=== PATIENT | female | born 1945 | race Caucasian/White ===

== ENCOUNTER 2025-04-20 23:08 | Inpatient (IN) ==
[2025-04-21] MEDS: SODIUM CHLORIDE 0.9% 1,000 ML IV SCH
[2025-04-21 00:13] LABS: Hematocrit (blood only) 30.3 % (37.0-47.0); Hemoglobin 10.3 g/dl (12.0-16.0); Mean Corpuscular Hemoglobin 28.4 pg (25.0-34.0); Mean Corpuscular Volume 83.5 fL (80.0-100.0); Platelet Count 278 K/uL (130-400); RDW Standard Deviation 47.9 fL (36.4-46.3); Red Blood Count 3.63 M/uL (4.20-5.40); White Blood Count 73.50 K/ul (4.8-10.8)
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
[2025-04-21 00:32] LABS: Alanine Aminotransferase 14 U/L (7-52); Albumin Globulin Ratio 1.1 (0.9-2); Alkaline Phosphatase 180 U/L (34-104); Anion Gap 10 (3-11); Bilirubin,Total 0.7 mg/dl (0.2-1.0); Blood Urea Nitrogen 15 mg/dl (6-23); Calcium 8.6 mg/dl (8.6-10.3); Carbon Dioxide 24 mmol/L (21-32); Chloride 81 mmol/L (98-107); Globulin 2.7 gm/dl (2.5-4.0); Glucose 158 mg/dl (70-99(Fasting)); Magnesium 1.1 mg/dl (1.7-2.4); Potassium 3.9 mmol/L (3.5-5.1); Sodium 115 mmol/L (136-145); Total Protein 5.8 gm/dl (6.0-8.3)
[2025-04-21 00:43] LABS: Thyroid Stimulating Hormone 0.830 uIu/ml (0.300-4.500)
--- NOTE | 2025-04-21 00:53 | CT Scan Report ---
EXAM: CT head/brain wo con CLINICAL HISTORY: AMS TECHNIQUE: Multiple axial images are obtained from the skull base to the vertex without contrast. CT scan was performed according to ALARA (as low as reasonable achievable). COMPARISON: 03/06/2022 17:05:24 [employer]. FINDINGS: There is cerebral atrophy. No evidence of space occupying lesion, hemorrhage, edema, mass effect, midline shift, extra axial collection, or hydrocephalus is noted. Basal cisterns are symmetric and normal in size and configuration. There are scattered periventricular hypodensities as can be seen with chronic microvascular ischemic changes. The arellano-white matter differentiation is preserved. Visualized paranasal sinuses and mastoid air cells are well aerated. Orbital contents are within normal limits. Bony structures are intact. IMPRESSION: 1. No evidence of acute intracranial abnormality is demonstrated. 2. Chronic microvascular ischemic changes.-stable. 3. Cerebral atrophy.-stable. No other new interval abnormality since prior study. MRI brain is suggested for better evaluation. Electronically signed by Malvin Massey 04-21-2025 12:52 AM
[2025-04-21 00:59] LABS: Immature Granulocytes # (auto) 5.28 K/uL (0.01-0.20); Immature Granulocytes % (auto) 7.2 %; Polychromasia 1+; Tear Drop Cells 1+
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
[2025-04-21 01:28] LABS: Appearance Urine Clear (Clear); Bacteria Urine Automated 4+ (None Seen); Glucose Urine UA Negative (Negative); RBC Urine Automated 0-2 /hpf (0-2)
[2025-04-21] MEDS: MAGNESIUM SULFATE / D5W 1 GM/100 ML BAG IV ONE (01:35)
--- NOTE | 2025-04-21 01:53 | CT Scan Report ---
EXAM: CT abd pelvis wo con CLINICAL HISTORY: L flank pain TECHNIQUE: Contiguous axial images were obtained from the level of the diaphragm to the pubic symphysis without intravenous or oral contrast. Coronal and sagittal reconstructions were likewise performed and indicated to increase the sensitivity for detecting clinically relevant pathology. CT scan was performed according to ALARA (as low as reasonable achievable). COMPARISON: 10/09/2023 09:49:03 STEAM POWER PLANT OPERATOR FINDINGS: Mild bilateral pleural effusion with basal subsegmental collapse of both lower lobes are seen Mild smooth interlobular septal thickening perilesional ground-glass haziness are noted involving bilateral lower lobes- possibility of congestion. Evaluation of the abdominal and pelvic visceral organs is limited without intravenous contrast. The unenhanced liver, spleen, pancreas, and adrenal glands are grossly unremarkable. The gallbladder is distended and shows dense sludge. The kidneys are normal in size and attenuation without obvious calcification. There is no hydronephrosis . Mild bilateral perinephric stranding. The ureters are normal in caliber. No adenopathy or fluid collections are seen. No evidence of focal or diffuse bowel wall thickening or evidence of bowel obstruction is seen. The appendix is visualized in the right lower quadrant and appears within normal limits. The aorta is normal in caliber. The urinary bladder is normal in contour. Pelvic viscera are grossly unremarkable. No aggressive appearing osseous lesions are identified. Multiple small uncomplicated sigmoid colonic diverticulosis Diffuse atherosclerotic calcification is noted involving aorta iliac arteries. Mild free fluid noted in pelvis. Stable small hiatus hernia. Perinephric fat stranding has increased as compared to the prior study. Renal function test correlation is suggested. Suspicious mild peridiverticular fat stranding is noted at the level of distal descending colon, represent early changes of diverticulitis. Fracture of the left ischiopubic ramus is noted with callus formation. This is a new finding. Fracture of the ilio pubic ramus is also noted with adjacent callus formation. This is a new finding. Rest of the findings are unchanged compared to the prior study. IMPRESSION: 1. Mild bilateral pleural effusion with basal subsegmental collapse of both lower lobes are seen -new finding. 2. Mild smooth interlobular septal thickening perilesional ground-glass haziness are noted involving bilateral lower lobes- possibility of congestion.-new finding. 3. Multiple small uncomplicated sigmoid colonic diverticulosis-stable. Suspicious mild peridiverticular fat stranding is noted at the level of distal descending colon, represent early changes of diverticulitis. 4. Mild bilateral perinephric fat stranding-Perinephric fat stranding has increased as compared to the prior study. Renal function test correlation is suggested.. 5. Mild free fluid noted in pelvis-new finding. 6. Stable small hiatus hernia. 7. Fracture of the left ischiopubic ramus is noted with callus formation. This is a new finding. 8. Fracture of the ilio pubic ramus is also noted with adjacent callus formation. This is a new finding. Electronically signed by Malvin Massey 04-21-2025 01:52 AM
--- NOTE | 2025-04-21 01:57 | Critical Care Consultation ---
Date of Consultation April 21, 2025 Assessment & Plan (1) Acute metabolic encephalopathy: (2) Hyponatremia: (3) Leukocytosis: (4) UTI (urinary tract infection): (5) Acute hypoxic respiratory failure: Plan Reason Critically Ill: 79-year-old female admitted to the ICU for severe hyponatremia and hypoxia. In the ICU for correction and monitoring of labs Past medical history: Breast cancer on chemotherapy, dyslipidemia, diabetes type 2 1. Acute hypoxic respiratory failure, atelectasis 2. Sepsis 3. UTI with perinephric fat stranding, concerning for early ascending infection 4. Hyponatremia, likely hypovolemic based on history 5. Acute metabolic encephalopathy, improving 6. Severe leukocytosis i/s/o sepsis, recent Neupogen, low-grade lymphoma 7. Early diverticulitis 8. Clinical dehydration 2/2 lack of PO intake Neuro - [facility] ICU: Negative RASS GOAL 0 History Tylenol PRN pain/fever Cardiac - -- Bilateral pleural effusions with pulmonary edema BNP 875 Continue ASA, statin Hold antihypertensives overnight, reintroduce as clinically feasible (Med rec to be completed) MAP goal > 65mmHg TTE for completeness Admit EKG without acute ischemic changes, QTc WNL Respiratory - -- Acute hypoxic respiratory failure Likely secondary to HFpEF Continue with O2 supplementation to keep oxygen saturation between 90-92% GI - Diet: Fluid restriction SUP: N/A Bowel regimen: Held for now RENAL/LYTES - -- Hyponatremia hypoosmolar Hypervolumic given the pleural effusion, mild ascitic fluid as well as BNP of 875 Serum osmolality 245, urine osmolality 177 Urine sodium 18 TSH 0.83 ENDO - --ICU hypoglycemia protocol Random cortisol within normal limit HEME - -- Breast cancer received round 3 of her chemotherapy with docetaxel and cyclophosphamide on 04/09 and received Neupogen on 04/10 ID - -- UTI with sepsis History of ESBL back in 2020 Continue with meropenem for the time being Procalcitonin 0.07 Broad spectrum coverage with Zosyn for now to cover ESBL and early diverticulitis, de-escalation based on culture data Follow-up blood cultures LINES/TUBES/DRAINS - PIV x1 L chest port DVT PROPHYLAXIS - Enoxaparin I have personally spent 46 minutes of critical care time in the direct management of this patient. This is a life/limb threatening event. This includes time spent evaluating patient, direct bedside care, chart review, placing orders, interpretation of diagnostic studies, discussion with consultants, patient, and family members, as well as other required patient management activities. This time is exclusive of all separately billable procedures, and teaching time and separate from and in addition to any other critical care service time. Thank you for allowing us to participate in the care of this patient. Please refer to my attending physician's documentation for any further recommendations. Supervising Physician Co-Signing Physician Notes I saw and evaluated the patient with CECILY Mckoy-see, and agree with findings and plan as documented in the note. 79-year-old female admitted to the ICU for severe hyponatremia and hypoxia. In the ICU for correction and monitoring of labs Past medical history: Breast cancer on chemotherapy, dyslipidemia, diabetes type 2 At the time of examination patient was saturating 94% on 3 L nasal cannula, I went down to 2 L. Her MAP was in the 80s. She was awake alert oriented and answering all the questions appropriately. Did complain of mild shortness of breath. No chest pain No nausea or vomiting Is not taking any diuretics at home. Has been afebrile Constitutional: No acute distress HEENT: EOMI, PERRLA Respiratory system: Decreased air entry bilaterally, no wheeze, no rhonchi, positive crackles bilaterally CVS: S1-S2 positive, no murmurs or gallops Abdomen: Soft, nontender, nondistended, positive bowel sounds x4 Extremities: +2 pulses bilaterally radialis/ dorsalis pedis, no cyanosis, +1 edema bilateral lower extremity Neuro: Awake alert oriented x3 Psych: Normal mood and affect G/U: No barnett --Prophylaxis VTE: Heparin GI: None Lines: Left subclavian port, pripheral Diet: Cardiac Plan: In/out: +2.1 L, urine output 200 mL Insert Barnett catheter for strict ins and outs. Potassium and magnesium being replaced Given that the patient had ESBL bacteremia 2020 and the urine is dirty, I will change Zosyn to meropenem till be have the cultures back. 100 mL of 3% hypertonic saline will be given to the port. Repeat BMP every 2 hours. Goal is in the next 24 hours sodium no greater than 121. If the sodium does go higher then we will give free water IV +/- DDAVP. I will consider giving Lasix later today based on the trajectory of sodium Leukocytosis could be from infection as well as recent Neupogen. Will get nephrology involved to get their input. Continue with O2 supplementation to keep oxygen saturation between 90-92% I have personally spent 54 minutes of critical care time in the direct management of this patient. This is a life/limb threatening event. This includes time spent evaluating patient, direct bedside care, chart review, placing orders, interpretation of diagnostic studies, discussion with consultants, patient, and family members, as well as other required patient management activities. This time is exclusive of all separately billable procedures, and teaching time and separate from and in addition to any other critical care service time. Please note the above document was generated using voice recognition software. It may contain grammatical, syntax or spelling errors. History of Present Illness Reason for Consultation: Hyponatremia Requesting Physician: Nikko Attending Physician: Nikko History of Present Illness Ms. Mallorie Sparrow is a 79YOF with a history of invasive ductal carcinoma of the breast currently on chemotherapy (last 2 weeks ago), hematuria, urge incontinence, UTI (ESBL), NIDDMII, HTN who presented to [facility] ED the evening of 04/20/2025 due to 2-3 day history of weakness and confusion. Per report, patient received 3rd round of chemotherapy 1 week ago in addition to her Neupogen shot. On arrival to ED patient was afebrile, mildly hypertensive, non-tachycardic. Requiring 4L NC per chart review. Work-up revealed significant leukocytosis with neutrophil predominance, mild GABRIEL, Na 115 (corrected 116), mildly elevated troponin. Procalcitonin WNL. Mg 1.1. UA does appear infected. CXR not formally read, but on my view there is bibasilar atelectasis without infiltrate, mild congestive changes. CTH negative. CT AP pending. She is receiving 1L NSS due to clinical dehydration and awaiting recheck Na. She was admitted to ICU by Dr. El for hyponatremia and further work-up. Patient seen in ED B05. She is AAOx2. No acute distress. Resting comfortably on 4L NC with SpO2 100%. Daughter at bedside providing additional history. 2 or 3 days ago patient developed nausea and vomiting, 1 episode of diarrhea daily. Very limited appetite and PO intake for 3 days. Unable to elicit whether she's had normal urine output or not, she is incontinent at baseline. Per daughter, Mallorie's confusion is significantly improved since arrival to the hospital. She is now able to tell me where she is, the year, the month, and her birthdate. Denies chest pain, headache, vision changes, shortness of breath, URI symptoms, continued nausea, abdominal pain, edema. Allergies Allergy/AdvReac Type Severity Reaction Status Date / Time alendronate sodium Allergy Severe LEGS SWELL Verified 08/09/24 12:56 iodine Allergy Verified 08/09/24 12:56 oxycodone AdvReac Intermediate GI SYMPTOMS Verified 08/09/24 12:56 Home Medications Medication Instructions Recorded Confirmed Type aspirin 81 mg tablet,delayed 81 mg PO DAILY 06/14/21 04/21/25 History release atorvastatin 20 mg tablet 20 mg PO DAILY 06/14/21 04/21/25 History cholecalciferol (vitamin D3) 25 25 mcg PO DAILY 06/14/21 04/21/25 History mcg (1,000 unit) capsule lisinopril 40 mg tablet 40 mg PO DAILY 06/14/21 04/21/25 History turmeric 100 mg-connor 150 1 cap PO DAILY 06/14/21 08/09/24 History mg-olive 50 mg-oreg 150 mg-capryl capsule amoxicillin 500 mg tablet 2,000 mg PO .PRN/UD PRN Prophylaxis 11/21/21 04/21/25 History zinc 50 mg tablet 50 mg PO DAILY 11/21/21 04/21/25 History metformin 500 mg tablet,extended 1,000 mg PO BID 04/20/25 04/21/25 History release 24 hr tramadol 50 mg tablet 50 mg PO UD 04/20/25 04/21/25 History amlodipine 5 mg tablet 5 mg PO DAILY 04/21/25 04/21/25 History lidocaine-prilocaine 2.5 %-2.5 % See Rx Instructions .Route .COMPLEX 04/21/25 04/21/25 History topical cream metoprolol tartrate 50 mg tablet See Rx Instructions .Route .COMPLEX 04/21/25 04/21/25 History ondansetron 8 mg disintegrating 8 mg translingual Q8 PRN Nausea 04/21/25 04/21/25 History tablet And Vomiting prochlorperazine maleate 10 mg 10 mg PO Q6 PRN N/V 04/21/25 04/21/25 History tablet sitagliptin phosphate 100 mg 100 mg PO DAILY 04/21/25 04/21/25 History tablet (Januvia) Patient History Medical History 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) Keratosis, seborrheic Hypertension Chronic diarrhea Borderline hyperlipidemia Benign essential microscopic hematuria Surgical History 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, 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/12/13 History of cataract surgery Bilateral Family History Mother Breast cancer Myocardial infarction Hypertension Grandmother (Maternal) Diabetes Colon cancer Father Myocardial infarction Hypertension Social History Smoking Status: Unknown if ever smoked Hx Alcohol Use: No Hx Substance Use: No Preferred Language: Mongolian Communication Ability: Effective Hearing Ability: Normal Magnetic Doctor Required: No Beliefs That Will Affect Care: None marital status: Current Living Situation: Spouse current occupational status: retired Other Information That Helps Us Care for You: No Feels Safe at Home: Yes Safety Concerns: Feels Safe At This Time Diet: regular Assistive Devices: Denture - Lower, Glasses and Walker Review of Systems Review of Systems: All systems reviewed & are unremarkable except as noted in Subjective Physical Exam Constitutional: well developed, cooperative, comfortable and + overweight; no acute distress Eyes: PERRL, conjunctivae normal, anicteric sclerae ENMT: external ear and nose normal, oropharynx normal Dry MM Neck: trachea midline, no thyromegaly Respiratory: normal respiratory effort Bibasilar faint crackles, diminished at bases, no other adventitious sounds Cardiovascular: RRR, no murmur, no edema L chest port C/D/I Gastrointestinal (Abdomen): normal bowel sounds, soft, nontender, no hepatosplenomegaly Skin: no rashes, warm and dry Neurologic: PERRL, EOMI, accommodation nl, no face palsy, no dysarthria Results & Data Results & Data Vital Signs (Past 12 Hours) Vital Signs Temp Pulse Pulse Resp BP BP Pulse Ox 04/21/25 00:08 67 30 H 151/59 H 94 04/21/25 00:08 67 04/20/25 23:18 36.4 C L 67 20 144/80 H 92 O2 Del Method O2 Flow Rate 04/21/25 00:08 Nasal Cannula 4 04/21/25 00:08 04/20/25 23:18 Room Air Laboratory Results Reviewed Diagnostic Findings Reviewed Medications Administered See [facility] Coding Level of Care Code 84975 CRITICAL CARE 1ST 30-74M Diagnoses Acute metabolic encephalopathy G93.41 Hyponatremia E87.1 Leukocytosis D72.829 UTI (urinary tract infection) N39.0 Acute hypoxic respiratory failure J96.01 Time Spent (min) 46
[2025-04-21] MEDS: CEFEPIME 2000MG 2,000 MG/20 ML SYR IV STA (02:00)
--- NOTE | 2025-04-21 02:30 | XRay Report ---
EXAM: XR chest 1V portable CLINICAL HISTORY: Weakness. TECHNIQUE: An X-ray image of the chest is obtained in PA projection. COMPARISON: CT dated 03/08/2025. Image of radiograph dated 03/24/2025, not available. FINDINGS: The left central venous catheter is seen with its distal tip in the superior vena cava. Pulmonary Parenchyma: Prominent reticulations bilaterally, with haziness in the lower zones. No evidence of consolidation or collapse. Mild bilateral pleural effusions with compressive atelectasis. Heart and Mediastinum: The heart size appears enlarged. Aortic root calcifications are seen. No hilar or mediastinal lymphadenopathy. Bony Thorax: Degenerative changes in the visualized skeleton. Soft Tissues: Soft tissues overlying the chest wall are unremarkable. Overlying chest leads are seen. IMPRESSION: 1. A left central venous catheter is seen with its distal tip in the lower superior vena cava(unchanged). 2. Mild bilateral pleural effusions with compressive atelectasis(new). 3. Prominent reticulations bilaterally, with haziness in the lower zones(new). 4. Imaging appearances may represent possible infective or inflammatory changes. Clinical/lab correlation and follow-up are suggested. Electronically signed by Zachary Srinivasan 04-21-2025 02:28 AM
[2025-04-21 02:39] LABS: Anion Gap 9 (3-11); Blood Urea Nitrogen 14 mg/dl (6-23); Calcium 8.2 mg/dl (8.6-10.3); Carbon Dioxide 24 mmol/L (21-32); Chloride 82 mmol/L (98-107); Glucose 175 mg/dl (70-99(Fasting)); Potassium 3.9 mmol/L (3.5-5.1); Sodium 115 mmol/L (136-145)
[2025-04-21] MEDS ORDERED: MAGNESIUM SULFATE / D5W 1 GM/100 ML BAG IV SCH (03:15)
[2025-04-21] MEDS ORDERED: CARBOHYDRATES FOR HYPOGLYCEMIA PO PRN (03:33)
[2025-04-21] MEDS ORDERED: DEXTROSE 50% 50 ML SYRINGE IV PRN (03:33)
[2025-04-21] MEDS ORDERED: GLUCOSE 10 TAB/TUBE PO PRN (03:33)
[2025-04-21] MEDS ORDERED: GLUCOSE 40% GEL 15 GM TUBE PO PRN (03:33)
[2025-04-21] MEDS ORDERED: GLUCAGON FOR INJ 1 MG VIAL SQ PRN (03:33)
[2025-04-21] MEDS: SODIUM CHLORIDE 0.9% 1,000 ML IV ONE (03:53)
[2025-04-21] MEDS: MAGNESIUM SULFATE / D5W 1 GM/100 ML BAG IV SCH (03:56)
[2025-04-21] MEDS: 4.5GM X1 IV STA (03:57)
[2025-04-21] MEDS: POTASSIUM CHLORIDE / WTR 10 MEQ/100 ML PLCT IV ONE (03:58)
[2025-04-21 06:24] LABS: Alanine Aminotransferase 9.0 U/L (7-52); Alkaline Phosphatase 121.0 U/L (34-104); Anion Gap 6.0 (3-11); Bilirubin,Total 0.6 mg/dl (0.2-1.0); Blood Urea Nitrogen 12.0 mg/dl (6-23); Calcium 7.5 mg/dl (8.6-10.3); Carbon Dioxide 25.0 mmol/L (21-32); Chloride 85.0 mmol/L (98-107); Creatinine Clr Calc Pharmacy 63.2 ml/min; Glucose 201.0 mg/dl (70-99(Fasting)); Magnesium 1.8 mg/dl (1.7-2.4); Potassium 3.8 mmol/L (3.5-5.1); Sodium 116.0 mmol/L (136-145); Total Protein 4.5 gm/dl (6.0-8.3)
--- NOTE | 2025-04-21 06:39 | Communication Note ---
Date of Service: April 21, 2025 Corrected sodium has increased from 116 to 118. Will hold on 3%. Symptoms improving. Defer to Dr. William for continued management. Coding Level of Care Code None
[2025-04-21 07:21] LABS: Hematocrit (blood only) 24.2 % (37.0-47.0); Hemoglobin 8.5 g/dl (12.0-16.0); Mean Corpuscular Hemoglobin 29.0 pg (25.0-34.0); Mean Corpuscular Volume 82.6 fL (80.0-100.0); Platelet Count 229 K/uL (130-400); RDW Standard Deviation 47.1 fL (36.4-46.3); Red Blood Count 2.93 M/uL (4.20-5.40); White Blood Count 53.15 K/ul (4.8-10.8)
[2025-04-21 07:37] LABS: Immature Granulocytes # (auto) 3.52 K/uL (0.01-0.20); Immature Granulocytes % (auto) 6.6 %; Polychromasia 2+; Smudge Cells Present; Tear Drop Cells 1+; Toxic Granulation 3+
[2025-04-21] MEDS ORDERED: STAT IV/IM STA (07:53)
[2025-04-21 08:00] LABS: Hemoglobin A1C 6.6 % (4.5-5.6)
[2025-04-21] MEDS: SODIUM CHLORIDE 3 % 100 ML IV ONE (08:14)
[2025-04-21] MEDS: INSULIN ASPART PER UNIT CHARGE SC SCH (08:14)
[2025-04-21] MEDS: MEROPENEM 500 MG in SYRINGE 0 ML IV SCH ×3 (08:15→20:57)
[2025-04-21] MEDS: ATORVASTATIN 20 MG TAB PO SCH (08:30)
[2025-04-21] MEDS: METOPROLOL TARTRATE 50 MG TAB PO SCH (08:30)
[2025-04-21] MEDS: HEPARIN SOD 5,000 UNIT/0.5 ML VIAL SQ SCH (08:31)
[2025-04-21 08:41] LABS: Triglycerides 128.0 mg/dl (0-150)
[2025-04-21] MEDS ORDERED: PIPERACILLIN/TAZOBACTAM 4.5 GM/100 ML BAG IV SCH (10:00)
[2025-04-21 11:27] LABS: Anion Gap 6.0 (3-11); Blood Urea Nitrogen 11.0 mg/dl (6-23); Calcium 7.8 mg/dl (8.6-10.3); Carbon Dioxide 24.0 mmol/L (21-32); Chloride 88.0 mmol/L (98-107); Creatinine Clr Calc Pharmacy 61.5 ml/min; Glucose 154.0 mg/dl (70-99(Fasting)); Potassium 3.9 mmol/L (3.5-5.1); Sodium 118.0 mmol/L (136-145)
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
[2025-04-21 13:09] LABS: Anion Gap 7.0 (3-11); Blood Urea Nitrogen 11.0 mg/dl (6-23); Calcium 7.8 mg/dl (8.6-10.3); Carbon Dioxide 25.0 mmol/L (21-32); Chloride 87.0 mmol/L (98-107); Creatinine Clr Calc Pharmacy 63.2 ml/min; Glucose 169.0 mg/dl (70-99(Fasting)); Potassium 4.0 mmol/L (3.5-5.1); Sodium 119.0 mmol/L (136-145)
[2025-04-21 14:56] LABS: Anion Gap 7.0 (3-11); Blood Urea Nitrogen 10.0 mg/dl (6-23); Calcium 7.9 mg/dl (8.6-10.3); Carbon Dioxide 25.0 mmol/L (21-32); Chloride 88.0 mmol/L (98-107); Creatinine Clr Calc Pharmacy 62.3 ml/min; Glucose 135.0 mg/dl (70-99(Fasting)); Potassium 4.1 mmol/L (3.5-5.1); Sodium 120.0 mmol/L (136-145)
--- NOTE | 2025-04-21 16:45 | XCELERA ---
[id number]
--- NOTE | 2025-04-21 16:55 | Communication Note ---
Date of Service: April 21, 2025 seen in f/u from early AM admission - doing well overall, awake/alert/oriented/communicative, feels much better vitals noted nad heent nc at mmm breathing unlabored no accessory muscles good effort skin no rashes no pallor or icterus hyponatremia -improving sepsis - UTI, diverticulitis, both? continue current abx, appears improving demand ischemia/type 2 [place] - from physiologic stress from sepsis chronic diastolic CHF / chronic HFpEF - seems compensated, although obviously follow given decompensation could easily be part of hyponatremia appreciate ICU assistance
[2025-04-21 17:20] LABS: Anion Gap 9.0 (3-11); Blood Urea Nitrogen 10.0 mg/dl (6-23); Calcium 8.1 mg/dl (8.6-10.3); Carbon Dioxide 24.0 mmol/L (21-32); Chloride 88.0 mmol/L (98-107); Creatinine Clr Calc Pharmacy 68.0 ml/min; Glucose 150.0 mg/dl (70-99(Fasting)); Potassium 3.9 mmol/L (3.5-5.1); Sodium 121.0 mmol/L (136-145)
[2025-04-21 19:46] LABS: Anion Gap 7.0 (3-11); Blood Urea Nitrogen 10.0 mg/dl (6-23); Calcium 7.8 mg/dl (8.6-10.3); Carbon Dioxide 25.0 mmol/L (21-32); Chloride 89.0 mmol/L (98-107); Creatinine Clr Calc Pharmacy 65.0 ml/min; Glucose 150.0 mg/dl (70-99(Fasting)); Potassium 4.0 mmol/L (3.5-5.1); Sodium 121.0 mmol/L (136-145)
[2025-04-21] MEDS: METOPROLOL TARTRATE 100 MG TAB PO SCH (20:57)
[2025-04-21] MEDS: CALCIUM GLUCONATE 1,000 MG/60 ML BAG IV SCH (23:31)
[2025-04-22 01:16] LABS: Anion Gap 5.0 (3-11); Blood Urea Nitrogen 8.0 mg/dl (6-23); Calcium 8.2 mg/dl (8.6-10.3); Carbon Dioxide 27.0 mmol/L (21-32); Chloride 92.0 mmol/L (98-107); Creatinine Clr Calc Pharmacy 70.1 ml/min; Glucose 113.0 mg/dl (70-99(Fasting)); Potassium 4.0 mmol/L (3.5-5.1); Sodium 124.0 mmol/L (136-145)
[2025-04-22 04:00] LABS: Hematocrit (blood only) 25.7 % (37.0-47.0); Hemoglobin 8.9 g/dl (12.0-16.0); Mean Corpuscular Hemoglobin 29.3 pg (25.0-34.0); Mean Corpuscular Volume 84.5 fL (80.0-100.0); Platelet Count 223 K/uL (130-400); RDW Standard Deviation 49.1 fL (36.4-46.3); Red Blood Count 3.04 M/uL (4.20-5.40); White Blood Count 35.02 K/ul (4.8-10.8)
[2025-04-22 04:12] LABS: Alanine Aminotransferase 9.0 U/L (7-52); Alkaline Phosphatase 120.0 U/L (34-104); Anion Gap 4.0 (3-11); Bilirubin,Total 0.6 mg/dl (0.2-1.0); Blood Urea Nitrogen 8.0 mg/dl (6-23); Calcium 8.0 mg/dl (8.6-10.3); Carbon Dioxide 28.0 mmol/L (21-32); Chloride 94.0 mmol/L (98-107); Creatinine Clr Calc Pharmacy 68.7 ml/min; Glucose 127.0 mg/dl (70-99(Fasting)); Magnesium 1.8 mg/dl (1.7-2.4); Potassium 3.9 mmol/L (3.5-5.1); Sodium 126.0 mmol/L (136-145); Total Protein 4.6 gm/dl (6.0-8.3)
[2025-04-22 04:52] LABS: Immature Granulocytes # (auto) 1.56 K/uL (0.01-0.20); Immature Granulocytes % (auto) 4.5 %; Polychromasia 1+; Smudge Cells Present; Tear Drop Cells 1+; Toxic Granulation 1+
--- NOTE | 2025-04-22 06:00 | Electrocardiogram Report ---
Test Reason : Blood Pressure : */* mmHG Vent. Rate : 66 BPM Atrial Rate : 66 BPM P-R Int : 136 ms QRS Dur : 112 ms QT Int : 480 ms P-R-T Axes : 64 0 -1 degrees QTcB Int : 503 ms Normal sinus rhythm Minimal voltage criteria for LVH, may be normal variant ( Juvenal product ) T wave abnormality, consider anterior ischemia Prolonged QT Abnormal ECG When compared with ECG of 16-Sep-2013 14:30, T wave inversion now evident in Anterior leads QT has lengthened Confirmed by Alvino Talamantes ([id number]) on 04/22/2025 5:59:50 AM Referred By: REFERRED SELF Confirmed By: Alvino Talamantes
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
[2025-04-22] MEDS: DESMOPRESSIN ACETATE 2 MCG in SODIUM CHLORIDE 0.9% 50 ML IV ONE (06:46)
[2025-04-22 08:28] LABS: Anion Gap 5.0 (3-11); Blood Urea Nitrogen 8.0 mg/dl (6-23); Calcium 8.1 mg/dl (8.6-10.3); Carbon Dioxide 28.0 mmol/L (21-32); Chloride 94.0 mmol/L (98-107); Creatinine Clr Calc Pharmacy 60.1 ml/min; Glucose 152.0 mg/dl (70-99(Fasting)); Potassium 4.1 mmol/L (3.5-5.1); Sodium 127.0 mmol/L (136-145)
--- NOTE | 2025-04-22 08:30 | Nephrology Progress Note ---
Date of Service April 22, 2025 Assessment & Plan (1) Hyponatremia: Plan: * Clinically euvolemic to volume expanded * Hold IV hydration * Labs reviewed at 5:30 am. 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 Sensitivities are pending (3) SIRS (systemic inflammatory response syndrome): Plan: * On meropenem Admission and Anticipated Discharge Date Admission Date: April 21, 2025 Subjective Mrs. Sparrow was evaluated in the ICU this morning. She was sitting in a chair and denies HUTCHISON, visual change or focal neurologic weakness. She reported that her breathing has improved and UO has been brisk Review of Systems Constitutional: no fever Eyes: no problem reported Ear, Nose, Mouth, Throat: no problem reported Respiratory: no cough and no dyspnea Cardiovascular: no chest pain Gastrointestinal: no abdominal pain, no nausea, no vomiting and no diarrhea/loose stools Genitourinary: no dysuria and no hematuria Integumentary: no rash Physical Exam Constitutional: not in distress (breathing comfortably on O2 at 3 L/min NC) Eyes: PERRL, conjunctivae normal, anicteric sclerae ENMT: external ear and nose normal, oropharynx normal Neck: trachea midline, no thyromegaly Respiratory: normal respiratory effort, lungs clear to auscultation Cardiovascular: RRR, no murmur, no edema Gastrointestinal (Abdomen): normal bowel sounds, soft, nontender, no hepatosplenomegaly Musculoskeletal: Extremities: no cyanosis Skin: no rashes, warm and dry Neurologic: awake; no focal motor deficits and not confused Results & Data Vital Signs (Past 12 Hours) Vital Signs Temp Pulse Resp BP BP Pulse Ox O2 Del Method 04/22/25 08:00 Nasal Cannula 04/22/25 08:00 04/22/25 08:00 Nasal Cannula, Ambu-Bag 04/22/25 08:00 57 L 04/22/25 06:09 57 L 29 H 96 04/22/25 05:03 58 L 29 H 95 04/22/25 05:02 94/49 L 04/22/25 05:00 55 L 24 94/49 L 96 04/22/25 04:24 56 L 26 H 96 04/22/25 04:04 123/50 L 04/22/25 03:43 111/49 L 04/22/25 03:36 55 L 26 H 91 04/22/25 03:33 04/22/25 03:06 55 L 24 87/34 L 95 04/22/25 02:57 56 L 23 94 04/22/25 02:06 58 L 20 91/39 L 95 04/22/25 01:57 58 L 29 H 95 04/22/25 01:21 59 L 25 H 94 04/22/25 01:00 88/35 L 04/22/25 00:57 59 L 25 H 95 04/22/25 00:30 60 26 H 95 04/22/25 00:01 99/45 L 04/22/25 00:00 63 04/21/25 23:57 59 L 28 H 92 04/21/25 23:12 52 L 25 H 89/45 L 96 04/21/25 22:55 36.9 C 04/21/25 22:54 53 L 20 90/46 L 97 04/21/25 22:34 91/43 L 04/21/25 22:33 52 L 25 H 98 04/21/25 22:00 55 L 22 91/43 L 98 04/21/25 21:09 63 31 H 93 O2 Del Method O2 Flow Rate O2 Flow Rate 04/22/25 08:00 4 04/22/25 08:00 Nasal Cannula 3 04/22/25 08:00 04/22/25 08:00 04/22/25 06:09 04/22/25 05:03 04/22/25 05:02 04/22/25 05:00 04/22/25 04:24 04/22/25 04:04 04/22/25 03:43 04/22/25 03:36 04/22/25 03:33 Nasal Cannula 3 04/22/25 03:06 04/22/25 02:57 04/22/25 02:06 04/22/25 01:57 04/22/25 01:21 04/22/25 01:00 04/22/25 00:57 04/22/25 00:30 04/22/25 00:01 04/22/25 00:00 04/21/25 23:57 04/21/25 23:12 04/21/25 22:55 04/21/25 22:54 04/21/25 22:34 04/21/25 22:33 04/21/25 22:00 04/21/25 21:09 Laboratory Results Laboratory Results - last 24 hr 04/21/25 04/21/25 04/21/25 05:29 10:23 11:19 WBC RBC Hgb Hct MCV MCH MCHC RDW Std Deviation RDW Coeff of Jessica Plt Count MPV Immature Gran % (Auto) Neut % (Auto) Lymph % (Auto) Zavala % (Auto) Eos % (Auto) Baso % (Auto) Neut # (Auto) Lymph # (Auto) Zavala # (Auto) Eos # (Auto) Baso # (Auto) Immature Gran # (Auto) Smudge Cells Toxic Granulation Polychromasia Tear Drop Cells Sodium 118 L* Potassium 3.9 Chloride 88 L Carbon Dioxide 24 Anion Gap 6 BUN 11 Creatinine 0.73 Est Cr Clr Drug Dosing 61.5 eGFR 83.60 BUN/Creatinine Ratio 15.1 Glucose 154 H POC Glucose 184 H Lactate Calcium 7.8 L Ionized Calcium Phosphorus Magnesium Total Bilirubin Direct Bilirubin AST ALT Alkaline Phosphatase Total Protein Albumin Triglycerides 128 Urine Osmolality 04/21/25 04/21/25 04/21/25 12:29 14:29 16:13 WBC RBC Hgb Hct MCV MCH MCHC RDW Std Deviation RDW Coeff of Jessica Plt Count MPV Immature Gran % (Auto) Neut % (Auto) Lymph % (Auto) Zavala % (Auto) Eos % (Auto) Baso % (Auto) Neut # (Auto) Lymph # (Auto) Zavala # (Auto) Eos # (Auto) Baso # (Auto) Immature Gran # (Auto) Smudge Cells Toxic Granulation Polychromasia Tear Drop Cells Sodium 119 L* 120 L Potassium 4.0 4.1 Chloride 87 L 88 L Carbon Dioxide 25 25 Anion Gap 7 7 BUN 11 10 Creatinine 0.71 0.72 Est Cr Clr Drug Dosing 63.2 62.3 eGFR 86.44 85.00 BUN/Creatinine Ratio 15.5 13.9 Glucose 169 H 135 H POC Glucose 163 H Lactate Calcium 7.8 L 7.9 L Ionized Calcium Phosphorus Magnesium Total Bilirubin Direct Bilirubin AST ALT Alkaline Phosphatase Total Protein Albumin Triglycerides Urine Osmolality 04/21/25 04/21/25 04/21/25 16:42 18:30 20:10 WBC RBC Hgb Hct MCV MCH MCHC RDW Std Deviation RDW Coeff of Jessica Plt Count MPV Immature Gran % (Auto) Neut % (Auto) Lymph % (Auto) Zavala % (Auto) Eos % (Auto) Baso % (Auto) Neut # (Auto) Lymph # (Auto) Zavala # (Auto) Eos # (Auto) Baso # (Auto) Immature Gran # (Auto) Smudge Cells Toxic Granulation Polychromasia Tear Drop Cells Sodium 121 L 121 L Potassium 3.9 4.0 Chloride 88 L 89 L Carbon Dioxide 24 25 Anion Gap 9 7 BUN 10 10 Creatinine 0.66 0.69 Est Cr Clr Drug Dosing 68.0 65.0 eGFR 89.18 88.23 BUN/Creatinine Ratio 15.2 14.5 Glucose 150 H 150 H POC Glucose 142 H Lactate Calcium 8.1 L 7.8 L Ionized Calcium Phosphorus Magnesium Total Bilirubin Direct Bilirubin AST ALT Alkaline Phosphatase Total Protein Albumin Triglycerides Urine Osmolality 04/22/25 04/22/25 04/22/25 00:33 03:36 07:13 WBC 35.02 H* RBC 3.04 L Hgb 8.9 L Hct 25.7 L MCV 84.5 MCH 29.3 MCHC 34.6 RDW Std Deviation 49.1 H RDW Coeff of Jessica 16.8 H Plt Count 223 MPV 9.7 Immature Gran % (Auto) 4.5 Neut % (Auto) 72.7 Lymph % (Auto) 19.5 Zavala % (Auto) 3.0 Eos % (Auto) 0.0 Baso % (Auto) 0.3 Neut # (Auto) 25.47 H Lymph # (Auto) 6.84 H Zavala # (Auto) 1.05 H Eos # (Auto) 0.01 Baso # (Auto) 0.09 Immature Gran # (Auto) 1.56 H Smudge Cells Present Toxic Granulation 1+ Polychromasia 1+ Tear Drop Cells 1+ Sodium 124 L 126 L Potassium 4.0 3.9 Chloride 92 L 94 L Carbon Dioxide 27 28 Anion Gap 5 4 BUN 8 8 Creatinine 0.64 0.63 Est Cr Clr Drug Dosing 70.1 68.7 eGFR 89.84 90.18 BUN/Creatinine Ratio 12.5 12.7 Glucose 113 H 127 H POC Glucose 135 H Lactate 0.8 Calcium 8.2 L 8.0 L Ionized Calcium 1.19 Phosphorus 3.5 Magnesium 1.8 Total Bilirubin 0.6 Direct Bilirubin 0.2 AST 12 L ALT 9 Alkaline Phosphatase 120 H Total Protein 4.6 L Albumin 2.7 L Triglycerides Urine Osmolality 04/22/25 04/22/25 08:00 Unknown WBC RBC Hgb Hct MCV MCH MCHC RDW Std Deviation RDW Coeff of Jessica Plt Count MPV Immature Gran % (Auto) Neut % (Auto) Lymph % (Auto) Zavala % (Auto) Eos % (Auto) Baso % (Auto) Neut # (Auto) Lymph # (Auto) Zavala # (Auto) Eos # (Auto) Baso # (Auto) Immature Gran # (Auto) Smudge Cells Toxic Granulation Polychromasia Tear Drop Cells Sodium 127 L Potassium 4.1 Chloride 94 L Carbon Dioxide 28 Anion Gap 5 BUN 8 Creatinine 0.72 Est Cr Clr Drug Dosing 60.1 eGFR 85.00 BUN/Creatinine Ratio 11.1 Glucose 152 H POC Glucose Lactate Calcium 8.1 L Ionized Calcium Phosphorus Magnesium Total Bilirubin Direct Bilirubin AST ALT Alkaline Phosphatase Total Protein Albumin Triglycerides Urine Osmolality 188 L PG Care Time/CCT Total # of Minutes Spent Total Time Spent with Patient: Total time spent is greater than 50% in coordination of care (as documented) at patient's floor/unit and/or counseling patient: Coding Level of Care Code 28448 SUB INP/OBS CARE 3/50MIN Diagnoses Hyponatremia E87.1 UTI (urinary tract infection) N39.0 SIRS (systemic inflammatory response syndrome) R65.10
--- NOTE | 2025-04-22 08:44 | Critical Care Progress Note ---
Date of Service April 22, 2025 Assessment & Plan (1) Acute metabolic encephalopathy: (2) Hyponatremia: (3) Leukocytosis: (4) UTI (urinary tract infection): (5) Acute hypoxic respiratory failure: Plan Reason Critically Ill: 79-year-old female admitted to the ICU for severe hyponatremia and hypoxia. In the ICU for correction and monitoring of labs Past medical history: Breast cancer on chemotherapy, dyslipidemia, diabetes type 2 1. Acute hypoxic respiratory failure, atelectasis 2. Sepsis 3. UTI with perinephric fat stranding, concerning for early ascending infection 4. Hyponatremia, likely hypovolemic based on history 5. Acute metabolic encephalopathy, improving 6. Severe leukocytosis i/s/o sepsis, recent Neupogen, low-grade lymphoma 7. Early diverticulitis 8. Clinical dehydration 2/2 lack of PO intake Neuro - CAM ICU: Negative RASS GOAL 0 History Tylenol PRN pain/fever Cardiac - -- Bilateral pleural effusions with pulmonary edema BNP 875 Continue ASA, statin Hold antihypertensives overnight, reintroduce as clinically feasible (Med rec to be completed) MAP goal > 65mmHg TTE for completeness Admit EKG without acute ischemic changes, QTc WNL Respiratory - -- Acute hypoxic respiratory failure Likely secondary to HFpEF Continue with O2 supplementation to keep oxygen saturation between 90-92% GI - Diet: Fluid restriction SUP: N/A Bowel regimen: Held for now RENAL/LYTES - -- Hyponatremia hypoosmolar Hypervolumic given the pleural effusion, mild ascitic fluid as well as BNP of 875 Serum osmolality 245, urine osmolality 177 Urine sodium 18 TSH 0.83 ENDO - --ICU hypoglycemia protocol Random cortisol within normal limit HEME - -- Breast cancer received round 3 of her chemotherapy with docetaxel and cyclophosphamide on 04/09 and received Neupogen on 04/10 ID - -- UTI with sepsis History of ESBL back in 2020 --> urine culture growing Klebsiella, meropenem changed to cefepime on 04/22/2025 Procalcitonin 0.07 Broad spectrum coverage with Zosyn for now to cover ESBL and early diverticulitis, de-escalation based on culture data Follow-up blood cultures --Prophylaxis VTE: Heparin GI: None Lines: Left subclavian port, pripheral Diet: Cardiac Plan: In/out: -2.5 L, urine output 3921 Magnesium being replaced Given the urine is going Klebsiella, changed meropenem to cefepime There has been slight overcorrection of sodium. Goal was 123 in 24 hours where the patient is 127. She did receive 2 mcg of DDAVP. I will give her 250 mL of D5 water. She is also supposed to get magnesium which is also on D5 water. Will see what the trajectory of the sodium is. If it is not 123 then we will give another DDAVP 2 mcg. Case discussed with nephrology Leukocytosis could be from infection as well as recent Neupogen. I have personally spent 36 minutes of critical care time in the direct management of this patient. This is a life/limb threatening event. This includes time spent evaluating patient, direct bedside care, chart review, placing orders, interpretation of diagnostic studies, discussion with consultants, patient, and family members, as well as other required patient management activities. This time is exclusive of all separately billable procedures, and teaching time and separate from and in addition to any other critical care service time. Please note the above document was generated using voice recognition software. It may contain grammatical, syntax or spelling errors. Admission and Anticipated Discharge Date Admission Date: April 21, 2025 Subjective Patient seen and examined at bedside. No acute distress, no adverse events overnight Her systolic blood pressure was in the 120s, saturation was 97% on 2 L, I went down to half liter She says she is feeling much better. Was even asking if she could go home in the near future Denied any nausea or vomiting No abdominal pain Fair appetite Has been diuresing well Review of Systems 2 Review of Systems: All systems reviewed & are unremarkable except as noted in Subjective Physical Exam 2 Physical Exam: Constitutional: No acute distress HEENT: EOMI, PERRLA Respiratory system: Decreased air entry bilaterally, no wheeze, no rhonchi, p ositive crackles bilaterally, left> right CVS: S1-S2 positive, positive 2 out of 6 systolic murmur appreciated best at aorta Abdomen: Soft, nontender, nondistended, positive bowel sounds x4 Extremities: +2 pulses bilaterally radialis/ dorsalis pedis, no cyanosis, +1 edema bilateral lower extremity Neuro: Awake alert oriented x3 Psych: Normal mood and affect G/U: Positive Brown Skin: no rashes, warm and dry Lymphatic: no cervical or axillary lymphadenopathy Results & Data Results & Data Vital Signs (Past 12 Hours) Vital Signs Temp Pulse Resp BP BP Pulse Ox O2 Del Method 04/22/25 08:00 Nasal Cannula 04/22/25 08:00 04/22/25 08:00 Nasal Cannula, Ambu-Bag 04/22/25 08:00 57 L 04/22/25 06:09 57 L 29 H 96 04/22/25 05:03 58 L 29 H 95 04/22/25 05:02 94/49 L 04/22/25 05:00 55 L 24 94/49 L 96 04/22/25 04:24 56 L 26 H 96 04/22/25 04:04 123/50 L 04/22/25 03:43 111/49 L 04/22/25 03:36 55 L 26 H 91 04/22/25 03:33 04/22/25 03:06 55 L 24 87/34 L 95 04/22/25 02:57 56 L 23 94 04/22/25 02:06 58 L 20 91/39 L 95 04/22/25 01:57 58 L 29 H 95 04/22/25 01:21 59 L 25 H 94 04/22/25 01:00 88/35 L 04/22/25 00:57 59 L 25 H 95 04/22/25 00:30 60 26 H 95 04/22/25 00:01 99/45 L 04/22/25 00:00 63 04/21/25 23:57 59 L 28 H 92 04/21/25 23:12 52 L 25 H 89/45 L 96 04/21/25 22:55 36.9 C 04/21/25 22:54 53 L 20 90/46 L 97 04/21/25 22:34 91/43 L 04/21/25 22:33 52 L 25 H 98 04/21/25 22:00 55 L 22 91/43 L 98 04/21/25 21:09 63 31 H 93 O2 Del Method O2 Flow Rate O2 Flow Rate 04/22/25 08:00 4 04/22/25 08:00 Nasal Cannula 3 04/22/25 08:00 04/22/25 08:00 04/22/25 06:09 04/22/25 05:03 04/22/25 05:02 04/22/25 05:00 04/22/25 04:24 04/22/25 04:04 04/22/25 03:43 04/22/25 03:36 04/22/25 03:33 Nasal Cannula 3 04/22/25 03:06 04/22/25 02:57 04/22/25 02:06 04/22/25 01:57 04/22/25 01:21 04/22/25 01:00 04/22/25 00:57 04/22/25 00:30 04/22/25 00:01 04/22/25 00:00 04/21/25 23:57 04/21/25 23:12 04/21/25 22:55 04/21/25 22:54 04/21/25 22:34 04/21/25 22:33 04/21/25 22:00 04/21/25 21:09 Laboratory Results 04/22/25 03:36 04/22/25 08:00 Coding Level of Care Code 89511 CRITICAL CARE 1ST 30-74M Diagnoses Acute metabolic encephalopathy G93.41 Hyponatremia E87.1 Leukocytosis D72.829 UTI (urinary tract infection) N39.0 Acute hypoxic respiratory failure J96.01
[2025-04-22 09:30] LABS: Magnesium 1.7 mg/dl (1.7-2.4)
[2025-04-22] MEDS: DEXTROSE 5% 250 ML IV SCH (09:31)
[2025-04-22] MEDS: MAGNESIUM SULFATE / D5W 1 GM/100 ML BAG IV SCH (11:50)
[2025-04-22 13:04] LABS: Anion Gap 7.0 (3-11); Blood Urea Nitrogen 11.0 mg/dl (6-23); Calcium 8.1 mg/dl (8.6-10.3); Carbon Dioxide 27.0 mmol/L (21-32); Chloride 91.0 mmol/L (98-107); Creatinine Clr Calc Pharmacy 56.2 ml/min; Glucose 213.0 mg/dl (70-99(Fasting)); Potassium 4.0 mmol/L (3.5-5.1); Sodium 125.0 mmol/L (136-145)
[2025-04-22] MEDS: DESMOPRESSIN ACETATE 2 MCG in SODIUM CHLORIDE 0.9% 50 ML IV STA (14:16)
[2025-04-22] MEDS: CEFEPIME 2000MG 2,000 MG/20 ML SYR IV SCH (14:18)
--- NOTE | 2025-04-22 16:06 | Billing Data ---
Date of Service April 22, 2025 Coding Level of Care Code 00169 SUB INP/OBS CARE
[2025-04-22] MEDS: DEXTROSE 5% 1,000 ML IV SCH (17:45)
[2025-04-22] MEDS: METOPROLOL TARTRATE 50 MG TAB PO SCH (20:22)
[2025-04-23 00:51] LABS: Anion Gap 5.0 (3-11); Calcium 7.7 mg/dl (8.6-10.3); Carbon Dioxide 27.0 mmol/L (21-32); Chloride 93.0 mmol/L (98-107); Potassium 4.2 mmol/L (3.5-5.1); Sodium 125.0 mmol/L (136-145)
[2025-04-23 00:57] LABS: Blood Urea Nitrogen 10.0 mg/dl (6-23); Creatinine Clr Calc Pharmacy 66.6 ml/min; Glucose 126.0 mg/dl (70-99(Fasting))
[2025-04-23 04:27] LABS: Hematocrit (blood only) 26.2 % (37.0-47.0); Hemoglobin 8.9 g/dl (12.0-16.0); Mean Corpuscular Hemoglobin 29.1 pg (25.0-34.0); Mean Corpuscular Volume 85.6 fL (80.0-100.0); Platelet Count 228 K/uL (130-400); RDW Standard Deviation 51.8 fL (36.4-46.3); Red Blood Count 3.06 M/uL (4.20-5.40); White Blood Count 28.78 K/ul (4.8-10.8)
[2025-04-23 04:43] LABS: Bilirubin,Total 0.8 mg/dl (0.2-1.0); Magnesium 1.8 mg/dl (1.7-2.4)
[2025-04-23 04:46] LABS: Anion Gap 5.0 (3-11); Calcium 7.8 mg/dl (8.6-10.3); Carbon Dioxide 27.0 mmol/L (21-32); Chloride 93.0 mmol/L (98-107); Potassium 4.2 mmol/L (3.5-5.1); Sodium 125.0 mmol/L (136-145)
[2025-04-23 04:49] LABS: Alanine Aminotransferase 8.0 U/L (7-52); Alkaline Phosphatase 114.0 U/L (34-104); Total Protein 4.6 gm/dl (6.0-8.3)
[2025-04-23 04:52] LABS: Blood Urea Nitrogen 10.0 mg/dl (6-23); Creatinine Clr Calc Pharmacy 67.6 ml/min; Glucose 131.0 mg/dl (70-99(Fasting))
[2025-04-23 05:21] LABS: Immature Granulocytes # (auto) 0.79 K/uL (0.01-0.20); Immature Granulocytes % (auto) 2.7 %; Polychromasia 1+; Tear Drop Cells 1+; Toxic Granulation 1+
[2025-04-23] MEDS: MAGNESIUM SULFATE / D5W 1 GM/100 ML BAG IV SCH (06:14)
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
--- NOTE | 2025-04-23 08:16 | Critical Care Progress Note ---
Date of Service April 23, 2025 Assessment & Plan (1) Acute metabolic encephalopathy: (2) Hyponatremia: (3) Leukocytosis: (4) UTI (urinary tract infection): (5) Acute hypoxic respiratory failure: Plan Reason Critically Ill: 79-year-old female admitted to the ICU for severe hyponatremia and hypoxia. In the ICU for correction and monitoring of labs Past medical history: Breast cancer on chemotherapy, dyslipidemia, diabetes type 2 1. Acute hypoxic respiratory failure, atelectasis 2. Sepsis 3. UTI with perinephric fat stranding, concerning for early ascending infection 4. Hyponatremia, likely hypovolemic based on history 5. Acute metabolic encephalopathy, improving 6. Severe leukocytosis i/s/o sepsis, recent Neupogen, low-grade lymphoma 7. Early diverticulitis 8. Clinical dehydration 2/2 lack of PO intake Neuro - [facility] ICU: Negative RASS GOAL 0 History Tylenol PRN pain/fever Cardiac - -- Bilateral pleural effusions with pulmonary edema BNP 875 Continue ASA, statin Hold antihypertensives overnight, reintroduce as clinically feasible (Med rec to be completed) MAP goal > 65mmHg TTE for completeness Admit EKG without acute ischemic changes, QTc WNL Respiratory - -- Acute hypoxic respiratory failure Likely secondary to HFpEF Continue with O2 supplementation to keep oxygen saturation between 90-92% GI - Diet: Fluid restriction SUP: N/A Bowel regimen: Held for now RENAL/LYTES - -- Hyponatremia hypoosmolar Hypervolumic given the pleural effusion, mild ascitic fluid as well as BNP of 875 Serum osmolality 245, urine osmolality 177 Urine sodium 18 TSH 0.83 ENDO - --ICU hypoglycemia protocol Random cortisol within normal limit HEME - -- Breast cancer received round 3 of her chemotherapy with docetaxel and cyclophosphamide on 04/09 and received Neupogen on 04/10 ID - -- UTI with sepsis History of ESBL back in 2020 --> urine culture growing Klebsiella pansensitive except for ampicillin, meropenem changed to cefepime on 04/22/2025 Procalcitonin 0.07 Broad spectrum coverage with Zosyn for now to cover ESBL and early diverticulitis, de-escalation based on culture data Follow-up blood cultures --Prophylaxis VTE: Heparin GI: None Lines: Left subclavian port, pripheral Diet: Cardiac Plan: In/out: +942, urine output 1056 Pansensitive Klebsiella except for ampicillin, continue with cefepime for total of 7 days Magnesium being replaced Sodium 125 today which is reasonable. Low sodium in the next 24 hours will be around 130-132 Will repeat BMP later today, if the patient is stable hovering around 125 then 40 mg of Lasix will be given to the patient Hemodynamically stable to be downgraded to medical floor Case discussed with primary team I spent more than 50 minutes looking in the chart, images, discussing the plan of care with the patient, RN as well as primary team Please note the above document was generated using voice recognition software. It may contain grammatical, syntax or spelling errors.Any formal questions or concerns about the content, text or information contained within the body of this dictation should be directly addressed to the provider for clarification. Admission and Anticipated Discharge Date Admission Date: April 21, 2025 Subjective Patient seen and examined at bedside. No acute distress, notable symptoms overnight She was saturating 87% on 2 L, I went up to 3 L She was again asking if she could go home Denies any chest pain, no abdominal pain No nausea or vomiting Denies any headache Appetite is fair Review of Systems 2 Review of Systems: All systems reviewed & are unremarkable except as noted in Subjective Physical Exam 2 Physical Exam: Constitutional: No acute distress HEENT: EOMI, PERRLA Respiratory system: Decreased air entry bilaterally, no wheeze, no rhonchi, p ositive crackles bilaterally, left> right CVS: S1-S2 positive, positive 2 out of 6 systolic murmur appreciated best at aorta Abdomen: Soft, nontender, nondistended, positive bowel sounds x4 Extremities: +2 pulses bilaterally radialis/ dorsalis pedis, no cyanosis, minimal edema lower extremity Neuro: Awake alert oriented x3 Psych: Normal mood and affect G/U: Positive Brown Skin: no rashes, warm and dry Lymphatic: no cervical or axillary lymphadenopathy Results & Data Results & Data Vital Signs (Past 12 Hours) Vital Signs Temp Pulse Resp BP Pulse Ox O2 Del Method O2 Flow Rate 04/23/25 06:00 123/61 04/23/25 06:00 61 26 H 95 Nasal Cannula 3 04/23/25 05:21 60 22 92 Nasal Cannula 3 04/23/25 05:00 119/58 L 04/23/25 04:57 63 17 93 04/23/25 04:09 37.3 C 66 27 H 91 Nasal Cannula 3 04/23/25 03:00 101/51 L 04/23/25 02:59 60 30 H 91 04/23/25 01:00 59 L 26 H 92 Nasal Cannula 3 04/23/25 01:00 112/50 L 04/23/25 01:00 37.6 C H 112/50 L 04/23/25 00:21 58 L 36 H 93 04/23/25 00:00 37.6 C H 101/49 L 04/23/25 00:00 58 L 04/22/25 23:36 59 L 36 H 88 L 04/22/25 23:03 57 L 30 H 93 04/22/25 23:00 105/52 L 04/22/25 23:00 105/52 L 04/22/25 23:00 105/52 L 04/22/25 22:57 57 L 30 H 95 04/22/25 22:00 59 L 27 H 93 Nasal Cannula 3 04/22/25 22:00 106/52 L 04/22/25 21:01 125/93 04/22/25 21:00 65 19 93 04/22/25 20:18 74 28 H 88 L Laboratory Results 04/23/25 04:01 04/23/25 04:01 Coding Level of Care Code 98466 SUB INP/OBS CARE 3/50MIN Diagnoses Acute metabolic encephalopathy G93.41 Hyponatremia E87.1 Leukocytosis D72.829 UTI (urinary tract infection) N39.0 Acute hypoxic respiratory failure J96.01
[2025-04-23 11:08] LABS: Anion Gap 6.0 (3-11); Blood Urea Nitrogen 12.0 mg/dl (6-23); Calcium 8.0 mg/dl (8.6-10.3); Carbon Dioxide 25.0 mmol/L (21-32); Chloride 91.0 mmol/L (98-107); Creatinine Clr Calc Pharmacy 65.9 ml/min; Glucose 196.0 mg/dl (70-99(Fasting)); Magnesium 2.6 mg/dl (1.7-2.4); Potassium 4.1 mmol/L (3.5-5.1); Sodium 122.0 mmol/L (136-145)
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
[2025-04-23] MEDS: FUROSEMIDE 40 MG/4 ML VIAL IV ONE (12:01)
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
--- NOTE | 2025-04-23 17:28 | Billing Data ---
Date of Service April 23, 2025 Coding Level of Care Code 44343 SUB INP/OBS CARE MIN
[2025-04-23] MEDS: UREA (UREA-NA) 15 GM PACK PO ONE (17:40)
[2025-04-23] MEDS: HEPARIN 100 UNIT/ML 5ML FLUSH FLUSH PRN (17:43)
[2025-04-23] MEDS ORDERED: SODIUM CHLORIDE 3 % 100 ML IV ONE (17:45)
[2025-04-23] MEDS ORDERED: [UNRECOGNIZED DRUG - REMARK] ONE (18:00)
[2025-04-23 18:48] LABS: Anion Gap 8.0 (3-11); Blood Urea Nitrogen 13.0 mg/dl (6-23); Calcium 8.0 mg/dl (8.6-10.3); Carbon Dioxide 27.0 mmol/L (21-32); Chloride 88.0 mmol/L (98-107); Creatinine Clr Calc Pharmacy 64.0 ml/min; Glucose 183.0 mg/dl (70-99(Fasting)); Potassium 4.2 mmol/L (3.5-5.1); Sodium 123.0 mmol/L (136-145)
[2025-04-23] MEDS: SODIUM CHLORIDE 3 % 100mL BOLUS (from 3% 500mL bag) IV ONE (19:24)
[2025-04-23] MEDS: STOP ORDER ONE (19:42)
[2025-04-23] MEDS: SODIUM CHLORIDE 1 GM TABLET PO SCH (20:14)
[2025-04-23] MEDS: cefTRIAXone SODIUM 1,000 MG/50 ML BAG IV SCH (20:22)
[2025-04-23 23:31] LABS: Anion Gap 5.0 (3-11); Blood Urea Nitrogen 24.0 mg/dl (6-23); Calcium 7.1 mg/dl (8.6-10.3); Carbon Dioxide 26.0 mmol/L (21-32); Chloride 96.0 mmol/L (98-107); Creatinine Clr Calc Pharmacy 83.7 ml/min; Glucose 116.0 mg/dl (70-99(Fasting)); Potassium 3.5 mmol/L (3.5-5.1); Sodium 127.0 mmol/L (136-145)
[2025-04-24 07:55] LABS: Hematocrit (blood only) 27.1 % (37.0-47.0); Hemoglobin 8.9 g/dl (12.0-16.0); Mean Corpuscular Hemoglobin 28.6 pg (25.0-34.0); Mean Corpuscular Volume 87.1 fL (80.0-100.0); Platelet Count 236 K/uL (130-400); RDW Standard Deviation 53.3 fL (36.4-46.3); Red Blood Count 3.11 M/uL (4.20-5.40); White Blood Count 25.09 K/ul (4.8-10.8)
[2025-04-24 08:09] LABS: Anion Gap 5.0 (3-11); Blood Urea Nitrogen 20.0 mg/dl (6-23); Calcium 7.8 mg/dl (8.6-10.3); Carbon Dioxide 29.0 mmol/L (21-32); Chloride 93.0 mmol/L (98-107); Creatinine Clr Calc Pharmacy 77.5 ml/min; Glucose 131.0 mg/dl (70-99(Fasting)); Magnesium 1.5 mg/dl (1.7-2.4); Potassium 3.9 mmol/L (3.5-5.1); Sodium 127.0 mmol/L (136-145)
[2025-04-24] MEDS: ACETAMINOPHEN 325 MG TAB PO PRN (08:23)
[2025-04-24 08:41] LABS: Immature Granulocytes # (auto) 0.42 K/uL (0.01-0.20); Immature Granulocytes % (auto) 1.7 %; Polychromasia 1+; Tear Drop Cells 1+
--- NOTE | 2025-04-24 10:37 | Hospitalist Progress Note ---
Date of Service April 24, 2025 Assessment & Plan (1) Pelvic fracture: Plan: Seen by [facility] orthopedics and recommended conservative management. -pain control - Walker for gait assistance - PT/OT consult placed - recommending home with HH (2) Acute metabolic encephalopathy: Plan: -resolved (3) UTI (urinary tract infection): Plan: klebsiella ceftriaxone given sensitivities (4) Hyponatremia: Plan: Na+ improved to 127 (5) Leukocytosis: (6) Hypoxia: Plan: - Remains on 4LNC - Continue to hold diuretics - Echo: EF 55-60%, mod. pulm HTN - will get 2 step home 02 Plan lives at home w - right now goal would be to get back home at discharge - d/w pt needs to stay active in hospital so that she doesn't get weak enough to require rehab. Admission and Anticipated Discharge Date Admission Date: April 21, 2025 Subjective Pt complaining of left leg pain, requesting pain medicaitons Review of Systems Review of Systems: CONST: Negative for fever, body aches and chills. HENT: Negative for neck pain/stiffness, headache, congestion, sore throat, swelling. EYES: Negative for discharge/pain or vision changes. RESP: Negative for cough/hemoptysis and shortness of breath. CV: Negative chest pain, difficulty breathing, palpitations. ABD: Negative pain, nausea, vomiting. : Negative increase frequency, dysuria, blood in urine or stool. MUSC: Negative for muscle aches, edema. SKIN: Negative rash, lesions/sores. NEURO: Negative headache, dizziness, weakness. Physical Exam Physical Exam: GENERAL APPEARANCE NAD, activity normal for age, well developed/ well nourished, no cyanosis, pallor, or diaphoresis. EYES lids/conjunctiva normal. EARS/NOSE/THROAT Mucous membranes moist, nares normal, lips/teeth normal uvula midline without oral pharyngeal erythema, exudate or swelling TMs normal bilaterally. No lymphangitis/lymphedema. HEAD/NECK normocephalic atraumatic, no facial trauma, neck is supple. RESPIRATORY respiratory effort normal, speaks in full sentences, no tripod position, no accessory muscle use. Lungs clear to auscultation without rhonchi, wheezes, rales CARDIAC Regular rate and rhythm, no edema. ABDOMINAL Soft, ND/NT. No evidence of fluid wave. No pulsatile masses on exam, rebound tenderness, Sim sign or pain over Mcburney's point. MUSCLES/EXTREMITIES No abnormal range of motion, no swelling. SKIN Warm, pink and dry. No rashes, dermatoses, petechiae or lesions. NEUROLOGICAL Speech is clear and appropriate. Normal level of consciousness. Gait and coordination are normal. 5/5 strength in all extremities. PSYCH Normal mood and affect. Judgement/competence is appropriate Results & Data Results & Data Vital Signs (Past 12 Hours) Vital Signs Temp Pulse Resp BP Pulse Ox O2 Del Method O2 Flow Rate 04/24/25 06:55 37.1 C 75 18 117/63 90 Nasal Cannula 3 04/24/25 01:09 Nasal Cannula 4 PG Care Time/CCT Total # of Minutes Spent Total Time Spent with Patient: Total time spent is greater than 50% in coordination of care (as documented) at patient's floor/unit and/or counseling patient: Coding Level of Care Code 28287 SUB INP/OBS CARE 2/35MIN Diagnoses Pelvic fracture S32.9XXA Acute metabolic encephalopathy G93.41 UTI (urinary tract infection) N39.0 Hyponatremia E87.1 Leukocytosis D72.829 Hypoxia R09.02
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
[2025-04-24 12:26] LABS: Anion Gap 5.0 (3-11); Blood Urea Nitrogen 22.0 mg/dl (6-23); Calcium 8.2 mg/dl (8.6-10.3); Carbon Dioxide 28.0 mmol/L (21-32); Chloride 93.0 mmol/L (98-107); Creatinine Clr Calc Pharmacy 57.4 ml/min; Glucose 184.0 mg/dl (70-99(Fasting)); Potassium 3.8 mmol/L (3.5-5.1); Sodium 126.0 mmol/L (136-145)
--- NOTE | 2025-04-24 23:39 | XRay Report ---
Exam(s): XR CXR 1 VIEW EXAM: XR Chest, 1 View CLINICAL HISTORY: Reason for exam: increasing O2 requirements. TECHNIQUE: Frontal view of the chest. COMPARISON: 04/21/2025 FINDINGS: Lungs: Reticular interstitial and airspace opacities in the lungs bilaterally appears slightly progressed. Pleural space: No pleural effusion. No pneumothorax. Heart: Unremarkable. No cardiomegaly. Tubes, lines and devices: Port-A-Cath in place. IMPRESSION: Reticular interstitial and airspace opacities in the lungs bilaterally appears slightly progressed. Electronically signed by: Bean Tipton MD 04/24/25 23:38 PM
[2025-04-25 06:47] LABS: Hematocrit (blood only) 27.4 % (37.0-47.0); Hemoglobin 8.9 g/dl (12.0-16.0); Immature Granulocytes # (auto) 0.22 K/uL (0.01-0.20); Immature Granulocytes % (auto) 1.3 %; Mean Corpuscular Hemoglobin 28.6 pg (25.0-34.0); Mean Corpuscular Volume 88.1 fL (80.0-100.0); Platelet Count 254 K/uL (130-400); RDW Standard Deviation 54.1 fL (36.4-46.3); Red Blood Count 3.11 M/uL (4.20-5.40); White Blood Count 17.32 K/ul (4.8-10.8)
[2025-04-25 07:09] LABS: Anion Gap 7.0 (3-11); Blood Urea Nitrogen 15.0 mg/dl (6-23); Calcium 8.1 mg/dl (8.6-10.3); Carbon Dioxide 28.0 mmol/L (21-32); Chloride 96.0 mmol/L (98-107); Creatinine Clr Calc Pharmacy 78.8 ml/min; Glucose 129.0 mg/dl (70-99(Fasting)); Magnesium 1.4 mg/dl (1.7-2.4); Potassium 4.1 mmol/L (3.5-5.1); Sodium 131.0 mmol/L (136-145)
--- NOTE | 2025-04-25 08:34 | XRay Report ---
XR chest 1V portable CLINICAL HISTORY: hypoxia COMPARISON STUDY: 04/24/2025 FINDINGS: Stable chest port. Stable cardiomegaly with pulmonary vascular congestion. Stable diffuse i nterstitial and patchy pulmonary opacities. Stable mild blunting of the costophrenic angles. No pneum othorax. IMPRESSION: Stable exam. ACT 112: Negative or not required by law. Electronically signed by: Yash De La Torre M.D. 04/25/2025 8:33 AM
[2025-04-25] MEDS: MAGNESIUM SULFATE / D5W 1 GM/100 ML BAG IV ONE (08:57)
[2025-04-25] MEDS: DICLOFENAC SOD 1% GEL 100 GM TUBE EXT SCH (08:58)
--- NOTE | 2025-04-25 09:52 | Hospitalist Progress Note ---
Date of Service April 25, 2025 Assessment & Plan (1) Pelvic fracture: Plan: Seen by [facility] orthopedics and recommended conservative management. -pain control - Walker for gait assistance - PT/OT consult placed - recommending home with HH (2) Acute metabolic encephalopathy: Plan: -resolved (3) UTI (urinary tract infection): Plan: klebsiella ceftriaxone given sensitivities (4) Hyponatremia: Plan: Na+ improved to 127 (5) Leukocytosis: (6) Hypoxia: Plan: - Remains on 4-5LNC - Continue to hold diuretics - Echo: EF 55-60%, mod. pulm HTN - CXR showing pulmonary vascular congestion - Na+ improved to >130 -will give dose of lasix 40mg IV - cardiology consulted Plan lives at home w - right now goal would be to get back home at discharge - d/w pt needs to stay active in hospital so that she doesn't get weak enough to require rehab. Admission and Anticipated Discharge Date Admission Date: April 21, 2025 Subjective Pt still requiring 02, up to 5LNC. She denies chest pain. Review of Systems Review of Systems: CONST: Negative for fever, body aches and chills. HENT: Negative for neck pain/stiffness, headache, congestion, sore throat, swelling. EYES: Negative for discharge/pain or vision changes. RESP: Negative for cough/hemoptysis and shortness of breath. CV: Negative chest pain, difficulty breathing, palpitations. ABD: Negative pain, nausea, vomiting. : Negative increase frequency, dysuria, blood in urine or stool. MUSC: Negative for muscle aches, edema. SKIN: Negative rash, lesions/sores. NEURO: Negative headache, dizziness, weakness. Physical Exam Physical Exam: GENERAL APPEARANCE NAD, activity normal for age, well developed/ well nourished, no cyanosis, pallor, or diaphoresis. EYES lids/conjunctiva normal. EARS/NOSE/THROAT Mucous membranes moist, nares normal, lips/teeth normal uvula midline without oral pharyngeal erythema, exudate or swelling TMs normal bilaterally. No lymphangitis/lymphedema. HEAD/NECK normocephalic atraumatic, no facial trauma, neck is supple. RESPIRATORY respiratory effort normal, speaks in full sentences, no tripod position, no accessory muscle use. Lungs clear to auscultation without rhonchi, wheezes, rales CARDIAC Regular rate and rhythm, no edema. ABDOMINAL Soft, ND/NT. No evidence of fluid wave. No pulsatile masses on exam, rebound tenderness, Sim sign or pain over Mcburney's point. MUSCLES/EXTREMITIES No abnormal range of motion, no swelling. SKIN Warm, pink and dry. No rashes, dermatoses, petechiae or lesions. NEUROLOGICAL Speech is clear and appropriate. Normal level of consciousness. Gait and coordination are normal. 5/5 strength in all extremities. PSYCH Normal mood and affect. Judgement/competence is appropriate Results & Data Results & Data Vital Signs (Past 12 Hours) Vital Signs Temp Pulse Resp BP 04/25/25 07:12 36.9 C 79 19 132/63 PG Care Time/CCT Total # of Minutes Spent Total Time Spent with Patient: Total time spent is greater than 50% in coordination of care (as documented) at patient's floor/unit and/or counseling patient: Coding Level of Care Code 43496 SUB INP/OBS CARE 2/35MIN Diagnoses Pelvic fracture S32.9XXA Acute metabolic encephalopathy G93.41 UTI (urinary tract infection) N39.0 Hyponatremia E87.1 Leukocytosis D72.829 Hypoxia R09.02
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
[2025-04-25] MEDS: FUROSEMIDE 40 MG/4 ML VIAL IV ONE (10:25)
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
--- NOTE | 2025-04-26 07:17 | Oncology Consultation ---
Date of Consultation April 26, 2025 Assessment & Plan (1) Breast cancer: Given the acute encephalopathy and metabolic complications, will hold the patient's chemotherapy and discontinue it completely. Will recommend that the patient undergo surgery going forward. No other oncological intervention is warranted at this point. Plan Thank you for this interesting oncological consult, a total of 60 minutes was spent in counseling, coordination of care, review of prior records. History of Present Illness Reason for Consultation: Triple negative breast cancer \ encounter for antineoplastic chemotherapy Attending Physician: Cuba Bui MD History of Present Illness Diagnosis: Triple negative breast cancer, ER negative, [place] negative, HER2/kareem 2+, negative by FISH Date of diagnosis: 12/14/2024 Stage: Stage I Screening mammogram of the breast, 12/01/2024: FINDINGS: There is a 13 mm focal asymmetry within the right upper outer quadrant (slice 22 on CC images and slice 19 on MLO images) for which additional mammographic images and possible breast ultrasound are recommended for further evaluation. There are possible faint calcifications within the left superior breast on MLO images, thought to project laterally on CC images. Recommend spot magnification views for further evaluation. The remainder of both breasts are negative, with no suspicious masses, calcifications, or areas of architectural distortion noted. Other scattered benign-appearing calcifications including benign vascular calcifications are noted bilaterally. Breast ultrasound, 12/10/2024: IMPRESSION: ACR BI-RADS CATEGORY 4: SUSPICIOUS, ULTRASOUND ACR BI-RADS CATEGORY 4: SUSPICIOUS 1. Irregular hypoechoic 1.6 cm mass in the right 10:00 breast on ultrasound, thought to correspond with the mammographic focal asymmetry. Another small hypoechoic 6 mm mass in the right 9:00 breast, approximately 1.1 cm from the dominant mass. Both masses are indeterminant for malignancy and recommend ultrasound-guided core needle biopsy x 2 for further evaluation. 2. No suspicious calcifications noted within the left upper outer breast on the additional magnification views. 3. If pathology results are malignant, would recommend preoperative bilateral breast MRI given dense breast parenchyma mammographically. Diagnostic mammogram, 12/10/2024: IMPRESSION: ACR BI-RADS CATEGORY 4: SUSPICIOUS, ULTRASOUND ACR BI-RADS CATEGORY 4: SUSPICIOUS 1. Irregular hypoechoic 1.6 cm mass in the right 10:00 breast on ultrasound, thought to correspond with the mammographic focal asymmetry. Another small hypoechoic 6 mm mass in the right 9:00 breast, approximately 1.1 cm from the dominant mass. Both masses are indeterminant for malignancy and recommend ultrasound-guided core needle biopsy x 2 for further evaluation. 2. No suspicious calcifications noted within the left upper outer breast on the additional magnification views. 3. If pathology results are malignant, would recommend preoperative bilateral breast MRI given dense breast parenchyma mammographically. Breast and axillary biopsy, 12/14/2024: Clinical History Right breast ultrasound-guided core needle biopsy x 2 of an irregular hypoechoic 1.6 cm mass in the right 10:00 breast. 6 mm hypoechoic mass in the right 9:00 breast. Rule out carcinoma. Procedure performed: Right breast ultrasound-guided core needle biopsy x 2. FINAL DIAGNOSIS A. Breast, right, 10 o'clock (ultrasound-guided guided core needle biopsy of the right breast): - Infiltrative duct adenocarcinoma, Jaiden grade 3, is seen. - The longest strip of adenocarcinoma in this part measures 1.2 cm in length. - Lymphatic/vascular space invasion is not seen. - Estrogen receptor: Negative (0%). - Progesterone receptor: Negative (0%). - HER-2/kareem overexpression: Equivocal (2+). - Ki-67 proliferation index: 37.6% (high). - See comment. B. Breast, right, 9 o'clock (ultrasound-guided guided core needle biopsy): - Infiltrative duct adenocarcinoma, Oriental grade 3, is seen. - The longest strip of adenocarcinoma in this part measures 0.5 cm in length. - Lymphatic/vascular space invasion is not seen. - Estrogen receptor: Negative (0%). - Progesterone receptor: Negative (0%). - HER-2/kareem overexpression: Equivocal (2+). - Ki-67 proliferation index: 48.0% (high). Comment: The strips of tissue submitted as part A, right breast biopsy at 10 o'clock, reveal markedly atypical epithelial cells arranged in small clusters throughout the specimen. The nuclear score is 3, mitotic score is 3, and tubule score is 3. Thus, this is a grade 3 infiltrative adenocarcinoma. The immunohistochemical stain for E-cadherin is positive confirming ductal origin and the immunohistochemical stain for GATA3 is positive supporting mammary origin. The immunohistochemical stain for SMMS-1 highlights ductal carcinoma in situ focally as it highlights myoepithelial cells surrounding round clusters of malignant ductal epithelial cells. Please note that residual tissue in the tissue block will be submitted for fluorescent in situ hybridization in search of amplification of the HER-2/kareem gene and the FISH report will serve as an addendum to this case. PET CT scan, 01/20/2025, [facility]: 1. Mildly avid 1.2 cm right breast nodule containing biopsy clip corresponds with biopsy-proven triple negative breast cancer 2. Mild FDG uptake is seen within the right breast corresponding with area of non-mass enhancement in the right upper outer quadrant of the breast, on comparison with breast MRI. This is suspicious for malignancy 3. Mild FDG uptake corresponds with 2.2 cm ill-defined soft tissue density containing a biopsy clip in the right axilla. This very likely represent inflammatory changes related to recent biopsy 4. The patient has biopsy-proven SLL. The patient's lymph nodes do not show increased FDG uptake above the background pool activity, which is typical of CLL/SLL. There is no intensely FDG avid adenopathy to suggest transformation. 5. 5 mm noncalcified nodule in the posterior medial lung base. There are no old studies available for comparison. This is a nonspecific finding. Comparison to any available remote outside CT studies would be helpful. Otherwise, follow-up noncontrast CT chest recommended in 3 months to assess for interval change. 6. There are prominent subpleural interstitial markings which may indicate chronic interstitial lung disease. Additional incidental findings as described above. Breast MRI, [facility], 12/30/2024 6: Finding 1: Known biopsy-proven malignancy right breast 10:00 contains a clip centrally position. 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 She was in the ICU however currently has been discharged. Reports no active symptoms. Allergies Allergy/AdvReac Type Severity Reaction Status Date / Time alendronate sodium Allergy Severe LEGS SWELL Verified 08/09/24 12:56 iodine Allergy Verified 08/09/24 12:56 oxycodone AdvReac Intermediate GI SYMPTOMS Verified 08/09/24 12:56 Home Medications Medication Instructions Recorded Confirmed Type aspirin 81 mg tablet,delayed 81 mg PO DAILY 06/14/21 04/21/25 History release atorvastatin 20 mg tablet 20 mg PO DAILY 06/14/21 04/21/25 History cholecalciferol (vitamin D3) 25 25 mcg PO DAILY 06/14/21 04/21/25 History mcg (1,000 unit) capsule lisinopril 40 mg tablet 40 mg PO DAILY 06/14/21 04/21/25 History turmeric 100 mg-connor 150 1 cap PO DAILY 06/14/21 08/09/24 History mg-olive 50 mg-oreg 150 mg-capryl capsule amoxicillin 500 mg tablet 2,000 mg PO .PRN/UD PRN Prophylaxis 11/21/21 04/21/25 History zinc 50 mg tablet 50 mg PO DAILY 11/21/21 04/21/25 History metformin 500 mg tablet,extended 1,000 mg PO BID 04/20/25 04/21/25 History release 24 hr tramadol 50 mg tablet 50 mg PO UD 04/20/25 04/21/25 History amlodipine 5 mg tablet 5 mg PO DAILY 04/21/25 04/21/25 History lidocaine-prilocaine 2.5 %-2.5 % See Rx Instructions .Route .COMPLEX 04/21/25 04/21/25 History topical cream metoprolol tartrate 50 mg tablet See Rx Instructions .Route .COMPLEX 04/21/25 04/21/25 History ondansetron 8 mg disintegrating 8 mg translingual Q8 PRN Nausea 04/21/25 04/21/25 History tablet And Vomiting prochlorperazine maleate 10 mg 10 mg PO Q6 PRN N/V 04/21/25 04/21/25 History tablet sitagliptin phosphate 100 mg 100 mg PO DAILY 04/21/25 04/21/25 History tablet (Januvia) Patient History Medical History 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) Keratosis, seborrheic Hypertension Chronic diarrhea Borderline hyperlipidemia Benign essential microscopic hematuria Surgical History 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, 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/12/13 History of cataract surgery Bilateral Family History Mother Breast cancer Myocardial infarction Hypertension Grandmother (Maternal) Diabetes Colon cancer Father Myocardial infarction Hypertension Social History Smoking Status: Unknown if ever smoked Hx Alcohol Use: No Hx Substance Use: No Preferred Language: Hungarian Communication Ability: Effective Hearing Ability: Normal Learning And Development Intern Required: No Beliefs That Will Affect Care: None marital status: Current Living Situation: Spouse current occupational status: retired Feels Safe at Home: Yes Diet: regular Assistive Devices: Walker Review of Systems Review of Systems: All systems reviewed & are unremarkable except as noted in HPI & below Constitutional: as per Subjective / HPI Eyes: as per Subjective / HPI Ear, Nose, Mouth, Throat: as per Subjective / HPI Respiratory: as per Subjective / HPI Cardiovascular: as per Subjective / HPI Gastrointestinal: as per Subjective / HPI Genitourinary: as per Subjective / HPI Musculoskeletal: as per Subjective / HPI Integumentary: as per Subjective / HPI Neurologic: as per Subjective / HPI Physical Exam Constitutional: WD/WN, vitals as above Eyes: PERRL, conjunctivae normal, anicteric sclerae ENMT: external ear and nose normal, oropharynx normal Neck: trachea midline, no thyromegaly Respiratory: normal respiratory effort, lungs clear to auscultation Cardiovascular: RRR, no murmur, no edema Gastrointestinal (Abdomen): normal bowel sounds, soft, nontender, no hepatosplenomegaly Musculoskeletal: no cyanosis or clubbing, extremities motor strength 5/5 Skin: no rashes, warm and dry Neurologic: patellar DTR's 2+ bilat, sensation intact Results & Data Vital Signs (Past 12 Hours) Vital Signs Temp Pulse Resp BP Pulse Ox O2 Del Method O2 Flow Rate 04/25/25 20:20 Oxymask 10 04/25/25 20:07 36.7 C 65 18 109/63 94 Oxymask 10
[2025-04-26 07:40] LABS: Hematocrit (blood only) 26.4 % (37.0-47.0); Hemoglobin 8.8 g/dl (12.0-16.0); Immature Granulocytes # (auto) 0.18 K/uL (0.01-0.20); Immature Granulocytes % (auto) 0.9 %; Mean Corpuscular Hemoglobin 29.0 pg (25.0-34.0); Mean Corpuscular Volume 87.1 fL (80.0-100.0); Platelet Count 262 K/uL (130-400); RDW Standard Deviation 53.3 fL (36.4-46.3); Red Blood Count 3.03 M/uL (4.20-5.40); White Blood Count 19.77 K/ul (4.8-10.8)
[2025-04-26 07:58] LABS: Anion Gap 7.0 (3-11); Calcium 8.2 mg/dl (8.6-10.3); Carbon Dioxide 29.0 mmol/L (21-32); Chloride 95.0 mmol/L (98-107); Magnesium 1.5 mg/dl (1.7-2.4); Potassium 4.0 mmol/L (3.5-5.1); Sodium 131.0 mmol/L (136-145)
[2025-04-26 08:04] LABS: Blood Urea Nitrogen 13.0 mg/dl (6-23); Creatinine Clr Calc Pharmacy 83.5 ml/min; Glucose 140.0 mg/dl (70-99(Fasting))
--- NOTE | 2025-04-26 09:37 | XRay Report ---
XR chest 1V portable CLINICAL HISTORY: evaluate lung parenchyma in setting of hypoxia COMPARISON STUDY: 04/25/2025 FINDINGS: Stable chest port. Stable cardiomegaly without pulmonary vascular congestion. There are dif fuse interstitial and faint patchy pulmonary opacities, mildly improved. No pleural effusion or pneum othorax. IMPRESSION: Persistent diffuse pulmonary opacities, mildly improved. ACT 112: Negative or not required by law. Electronically signed by: Yash De La Torre M.D. 04/26/2025 9:36 AM
[2025-04-26] MEDS: MAGNESIUM SULFATE / D5W 1 GM/100 ML BAG IV ONE (09:41)
[2025-04-26] MEDS: FUROSEMIDE 40 MG/4 ML VIAL IV ONE ×2 (09:43→15:37)
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
--- NOTE | 2025-04-26 11:22 | Pulmonology Progress Note ---
Date of Service April 26, 2025 Assessment & Plan (1) Acute metabolic encephalopathy: (2) Hyponatremia: (3) Leukocytosis: (4) UTI (urinary tract infection): (5) Acute hypoxic respiratory failure: Plan Reason Critically Ill: 79-year-old female admitted to the ICU for severe hyponatremia and hypoxia. Pulmonary consulted for worsening hypoxia with bilateral pulmonary infiltrates concerning for pulmonary edema. Past medical history: Breast cancer on chemotherapy, dyslipidemia, diabetes type 2. -- Acute hypoxic respiratory failure; Bilateral pleural effusions with pulmonary edema Likely secondary to HFpEF Continue with O2 supplementation to keep oxygen saturation between 90-92% BNP down to 586 from 875 Diuresis with Lasix this am and redosed this afternoon. Goal -500ml to -1L in the next 24hrs. Incentive spirometry q1hWA Repeat imaging in am. On ceftriaxone for UTI no need further antibiotics at this time. WBC elevated but less concerning for pneumonia given no productive cough and afebrile. -- Breast cancer received round 3 of her chemotherapy with docetaxel and cyclophosphamide on 04/09 and received Neupogen on 04/10 Admission and Anticipated Discharge Date Admission Date: April 21, 2025 Subjective "I don't feel short of breath." Patient subjectively states that her breathing is fine. SpO2 88% on 6L oxy mask. Improved with deep breathing to 93%. Patient has some crackles in b/l lung damon with diminished bases. CXR showed diffuse bilateral infiltrates consistent with pulmonary edema that does look improved from 04/25/2025. Diuresed with 40mg of Lasix and -1100 in last 24hrs. BNP 586 down from 875. Lasix redose at 40mg one time. Redose for goal - 500ml to -1L. Patient afebrile with noted leukocytosis to 19.77 this am. Review of Systems 2 Review of Systems: All systems reviewed & are unremarkable except as noted in HPI & below Physical Exam 2 Physical Exam: Constitutional: No acute distress HEENT: EOMI, PERRLA Respiratory system: Decreased air entry bilaterally, no wheeze, no rhonchi, positive crackles bilaterally, left> right CVS: S1-S2 positive, positive 2 out of 6 systolic murmur appreciated best at aorta Abdomen: Soft, nontender, nondistended, positive bowel sounds x4 Extremities: +2 pulses bilaterally radialis/ dorsalis pedis, no cyanosis, minimal edema lower extremity Neuro: Awake alert oriented x3 Psych: Normal mood and affect G/U: Positive Brown Skin: no rashes, warm and dry Lymphatic: no cervical or axillary lymphadenopathy Results & Data Results & Data Vital Signs (Past 12 Hours) Vital Signs Temp Pulse Resp BP Pulse Ox O2 Del Method O2 Flow Rate 04/26/25 08:00 Oxymask 10 04/26/25 07:44 36.9 C 85 16 113/54 L 88 L Oxymask 10 Laboratory Results 04/26/25 07:23 04/26/25 07:23 Abnormal Lab Results 04/25/25 04/25/25 04/25/25 11:25 14:02 16:23 WBC RBC Hgb Hct MCV MCH MCHC RDW Std Deviation RDW Coeff of Jessica Plt Count MPV Immature Gran % (Auto) Neut % (Auto) Lymph % (Auto) Stanly % (Auto) Eos % (Auto) Baso % (Auto) Neut # (Auto) Lymph # (Auto) Stanly # (Auto) Eos # (Auto) Baso # (Auto) Immature Gran # (Auto) Sodium Potassium Chloride Carbon Dioxide Anion Gap BUN Creatinine Est Cr Clr Drug Dosing eGFR BUN/Creatinine Ratio Glucose POC Glucose 222 H 193 H Calcium Phosphorus Magnesium B-Natriuretic Peptide 586 H Albumin 04/25/25 04/26/25 04/26/25 20:22 07:23 07:38 WBC 19.77 H RBC 3.03 L Hgb 8.8 L Hct 26.4 L MCV 87.1 MCH 29.0 MCHC 33.3 RDW Std Deviation 53.3 H RDW Coeff of Jessica 16.9 H Plt Count 262 MPV 9.5 Immature Gran % (Auto) 0.9 Neut % (Auto) 70.0 Lymph % (Auto) 22.5 Stanly % (Auto) 6.2 Eos % (Auto) 0.1 Baso % (Auto) 0.3 Neut # (Auto) 13.86 H Lymph # (Auto) 4.44 H Stanly # (Auto) 1.23 H Eos # (Auto) 0.01 Baso # (Auto) 0.05 Immature Gran # (Auto) 0.18 Sodium 131 L Potassium 4.0 Chloride 95 L Carbon Dioxide 29 Anion Gap 7 BUN 13 Creatinine 0.53 L Est Cr Clr Drug Dosing 83.5 eGFR 94.02 BUN/Creatinine Ratio 24.5 H Glucose 140 H POC Glucose 164 H 135 H Calcium 8.2 L Phosphorus 3.9 Magnesium 1.5 L B-Natriuretic Peptide Albumin 2.5 L Diagnostic Findings Chest X-Ray 04/26/25 08:53 XR chest 1V portable CLINICAL HISTORY: evaluate lung parenchyma in setting of hypoxia COMPARISON STUDY: 04/25/2025 FINDINGS: Stable chest port. Stable cardiomegaly without pulmonary vascular congestion. There are diffuse interstitial and faint patchy pulmonary opacities, mildly improved. No pleural effusion or pneumothorax. IMPRESSION: Persistent diffuse pulmonary opacities, mildly improved. ACT 112: Negative or not required by law. Electronically signed by: Yash De La Torre M.D. 04/26/2025 9:36 AM PG Care Time/CCT Total # of Minutes Spent Total Time Spent with Patient: Total time spent is greater than 50% in coordination of care (as documented) at patient's floor/unit and/or counseling patient: Coding Level of Care Code 30181 SUB INP/OBS CARE 2/35MIN Diagnoses Acute metabolic encephalopathy G93.41 Hyponatremia E87.1 Leukocytosis D72.829 UTI (urinary tract infection) N39.0 Acute hypoxic respiratory failure J96.01
--- NOTE | 2025-04-26 12:13 | Hospitalist Progress Note ---
Date of Service April 26, 2025 Assessment & Plan (1) Hypoxia: Plan: - Remains on 10LNC - Continue to hold diuretics - Echo: EF 55-60%, mod. pulm HTN - CXR showing pulmonary vascular congestion - Na+ improved to >130 -will give dose of lasix 40mg IV - cardiology consult appreciated - appears to have non cardiogenic pulmonary edema - pt has received docetaxel and cyclophosphamide possible pulmonary toxicity -awaiting pulmonary and heme-onc follow up (2) Pelvic fracture: Plan: Seen by [facility] orthopedics and recommended conservative management. -pain control - Walker for gait assistance - PT/OT consult placed - recommending home with HH (3) Acute metabolic encephalopathy: Plan: -resolved (4) UTI (urinary tract infection): Plan: klebsiella ceftriaxone given sensitivities (5) Hyponatremia: Plan: Na+ improved to 130 (6) Leukocytosis: Plan lives at home w - right now goal would be to get back home at discharge - d/w pt needs to stay active in hospital so that she doesn't get weak enough to require rehab. Admission and Anticipated Discharge Date Admission Date: April 21, 2025 Subjective Pt still requiring 10LNC 02. She is resting comfortably in chair Review of Systems Review of Systems: CONST: Negative for fever, body aches and chills. HENT: Negative for neck pain/stiffness, headache, congestion, sore throat, swelling. EYES: Negative for discharge/pain or vision changes. RESP: Negative for cough/hemoptysis and shortness of breath. CV: Negative chest pain, difficulty breathing, palpitations. ABD: Negative pain, nausea, vomiting. : Negative increase frequency, dysuria, blood in urine or stool. MUSC: Negative for muscle aches, edema. SKIN: Negative rash, lesions/sores. NEURO: Negative headache, dizziness, weakness. Physical Exam Physical Exam: GENERAL APPEARANCE NAD, activity normal for age, well developed/ well nourished, no cyanosis, pallor, or diaphoresis. EYES lids/conjunctiva normal. EARS/NOSE/THROAT Mucous membranes moist, nares normal, lips/teeth normal uvula midline without oral pharyngeal erythema, exudate or swelling TMs normal bilaterally. No lymphangitis/lymphedema. HEAD/NECK normocephalic atraumatic, no facial trauma, neck is supple. RESPIRATORY respiratory effort normal, speaks in full sentences, no tripod position, no accessory muscle use. Lungs clear to auscultation without rhonchi, wheezes, rales CARDIAC Regular rate and rhythm, no edema. ABDOMINAL Soft, ND/NT. No evidence of fluid wave. No pulsatile masses on exam, rebound tenderness, Sim sign or pain over Mcburney's point. MUSCLES/EXTREMITIES No abnormal range of motion, no swelling. SKIN Warm, pink and dry. No rashes, dermatoses, petechiae or lesions. NEUROLOGICAL Speech is clear and appropriate. Normal level of consciousness. Gait and coordination are normal. 5/5 strength in all extremities. PSYCH Normal mood and affect. Judgement/competence is appropriate Results & Data Results & Data Vital Signs (Past 12 Hours) Vital Signs Temp Pulse Resp BP Pulse Ox O2 Del Method O2 Flow Rate 04/26/25 08:00 Oxymask 10 04/26/25 07:44 36.9 C 85 16 113/54 L 88 L Oxymask 10 PG Care Time/CCT Total # of Minutes Spent Total Time Spent with Patient: Total time spent is greater than 50% in coordination of care (as documented) at patient's floor/unit and/or counseling patient: Coding Level of Care Code 45925 SUB INP/OBS CARE 2/35MIN Diagnoses Hypoxia R09.02 Pelvic fracture S32.9XXA Acute metabolic encephalopathy G93.41 UTI (urinary tract infection) N39.0 Hyponatremia E87.1 Leukocytosis D72.829
[2025-04-27 07:42] LABS: Anion Gap 8.0 (3-11); Blood Urea Nitrogen 12.0 mg/dl (6-23); Calcium 8.4 mg/dl (8.6-10.3); Carbon Dioxide 31.0 mmol/L (21-32); Chloride 96.0 mmol/L (98-107); Creatinine Clr Calc Pharmacy 84.6 ml/min; Glucose 145.0 mg/dl (70-99(Fasting)); Magnesium 1.5 mg/dl (1.7-2.4); Potassium 3.5 mmol/L (3.5-5.1); Sodium 135.0 mmol/L (136-145)
[2025-04-27] MEDS: FUROSEMIDE 40 MG/4 ML VIAL IV ONE (08:28)
--- NOTE | 2025-04-27 09:02 | XRay Report ---
XR chest 1V portable CLINICAL HISTORY: evaluate pulmonary edema v. other COMPARISON STUDY: 04/26/2025 FINDINGS: Stable chest port. Stable cardiomegaly with pulmonary vascular congestion. Stable diffuse i nterstitial and patchy pulmonary opacities. No pneumothorax. No significant pleural effusion seen. IMPRESSION: Stable exam. ACT 112: Negative or not required by law. Electronically signed by: Yash De La Torre M.D. 04/27/2025 9:01 AM
[2025-04-27] MEDS: MAGNESIUM SULFATE / D5W 1 GM/100 ML BAG IV SCH (09:12)
[2025-04-27] MEDS: POTASSIUM CHLORIDE CRTAB 20 MEQ TABCR PO STA (09:19)
--- NOTE | 2025-04-27 09:25 | Hospitalist Progress Note ---
Date of Service April 27, 2025 Assessment & Plan (1) Hypoxia: Plan: - Remains on 10LNC - Continue to hold diuretics - Echo: EF 55-60%, mod. pulm HTN - CXR showing pulmonary vascular congestion - Na+ improved to >130 -will give dose of lasix 40mg IV - cardiology consult appreciated - appears to have non cardiogenic pulmonary edema - pt has received docetaxel and cyclophosphamide possible pulmonary toxicity -pulmonary consult appreciated -CXR showing mild improvement -given lasix 40IV today -f/u repeat CXR (2) Pelvic fracture: Plan: Seen by [facility] orthopedics and recommended conservative management. -pain control - Walker for gait assistance - PT/OT consult placed - recommending home with HH (3) Acute metabolic encephalopathy: Plan: -resolved (4) UTI (urinary tract infection): Plan: klebsiella ceftriaxone given sensitivities (5) Hyponatremia: Plan: Na+ improved to 135 (6) Leukocytosis: Plan lives at home w - right now goal would be to get back home at discharge - d/w pt needs to stay active in hospital so that she doesn't get weak enough to require rehab. Admission and Anticipated Discharge Date Admission Date: April 21, 2025 Subjective No events overnight. Pt resting in bed still on 10LNC. Review of Systems Review of Systems: CONST: Negative for fever, body aches and chills. HENT: Negative for neck pain/stiffness, headache, congestion, sore throat, swelling. EYES: Negative for discharge/pain or vision changes. RESP: Negative for cough/hemoptysis and shortness of breath. CV: Negative chest pain, difficulty breathing, palpitations. ABD: Negative pain, nausea, vomiting. : Negative increase frequency, dysuria, blood in urine or stool. MUSC: Negative for muscle aches, edema. SKIN: Negative rash, lesions/sores. NEURO: Negative headache, dizziness, weakness. Physical Exam Physical Exam: GENERAL APPEARANCE NAD, activity normal for age, well developed/ well nourished, no cyanosis, pallor, or diaphoresis. EYES lids/conjunctiva normal. EARS/NOSE/THROAT Mucous membranes moist, nares normal, lips/teeth normal uvula midline without oral pharyngeal erythema, exudate or swelling TMs normal bilaterally. No lymphangitis/lymphedema. HEAD/NECK normocephalic atraumatic, no facial trauma, neck is supple. RESPIRATORY respiratory effort normal, speaks in full sentences, no tripod position, no accessory muscle use. Lungs clear to auscultation without rhonchi, wheezes, rales CARDIAC Regular rate and rhythm, no edema. ABDOMINAL Soft, ND/NT. No evidence of fluid wave. No pulsatile masses on exam, rebound tenderness, Sim sign or pain over Mcburney's point. MUSCLES/EXTREMITIES No abnormal range of motion, no swelling. SKIN Warm, pink and dry. No rashes, dermatoses, petechiae or lesions. NEUROLOGICAL Speech is clear and appropriate. Normal level of consciousness. Gait and coordination are normal. 5/5 strength in all extremities. PSYCH Normal mood and affect. Judgement/competence is appropriate Results & Data Results & Data Vital Signs (Past 12 Hours) Vital Signs Temp Pulse Resp BP Pulse Ox O2 Del Method O2 Flow Rate 04/27/25 07:45 36.8 C 88 21 127/73 91 Non-rebreather 10 PG Care Time/CCT Total # of Minutes Spent Total Time Spent with Patient: Total time spent is greater than 50% in coordination of care (as documented) at patient's floor/unit and/or counseling patient: Coding Level of Care Code 14364 SUB INP/OBS CARE 2/35MIN Diagnoses Hypoxia R09.02 Pelvic fracture S32.9XXA Acute metabolic encephalopathy G93.41 UTI (urinary tract infection) N39.0 Hyponatremia E87.1 Leukocytosis D72.829
[2025-04-27] MEDS: ONDANSETRON INJ 2 MG/ML 2 ML VIAL IV PRN (09:42)
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
[2025-04-27] MEDS: LORazepam 0.5 MG TAB PO PRN (11:23)
--- NOTE | 2025-04-27 13:05 | Electrocardiogram Report ---
Test Reason : Blood Pressure : */* mmHG Vent. Rate : 82 BPM Atrial Rate : 82 BPM P-R Int : 124 ms QRS Dur : 102 ms QT Int : 434 ms P-R-T Axes : 49 -17 162 degrees QTcB Int : 507 ms Normal sinus rhythm Prolonged QT Abnormal ECG When compared with ECG of 20-Apr-2025 23:58, No significant change was found Confirmed by Charan Tinajero ([id number]) on 04/27/2025 1:04:58 PM Referred By: REFERRED SELF Confirmed By: Charan Tinajero
[2025-04-27] MEDS: acetaZOLAMIDE 250 MG in SYRINGE 0 ML IV STA (13:39)
--- NOTE | 2025-04-27 13:45 | CT Scan Report ---
CT chest diagnostic wo con CT DOSE: 277.03 mGy.cm CLINICAL HISTORY: 79 years-old Female with Hypxia with b/ infiltrates. Acute hypoxia TECHNIQUE: Multiaxial CT images of the chest were performed without contrast. A dose lowering techni que was utilized adhering to the principles of ALARA. COMPARISON: Chest x-rays of same day, chest CT 03/08/2025 FINDINGS: No dominant thyroid nodule. Thoracic lymphadenopathy includes paratracheal lymph nodes joanne uring up to 2.2 x 1.6 cm on image 97 series 4, previously 1.5 x 1.1 cm. Mild cardiomegaly. Decreased attenuation of the cardiac blood pool suggestive of anemia. Moderate coronary artery calcifications. Atherosclerosis of the aorta without aneurysm. Left IJ [id number] catheter distal tip terminates i n the inferior aspect of the SVC. Small layering pleural effusions are new from the prior chest CT, left greater than right with mild l oculation on the right. No pneumothorax. Intralobular septal thickening with intermixed groundglass a nd consolidative opacities. Mild dependent subsegmental bibasilar atelectasis. The majority of the pr eviously noted pulmonary nodules are obscured by the pulmonary densities. No acute upper abdominal abnormality. Soft tissues are within normal limits. No acute fracture. IMPRESSION: 1. Cardiomegaly with interstitial pulmonary edema and small pleural effusions. 2. Additional bilateral groundglass and consolidative opacities favor alveolar pulmonary edema. A sup erimposed infectious or inflammatory pneumonitis would be difficult to exclude. 3. Mediastinal lymphadenopathy is likely reactive and progressed from 03/08/2025. Attention on follow-u p recommended. ACT 112: Negative or not required by law. Electronically signed by: Lucian Boyd M.D. 04/27/2025 1:43 PM
--- NOTE | 2025-04-27 20:25 | Pulmonology Progress Note ---
Date of Service April 27, 2025 Assessment & Plan (1) Acute metabolic encephalopathy: (2) Hyponatremia: (3) Leukocytosis: (4) UTI (urinary tract infection): (5) Acute hypoxic respiratory failure: Plan Reason Critically Ill: 79-year-old female admitted to the ICU for severe hyponatremia and hypoxia. Pulmonary consulted for worsening hypoxia with bilateral pulmonary infiltrates concerning for pulmonary edema. Past medical history: Breast cancer on chemotherapy, dyslipidemia, diabetes type 2. -- Acute hypoxic respiratory failure; Bilateral pleural effusions with pulmonary edema Likely secondary to HFpEF CT thorax w/o contrast 04/27/2025 showed bilateral infiltrates consistent with pulmonary edema and b/l pleurla effusions. Continue with O2 supplementation and CPAP to keep oxygen saturation between 90- 92% BNP down to 407 down from 586 Patient net negative 1100 this am. Diuresis to continue with acetazolamide and scheduled lasix 40mg bid. Incentive spirometry q1hWA On ceftriaxone for UTI no need further antibiotics at this time. WBC elevated but less concerning for pneumonia given no productive cough, afebrile, and negative procalcitonin. -- Breast cancer received round 3 of her chemotherapy with docetaxel and cyclophosphamide on 04/09 and received Neupogen on 04/10 Admission and Anticipated Discharge Date Admission Date: April 21, 2025 Subjective "I feel good sometimes but others I feel like my chest is tight and my oxygen goes down." Patient on 10 liters nonrebreather this am with SpO2 94-97%. Patient had desaturated overnight to 80's. Patient diuresed with Lasix and net negative 1100 this am. BNP 407 down from 586. Patient placed on therapeutic intermittent CPAP with improved SpO2. Patient trialed off CPAP and desat to 80's despite oxymask 6L. Patient placed back on CPAP 40% CPAP 10. CT Thorax showed bilateral opacities consistent with pulmonary edema and bilateral pleural effusions. Diuresis to continue with acetazolamide and lasix. Patient remains aferbile and procalctionin of 0.21. EKG showed no ischemic changes. Troponin negative. Review of Systems 2 Review of Systems: All systems reviewed & are unremarkable except as noted in HPI & below Physical Exam 2 Physical Exam: Constitutional: No acute distress HEENT: EOMI, PERRLA Respiratory system: Decreased air entry bilaterally, no wheeze, no rhonchi, positive crackles bilaterally, left> right CVS: S1-S2 positive, positive 2 out of 6 systolic murmur appreciated best at aorta Abdomen: Soft, nontender, nondistended, positive bowel sounds x4 Extremities: +2 pulses bilaterally radialis/ dorsalis pedis, no cyanosis, minimal edema lower extremity Neuro: Awake alert oriented x3 Psych: Normal mood and affect G/U: Positive Brown Skin: no rashes, warm and dry Lymphatic: no cervical or axillary lymphadenopathy Results & Data Results & Data Vital Signs (Past 12 Hours) Vital Signs Temp Pulse Pulse Resp BP Pulse Ox O2 Del Method 04/27/25 19:38 36.4 C L 74 18 119/82 90 BiPAP 04/27/25 15:33 37.4 C 74 40 H 102/52 L 96 High Flow Nasal Cannula 04/27/25 14:12 83 29 H 95 High Flow Nasal Cannula 04/27/25 12:00 74 04/27/25 11:00 36.9 C 71 18 109/68 92 BiPAP 04/27/25 10:10 75 97 O2 Flow Rate FiO2 04/27/25 19:38 04/27/25 15:33 30 70 04/27/25 14:12 30 70 04/27/25 12:00 04/27/25 11:00 04/27/25 10:10 45 Laboratory Results 04/26/25 07:23 04/27/25 07:06 Abnormal Lab Results 04/26/25 04/27/25 04/27/25 20:32 07:06 07:09 Sodium 135 L Potassium 3.5 Chloride 96 L Carbon Dioxide 31 Anion Gap 8 BUN 12 Creatinine 0.51 L Est Cr Clr Drug Dosing 84.6 eGFR 94.89 BUN/Creatinine Ratio 23.5 H Glucose 145 H POC Glucose 195 H Calcium 8.4 L Phosphorus 4.0 Magnesium 1.5 L Troponin I High Sens 15.4 H B-Natriuretic Peptide 407 H Procalcitonin 0.21 04/27/25 04/27/25 04/27/25 07:42 11:15 16:22 Sodium Potassium Chloride Carbon Dioxide Anion Gap BUN Creatinine Est Cr Clr Drug Dosing eGFR BUN/Creatinine Ratio Glucose POC Glucose 149 H 169 H 207 H Calcium Phosphorus Magnesium Troponin I High Sens B-Natriuretic Peptide Procalcitonin Diagnostic Findings Chest X-Ray 04/27/25 08:20 XR chest 1V portable CLINICAL HISTORY: evaluate pulmonary edema v. other COMPARISON STUDY: 04/26/2025 FINDINGS: Stable chest port. Stable cardiomegaly with pulmonary vascular congestion. Stable diffuse interstitial and patchy pulmonary opacities. No pneumothorax. No significant pleural effusion seen. IMPRESSION: Stable exam. ACT 112: Negative or not required by law. Electronically signed by: Yash De La Torre M.D. 04/27/2025 9:[address] 04/27/25 12:49 CT chest diagnostic wo con CT DOSE: 277.03 mGy.cm CLINICAL HISTORY: 79 years-old Female with Hypxia with b/ infiltrates. Acute hypoxia TECHNIQUE: Multiaxial CT images of the chest were performed without contrast. A dose lowering technique was utilized adhering to the principles of ALARA. COMPARISON: Chest x-rays of same day, chest CT 03/08/2025 FINDINGS: No dominant thyroid nodule. Thoracic lymphadenopathy includes paratracheal lymph nodes measuring up to 2.2 x 1.6 cm on image 97 series 4, previously 1.5 x 1.1 cm. Mild cardiomegaly. Decreased attenuation of the cardiac blood pool suggestive of anemia. Moderate coronary artery calcifications. Atherosclerosis of the aorta without aneurysm. Left IJ Hoqsmm-i-Sgek catheter distal tip terminates in the inferior aspect of the SVC. Small layering pleural effusions are new from the prior chest CT, left greater than right with mild loculation on the right. No pneumothorax. Intralobular septal thickening with intermixed groundglass and consolidative opacities. Mild dependent subsegmental bibasilar atelectasis. The majority of the previously noted pulmonary nodules are obscured by the pulmonary densities. No acute upper abdominal abnormality. Soft tissues are within normal limits. No acute fracture. IMPRESSION: 1. Cardiomegaly with interstitial pulmonary edema and small pleural effusions. 2. Additional bilateral groundglass and consolidative opacities favor alveolar pulmonary edema. A superimposed infectious or inflammatory pneumonitis would be difficult to exclude. 3. Mediastinal lymphadenopathy is likely reactive and progressed from 03/08/2025. Attention on follow-up recommended. ACT 112: Negative or not required by law. Electronically signed by: Lucian Boyd M.D. 04/27/2025 1:43 PM PG Care Time/CCT Total # of Minutes Spent Total Time Spent with Patient: Total time spent is greater than 50% in coordination of care (as documented) at patient's floor/unit and/or counseling patient: Coding Level of Care Code 78951 SUB INP/OBS CARE 2MIN Diagnoses Acute metabolic encephalopathy G93.41 Hyponatremia E87.1 Leukocytosis D72.829 UTI (urinary tract infection) N39.0 Acute hypoxic respiratory failure J96.01
[2025-04-27] MEDS: FUROSEMIDE 40 MG/4 ML VIAL IV SCH (21:33)
[2025-04-28] MEDS: METOPROLOL TARTRATE 1 MG/ML VIAL IV STA ×2 (06:31→07:17)
[2025-04-28 06:36] LABS: Hematocrit (blood only) 26.3 % (37.0-47.0); Hemoglobin 8.7 g/dl (12.0-16.0); Mean Corpuscular Hemoglobin 29.2 pg (25.0-34.0); Mean Corpuscular Volume 88.3 fL (80.0-100.0); Platelet Count 257 K/uL (130-400); RDW Standard Deviation 54.2 fL (36.4-46.3); Red Blood Count 2.98 M/uL (4.20-5.40); White Blood Count 14.88 K/ul (4.8-10.8)
[2025-04-28 06:58] LABS: Anion Gap 11.0 (3-11); Blood Urea Nitrogen 13.0 mg/dl (6-23); Calcium 8.4 mg/dl (8.6-10.3); Carbon Dioxide 26.0 mmol/L (21-32); Chloride 95.0 mmol/L (98-107); Creatinine Clr Calc Pharmacy 73.3 ml/min; Glucose 173.0 mg/dl (70-99(Fasting)); Potassium 3.5 mmol/L (3.5-5.1); Sodium 132.0 mmol/L (136-145)
[2025-04-28 08:09] LABS: Magnesium 1.6 mg/dl (1.7-2.4)
[2025-04-28] MEDS: POTASSIUM CHLORIDE CRTAB 20 MEQ TABCR PO STA (08:34)
[2025-04-28] MEDS: SODIUM CHLORIDE 1 GM TABLET PO SCH (08:35)
--- NOTE | 2025-04-28 09:17 | Pulmonology Progress Note ---
Date of Service April 28, 2025 Assessment & Plan (1) Acute metabolic encephalopathy: (2) Hyponatremia: (3) Leukocytosis: (4) UTI (urinary tract infection): (5) Acute hypoxic respiratory failure: Plan Reason Critically Ill: 79-year-old female admitted to the ICU for severe hyponatremia and hypoxia. Pulmonary consulted for worsening hypoxia with bilateral pulmonary infiltrates concerning for pulmonary edema. Past medical history: Breast cancer on chemotherapy, dyslipidemia, diabetes type 2. -- Acute hypoxic respiratory failure; Bilateral pleural effusions with pulmonary edema -Likely secondary to HFpEF -CT thorax w/o contrast 04/27/2025 showed bilateral infiltrates consistent with pulmonary edema and b/l pleural effusions. -Continue with O2 supplementation and CPAP to keep oxygen saturation between > 92% -BNP 473 this am up from 402 day prior. -Patient net negative 2110 this am. -Continue with scheduled Lasix 40mg bid. Will consider adjunct diuretics such as metolazone v. acetazolamide based on indications. -Incentive spirometry q1hWA -On ceftriaxone for UTI no need further antibiotics at this time. WBC elevated and downtrending also less concerning for pneumonia given no productive cough, afebrile, and negative procalcitonin. -Discussed possible need for bronchoscopy to further evaluate lung parenchyma for pneumonitis v. infectious if patient does not improve with diuresis and treatment of reversible causes but would be difficult to perform at this time and would likely require intubation. -- Breast cancer received round 3 of her chemotherapy with docetaxel and cyclophosphamide on 04/09 and received Neupogen on 04/10 Admission and Anticipated Discharge Date Admission Date: April 21, 2025 Supervising Physician Co-Signing Physician Notes Patient seen and examined. EMR reviewed. Patient remains on high flow. She has been intermittently trialed on positive airway pressure ventilation. She is not comfortable with it but does tolerate it reasonably well. Diuresis has resulted in some decrease in her oxygen requirement. The differential for her diffuse pulmonary infiltrates remains unchanged. Could consider bronchoscopy however the patient's oxygen requirement currently makes it quite tenuous. Have not ruled out alveolar hemorrhage although the patient does not have overt hemoptysis, this remains on the differential. Diagnosis would require bronchoscopy and treatment would be high-dose steroids. This point in time we will see how the patient does with additional diuretics. Should she clinically deteriorate and require mechanical ventilation, consideration for bronchoscopy and BAL at that point in time would be appropriate. Patient is not particularly enthusiastic about pursuing aggressive or invasive interventions at this point in time. Will continue to monitor expectantly in hopes of some clinical improvement but overall prognosis is guarded. Subjective "I woke up confused and didn't know where i am." Patient using intermittent CPAP with HFNC currently at 80%/30L. Patient SpO2 94- 96% and Fio2 turned down to 70%. Contique to wean for SpO2 > 92%. Diuresis continued with lasix and one time dose of acetazolamide and negative 2110 this am. BNP remains elevated at 473 this am with stable creatine and BUN. Patient converted into atrial fib/flutter early this am with HR 90-120. Review of Systems 2 Review of Systems: All systems reviewed & are unremarkable except as noted in HPI & below Physical Exam 2 Physical Exam: Constitutional: No acute distress HEENT: EOMI, PERRLA Respiratory system: Decreased air entry bilaterally, no wheeze, no rhonchi, positive crackles bilaterally, left> right CVS: S1-S2 positive, positive 2 out of 6 systolic murmur appreciated best at aorta Abdomen: Soft, nontender, nondistended, positive bowel sounds x4 Extremities: +2 pulses bilaterally radialis/ dorsalis pedis, no cyanosis, minimal edema lower extremity Neuro: Awake alert oriented x3 Psych: Normal mood and affect G/U: Positive Brown Skin: no rashes, warm and dry Lymphatic: no cervical or axillary lymphadenopathy Results & Data Results & Data Vital Signs (Past 12 Hours) Vital Signs Temp Pulse Pulse Resp BP BP Pulse Ox 04/28/25 08:24 113 H 93/55 L 89 L 04/28/25 07:37 124 H 24 95 04/28/25 07:36 118 H 96/61 L 04/28/25 07:22 36.7 C 04/28/25 07:17 120 H 93/62 L 04/28/25 07:15 117 H 24 93/62 L 80 L 04/28/25 06:47 105/76 04/28/25 06:46 108/64 04/28/25 06:40 130 H 110/50 L 04/28/25 06:31 130 H 04/28/25 03:35 36.9 C 82 18 121/55 L 100 04/28/25 03:15 74 20 96 04/28/25 00:33 36.5 C 70 24 123/58 L 92 04/28/25 00:00 74 04/27/25 22:35 04/27/25 22:00 63 17 90 O2 Del Method O2 Flow Rate FiO2 04/28/25 08:24 High Flow Nasal Cannula 30 80 04/28/25 07:37 High Flow Nasal Cannula 30 70 04/28/25 07:36 04/28/25 07:22 04/28/25 07:17 04/28/25 07:15 High Flow Nasal Cannula 30 80 04/28/25 06:47 04/28/25 06:46 04/28/25 06:40 04/28/25 06:31 04/28/25 03:35 BiPAP 04/28/25 03:15 High Flow Nasal Cannula 30 80 04/28/25 00:33 BiPAP 04/28/25 00:00 04/27/25 22:35 High Flow Nasal Cannula 30 04/27/25 22:00 High Flow Nasal Cannula 30 80 Laboratory Results 04/28/25 06:12 04/28/25 06:12 Abnormal Lab Results 04/27/25 04/27/25 04/27/25 07:06 07:09 11:15 WBC RBC Hgb Hct MCV MCH MCHC RDW Std Deviation RDW Coeff of Jessica Plt Count MPV Sodium Potassium Chloride Carbon Dioxide Anion Gap BUN Creatinine Est Cr Clr Drug Dosing eGFR BUN/Creatinine Ratio Glucose POC Glucose 169 H Calcium Phosphorus Magnesium Troponin I High Sens 15.4 H B-Natriuretic Peptide Procalcitonin 0.21 04/27/25 04/27/25 04/28/25 16:22 21:13 06:12 WBC 14.88 H RBC 2.98 L Hgb 8.7 L Hct 26.3 L MCV 88.3 MCH 29.2 MCHC 33.1 RDW Std Deviation 54.2 H RDW Coeff of Jessica 17.0 H Plt Count 257 MPV 9.9 Sodium 132 L Potassium 3.5 Chloride 95 L Carbon Dioxide 26 Anion Gap 11 BUN 13 Creatinine 0.59 L Est Cr Clr Drug Dosing 73.3 eGFR 91.62 BUN/Creatinine Ratio 22.0 H Glucose 173 H POC Glucose 207 H 121 H Calcium 8.4 L Phosphorus 4.6 Magnesium 1.6 L Troponin I High Sens B-Natriuretic Peptide 473 H Procalcitonin 04/28/25 07:21 WBC RBC Hgb Hct MCV MCH MCHC RDW Std Deviation RDW Coeff of Jessica Plt Count MPV Sodium Potassium Chloride Carbon Dioxide Anion Gap BUN Creatinine Est Cr Clr Drug Dosing eGFR BUN/Creatinine Ratio Glucose POC Glucose 146 H Calcium Phosphorus Magnesium Troponin I High Sens B-Natriuretic Peptide Procalcitonin Diagnostic Findings Chest CT 04/27/25 12:49 CT chest diagnostic wo con CT DOSE: 277.03 mGy.cm CLINICAL HISTORY: 79 years-old Female with Hypxia with b/ infiltrates. Acute hypoxia TECHNIQUE: Multiaxial CT images of the chest were performed without contrast. A dose lowering technique was utilized adhering to the principles of ALARA. COMPARISON: Chest x-rays of same day, chest CT 03/08/2025 FINDINGS: No dominant thyroid nodule. Thoracic lymphadenopathy includes paratracheal lymph nodes measuring up to 2.2 x 1.6 cm on image 97 series 4, previously 1.5 x 1.1 cm. Mild cardiomegaly. Decreased attenuation of the cardiac blood pool suggestive of anemia. Moderate coronary artery calcifications. Atherosclerosis of the aorta without aneurysm. Left IJ [id number]-Pghh catheter distal tip terminates in the inferior aspect of the SVC. Small layering pleural effusions are new from the prior chest CT, left greater than right with mild loculation on the right. No pneumothorax. Intralobular septal thickening with intermixed groundglass and consolidative opacities. Mild dependent subsegmental bibasilar atelectasis. The majority of the previously noted pulmonary nodules are obscured by the pulmonary densities. No acute upper abdominal abnormality. Soft tissues are within normal limits. No acute fracture. IMPRESSION: 1. Cardiomegaly with interstitial pulmonary edema and small pleural effusions. 2. Additional bilateral groundglass and consolidative opacities favor alveolar pulmonary edema. A superimposed infectious or inflammatory pneumonitis would be difficult to exclude. 3. Mediastinal lymphadenopathy is likely reactive and progressed from 03/08/2025. Attention on follow-up recommended. ACT 112: Negative or not required by law. Electronically signed by: Lucian Boyd M.D. 04/27/2025 1:43 PM PG Care Time/CCT Total # of Minutes Spent Total Time Spent with Patient: Total time spent is greater than 50% in coordination of care (as documented) at patient's floor/unit and/or counseling patient: Coding Level of Care Code 55679 SUB INP/OBS CARE MIN Diagnoses Acute metabolic encephalopathy G93.41 Hyponatremia E87.1 Leukocytosis D72.829 UTI (urinary tract infection) N39.0 Acute hypoxic respiratory failure J96.01
--- NOTE | 2025-04-28 10:21 | Hospitalist Progress Note ---
Date of Service April 28, 2025 Assessment & Plan (1) Hypoxia: Plan: - Remains on 10LNC - Continue to hold diuretics - Echo: EF 55-60%, mod. pulm HTN - CXR showing pulmonary vascular congestion - Na+ improved to >130 -will give dose of lasix 40mg IV - cardiology consult appreciated - appears to have non cardiogenic pulmonary edema - pt has received docetaxel and cyclophosphamide possible pulmonary toxicity -pulmonary consult appreciated -CXR showing mild improvement -pulmonary edema -con't lasix 40 IV BID -on 30LNC hiflow (2) Pelvic fracture: Plan: Seen by [facility] orthopedics and recommended conservative management. -pain control - Walker for gait assistance - PT/OT consult placed - recommending home with HH (3) Acute metabolic encephalopathy: Plan: -resolved (4) UTI (urinary tract infection): Plan: klebsiella ceftriaxone given sensitivities (5) Hyponatremia: Plan: Na+ improved to 135 (6) Leukocytosis: Plan lives at home w - right now goal would be to get back home at discharge - d/w pt needs to stay active in hospital so that she doesn't get weak enough to require rehab. Admission and Anticipated Discharge Date Admission Date: April 21, 2025 Subjective Pt still feeling anxious this am. On high flow 30L/min Review of Systems Review of Systems: CONST: Negative for fever, body aches and chills. HENT: Negative for neck pain/stiffness, headache, congestion, sore throat, swelling. EYES: Negative for discharge/pain or vision changes. RESP: Negative for cough/hemoptysis and shortness of breath. CV: Negative chest pain, difficulty breathing, palpitations. ABD: Negative pain, nausea, vomiting. : Negative increase frequency, dysuria, blood in urine or stool. MUSC: Negative for muscle aches, edema. SKIN: Negative rash, lesions/sores. NEURO: Negative headache, dizziness, weakness. Physical Exam Physical Exam: GENERAL APPEARANCE NAD, activity normal for age, well developed/ well nourished, no cyanosis, pallor, or diaphoresis. EYES lids/conjunctiva normal. EARS/NOSE/THROAT Mucous membranes moist, nares normal, lips/teeth normal uvula midline without oral pharyngeal erythema, exudate or swelling TMs normal bilaterally. No lymphangitis/lymphedema. HEAD/NECK normocephalic atraumatic, no facial trauma, neck is supple. RESPIRATORY respiratory effort normal, speaks in full sentences, no tripod position, no accessory muscle use. Lungs clear to auscultation without rhonchi, wheezes, rales CARDIAC Regular rate and rhythm, no edema. ABDOMINAL Soft, ND/NT. No evidence of fluid wave. No pulsatile masses on exam, rebound tenderness, Sim sign or pain over Mcburney's point. MUSCLES/EXTREMITIES No abnormal range of motion, no swelling. SKIN Warm, pink and dry. No rashes, dermatoses, petechiae or lesions. NEUROLOGICAL Speech is clear and appropriate. Normal level of consciousness. Gait and coordination are normal. 5/5 strength in all extremities. PSYCH Normal mood and affect. Judgement/competence is appropriate Results & Data Results & Data Vital Signs (Past 12 Hours) Vital Signs Temp Pulse Pulse Resp BP BP Pulse Ox 04/28/25 09:34 105 H 99/53 L 90 04/28/25 08:24 113 H 93/55 L 89 L 04/28/25 07:37 124 H 24 95 04/28/25 07:36 118 H 96/61 L 04/28/25 07:22 36.7 C 04/28/25 07:17 120 H 93/62 L 04/28/25 07:15 117 H 24 93/62 L 80 L 04/28/25 06:47 105/76 04/28/25 06:46 108/64 04/28/25 06:40 130 H 110/50 L 04/28/25 06:31 130 H 04/28/25 03:35 36.9 C 82 18 121/55 L 100 04/28/25 03:15 74 20 96 04/28/25 00:33 36.5 C 70 24 123/58 L 92 04/28/25 00:00 74 04/27/25 22:35 O2 Del Method O2 Flow Rate FiO2 04/28/25 09:34 High Flow Nasal Cannula 30 80 04/28/25 08:24 High Flow Nasal Cannula 30 80 04/28/25 07:37 High Flow Nasal Cannula 30 70 04/28/25 07:36 04/28/25 07:22 04/28/25 07:17 04/28/25 07:15 High Flow Nasal Cannula 30 80 04/28/25 06:47 04/28/25 06:46 04/28/25 06:40 04/28/25 06:31 04/28/25 03:35 BiPAP 04/28/25 03:15 High Flow Nasal Cannula 30 80 04/28/25 00:33 BiPAP 04/28/25 00:00 04/27/25 22:35 High Flow Nasal Cannula 30 PG Care Time/CCT Total # of Minutes Spent Total Time Spent with Patient: Total time spent is greater than 50% in coordination of care (as documented) at patient's floor/unit and/or counseling patient: Coding Level of Care Code 23998 SUB INP/OBS CARE 2/35MIN Diagnoses Hypoxia R09.02 Pelvic fracture S32.9XXA Acute metabolic encephalopathy G93.41 UTI (urinary tract infection) N39.0 Hyponatremia E87.1 Leukocytosis D72.829
[2025-04-28] MEDS: MAGNESIUM SULFATE / D5W 1 GM/100 ML BAG IV SCH (10:40)
[2025-04-29] MEDS: LORazepam 1 MG TAB PO PRN (00:09)
[2025-04-29 06:25] LABS: Hematocrit (blood only) 26.9 % (37.0-47.0); Hemoglobin 8.7 g/dl (12.0-16.0); Mean Corpuscular Hemoglobin 28.2 pg (25.0-34.0); Mean Corpuscular Volume 87.1 fL (80.0-100.0); Platelet Count 268 K/uL (130-400); RDW Standard Deviation 51.8 fL (36.4-46.3); Red Blood Count 3.09 M/uL (4.20-5.40); White Blood Count 12.45 K/ul (4.8-10.8)
[2025-04-29 06:56] LABS: Anion Gap 6.0 (3-11); Blood Urea Nitrogen 16.0 mg/dl (6-23); Calcium 8.5 mg/dl (8.6-10.3); Carbon Dioxide 29.0 mmol/L (21-32); Chloride 97.0 mmol/L (98-107); Creatinine Clr Calc Pharmacy 72.2 ml/min; Glucose 146.0 mg/dl (70-99(Fasting)); Potassium 3.8 mmol/L (3.5-5.1); Sodium 132.0 mmol/L (136-145)
--- NOTE | 2025-04-29 07:56 | XRay Report ---
EXAM: XR chest 1V portable CLINICAL HISTORY: Follow-up. TECHNIQUE: An X-ray image of the chest is obtained in AP projection. COMPARISON: Study dated 04/27/2025 FINDINGS: Unchanged left Port-A Cath with tip in place. Pulmonary Parenchyma: Interval increase in left-sided airspace opacification, with diffuse bilateral airspace opacities and coarsened interstitial parenchymal thickening, suggest a progressing infectious/ inflammatory process Unchanged blunting of costophrenic angles suggests bilateral minimal pleural effusion Heart and Mediastinum: Heart size and shape are normal. No mediastinal widening or masses. No hilar or mediastinal lymphadenopathy. Bony Thorax: Bony thorax appears intact without fractures or deformities. Soft Tissues: Soft tissues overlying the chest wall are unremarkable. IMPRESSION: 1. Interval increase in left-sided airspace opacification, with diffuse bilateral airspace opacities and coarsened interstitial parenchymal thickening, suggest progressing infectious/ inflammatory process 2. Unchanged blunting of the costophrenic angles suggest bilateral minimal pleural effusion Electronically signed by Zachary Srinivasan 04-29-2025 07:56 AM
[2025-04-29] MEDS: acetaZOLAMIDE 250 MG in SYRINGE 0 ML IV STA (09:02)
[2025-04-29] MEDS: ALBUT/IPRATROP 3MG/0.5MG NEB 3 ML VIAL NEB PRN (09:40)
--- NOTE | 2025-04-29 09:52 | Pulmonology Progress Note ---
Date of Service April 29, 2025 Assessment & Plan (1) Acute metabolic encephalopathy: (2) Hyponatremia: (3) Leukocytosis: (4) UTI (urinary tract infection): (5) Acute hypoxic respiratory failure: Plan Reason Critically Ill: 79-year-old female admitted to the ICU for severe hyponatremia and hypoxia. Pulmonary consulted for worsening hypoxia with bilateral pulmonary infiltrates concerning for pulmonary edema. Past medical history: Breast cancer on chemotherapy, dyslipidemia, diabetes type 2. -- Acute hypoxic respiratory failure; Bilateral pleural effusions with pulmonary edema -Likely secondary to HFpEF -CT thorax w/o contrast 04/27/2025 showed bilateral infiltrates consistent with pulmonary edema and b/l pleural effusions. -Continue with O2 supplementation and CPAP to keep oxygen saturation between > 92% -BNP 473 04/28/2025. Will trend. -Patient net negative 1 liter this am. -Continue with scheduled Lasix 40mg bid. Will consider adjunct diuretics such as metolazone v. acetazolamide based on indications. -Incentive spirometry q1hWA -On ceftriaxone for UTI no need further antibiotics at this time. WBC elevated and downtrending also less concerning for pneumonia given no productive cough, afebrile, and negative procalcitonin. -LDH 285 mildly elevated but nonspecific would expect to be > 500 in setting of PJP pneumonia. Beta D glucan ordered. -Start empiric methylprednisolone 40mg q8h for possible steroid responsive pneumonitis. -Discussed possible need for bronchoscopy to further evaluate lung parenchyma for pneumonitis v. infectious if patient does not improve with diuresis and treatment of reversible causes but would be difficult to perform at this time and would likely require intubation. -- Breast cancer received round 3 of her chemotherapy with docetaxel and cyclophosphamide on 04/09 and received Neupogen on 04/10 Admission and Anticipated Discharge Date Admission Date: April 21, 2025 Supervising Physician Co-Signing Physician Notes Patient seen and examined. EMR reviewed. Unfortunately the patient's clinical status is not improving despite being net negative with diuresis over the last few days. The differential remains unchanged. The patient's oxygen level currently precludes bronchoscopy without potential need for intubation which the patient would like to avoid. Given the diagnostic uncertainty and the patient's failure to respond to diuretics and antibiotics, a trial of steroids would be reasonable while continuing to push diuresis. Unfortunately the patient appears quite frail currently. Would not pursue additional efforts of positive airway pressure and would certainly avoid respiratory depressant medications including benzodiazepines or narcotics at this point in time. Her prognosis remains guarded at this point in time. Subjective "I just want to go home." Patient remains on high flow nasal cannula 80%/30L with SpO2 90-94%. Patient continued with diuresis and -1 liter in last 24hrs. CXR this am shows stable persistent bilateral pulmonary infiltrates. Plan to continue with diuresis lasix 40mg bid and will add acetazolamide this am to augment diuresis. Hypoxia still though to be related to related to pulmonary edema but given patient's documented negative balances over the past few days with persistent hypoxia will evaluate and consider empiric therapy for other other causes. LDH, and beta D glucan ordered to look for opportunistic infections in setting of Docetaxel and cyclophosphamide. Will start methylprednisolone 40mg q8h for possible chemo induced pneumonitis. Review of Systems 2 Review of Systems: All systems reviewed & are unremarkable except as noted in HPI & below Physical Exam 2 Physical Exam: Constitutional: lethargic and ill appearing lying in bed in mild distress. HEENT: EOMI, PERRLA Respiratory system: Decreased air entry bilaterally, no wheeze, no rhonchi, positive crackles bilaterally, left> right CVS: S1-S2 positive, positive 2 out of 6 systolic murmur appreciated best at aorta Abdomen: Soft, nontender, nondistended, positive bowel sounds x4 Extremities: +2 pulses bilaterally radialis/ dorsalis pedis, no cyanosis, minimal edema lower extremity Neuro: Awake alert oriented x3 Psych: Depressed affect this am. G/U: Positive Brown Skin: no rashes, warm and dry Lymphatic: no cervical or axillary lymphadenopathy Results & Data Results & Data Vital Signs (Past 12 Hours) Vital Signs Temp Pulse Pulse Resp BP Pulse Ox O2 Del Method 04/29/25 09:44 77 38 H 93 High Flow Nasal Cannula 04/29/25 09:37 81 36 H 100 04/29/25 09:00 81 36 H 107/61 98 High Flow Nasal Cannula 04/29/25 08:22 36.4 C L 80 24 111/69 96 High Flow Nasal Cannula 04/29/25 05:54 71 04/29/25 03:42 74 34 H 96 High Flow Nasal Cannula 04/29/25 03:35 36.4 C L 74 28 H 110/66 94 High Flow Nasal Cannula 04/29/25 00:00 69 04/28/25 23:02 36.4 C L 70 25 H 110/55 L 92 High Flow Nasal Cannula 04/28/25 22:48 70 22 95 High Flow Nasal Cannula 04/28/25 22:17 High Flow Nasal Cannula O2 Flow Rate FiO2 04/29/25 09:44 50 90 04/29/25 09:37 70 04/29/25 09:00 30 85 04/29/25 08:22 30 04/29/25 05:54 04/29/25 03:42 30 80 04/29/25 03:35 30 04/29/25 00:00 04/28/25 23:02 30 04/28/25 22:48 30 80 04/28/25 22:17 30 70 Laboratory Results 04/29/25 06:04 04/29/25 06:04 Abnormal Lab Results 04/28/25 04/28/25 04/28/25 11:16 16:20 20:23 WBC RBC Hgb Hct MCV MCH MCHC RDW Std Deviation RDW Coeff of Jessica Plt Count MPV Sodium Potassium Chloride Carbon Dioxide Anion Gap BUN Creatinine Est Cr Clr Drug Dosing eGFR BUN/Creatinine Ratio Glucose POC Glucose 176 H 132 H 202 H Calcium Lactate Dehydrogenase 04/29/25 04/29/25 04/29/25 06:04 07:22 08:16 WBC 12.45 H RBC 3.09 L Hgb 8.7 L Hct 26.9 L MCV 87.1 MCH 28.2 MCHC 32.3 RDW Std Deviation 51.8 H RDW Coeff of Jessica 16.5 H Plt Count 268 MPV 9.6 Sodium 132 L Potassium 3.8 Chloride 97 L Carbon Dioxide 29 Anion Gap 6 BUN 16 Creatinine 0.60 Est Cr Clr Drug Dosing 72.2 eGFR 91.25 BUN/Creatinine Ratio 26.7 H Glucose 146 H POC Glucose 152 H Calcium 8.5 L Lactate Dehydrogenase 285 H Diagnostic Findings Chest X-Ray 04/29/25 07:00 EXAM: XR chest 1V portable CLINICAL HISTORY: Follow-up. TECHNIQUE: An X-ray image of the chest is obtained in AP projection. COMPARISON: Study dated 04/27/2025 FINDINGS: Unchanged left Port-A Cath with tip in place. Pulmonary Parenchyma: Interval increase in left-sided airspace opacification, with diffuse bilateral airspace opacities and coarsened interstitial parenchymal thickening, suggest a progressing infectious/ inflammatory process Unchanged blunting of costophrenic angles suggests bilateral minimal pleural effusion Heart and Mediastinum: Heart size and shape are normal. No mediastinal widening or masses. No hilar or mediastinal lymphadenopathy. Bony Thorax: Bony thorax appears intact without fractures or deformities. Soft Tissues: Soft tissues overlying the chest wall are unremarkable. IMPRESSION: 1. Interval increase in left-sided airspace opacification, with diffuse bilateral airspace opacities and coarsened interstitial parenchymal thickening, suggest progressing infectious/ inflammatory process 2. Unchanged blunting of the costophrenic angles suggest bilateral minimal pleural effusion Electronically signed by Zachary Srinivasan 04-29-2025 07:56 AM PG Care Time/CCT Total # of Minutes Spent Total Time Spent with Patient: Total time spent is greater than 50% in coordination of care (as documented) at patient's floor/unit and/or counseling patient: Coding Level of Care Code 78934 SUB INP/OBS CARE 2/35MIN Diagnoses Acute metabolic encephalopathy G93.41 Hyponatremia E87.1 Leukocytosis D72.829 UTI (urinary tract infection) N39.0 Acute hypoxic respiratory failure J96.01
--- NOTE | 2025-04-29 10:01 | Hospitalist Progress Note ---
Date of Service April 29, 2025 Assessment & Plan (1) Hypoxia: Plan: - Remains on 10LNC - Continue to hold diuretics - Echo: EF 55-60%, mod. pulm HTN - CXR showing pulmonary vascular congestion - Na+ improved to >130 -will give dose of lasix 40mg IV - cardiology consult appreciated - appears to have non cardiogenic pulmonary edema - pt has received docetaxel and cyclophosphamide possible pulmonary toxicity -pulmonary consult appreciated -CXR showing mild improvement -pulmonary edema -con't lasix 40 IV BID -on 30LNC hiflow -Solu-medrol IV started as per pulmonary (2) Pelvic fracture: Plan: Seen by [facility] orthopedics and recommended conservative management. -pain control - Walker for gait assistance - PT/OT consult placed - recommending home with HH (3) Acute metabolic encephalopathy: Plan: -resolved (4) UTI (urinary tract infection): Plan: klebsiella ceftriaxone given sensitivities (5) Hyponatremia: Plan: Na+ improved to 135 (6) Leukocytosis: Plan lives at home w - right now goal would be to get back home at discharge - d/w pt needs to stay active in hospital so that she doesn't get weak enough to require rehab. Admission and Anticipated Discharge Date Admission Date: April 21, 2025 Subjective Pt still requiring 30-50L, high flow NS. Pt with less anxiety, but appears lethargic. Review of Systems Review of Systems: CONST: Negative for fever, body aches and chills. HENT: Negative for neck pain/stiffness, headache, congestion, sore throat, swelling. EYES: Negative for discharge/pain or vision changes. RESP: Negative for cough/hemoptysis and shortness of breath. CV: Negative chest pain, difficulty breathing, palpitations. ABD: Negative pain, nausea, vomiting. : Negative increase frequency, dysuria, blood in urine or stool. MUSC: Negative for muscle aches, edema. SKIN: Negative rash, lesions/sores. NEURO: Negative headache, dizziness, weakness. Physical Exam Physical Exam: GENERAL APPEARANCE NAD, activity normal for age, well developed/ well nourished, no cyanosis, pallor, or diaphoresis. EYES lids/conjunctiva normal. EARS/NOSE/THROAT Mucous membranes moist, nares normal, lips/teeth normal uvula midline without oral pharyngeal erythema, exudate or swelling TMs normal bilaterally. No lymphangitis/lymphedema. HEAD/NECK normocephalic atraumatic, no facial trauma, neck is supple. RESPIRATORY respiratory effort normal, speaks in full sentences, no tripod position, no accessory muscle use. Lungs clear to auscultation without rhonchi, wheezes, rales CARDIAC Regular rate and rhythm, no edema. ABDOMINAL Soft, ND/NT. No evidence of fluid wave. No pulsatile masses on exam, rebound tenderness, Sim sign or pain over Mcburney's point. MUSCLES/EXTREMITIES No abnormal range of motion, no swelling. SKIN Warm, pink and dry. No rashes, dermatoses, petechiae or lesions. NEUROLOGICAL Speech is clear and appropriate. Normal level of consciousness. Gait and coordination are normal. 5/5 strength in all extremities. PSYCH Normal mood and affect. Judgement/competence is appropriate Results & Data Results & Data Vital Signs (Past 12 Hours) Vital Signs Temp Pulse Pulse Resp BP Pulse Ox O2 Del Method 04/29/25 09:44 77 38 H 93 High Flow Nasal Cannula 04/29/25 09:37 81 36 H 100 04/29/25 09:00 81 36 H 107/61 98 High Flow Nasal Cannula 04/29/25 08:22 36.4 C L 80 24 111/69 96 High Flow Nasal Cannula 04/29/25 05:54 71 04/29/25 03:42 74 34 H 96 High Flow Nasal Cannula 04/29/25 03:35 36.4 C L 74 28 H 110/66 94 High Flow Nasal Cannula 04/29/25 00:00 69 04/28/25 23:02 36.4 C L 70 25 H 110/55 L 92 High Flow Nasal Cannula 04/28/25 22:48 70 22 95 High Flow Nasal Cannula 04/28/25 22:17 High Flow Nasal Cannula O2 Flow Rate FiO2 04/29/25 09:44 50 90 04/29/25 09:37 70 04/29/25 09:00 30 85 04/29/25 08:22 30 04/29/25 05:54 04/29/25 03:42 30 80 04/29/25 03:35 30 04/29/25 00:00 04/28/25 23:02 30 04/28/25 22:48 30 80 04/28/25 22:17 30 70 PG Care Time/CCT Total # of Minutes Spent Total Time Spent with Patient: Total time spent is greater than 50% in coordination of care (as documented) at patient's floor/unit and/or counseling patient: Coding Level of Care Code 59340 SUB INP/OBS CARE 235MIN Diagnoses Hypoxia R09.02 Pelvic fracture S32.9XXA Acute metabolic encephalopathy G93.41 UTI (urinary tract infection) N39.0 Hyponatremia E87.1 Leukocytosis D72.829
[2025-04-29] MEDS: MAGNESIUM SULFATE / D5W 1 GM/100 ML BAG IV ONE (22:32)
[2025-04-29] MEDS: LORazepam 0.5 MG TAB PO PRN (22:49)
[2025-04-30 00:10] LABS: Anion Gap 11.0 (3-11); Blood Urea Nitrogen 28.0 mg/dl (6-23); Calcium 8.8 mg/dl (8.6-10.3); Carbon Dioxide 26.0 mmol/L (21-32); Chloride 91.0 mmol/L (98-107); Creatinine Clr Calc Pharmacy 61.9 ml/min; Glucose 348.0 mg/dl (70-99(Fasting)); Magnesium 1.7 mg/dl (1.7-2.4); Potassium 3.4 mmol/L (3.5-5.1); Sodium 128.0 mmol/L (136-145)
[2025-04-30] MEDS: POTASSIUM CHLORIDE CRTAB 20 MEQ TABCR PO STA (00:44)
[2025-04-30] MEDS: SODIUM CHLORIDE 0.9% 500 ML IV ONE (00:44)
--- NOTE | 2025-04-30 01:44 | Communication Note ---
Date of Service: April 30, 2025 Alerted by nurse earlier this evening pt in afib RVR with low BPs. Telemetry reviewed; rates 130-140s since about 2100. Pt seen at bedside with family member present. Pt denies any symptoms, no chest pain or SOB, states she is feeling well. Labs checked; potassium 3.4, mag 1.7. Given 60 mEq po potassium, 1 g IV mag, and also given 500 mL bolus NSS. Pressures improved to 130s/80s, HR subsequently 100s-120s. Resident Activity Tracking Resident Involvement: Resident Care Provided Care Provided: Adult Hospital Medicine
[2025-04-30 06:36] LABS: Hematocrit (blood only) 31.2 % (37.0-47.0); Hemoglobin 10.1 g/dl (12.0-16.0); Mean Corpuscular Hemoglobin 28.1 pg (25.0-34.0); Mean Corpuscular Volume 86.7 fL (80.0-100.0); Platelet Count 338 K/uL (130-400); RDW Standard Deviation 51.4 fL (36.4-46.3); Red Blood Count 3.60 M/uL (4.20-5.40); White Blood Count 13.58 K/ul (4.8-10.8)
[2025-04-30 06:57] LABS: Anion Gap 10.0 (3-11); Blood Urea Nitrogen 26.0 mg/dl (6-23); Calcium 9.1 mg/dl (8.6-10.3); Carbon Dioxide 25.0 mmol/L (21-32); Chloride 96.0 mmol/L (98-107); Creatinine Clr Calc Pharmacy 70.4 ml/min; Glucose 300.0 mg/dl (70-99(Fasting)); Potassium 4.0 mmol/L (3.5-5.1); Sodium 131.0 mmol/L (136-145)
--- NOTE | 2025-04-30 08:26 | XRay Report ---
EXAM: XR chest 1V portable CLINICAL HISTORY: Follow-up. TECHNIQUE: X-ray image of the chest obtained in 1 frontal projection. COMPARISON: 04/29/2025. FINDINGS: Left chemoport with tip in SVC. Pulmonary Parenchyma: Unchanged diffuse air space opacification and reticular thickening in bilateral lungs. Unchanged blunting of bilateral CP angles likely small pleural effusion. Heart and Mediastinum: Heart size and shape are normal. No mediastinal widening or masses. No hilar or mediastinal lymphadenopathy. Bony Thorax: Bony thorax appears intact without fractures or deformities. Soft Tissues: Soft tissues overlying the chest wall are unremarkable. IMPRESSION: 1. Left chemoport with tip in Superior Vena C[place]. 2. Unchanged diffuse air space opacification and reticular thickening in bilateral lungs are likely infective/inflammatory. 3. Unchanged blunting of bilateral CP angles likely small pleural effusion. Electronically signed by Zachary Srinivasan 04-30-2025 08:25 AM
--- NOTE | 2025-04-30 10:17 | Electrocardiogram Report ---
Test Reason : Blood Pressure : */* mmHG Vent. Rate : 133 BPM Atrial Rate : * BPM P-R Int : * ms QRS Dur : 104 ms QT Int : 304 ms P-R-T Axes : * -27 174 degrees QTcB Int : 452 ms Atrial fibrillation with rapid ventricular response Moderate voltage criteria for LVH, may be normal variant Abnormal ECG When compared with ECG of 27-Apr-2025 09:15, Atrial fibrillation has replaced Sinus rhythm Vent. rate has increased by 51 bpm Confirmed by Duane Villavicencio ([id number]) on 04/30/2025 10:17:18 AM Referred By: REFERRED SELF Confirmed By: Duane Villavicencio
--- NOTE | 2025-04-30 10:21 | Hospitalist Progress Note ---
Date of Service April 30, 2025 Assessment & Plan (1) Hypoxia: Plan: - Remains on 10LNC - Continue to hold diuretics - Echo: EF 55-60%, mod. pulm HTN - CXR showing pulmonary vascular congestion - Na+ improved to >130 -will give dose of lasix 40mg IV - cardiology consult appreciated - appears to have non cardiogenic pulmonary edema - pt has received docetaxel and cyclophosphamide possible pulmonary toxicity -pulmonary consult appreciated -CXR showing mild improvement -pulmonary edema -con't lasix 40 IV BID -on 30LNC hiflow -Solu-medrol IV started as per pulmonary -04/30nCXR showing no change in infiltrative pattern (2) Pelvic fracture: Plan: Seen by [facility] orthopedics and recommended conservative management. -pain control - Walker for gait assistance - PT/OT consult placed - recommending home with HH (3) Acute metabolic encephalopathy: Plan: -resolved (4) UTI (urinary tract infection): Plan: klebsiella ceftriaxone given sensitivities (5) Hyponatremia: Plan: Na+ improved to 135 (6) Leukocytosis: Plan lives at home w - right now goal would be to get back home at discharge - d/w pt needs to stay active in hospital so that she doesn't get weak enough to require rehab. Admission and Anticipated Discharge Date Admission Date: April 21, 2025 Subjective Pt had episode of afib with RVR last night. Improved HR this am after dose of cardizem IV. Pt resting in bed on 10LNC, appears to be at baseline. Review of Systems Review of Systems: CONST: Negative for fever, body aches and chills. HENT: Negative for neck pain/stiffness, headache, congestion, sore throat, swelling. EYES: Negative for discharge/pain or vision changes. RESP: Negative for cough/hemoptysis and shortness of breath. CV: Negative chest pain, difficulty breathing, palpitations. ABD: Negative pain, nausea, vomiting. : Negative increase frequency, dysuria, blood in urine or stool. MUSC: Negative for muscle aches, edema. SKIN: Negative rash, lesions/sores. NEURO: Negative headache, dizziness, weakness. Physical Exam Physical Exam: GENERAL APPEARANCE NAD, activity normal for age, well developed/ well nourished, no cyanosis, pallor, or diaphoresis. EYES lids/conjunctiva normal. EARS/NOSE/THROAT Mucous membranes moist, nares normal, lips/teeth normal uvula midline without oral pharyngeal erythema, exudate or swelling TMs normal bilaterally. No lymphangitis/lymphedema. HEAD/NECK normocephalic atraumatic, no facial trauma, neck is supple. RESPIRATORY respiratory effort normal, speaks in full sentences, no tripod position, no accessory muscle use. Lungs clear to auscultation without rhonchi, wheezes, rales CARDIAC Regular rate and rhythm, no edema. ABDOMINAL Soft, ND/NT. No evidence of fluid wave. No pulsatile masses on exam, rebound tenderness, Sim sign or pain over Mcburney's point. MUSCLES/EXTREMITIES No abnormal range of motion, no swelling. SKIN Warm, pink and dry. No rashes, dermatoses, petechiae or lesions. NEUROLOGICAL Speech is clear and appropriate. Normal level of consciousness. Gait and coordination are normal. 5/5 strength in all extremities. PSYCH Normal mood and affect. Judgement/competence is appropriate Results & Data Results & Data Vital Signs (Past 12 Hours) Vital Signs Temp Pulse Pulse Resp BP Pulse Ox O2 Del Method 04/30/25 08:04 135 H 36 H 131/65 04/30/25 07:39 126 H 26 H 96 High Flow Nasal Cannula 04/30/25 07:07 36.9 C 117 H 33 H 106/66 95 High Flow Nasal Cannula 04/30/25 03:25 36.4 C L 124 H 33 H 106/70 95 High Flow Nasal Cannula 04/30/25 02:49 117 H 37 H 90 High Flow Nasal Cannula 04/30/25 01:12 109 H 33 H 137/87 97 High Flow Nasal Cannula 04/30/25 00:52 111 H 97/71 L 04/30/25 00:28 117 H 78/58 L 04/29/25 23:46 126 H 97/55 L 04/29/25 23:40 109 H 35 H 93 High Flow Nasal Cannula 04/29/25 23:18 36.5 C 126 H 20 118/82 90 High Flow Nasal Cannula O2 Flow Rate FiO2 04/30/25 08:04 04/30/25 07:39 50 80 04/30/25 07:07 50 80 04/30/25 03:25 04/30/25 02:49 50 80 04/30/25 01:12 04/30/25 00:52 04/30/25 00:28 04/29/25 23:46 04/29/25 23:40 50 70 04/29/25 23:18 PG Care Time/CCT Total # of Minutes Spent Total Time Spent with Patient: Total time spent is greater than 50% in coordination of care (as documented) at patient's floor/unit and/or counseling patient: Coding Level of Care Code 74636 SUB INP/OBS CARE 2/35MIN Diagnoses Hypoxia R09.02 Pelvic fracture S32.9XXA Acute metabolic encephalopathy G93.41 UTI (urinary tract infection) N39.0 Hyponatremia E87.1 Leukocytosis D72.829
--- NOTE | 2025-04-30 11:55 | Cardiology Progress Note ---
Date of Service April 30, 2025 Assessment & Plan (1) Acute hypoxic respiratory failure: (2) Atrial fibrillation: Plan 1. Hypoxia: At this point I suspect her hypoxia is due to causes other than cardiogenic pulmonary edema. She has affected a good diuresis over several days without a significant improvement in her hypoxia or x-ray. This will be uncharacteristic for respiratory failure related exclusively to pulmonary edema. She is continue on her daily diuretic which seems reasonable although we will need to monitor her for electrolyte abnormalities and worsening renal function. Started on steroids for possible pneumonitis. 2. Atrial fibrillation: No prior history. Likely due to several factors including her advanced age and respiratory problems. She seemed to tolerate it fairly well. Perhaps an element of mild hemodynamic embarrassment. No overt symptoms. Return to sinus rhythm. It would be reasonable to change her amlodipine to diltiazem. This may affect better rate control should she develop additional atrial fibrillation. Given her overall poor clinical status and the potential need for invasive procedures I do not think there is an urgent need for systemic anticoagulation currently. For more extended episodes of atrial fibrillation we may consider anticoagulation. Admission and Anticipated Discharge Date Admission Date: April 21, 2025 Subjective I was asked to see the patient due to an episode of atrial fibrillation beginning early this morning. The patient had been admitted for hypoxemic respiratory failure. She continues to be short of breath. She seems somewhat tired. She denied any sense of palpitation over the course of the evening. She did not appreciate any significant change in her overall condition or symptoms. Denies pain at this time. Review of Systems Review of Systems: Per HPI. Physical Exam Physical Exam: She is alert and oriented x3. Mood affect appear appropriate. On high flow nasal oxygen. Fatigued. HEENT: Sclerae are anicteric. Pupils are equal and reactive to light and accommodation. Extraocular movements were intact. Neuro: Cranial nerves intact Lungs: Lungs are clear to auscultation bilaterally. There are no rales wheezes or rhonchi. She has normal respiratory effort without use of accessory muscles. There is normal pulmonary excursion. Cardiac: The rhythm was regular. S1 and S2 were normal. There are no murmurs on examination. The PMI was not markedly displaced on palpation. Extremities: Patient has bilateral radial pulses that are equal in intensity. There is no evidence cyanosis or clubbing. There was no evidence of significant peripheral edema bilaterally. Skin: There are no rashes noted on examination today. Results & Data Vital Signs (Past 12 Hours) Vital Signs Temp Pulse Pulse Pulse Resp BP Pulse Ox 04/30/25 11:27 36.8 C 70 24 98/48 L 97 04/30/25 11:01 68 30 H 99 04/30/25 08:04 135 H 36 H 131/65 04/30/25 07:39 126 H 26 H 96 04/30/25 07:07 36.9 C 117 H 33 H 106/66 95 04/30/25 05:48 125 H 04/30/25 03:25 36.4 C L 124 H 33 H 106/70 95 04/30/25 02:49 117 H 37 H 90 04/30/25 01:12 109 H 33 H 137/87 97 04/30/25 00:52 111 H 97/71 L 04/30/25 00:28 117 H 78/58 L O2 Del Method O2 Flow Rate FiO2 04/30/25 11:27 High Flow Nasal Cannula 04/30/25 11:01 High Flow Nasal Cannula 50 90 04/30/25 08:04 04/30/25 07:39 High Flow Nasal Cannula 50 80 04/30/25 07:07 High Flow Nasal Cannula 50 80 04/30/25 05:48 04/30/25 03:25 High Flow Nasal Cannula 04/30/25 02:49 High Flow Nasal Cannula 50 80 04/30/25 01:12 High Flow Nasal Cannula 04/30/25 00:52 04/30/25 00:28 Laboratory Results Abnormal Lab Results 04/29/25 04/29/25 04/29/25 16:29 20:40 22:36 WBC RBC Hgb Hct MCV MCH MCHC RDW Std Deviation RDW Coeff of Jessica Plt Count MPV Sodium 128 L Potassium 3.4 L Chloride 91 L Carbon Dioxide 26 Anion Gap 11 BUN 28 H Creatinine 0.70 Est Cr Clr Drug Dosing 61.9 eGFR 87.92 BUN/Creatinine Ratio 40.0 H Glucose 348 H* POC Glucose 258 H 359 H* Calcium 8.8 Magnesium 1.7 B-Natriuretic Peptide 04/30/25 04/30/25 04/30/25 06:12 07:11 11:20 WBC 13.58 H RBC 3.60 L Hgb 10.1 L Hct 31.2 L MCV 86.7 MCH 28.1 MCHC 32.4 RDW Std Deviation 51.4 H RDW Coeff of Jessica 16.5 H Plt Count 338 MPV 10.1 Sodium 131 L Potassium 4.0 Chloride 96 L Carbon Dioxide 25 Anion Gap 10 BUN 26 H Creatinine 0.61 Est Cr Clr Drug Dosing 70.4 eGFR 90.89 BUN/Creatinine Ratio 42.6 H Glucose 300 H POC Glucose 289 H 382 H* Calcium 9.1 Magnesium B-Natriuretic Peptide 702 H 04/30/25 11:21 WBC RBC Hgb Hct MCV MCH MCHC RDW Std Deviation RDW Coeff of Jessica Plt Count MPV Sodium Potassium Chloride Carbon Dioxide Anion Gap BUN Creatinine Est Cr Clr Drug Dosing eGFR BUN/Creatinine Ratio Glucose POC Glucose 377 H* Calcium Magnesium B-Natriuretic Peptide PG Care Time/CCT Total # of Minutes Spent Total Time Spent with Patient: Total time spent is greater than 50% in coordination of care (as documented) at patient's floor/unit and/or counseling patient: Coding Level of Care Code 51949 SUB INP/OBS CARE 2/35MIN Diagnoses Acute hypoxic respiratory failure J96.01 Atrial fibrillation I48.91
[2025-04-30] MEDS ORDERED: PHARMACY GLYCEMIC MGMT CONSULT PRN (12:23)
--- NOTE | 2025-04-30 12:26 | Pulmonology Progress Note ---
Date of Service April 30, 2025 Assessment & Plan (1) Acute metabolic encephalopathy: (2) Hyponatremia: (3) Leukocytosis: (4) UTI (urinary tract infection): (5) Acute hypoxic respiratory failure: Plan Reason Critically Ill: 79-year-old female admitted to the ICU for severe hyponatremia and hypoxia. Pulmonary consulted for worsening hypoxia with bilateral pulmonary infiltrates concerning for pulmonary edema with small bilateral effusions. She has completed a course of antibiotics and has been diuresed aggressively but failed to improve. She was placed empirically on steroids for inflammatory pulmonary infiltrate/alveolar hemorrhage as the patient was too unstable and unwilling to consider bronchoscopy with BAL. Recommendations: 1. Hypoxemic respiratory failure with pulmonary infiltrates and pleural effusion: I still suspect a component of fluid overload. She is a little bit better today with continued diuresis. BUN and creatinine have not yet bumped. Complete course of antibiotics and continue diuresis. Will add metolazone and follow blood pressure and kidney function as well as electrolytes. Discussed with patient's spouse and grandson at bedside that if this is unresponsive to steroids and continue diuresis, other etiologies would need to be entertained which would likely be associated with a much less favorable prognosis. The patient states she wants to continue aggressive care at this point in time and is not ready to consider palliative care consultation. Continue incentive spirometry and weaning oxygen as tolerated to defend oxygen saturation greater than 90%. 2. Breast cancer status post therapy with docetaxel and cyclophosphamide. Per medical oncology. Patient is at risk for immunocompromised infections. LDH only minimally elevated. Again the patient is reluctant to consider bronchoscopy for assessment of PJP, alveolar hemorrhage, or other opportunistic infections. 3. CODE STATUS confirmed. DNR/DNI. She has not been tolerant to positive airway pressure previously. Prognosis guarded. Will continue to follow with you Admission and Anticipated Discharge Date Admission Date: April 21, 2025 Results & Data Results & Data Vital Signs (Past 12 Hours) Vital Signs Temp Pulse Pulse Pulse Resp BP Pulse Ox 04/30/25 11:27 36.8 C 70 24 98/48 L 97 04/30/25 11:01 68 30 H 99 04/30/25 08:04 135 H 36 H 131/65 04/30/25 07:39 126 H 26 H 96 04/30/25 07:07 36.9 C 117 H 33 H 106/66 95 04/30/25 05:48 125 H 04/30/25 03:25 36.4 C L 124 H 33 H 106/70 95 04/30/25 02:49 117 H 37 H 90 04/30/25 01:12 109 H 33 H 137/87 97 04/30/25 00:52 111 H 97/71 L 04/30/25 00:28 117 H 78/58 L O2 Del Method O2 Flow Rate FiO2 04/30/25 11:27 High Flow Nasal Cannula 04/30/25 11:01 High Flow Nasal Cannula 50 90 04/30/25 08:04 04/30/25 07:39 High Flow Nasal Cannula 50 80 04/30/25 07:07 High Flow Nasal Cannula 50 80 04/30/25 05:48 04/30/25 03:25 High Flow Nasal Cannula 04/30/25 02:49 High Flow Nasal Cannula 50 80 04/30/25 01:12 High Flow Nasal Cannula 04/30/25 00:52 04/30/25 00:28 Laboratory Results 04/30/25 06:12 04/30/25 06:12 Diagnostic Findings Chest x-ray from today was independently reviewed. Persistent bilateral alveolar airspace opacities are noted, slightly improved compared to previous. PG Care Time/CCT Total # of Minutes Spent Total Time Spent with Patient: Total time spent is greater than 50% in coordination of care (as documented) at patient's floor/unit and/or counseling patient: Coding Level of Care Code 15769 SUB INP/OBS CARE 3/50MIN Diagnoses Acute metabolic encephalopathy G93.41 Hyponatremia E87.1 Leukocytosis D72.829 UTI (urinary tract infection) N39.0 Acute hypoxic respiratory failure J96.01
[2025-04-30] MEDS: LANTUS PER UNIT CHARGE SC ONE (13:45)
--- NOTE | 2025-04-30 15:15 | Pharmacy Report ---
Pharmacy Glycemic Short Note 2 - Date of Service April 30, 2025 - Glycemic Short BSG Results (Last 24 hours): 04/29/25 04/29/25 04/29/25 16:29 20:40 22:36 Glucose 348 H* POC Glucose 258 H 359 H* 04/30/25 04/30/25 04/30/25 06:12 07:11 11:20 Glucose 300 H POC Glucose 289 H 382 H* 04/30/25 11:21 Glucose POC Glucose 377 H* OUTPATIENT ANTIDIABETIC REGIMEN: * metformin 1000mg po BID * Januvia 100mg po daily HbA1c: 6.6% on 04/21/25 ASSESSMENT: * Mallorie is a 79 year old female who was admitted 04/20 with acute metabolic encephalopathy, hypoxia, and hyponatremia. Pharmacy was consulted today for glycemic management as she was started on iv steroids yesterday and her blood glucose has been steadily increasing since then. * On consult her BSG was 382mg/dL. Lantus 20units SQ x 1 was ordered. She was already on a loose bolus insulin regimen without carb coverage, so this was tightened to a weight based regimen with a stress of 3. PLAN FOR INPATIENT GLYCEMIC CONTROL: * Hold outpatient oral diabetes medications * Basal insulin * Lantus 20 units SQ x 1, further need will be assessed with addition BSG readings * Bolus insulin * NovoLog per scale ACHS or Q6hrs while NPO * Goal Range: Low 110 mg/dL - High 140 mg/dL * Correction Factor: 25 mg/dL/unit * Nutritional / Prandial insulin per carb ratio of 1 unit per 8 grams CHO co nsumed
[2025-04-30] MEDS: INSULIN HUMAN REGULAR PER UNIT 6 UNITS in SYRINGE 5.94 ML IV ONE (17:38)
[2025-04-30] MEDS: LANTUS PER UNIT CHARGE SC SCH (21:21)
[2025-04-30] MEDS: COUGH DROP (SUGAR FREE) LOZ 24 LOZ/1 BOX BUCCAL PRN (22:45)
[2025-05-01] MEDS: INSULIN ASPART PER UNIT CHARGE SC SCH (00:21)
[2025-05-01] MEDS: CHLORASEPTIC (PHENOL) 1.4% SOLN 180 ML BTL MT PRN (02:53)
[2025-05-01 06:57] LABS: Anion Gap 7.0 (3-11); Blood Urea Nitrogen 39.0 mg/dl (6-23); Calcium 9.2 mg/dl (8.6-10.3); Carbon Dioxide 33.0 mmol/L (21-32); Chloride 93.0 mmol/L (98-107); Creatinine Clr Calc Pharmacy 64.1 ml/min; Glucose 215.0 mg/dl (70-99(Fasting)); Potassium 3.1 mmol/L (3.5-5.1); Sodium 133.0 mmol/L (136-145)
[2025-05-01 07:09] LABS: Hematocrit (blood only) 28.8 % (37.0-47.0); Hemoglobin 9.7 g/dl (12.0-16.0); Mean Corpuscular Hemoglobin 28.7 pg (25.0-34.0); Mean Corpuscular Volume 85.2 fL (80.0-100.0); Platelet Count 343 K/uL (130-400); RDW Standard Deviation 50.4 fL (36.4-46.3); Red Blood Count 3.38 M/uL (4.20-5.40); White Blood Count 20.52 K/ul (4.8-10.8)
[2025-05-01] MEDS: POTASSIUM CHLORIDE / WTR 10 MEQ/100 ML PLCT IV SCH (08:01)
--- NOTE | 2025-05-01 08:31 | Pulmonology Progress Note ---
Date of Service May 01, 2025 Assessment & Plan (1) Acute metabolic encephalopathy: (2) Hyponatremia: (3) Leukocytosis: (4) UTI (urinary tract infection): (5) Acute hypoxic respiratory failure: Plan Reason Critically Ill: 79-year-old female admitted to the ICU for severe hyponatremia and hypoxia. Pulmonary consulted for worsening hypoxia with bilateral pulmonary infiltrates concerning for pulmonary edema with small bilateral effusions. She has completed a course of antibiotics and has been diuresed aggressively but failed to improve. She was placed empirically on steroids for inflammatory pulmonary infiltrate/alveolar hemorrhage as the patient was too unstable and unwilling to consider bronchoscopy with BAL. Recommendations: 1. Hypoxemic respiratory failure with pulmonary infiltrates and pleural effusion: She is improved today with improved oxygen requirements. Her white count is up to 20,000 although it is unclear if this may be related to steroids. Creatinine continues to hold despite fairly aggressive diuretics. She remains net negative. Continue current therapy with aggressive diuresis and steroids. 2. Breast cancer status post therapy with docetaxel and cyclophosphamide. Per medical oncology. Patient is at risk for immunocompromised infections. LDH only minimally elevated. Again the patient is reluctant to consider bronchoscopy for assessment of PJP, alveolar hemorrhage, or other opportunistic infections. 3. CODE STATUS confirmed. DNR/DNI. She has not been tolerant to positive airway pressure previously. Prognosis guarded. Will continue to follow with you Admission and Anticipated Discharge Date Admission Date: April 21, 2025 Subjective Patient seen and examined. EMR reviewed. The patient has shown some improvement over the last 24 hours. She has been diuresed. She is now down to 15 L high flow oxygen via the wall. She appears to be breathing easier today. Review of Systems 2 Review of Systems: All systems reviewed & are unremarkable except as noted in Subjective Physical Exam 2 Constitutional: + ill appearing, + thin and + frail appe aring Neck: trachea midline, no thyromegaly Respiratory: + tachypneic; no respiratory distress an d no labored breathing Auscultation: + crackles; no wheezes Cardiovascular: RRR, no murmur, no edema Gastrointestinal (Abdomen): normal bowel sounds, soft, nontender, no hepatosplenomegaly Musculoskeletal: Extremities: extremities normal to inspection Skin: no rashes, warm and dry Neurologic: Nonfocal exam Lymphatic: no cervical lymphadenopathy Results & Data Results & Data Vital Signs (Past 12 Hours) Vital Signs Temp Pulse Pulse Resp BP Pulse Ox O2 Del Method 05/01/25 07:16 36.3 C L 82 21 124/66 92 High Flow Nasal Cannula 05/01/25 03:27 75 31 H 93 High Flow Nasal Cannula 05/01/25 03:20 36.4 C L 82 15 109/64 92 High Flow Nasal Cannula 04/30/25 23:21 36.3 C L 72 28 H 118/60 98 High Flow Nasal Cannula 04/30/25 23:02 81 04/30/25 22:45 69 30 H 97 High Flow Nasal Cannula O2 Flow Rate FiO2 05/01/25 07:16 05/01/25 03:27 50 60 05/01/25 03:20 50 04/30/25 23:21 50 04/30/25 23:02 04/30/25 22:45 50 60 Laboratory Results 05/01/25 05:53 05/01/25 05:53 Diagnostic Findings No new imaging PG Care Time/CCT Total # of Minutes Spent Total Time Spent with Patient: Total time spent is greater than 50% in coordination of care (as documented) at patient's floor/unit and/or counseling patient: Coding Level of Care Code 29771 SUB INP/OBS CARE 2/35MIN Diagnoses Acute metabolic encephalopathy G93.41 Hyponatremia E87.1 Leukocytosis D72.829 UTI (urinary tract infection) N39.0 Acute hypoxic respiratory failure J96.01
--- NOTE | 2025-05-01 08:58 | Cardiology Progress Note ---
Date of Service May 01, 2025 Assessment & Plan (1) Acute hypoxic respiratory failure: (2) Atrial fibrillation: Plan 1. Hypoxia: She seems to be on slightly less oxygen today. Currently receiving prednisone, antibiotic and diuretics. She is affected and aggressive diuresis o edita the course of her admission with only mild improvement in her oxygen requirements and symptoms. I think this is less likely related to heart failure with preserved ejection fraction. Perhaps the steroids are having some effect. Electrolytes being replaced. Renal function stable. It seems reasonable to continue diuresis provided her renal function remained stable. 2. Atrial fibrillation: No recurrence over the past 24 hours. Will change amlodipine to diltiazem. I do think is an urgent need for anticoagulation given the brief episode we noticed. However, she has additional episodes of extended duration and should be considered. 3. Hypokalemia: Some additional ventricular ectopy this morning. Possibly related to her electrolyte abnormalities. Potassium being replaced. Admission and Anticipated Discharge Date Admission Date: April 21, 2025 Subjective This morning the patient reports continued dyspnea. Continues to be weak. Frustrated with her medical condition. Perhaps slight improvement by her report. Sore throat. Review of Systems Review of Systems: Per HPI Physical Exam Physical Exam: She is alert and oriented x3. Mood affect appear appropriate. On high flow nasal cannula. HEENT: Sclerae are anicteric. Pupils are equal and reactive to light and accommodation. Extraocular movements were intact. Neuro: Cranial nerves intact Lungs: Lungs are clear to auscultation bilaterally. There are no rales wheezes or rhonchi. She has normal respiratory effort without use of accessory muscles. There is normal pulmonary excursion. Cardiac: The rhythm was regular. S1 and S2 were normal. There are no murmurs on examination. The PMI was not markedly displaced on palpation. Extremities: Patient has bilateral radial pulses that are equal in intensity. There is no evidence cyanosis or clubbing. There was no evidence of significant peripheral edema bilaterally. Skin: There are no rashes noted on examination today. Results & Data Vital Signs (Past 12 Hours) Vital Signs Temp Pulse Pulse Resp BP Pulse Ox O2 Del Method 05/01/25 07:25 84 26 H 92 Nasal Cannula 05/01/25 07:16 36.3 C L 82 21 124/66 92 High Flow Nasal Cannula 05/01/25 03:27 75 31 H 93 High Flow Nasal Cannula 05/01/25 03:20 36.4 C L 82 15 109/64 92 High Flow Nasal Cannula 04/30/25 23:21 36.3 C L 72 28 H 118/60 98 High Flow Nasal Cannula 04/30/25 23:02 81 04/30/25 22:45 69 30 H 97 High Flow Nasal Cannula O2 Flow Rate FiO2 05/01/25 07:25 15 05/01/25 07:16 05/01/25 03:27 50 60 05/01/25 03:20 50 04/30/25 23:21 50 04/30/25 23:02 04/30/25 22:45 50 60 Laboratory Results Abnormal Lab Results 04/30/25 04/30/25 04/30/25 11:20 11:21 16:12 WBC RBC Hgb Hct MCV MCH MCHC RDW Std Deviation RDW Coeff of Jessica Plt Count MPV Sodium Potassium Chloride Carbon Dioxide Anion Gap BUN Creatinine Est Cr Clr Drug Dosing eGFR BUN/Creatinine Ratio Glucose POC Glucose 382 H* 377 H* 364 H* Calcium 04/30/25 04/30/25 05/01/25 16:14 20:28 00:12 WBC RBC Hgb Hct MCV MCH MCHC RDW Std Deviation RDW Coeff of Jessica Plt Count MPV Sodium Potassium Chloride Carbon Dioxide Anion Gap BUN Creatinine Est Cr Clr Drug Dosing eGFR BUN/Creatinine Ratio Glucose POC Glucose 337 H* 337 H* 272 H Calcium 05/01/25 05/01/25 05/01/25 03:53 05:53 07:15 WBC 20.52 H D RBC 3.38 L Hgb 9.7 L Hct 28.8 L MCV 85.2 MCH 28.7 MCHC 33.7 RDW Std Deviation 50.4 H RDW Coeff of Jessica 16.2 H Plt Count 343 MPV 10.1 Sodium 133 L Potassium 3.1 L D Chloride 93 L Carbon Dioxide 33 H Anion Gap 7 BUN 39 H Creatinine 0.67 Est Cr Clr Drug Dosing 64.1 eGFR 88.85 BUN/Creatinine Ratio 58.2 H Glucose 215 H POC Glucose 222 H 216 H Calcium 9.2 PG Care Time/CCT Total # of Minutes Spent Total Time Spent with Patient: Total time spent is greater than 50% in coordination of care (as documented) at patient's floor/unit and/or counseling patient: Coding Level of Care Code 73893 SUB INP/OBS CARE 2/35MIN Diagnoses Acute hypoxic respiratory failure J96.01 Atrial fibrillation I48.91
[2025-05-01] MEDS ORDERED: LANTUS PER UNIT CHARGE SC SCH (09:00)
[2025-05-01] MEDS: LANTUS PER UNIT CHARGE SC SCH (09:33)
--- NOTE | 2025-05-01 11:10 | Hospitalist Progress Note ---
Date of Service May 01, 2025 Assessment & Plan (1) Hypoxia: Plan: - Remains on 10LNC - Continue to hold diuretics - Echo: EF 55-60%, mod. pulm HTN - CXR showing pulmonary vascular congestion - Na+ improved to >130 -will give dose of lasix 40mg IV - cardiology consult appreciated - appears to have non cardiogenic pulmonary edema - pt has received docetaxel and cyclophosphamide possible pulmonary toxicity -pulmonary consult appreciated -CXR showing mild improvement -pulmonary edema -con't lasix 40 IV BID -on 30LNC hiflow -Solu-medrol IV started as per pulmonary -04/30nCXR showing no change in infiltrative pattern -con't steroids (2) Pelvic fracture: Plan: Seen by [facility] orthopedics and recommended conservative management. -pain control - Walker for gait assistance - PT/OT consult placed - recommending home with HH (3) Acute metabolic encephalopathy: Plan: -resolved (4) UTI (urinary tract infection): Plan: klebsiella ceftriaxone given sensitivities (5) Hyponatremia: Plan: Na+ improved to 135 (6) Leukocytosis: Plan lives at home w - right now goal would be to get back home at discharge - d/w pt needs to stay active in hospital so that she doesn't get weak enough to require rehab. Admission and Anticipated Discharge Date Admission Date: April 21, 2025 Subjective No events overnight. Pt having slight improvement in 02 requirements this morning. Appears to be feeling better. Review of Systems Review of Systems: CONST: Negative for fever, body aches and chills. HENT: Negative for neck pain/stiffness, headache, congestion, sore throat, swelling. EYES: Negative for discharge/pain or vision changes. RESP: Negative for cough/hemoptysis and shortness of breath. CV: Negative chest pain, difficulty breathing, palpitations. ABD: Negative pain, nausea, vomiting. : Negative increase frequency, dysuria, blood in urine or stool. MUSC: Negative for muscle aches, edema. SKIN: Negative rash, lesions/sores. NEURO: Negative headache, dizziness, weakness. Physical Exam Physical Exam: GENERAL APPEARANCE NAD, activity normal for age, well developed/ well nourished, no cyanosis, pallor, or diaphoresis. EYES lids/conjunctiva normal. EARS/NOSE/THROAT Mucous membranes moist, nares normal, lips/teeth normal uvula midline without oral pharyngeal erythema, exudate or swelling TMs normal bilaterally. No lymphangitis/lymphedema. HEAD/NECK normocephalic atraumatic, no facial trauma, neck is supple. RESPIRATORY respiratory effort normal, speaks in full sentences, no tripod position, no accessory muscle use. Lungs clear to auscultation without rhonchi, wheezes, rales CARDIAC Regular rate and rhythm, no edema. ABDOMINAL Soft, ND/NT. No evidence of fluid wave. No pulsatile masses on exam, rebound tenderness, Sim sign or pain over Mcburney's point. MUSCLES/EXTREMITIES No abnormal range of motion, no swelling. SKIN Warm, pink and dry. No rashes, dermatoses, petechiae or lesions. NEUROLOGICAL Speech is clear and appropriate. Normal level of consciousness. Gait and coordination are normal. 5/5 strength in all extremities. PSYCH Normal mood and affect. Judgement/competence is appropriate Results & Data Results & Data Vital Signs (Past 12 Hours) Vital Signs Temp Pulse Resp BP Pulse Ox O2 Del Method O2 Flow Rate 05/01/25 07:25 84 26 H 92 Nasal Cannula 15 05/01/25 07:16 36.3 C L 82 21 124/66 92 High Flow Nasal Cannula 05/01/25 03:27 75 31 H 93 High Flow Nasal Cannula 50 05/01/25 03:20 36.4 C L 82 15 109/64 92 High Flow Nasal Cannula 50 04/30/25 23:21 36.3 C L 72 28 H 118/60 98 High Flow Nasal Cannula 50 FiO2 05/01/25 07:25 05/01/25 07:16 05/01/25 03:27 60 05/01/25 03:20 04/30/25 23:21 PG Care Time/CCT Total # of Minutes Spent Total Time Spent with Patient: Total time spent is greater than 50% in coordination of care (as documented) at patient's floor/unit and/or counseling patient: Coding Level of Care Code 93147 SUB INP/OBS CARE 2/35MIN Diagnoses Hypoxia R09.02 Pelvic fracture S32.9XXA Acute metabolic encephalopathy G93.41 UTI (urinary tract infection) N39.0 Hyponatremia E87.1 Leukocytosis D72.829
--- NOTE | 2025-05-01 14:50 | Pharmacy Report ---
Pharmacy Glycemic Short Note 2 - Date of Service May 01, 2025 - Glycemic Short BSG Results (Last 24 hours): 04/30/25 04/30/25 04/30/25 16:12 16:14 20:28 Glucose POC Glucose 364 H* 337 H* 337 H* 05/01/25 05/01/25 05/01/25 00:12 03:53 05:53 Glucose 215 H POC Glucose 272 H 222 H 05/01/25 05/01/25 05/01/25 07:15 11:17 11:18 Glucose POC Glucose 216 H 349 H* 360 H* OUTPATIENT ANTIDIABETIC REGIMEN: * metformin 1000mg po BID * Januvia 100mg po daily HbA1c: 6.6% on 04/21/25 ASSESSMENT: 05/01: * Mallorie received 72 units of insulin yesterday, 35 were basal. * Spoke with LEXIS Angel, patient is receiving Boost with meals (111 carbs daily), but she drinks throughout the day so was not being covered with meals contributing to hyperglycemia. Will plan to factor into Lantus dosing vs carb coverage as covering could result in hypoglycemia without full amount being consumed at a meal. * Fasting BSG this AM elevated, but improved. Lantus at a weight based stress of 3 given yesterday, will continue with full weight based stress of 3 this AM plus 10 units to help with carb coverage of Boost and allow for an additional 20-30% at bedtime if BSGs remain elevated. * NovoLog tightened this morning to help with steroid induced hyperglycemia. She continues on methylprednisolone 40mg IV Q8H. 04/30: * Mallorie is a 79 year old female who was admitted 04/20 with acute metabolic enceph alopathy, hypoxia, and hyponatremia. Pharmacy was consulted today for glycemic management as she was started on iv steroids yesterday and her blood glucose has been steadily increasing since then. * On consult her BSG was 382mg/dL. Lantus 20units SQ x 1 was ordered. She was already on a loose bolus insulin regimen without carb coverage, so this was tightened to a weight based regimen with a stress of 3. PLAN FOR INPATIENT GLYCEMIC CONTROL: * Hold outpatient oral diabetes medications * Basal insulin * Lantus 35 units SQ this AM * Lantus 45 units SQ daily starting tomorrow (as long as steroids continued) * Lantus 0-15 units HS based on BSG (see eMAR for additional details) * Bolus insulin * NovoLog per scale ACHS or Q6hrs while NPO * Goal Range: Low 110 mg/dL - High 140 mg/dL * Correction Factor: 15 mg/dL/unit * Nutritional / Prandial insulin per carb ratio of 1 unit per 5 grams CHO consumed
[2025-05-02] MEDS: LANTUS PER UNIT CHARGE SC SCH (08:36)
--- NOTE | 2025-05-02 08:59 | Hospitalist Progress Note ---
Date of Service May 02, 2025 Assessment & Plan (1) Hypoxia: Plan: - Remains on 10LNC - Continue to hold diuretics - Echo: EF 55-60%, mod. pulm HTN - CXR showing pulmonary vascular congestion - Na+ improved to >130 -will give dose of lasix 40mg IV - cardiology consult appreciated - appears to have non cardiogenic pulmonary edema - pt has received docetaxel and cyclophosphamide possible pulmonary toxicity -pulmonary consult appreciated -CXR showing mild improvement -pulmonary edema -con't lasix 40 IV BID -on 30LNC hiflow -Solu-medrol IV started as per pulmonary -04/30nCXR showing no change in infiltrative pattern -con't steroids -clinically improving (2) Pelvic fracture: Plan: Seen by [facility] orthopedics and recommended conservative management. -pain control - Walker for gait assistance - PT/OT consult placed - recommending home with HH (3) Acute metabolic encephalopathy: Plan: -resolved (4) UTI (urinary tract infection): Plan: klebsiella ceftriaxone given sensitivities (5) Hyponatremia: Plan: Na+ improved to 135 (6) Leukocytosis: Plan lives at home w - right now goal would be to get back home at discharge - d/w pt needs to stay active in hospital so that she doesn't get weak enough to require rehab. Admission and Anticipated Discharge Date Admission Date: April 21, 2025 Subjective Pt clinically improving, off hiflo on NC, states she feels better. Review of Systems Review of Systems: CONST: Negative for fever, body aches and chills. HENT: Negative for neck pain/stiffness, headache, congestion, sore throat, swelling. EYES: Negative for discharge/pain or vision changes. RESP: Negative for cough/hemoptysis and shortness of breath. CV: Negative chest pain, difficulty breathing, palpitations. ABD: Negative pain, nausea, vomiting. : Negative increase frequency, dysuria, blood in urine or stool. MUSC: Negative for muscle aches, edema. SKIN: Negative rash, lesions/sores. NEURO: Negative headache, dizziness, weakness. Physical Exam Physical Exam: GENERAL APPEARANCE NAD, activity normal for age, well developed/ well nourished, no cyanosis, pallor, or diaphoresis. EYES lids/conjunctiva normal. EARS/NOSE/THROAT Mucous membranes moist, nares normal, lips/teeth normal uvula midline without oral pharyngeal erythema, exudate or swelling TMs normal bilaterally. No lymphangitis/lymphedema. HEAD/NECK normocephalic atraumatic, no facial trauma, neck is supple. RESPIRATORY respiratory effort normal, speaks in full sentences, no tripod position, no accessory muscle use. Lungs clear to auscultation without rhonchi, wheezes, rales CARDIAC Regular rate and rhythm, no edema. ABDOMINAL Soft, ND/NT. No evidence of fluid wave. No pulsatile masses on exam, rebound tenderness, Sim sign or pain over Mcburney's point. MUSCLES/EXTREMITIES No abnormal range of motion, no swelling. SKIN Warm, pink and dry. No rashes, dermatoses, petechiae or lesions. NEUROLOGICAL Speech is clear and appropriate. Normal level of consciousness. Gait and coordination are normal. 5/5 strength in all extremities. PSYCH Normal mood and affect. Judgement/competence is appropriate Results & Data Results & Data Vital Signs (Past 12 Hours) Vital Signs Temp Pulse Pulse Resp BP Pulse Ox O2 Del Method 05/02/25 08:01 36.4 C L 66 26 H 99/60 L 91 Nasal Cannula 05/02/25 08:00 66 05/02/25 03:01 36.4 C L 58 L 25 H 95/54 L 92 Nasal Cannula 05/02/25 00:52 96 High Flow Nasal Cannula 05/01/25 23:01 36.4 C L 80 20 89/49 L 98 Nasal Cannula 05/01/25 22:52 96 High Flow Nasal Cannula 05/01/25 22:41 82 O2 Flow Rate 05/02/25 08:01 05/02/25 08:00 05/02/25 03:01 05/02/25 00:52 8 05/01/25 23:01 05/01/25 22:52 10 05/01/25 22:41 PG Care Time/CCT Total # of Minutes Spent Total Time Spent with Patient: Total time spent is greater than 50% in coordination of care (as documented) at patient's floor/unit and/or counseling patient: Coding Level of Care Code 50035 SUB INP/OBS CARE 2/35MIN Diagnoses Hypoxia R09.02 Pelvic fracture S32.9XXA Acute metabolic encephalopathy G93.41 UTI (urinary tract infection) N39.0 Hyponatremia E87.1 Leukocytosis D72.829
[2025-05-02 09:58] LABS: Hematocrit (blood only) 29.7 % (37.0-47.0); Hemoglobin 9.7 g/dl (12.0-16.0); Mean Corpuscular Hemoglobin 27.7 pg (25.0-34.0); Mean Corpuscular Volume 84.9 fL (80.0-100.0); Platelet Count 334 K/uL (130-400); RDW Standard Deviation 50.8 fL (36.4-46.3); Red Blood Count 3.50 M/uL (4.20-5.40); White Blood Count 18.52 K/ul (4.8-10.8)
--- NOTE | 2025-05-02 10:09 | Cardiology Progress Note ---
Date of Service May 02, 2025 Assessment & Plan (1) Acute hypoxic respiratory failure: (2) Paroxysmal atrial fibrillation: Plan 1. Hypoxia: She seems to be on slightly less oxygen today. Currently receiving Methylprednisolone, IV antibiotics, and diuretics. This has led to an aggressive diuresis over the course of her admission with only mild improvement in her oxygen requirements and symptoms. I think this is less likely related to heart failure with preserved ejection fraction. Perhaps the steroids are having some effect. Electrolytes being replaced. Renal function stable. It seems reasonable to continue diuresis provided her renal function remained stable. 2. Atrial fibrillation: No recurrence over the past 24 hours. She was changed from Amlodipine, Diltiazem, and Metoprolol. I do not think is an urgent need for anticoagulation given the brief episode we noticed. However, she has additional episodes of extended duration then it should be considered. 3. Hypokalemia: Some additional ventricular ectopy this morning. Possibly related to her electrolyte abnormalities. Potassium being replaced. Admission and Anticipated Discharge Date Admission Date: April 21, 2025 Subjective Patient states her breathing has improved, she still requires supplemental O2. She denies any chest pain, heaviness, tightness, pressure, or discomfort. She denies any orthopnea or PND. She has not had any syncope or near-syncope. She is very anxious to get back home with her . Echocardiogram shows an LVEF of 55% to 60% and moderate pulmonary hypertension. Review of Systems Review of Systems: -- As per HPI. Physical Exam Physical Exam: Blood pressure is 99/60, pulse is 62 and regular. GENERAL: Chronically ill-appearing female in no acute distress HEENT: Head is atraumatic, normocephalic. EOM's intact. Facies symmetric. No perioral cyanosis. NECK: No JVD. JVP is not elevated. Carotid upstrokes are + 2 bilaterally. No bruits. CHEST/LUNGS: Diminished breath sounds throughout. CVS: S1 and S2 are regular without murmurs, gallops, or rubs. PMI is nonpalpable. No lifts, heaves, or thrills. No abdominal aortic or renal bruits. ABDOMINAL EXAM: Bowel sounds are present. EXTREMITIES: No clubbing or cyanosis. No edema. Extremities are well perfused. NEUROLOGIC EXAM: Patient is awake, alert, and oriented. Pleasant and cooperative. Answers questions appropriately. Speech is clear. 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 Results & Data Vital Signs (Past 12 Hours) Vital Signs Temp Pulse Pulse Resp BP Pulse Ox O2 Del Method 05/02/25 08:01 36.4 C L 66 26 H 99/60 L 91 Nasal Cannula 05/02/25 08:00 66 05/02/25 03:01 36.4 C L 58 L 25 H 95/54 L 92 Nasal Cannula 05/02/25 00:52 96 High Flow Nasal Cannula 05/01/25 23:01 36.4 C L 80 20 89/49 L 98 Nasal Cannula 05/01/25 22:52 96 High Flow Nasal Cannula 05/01/25 22:41 82 O2 Flow Rate 05/02/25 08:01 05/02/25 08:00 05/02/25 03:01 05/02/25 00:52 8 05/01/25 23:01 05/01/25 22:52 10 05/01/25 22:41 Laboratory Results Laboratory Results - last 24 hr 05/01/25 05/01/25 05/01/25 11:17 11:18 16:11 WBC RBC Hgb Hct MCV MCH MCHC RDW Std Deviation RDW Coeff of Jessica Plt Count MPV Sodium Potassium Chloride Carbon Dioxide Anion Gap BUN Creatinine Est Cr Clr Drug Dosing eGFR BUN/Creatinine Ratio Glucose POC Glucose 349 H* 360 H* 290 H Calcium 05/01/25 05/02/25 05/02/25 20:26 07:15 07:43 WBC 12.13 H RBC 2.24 L Hgb 6.4 L* D Hct 19.5 L* MCV 87.1 MCH 28.6 MCHC 32.8 RDW Std Deviation 51.9 H RDW Coeff of Jessica 16.3 H Plt Count 201 MPV 9.8 Sodium 138 Potassium 2.5 L* Chloride 102 Carbon Dioxide 29 Anion Gap 7 BUN 46 H Creatinine 0.57 L Est Cr Clr Drug Dosing 76.6 eGFR 92.38 BUN/Creatinine Ratio 80.7 H Glucose 145 H POC Glucose 254 H 173 H Calcium 7.1 L D 05/02/25 09:16 WBC 18.52 H RBC 3.50 L Hgb 9.7 L D Hct 29.7 L MCV 84.9 MCH 27.7 MCHC 32.7 RDW Std Deviation 50.8 H RDW Coeff of Jessica 16.4 H Plt Count 334 D MPV 10.3 Sodium Potassium Chloride Carbon Dioxide Anion Gap BUN Creatinine Est Cr Clr Drug Dosing eGFR BUN/Creatinine Ratio Glucose POC Glucose Calcium Medications Administered Medication List Acetaminophen (Acetaminophen 325 Mg Tab) 650 mg PO Q4H PRN PRN Reason: Pain or Fever Stop: 05/24/25 08:03 Last Admin: 05/01/25 13:37 Dose: 650 mg Documented By: Admin: 05/01/25 07:23 Dose: 650 mg Documented By: Admin: 04/24/25 08:23 Dose: 650 mg Documented By: TOMASZ Albuterol (Albut/Ipratrop 3mg/0.5mg Neb 3 Ml Vial) 3 ml NEB Q6R PRN; Protocol PRN Reason: Wheezing Stop: 05/29/25 09:35 Last Admin: 04/29/25 09:40 Dose: 3 ml Documented By: RMAA Atorvastatin Calcium (Atorvastatin 20 Mg Tab) 20 mg PO DAILY EMI Stop: 05/21/25 08:59 Last Admin: 05/02/25 08:18 Dose: 20 mg Documented By: Admin: 05/01/25 09:32 Dose: 20 mg Documented By: Admin: 04/30/25 09:13 Dose: 20 mg Documented By: Admin: 04/29/25 09:02 Dose: 20 mg Documented By: Admin: 04/28/25 08:35 Dose: 20 mg Documented By: Admin: 04/27/25 09:20 Dose: 20 mg Documented By: Admin: 04/26/25 09:41 Dose: 20 mg Documented By: Admin: 04/25/25 10:25 Dose: 20 mg Documented By: Admin: 04/24/25 08:24 Dose: 20 mg Documented By: Admin: 04/23/25 07:46 Dose: 20 mg Documented By: Admin: 04/22/25 08:45 Dose: 20 mg Documented By: Admin: 04/21/25 08:30 Dose: 20 mg Documented By: JAZZMINE Diclofenac Sodium (Diclofenac Sod 1% Gel 100 Gm Tube) 2 gm EXT TID EMI; Protocol Stop: 05/25/25 08:59 Last Admin: 05/02/25 08:19 Dose: 2 gm Documented By: Admin: 05/01/25 20:50 Dose: 2 gm Documented By: Admin: 05/01/25 13:37 Dose: 2 gm Documented By: Admin: 05/01/25 09:31 Dose: 2 gm Documented By: Admin: 04/30/25 21:25 Dose: 2 gm Documented By: Admin: 04/30/25 14:14 Dose: 2 gm Documented By: Admin: 04/30/25 09:14 Dose: 2 gm Documented By: Admin: 04/29/25 20:58 Dose: 2 gm Documented By: Admin: 04/29/25 15:06 Dose: 2 gm Documented By: Admin: 04/29/25 10:30 Dose: Not Given Documented By: Admin: 04/28/25 20:23 Dose: 2 gm Documented By: Admin: 04/28/25 17:07 Dose: Not Given Documented By: Admin: 04/28/25 08:35 Dose: 2 gm Documented By: Admin: 04/27/25 21:33 Dose: 2 gm Documented By: Admin: 04/27/25 14:27 Dose: 2 gm Documented By: Admin: 04/27/25 08:42 Dose: 2 gm Documented By: Admin: 04/26/25 19:42 Dose: 2 gm Documented By: Admin: 04/26/25 12:40 Dose: 2 gm Documented By: Admin: 04/26/25 07:51 Dose: 2 gm Documented By: Admin: 04/25/25 20:13 Dose: 2 gm Documented By: Admin: 04/25/25 14:56 Dose: Not Given Documented By: Admin: 04/25/25 08:58 Dose: 2 gm Documented By: NANDO Diltiazem HCl (Diltiazem Hcl 120 Mg Capcr) 120 mg PO QAM EMI Stop: 06/01/25 08:59 Last Admin: 05/02/25 08:25 Dose: 120 mg Documented By: DOMINIQUE Furosemide (Furosemide 40 Mg/4 Ml Vial) 40 mg IV BID EMI Stop: 05/27/25 20:59 Last Admin: 05/02/25 08:19 Dose: 40 mg Documented By: Admin: 05/01/25 21:00 Dose: Not Given Documented By: Admin: 05/01/25 09:32 Dose: 40 mg Documented By: Admin: 04/30/25 21:26 Dose: 40 mg Documented By: Admin: 04/30/25 09:14 Dose: 40 mg Documented By: Admin: 04/29/25 20:57 Dose: 40 mg Documented By: Admin: 04/29/25 09:01 Dose: 40 mg Documented By: Admin: 04/28/25 20:22 Dose: 40 mg Documented By: Admin: 04/28/25 08:34 Dose: 40 mg Documented By: Admin: 04/27/25 21:33 Dose: 40 mg Documented By: ANNMARIE Heparin Sodium (Porcine) (Heparin Sod 5,000 Unit/0.5 Ml Vial) 5,000 units SQ Q12 EMI Stop: 05/21/25 08:59 Last Admin: 05/02/25 08:35 Dose: 5,000 units Documented By: Admin: 05/01/25 20:45 Dose: 5,000 units Documented By: Admin: 05/01/25 09:33 Dose: 5,000 units Documented By: Admin: 04/30/25 21:23 Dose: 5,000 units Documented By: Admin: 04/30/25 09:13 Dose: 5,000 units Documented By: Admin: 04/29/25 21:01 Dose: 5,000 units Documented By: Admin: 04/29/25 09:01 Dose: 5,000 units Documented By: Admin: 04/28/25 20:22 Dose: 5,000 units Documented By: Admin: 04/28/25 08:34 Dose: 5,000 units Documented By: Admin: 04/27/25 21:32 Dose: 5,000 units Documented By: Admin: 04/27/25 09:52 Dose: 5,000 units Documented By: Admin: 04/26/25 20:59 Dose: 5,000 units Documented By: Admin: 04/26/25 07:50 Dose: 5,000 units Documented By: Admin: 04/25/25 20:13 Dose: 5,000 units Documented By: Admin: 04/25/25 08:59 Dose: 5,000 units Documented By: Admin: 04/24/25 21:20 Dose: 5,000 units Documented By: Admin: 04/24/25 08:30 Dose: 5,000 units Documented By: Admin: 04/23/25 20:13 Dose: 5,000 units Documented By: Admin: 04/23/25 07:49 Dose: 5,000 units Documented By: Admin: 04/22/25 20:22 Dose: 5,000 units Documented By: Admin: 04/22/25 08:45 Dose: 5,000 units Documented By: Admin: 04/21/25 20:24 Dose: 5,000 units Documented By: Admin: 04/21/25 08:31 Dose: 5,000 units Documented By: JAZZMINE Heparin Sodium (Porcine) (Heparin 100 Unit/Ml 5ml Flush) 5 ml FLUSH PRN PRN PRN Reason: Flush Stop: 05/21/25 03:51 Last Admin: 05/02/25 08:37 Dose: 5 ml Documented By: Admin: 05/01/25 11:25 Dose: 5 ml Documented By: Admin: 04/30/25 10:46 Dose: 5 ml Documented By: Admin: 04/28/25 17:16 Dose: 5 ml Documented By: AGNIESZKA(2) Admin: 04/26/25 21:29 Dose: 5 ml Documented By: Admin: 04/26/25 15:41 Dose: 5 ml Documented By: Admin: 04/23/25 17:43 Dose: 5 ml Documented By: LMC Hydroxyzine HCl (Hydroxyzine Hcl 25 Mg Tab) 25 mg PO Q8H PRN PRN Reason: Anxiety Stop: 05/28/25 17:13 Last Admin: 04/30/25 21:34 Dose: 25 mg Documented By: Admin: 04/30/25 08:21 Dose: 25 mg Documented By: Admin: 04/28/25 20:22 Dose: 25 mg Documented By: ANNMARIE Ceftriaxone Sodium (Rocephin) 1,000 mg in 50 mls @ 100 mls/hr IV Q24H EMI Stop: 05/03/25 20:59 Last Infusion: 05/01/25 21:29 Dose: Infused Documented By: Admin: 05/01/25 20:45 Dose: 100 mls/hr Documented By: Infusion: 04/30/25 22:07 Dose: Infused Documented By: Admin: 04/30/25 21:24 Dose: 100 mls/hr Documented By: Infusion: 04/29/25 21:42 Dose: Infused Documented By: Admin: 04/29/25 20:58 Dose: 100 mls/hr Documented By: Infusion: 04/28/25 22:04 Dose: Infused Documented By: Admin: 04/28/25 20:34 Dose: 100 mls/hr Documented By: Infusion: 04/27/25 22:01 Dose: Infused Documented By: Admin: 04/27/25 21:31 Dose: 100 mls/hr Documented By: Infusion: 04/26/25 21:29 Dose: Infused Documented By: Admin: 04/26/25 20:55 Dose: 100 mls/hr Documented By: Infusion: 04/25/25 20:48 Dose: Infused Documented By: Admin: 04/25/25 20:13 Dose: 100 mls/hr Documented By: Infusion: 04/24/25 22:14 Dose: Infused Documented By: Admin: 04/24/25 21:23 Dose: 100 mls/hr Documented By: Infusion: 04/23/25 20:58 Dose: Infused Documented By: Admin: 04/23/25 20:22 Dose: 100 mls/hr Documented By: BLM Methylprednisolone 40 mg/ (Syringe) 0.64 mls @ 1.5 mls/min IV Q8H EMI Stop: 05/29/25 08:14 Last Admin: 05/02/25 08:24 Dose: 1.5 mls/min Documented By: Admin: 05/02/25 00:07 Dose: 1.5 mls/min Documented By: Admin: 05/01/25 17:45 Dose: 1.5 mls/min Documented By: Admin: 05/01/25 08:01 Dose: 1.5 mls/min Documented By: Admin: 05/01/25 00:22 Dose: 1.5 mls/min Documented By: Admin: 04/30/25 17:37 Dose: 1.5 mls/min Documented By: Admin: 04/30/25 08:13 Dose: 1.5 mls/min Documented By: Admin: 04/30/25 00:23 Dose: 1.5 mls/min Documented By: Admin: 04/29/25 17:16 Dose: 1.5 mls/min Documented By: Admin: 04/29/25 09:03 Dose: 1.5 mls/min Documented By: ZOIE Insulin Aspart (Insulin Aspart Per Unit Charge) 0 units SC ACHS EMI Stop: 05/21/25 07:29 Last Admin: 05/02/25 08:36 Dose: 7 units Documented By: DOMINIQUE Co-signed By: CLINT Admin: 05/01/25 20:42 Dose: 8 units Documented By: SHYANN Co-signed By: DELFINO Admin: 05/01/25 17:45 Dose: 12 units Documented By: ZOIE Co-signed By: DOROTHY Admin: 05/01/25 12:23 Dose: 18 units Documented By: ZOIE Co-signed By: JERICHO Admin: 05/01/25 08:00 Dose: 7 units Documented By: ZOIE Co-signed By: DOROTHY Admin: 04/30/25 21:22 Dose: 8 units Documented By: SHYANN Co-signed By: ASM Admin: 04/30/25 17:38 Dose: 10 units Documented By: ZOIE Co-signed By: FRANCISCO JAVIER Admin: 04/30/25 11:52 Dose: 7 units Documented By: ZOIE Co-signed By: EP Admin: 04/30/25 07:18 Dose: 5 units Documented By: ZOIE Co-signed By: CLINT(2) Admin: 04/29/25 21:01 Dose: 7 units Documented By: SHYANN Co-signed By: CRISTOFER Admin: 04/29/25 17:14 Dose: 4 units Documented By: ZOIE Co-signed By: EP Admin: 04/29/25 11:23 Dose: 1 units Documented By: ZOIE Co-signed By: EP Admin: 04/29/25 07:42 Dose: 1 units Documented By: ZOIE Co-signed By: FRANCISCO JAVIER Admin: 04/28/25 21:15 Dose: 2 units Documented By: ANNMAREI Co-signed By: DANYA Admin: 04/28/25 17:08 Dose: Not Given Documented By: Admin: 04/28/25 12:00 Dose: 2 units Documented By: KJL Co-signed By: THERESE Admin: 04/28/25 08:18 Dose: 1 units Documented By: KYRAL Co-signed By: THERESE Admin: 04/27/25 21:25 Dose: Not Given Documented By: Admin: 04/27/25 17:03 Dose: 2 units Documented By: CA Co-signed By: WS Admin: 04/27/25 12:02 Dose: Not Given Documented By: Admin: 04/27/25 09:52 Dose: 1 units Documented By: EA Co-signed By: CHIQUI Admin: 04/26/25 20:53 Dose: 2 units Documented By: PARDEEP Co-signed By: ENDY Admin: 04/26/25 17:04 Dose: 1 units Documented By: RT Co-signed By: TOMASZ Admin: 04/26/25 12:39 Dose: 2 units Documented By: JACQUELINE Co-signed By: ASHLEY Admin: 04/26/25 08:42 Dose: Not Given Documented By: K Admin: 04/25/25 20:45 Dose: 1 units Documented By: PARDEEP Co-signed By: MARK Admin: 04/25/25 18:03 Dose: 2 units Documented By: NANDO Co-signed By: ASHLEY Admin: 04/25/25 12:35 Dose: 3 units Documented By: NANDO Co-signed By: JORDAN Admin: 04/25/25 08:17 Dose: Not Given Documented By: Admin: 04/24/25 21:39 Dose: Not Given Documented By: AGNIESZKA Co-signed By: NIKKI Admin: 04/24/25 16:44 Dose: Not Given Documented By: Admin: 04/24/25 12:45 Dose: 2 units Documented By: FELICITASB Co-signed By: EDH Admin: 04/24/25 08:32 Dose: 1 units Documented By: FELICITASB Co-signed By: HRB Admin: 04/23/25 20:13 Dose: 1 units Documented By: JOLEEN Co-signed By: EKF Admin: 04/23/25 16:59 Dose: 1 units Documented By: LINDA Co-signed By: MARIAH Admin: 04/23/25 12:01 Dose: 2 units Documented By: LINDA Co-signed By: LAF Admin: 04/23/25 07:49 Dose: 1 units Documented By: LINDA Co-signed By: CMP Admin: 04/22/25 20:22 Dose: 1 units Documented By: BEBE Co-signed By: VALARIE Admin: 04/22/25 16:39 Dose: 2 units Documented By: NOREEN Co-signed By: LINDA Admin: 04/22/25 11:50 Dose: 2 units Documented By: GPF Co-signed By: ZOIE(2) Admin: 04/22/25 08:45 Dose: Not Given Documented By: Admin: 04/21/25 20:24 Dose: 1 units Documented By: VALARIE Co-signed By: LARRY Admin: 04/21/25 17:22 Dose: 1 units Documented By: JAZZMINE Co-signed By: ZOIE(2) Admin: 04/21/25 12:02 Dose: 2 units Documented By: JAZZMINE Co-signed By: AMALIA Admin: 04/21/25 08:14 Dose: 1 units Documented By: JAZZMINE Co-signed By: AMALIA Insulin Glargine (Lantus Per Unit Charge) 0 units SC HS EMI; Protocol Stop: 05/30/25 20:59 Last Admin: 05/01/25 20:41 Dose: 15 units Documented By: SHYANN Co-signed By: DELFINO Admin: 04/30/25 21:21 Dose: 15 units Documented By: SHYANN Co-signed By: DELFINO Insulin Glargine (Lantus Per Unit Charge) 45 units SC DAILY EMI Stop: 06/01/25 08:59 Last Admin: 05/02/25 08:36 Dose: 45 units Documented By: DOMINIQUE Co-signed By: AM Lorazepam (Lorazepam 0.5 Mg Tab) 0.5 mg PO Q6H PRN PRN Reason: Anxiety Stop: 05/27/25 11:07 Last Admin: 04/29/25 22:49 Dose: 0.5 mg Documented By: SHYANN Menthol (Cough Drop (Sugar Free) Michelle 24 Michelle/1 Box) 1 michelle BUCCAL Q2H PRN PRN Reason: Sore Throat Stop: 05/30/25 22:13 Last Admin: 04/30/25 22:45 Dose: 1 michelle Documented By: SHYANN Metolazone (Metolazone 2.5 Mg Tablet) 2.5 mg PO QAM EMI Stop: 05/30/25 12:44 Last Admin: 05/02/25 08:24 Dose: 2.5 mg Documented By: Admin: 05/01/25 09:32 Dose: 2.5 mg Documented By: Admin: 04/30/25 14:13 Dose: 2.5 mg Documented By: ZOIE Metoprolol Tartrate (Metoprolol Tartrate 50 Mg Tab) 50 mg PO QAM EMI Stop: 05/21/25 08:59 Last Admin: 05/02/25 08:26 Dose: 50 mg Documented By: Admin: 05/01/25 09:33 Dose: 50 mg Documented By: Admin: 04/30/25 09:13 Dose: 50 mg Documented By: Admin: 04/29/25 09:02 Dose: 50 mg Documented By: Admin: 04/28/25 08:35 Dose: 50 mg Documented By: Admin: 04/27/25 09:20 Dose: 50 mg Documented By: Admin: 04/26/25 07:51 Dose: 50 mg Documented By: Admin: 04/25/25 08:59 Dose: 50 mg Documented By: EDMejia Admin: 04/24/25 08:24 Dose: 50 mg Documented By: Admin: 04/23/25 07:47 Dose: 50 mg Documented By: Admin: 04/22/25 08:45 Dose: 50 mg Documented By: Admin: 04/21/25 08:30 Dose: 50 mg Documented By: NMK Metoprolol Tartrate (Metoprolol Tartrate 50 Mg Tab) 50 mg PO EMI Stop: 05/22/25 20:59 Last Admin: 05/01/25 20:53 Dose: 50 mg Documented By: Admin: 04/30/25 21:26 Dose: 50 mg Documented By: Admin: 04/29/25 22:34 Dose: Not Given Documented By: Admin: 04/28/25 20:22 Dose: 50 mg Documented By: Admin: 04/27/25 21:36 Dose: 50 mg Documented By: Admin: 04/26/25 20:59 Dose: Not Given Documented By: Admin: 04/25/25 20:13 Dose: Not Given Documented By: Admin: 04/24/25 21:20 Dose: 50 mg Documented By: Admin: 04/23/25 20:08 Dose: Not Given Documented By: Admin: 04/22/25 20:22 Dose: 50 mg Documented By: BEBE Ondansetron HCl (Ondansetron Inj 2 Mg/Ml 2 Ml Vial) 4 mg IV Q6H PRN PRN Reason: Nausea And Vomiting Stop: 05/21/25 03:32 Last Admin: 04/27/25 13:34 Dose: 4 mg Documented By: Admin: 04/27/25 09:42 Dose: 4 mg Documented By: SHANNON Oxycodone/Acetaminophen (Oxycodone/Acetaminophen 5mg/325mg Tab) 1 tab PO Q4H PRN PRN Reason: Severe Pain (Scale 7, 8, 9,10) Stop: 05/08/25 10:28 Last Admin: 04/25/25 18:08 Dose: 1 tab Documented By: EDMejia Admin: 04/24/25 21:20 Dose: 1 tab Documented By: Admin: 04/24/25 16:50 Dose: 1 tab Documented By: Admin: 04/24/25 10:45 Dose: 1 tab Documented By: TOMASZ Phenol (Chloraseptic (Phenol) 1.4% Soln 180 Ml Btl) 1 sprays MT QID PRN PRN Reason: Sore Throat Stop: 05/31/25 02:20 Last Admin: 05/01/25 07:19 Dose: 1 sprays Documented By: Admin: 05/01/25 02:53 Dose: 1 sprays Documented By: NAB Sodium Chloride (Sodium Chloride 1 Gm Tablet) 1 gm PO DAILY EMI Stop: 05/28/25 08:59 Last Admin: 05/02/25 08:18 Dose: 1 gm Documented By: Admin: 05/01/25 09:32 Dose: 1 gm Documented By: Admin: 04/30/25 09:13 Dose: 1 gm Documented By: Admin: 04/29/25 09:02 Dose: 1 gm Documented By: Admin: 04/28/25 08:35 Dose: 1 gm Documented By: ZOIE Discontinued Medications Amlodipine Besylate (Amlodipine Besylate 5 Mg Tab) 5 mg PO DAILY [facility] Stop: 05/21/25 08:59 Last Admin: 04/30/25 09:13 Dose: 5 mg Documented By: Admin: 04/29/25 09:02 Dose: 5 mg Documented By: Admin: 04/28/25 09:33 Dose: Not Given Documented By: Admin: 04/27/25 09:20 Dose: 5 mg Documented By: Admin: 04/26/25 09:41 Dose: 5 mg Documented By: Admin: 04/25/25 08:57 Dose: 5 mg Documented By: Admin: 04/24/25 08:24 Dose: 5 mg Documented By: Admin: 04/23/25 07:46 Dose: 5 mg Documented By: Admin: 04/22/25 08:45 Dose: 5 mg Documented By: Admin: 04/21/25 08:30 Dose: 5 mg Documented By: JAZZMINE Diltiazem HCl (Diltiazem Hcl 5 Mg/Ml 5 Ml Vial) 10 mg IV NOW STA Stop: 04/30/25 07:51 Last Admin: 04/30/25 08:07 Dose: 10 mg Documented By: ZOIE Co-signed By: BIA Furosemide (Furosemide 40 Mg/4 Ml Vial) 40 mg IV ONE ONE Stop: 04/23/25 11:24 Last Admin: 04/23/25 12:01 Dose: 40 mg Documented By: LINDA Furosemide (Furosemide 40 Mg/4 Ml Vial) 40 mg IV ONE ONE Stop: 04/25/25 09:46 Last Admin: 04/25/25 10:25 Dose: 40 mg Documented By: NANDO Furosemide (Furosemide 40 Mg/4 Ml Vial) 40 mg IV ONE ONE Stop: 04/26/25 08:54 Last Admin: 04/26/25 09:43 Dose: 40 mg Documented By: JACQUELINE Furosemide (Furosemide 40 Mg/4 Ml Vial) 40 mg IV ONE ONE Stop: 04/26/25 14:44 Last Admin: 04/26/25 15:37 Dose: 40 mg Documented By: Furosemide (Furosemide 40 Mg/4 Ml Vial) 40 mg IV ONE ONE Stop: 04/27/25 08:22 Last Admin: 04/27/25 08:28 Dose: 40 mg Documented By: SHANNON Sodium Chloride (Nss) 1,000 mls @ 125 mls/hr IV .Q8H EMI Stop: 04/21/25 07:44 Last Infusion: 04/21/25 03:59 Dose: Infused Documented By: Admin: 04/21/25 00:00 Dose: 125 mls/hr Documented By: MED Magnesium Sulfate/Dextrose (Magnesium Sulfate / D5w) 1 gm in 100 mls @ 50 mls/hr IV ONE ONE Stop: 04/21/25 02:35 Last Infusion: 04/21/25 03:59 Dose: Infused Documented By: Admin: 04/21/25 01:35 Dose: 50 mls/hr Documented By: MED Cefepime HCl (Maxipime 2000mg) 2,000 mg in 20 mls @ 5 mls/min IV NOW STA; Protocol Stop: 04/21/25 01:19 Last Admin: 04/21/25 02:00 Dose: Not Given Documented By: MED Piperacillin Sod/Tazobactam Sod (Zosyn) 4.5 gm in 100 mls @ 200 mls/hr IV NOW STA; Protocol Stop: 04/21/25 02:59 Last Infusion: 04/21/25 03:59 Dose: Infused Documented By: Admin: 04/21/25 03:57 Dose: 200 mls/hr Documented By: ALBINO Potassium Chloride (K Travis / Wtr) 10 meq in 100 mls @ 100 mls/hr IV ONE ONE Stop: 04/21/25 04:11 Last Infusion: 04/21/25 04:53 Dose: Infused Documented By: Admin: 04/21/25 03:58 Dose: 100 mls/hr Documented By: ALBINO Magnesium Sulfate/Dextrose (Magnesium Sulfate / D5w) 1 gm in 100 mls @ 50 mls/hr IV Q2H EMI Stop: 04/21/25 11:59 Last Infusion: 04/21/25 12:30 Dose: Infused Documented By: Admin: 04/21/25 10:16 Dose: 50 mls/hr Documented By: Infusion: 04/21/25 10:10 Dose: Infused Documented By: Admin: 04/21/25 08:10 Dose: 50 mls/hr Documented By: Infusion: 04/21/25 07:49 Dose: Infused Documented By: Admin: 04/21/25 05:49 Dose: 50 mls/hr Documented By: Infusion: 04/21/25 05:49 Dose: Infused Documented By: Admin: 04/21/25 03:56 Dose: 50 mls/hr Documented By: ALBINO Sodium Chloride (Nss) 1,000 mls @ 999 mls/hr IV .Q1H1M ONE Stop: 04/21/25 04:53 Last Infusion: 04/21/25 04:53 Dose: Infused Documented By: Admin: 04/21/25 03:53 Dose: 999 mls/hr Documented By: ALBINO Meropenem 500 mg/ Syringe 10 mls @ 2 mls/min IV Q8H EMI; Protocol Stop: 05/01/25 07:59 Last Admin: 04/21/25 08:15 Dose: 2 mls/min Documented By: JAZZMINE Sodium Chloride (Hypertonic Saline 3%) 100 mls @ 600 mls/hr IV .Q10M ONE; Protocol Stop: 04/21/25 08:02 Last Infusion: 04/21/25 08:25 Dose: Infused Documented By: JAZZMINE Co-signed By: ZOIE(2) Admin: 04/21/25 08:14 Dose: 600 mls/hr Documented By: JAZZMINE Co-signed By: AMALIA Meropenem 500 mg/ Syringe 10 mls @ 2 mls/min IV Q6H EMI; Protocol Stop: 05/01/25 07:59 Last Admin: 04/21/25 21:30 Dose: Not Given Documented By: Admin: 04/21/25 14:15 Dose: 2 mls/min Documented By: JAZZMINE Meropenem 500 mg/ Syringe 10 mls @ 2 mls/min IV Q6H EMI; Protocol Stop: 05/01/25 07:59 Last Admin: 04/22/25 08:46 Dose: 2 mls/min Documented By: GPDoloers Admin: 04/22/25 02:28 Dose: 2 mls/min Documented By: Admin: 04/21/25 20:57 Dose: 2 mls/min Documented By: VALARIE Calcium Gluconate () 1,000 mg in 60 mls @ 240 mls/hr IV Q15M EMI Stop: 04/21/25 23:59 Last Infusion: 04/22/25 00:25 Dose: Infused Documented By: Admin: 04/21/25 23:47 Dose: 240 mls/hr Documented By: Infusion: 04/21/25 23:46 Dose: Infused Documented By: Admin: 04/21/25 23:31 Dose: 240 mls/hr Documented By: VALARIE Desmopressin Acetate 2 mcg/ (Sodium Chloride) 50.5 mls @ 100 mls/hr IV ONE ONE Stop: 04/22/25 06:45 Last Infusion: 04/22/25 07:36 Dose: Infused Documented By: Admin: 04/22/25 06:46 Dose: 100 mls/hr Documented By: VALARIE Dextrose (D5w) 250 mls @ 125 mls/hr IV .Q2H EMI Stop: 04/22/25 11:29 Last Infusion: 04/22/25 11:30 Dose: Infused Documented By: Admin: 04/22/25 09:31 Dose: 125 mls/hr Documented By: NOREEN Cefepime HCl (Maxipime 2000mg) 2,000 mg in 20 mls @ 5 mls/min IV Q8H EMI Stop: 04/28/25 14:59 Last Admin: 04/23/25 14:58 Dose: 5 mls/min Documented By: Admin: 04/23/25 06:15 Dose: 5 mls/min Documented By: Admin: 04/22/25 23:20 Dose: 5 mls/min Documented By: Admin: 04/22/25 14:18 Dose: 5 mls/min Documented By: NOREEN Magnesium Sulfate/Dextrose (Magnesium Sulfate / D5w) 1 gm in 100 mls @ 50 mls/hr IV Q2H EMI Stop: 04/22/25 17:44 Last Infusion: 04/22/25 17:44 Dose: Infused Documented By: Admin: 04/22/25 15:49 Dose: 50 mls/hr Documented By: GPDolores Infusion: 04/22/25 15:47 Dose: Infused Documented By: GPDolores Admin: 04/22/25 13:47 Dose: 50 mls/hr Documented By: GPDolores Infusion: 04/22/25 13:47 Dose: Infused Documented By: Admin: 04/22/25 11:50 Dose: 50 mls/hr Documented By: NOREEN Desmopressin Acetate 2 mcg/ (Sodium Chloride) 50.5 mls @ 100 mls/hr IV NOW STA Stop: 04/22/25 14:16 Last Infusion: 04/22/25 14:44 Dose: Infused Documented By: Admin: 04/22/25 14:16 Dose: 100 mls/hr Documented By: GPF Dextrose (D5w) 1,000 mls @ 125 mls/hr IV .Q8H EMI Stop: 04/22/25 19:35 Last Infusion: 04/22/25 19:21 Dose: Infused Documented By: Admin: 04/22/25 17:45 Dose: 125 mls/hr Documented By: GPF Magnesium Sulfate/Dextrose (Magnesium Sulfate / D5w) 1 gm in 100 mls @ 50 mls/hr IV Q2H EMI Stop: 04/23/25 10:14 Last Infusion: 04/23/25 10:48 Dose: Infused Documented By: Admin: 04/23/25 08:28 Dose: 50 mls/hr Documented By: Infusion: 04/23/25 08:14 Dose: Infused Documented By: Admin: 04/23/25 06:14 Dose: 50 mls/hr Documented By: BEBE Sodium Chloride (Hypertonic Saline 3%) 100 mls @ 600 mls/hr IV .Q10M ONE; Protocol Stop: 04/23/25 18:24 Last Infusion: 04/23/25 19:42 Dose: Infused Documented By: JOLEEN Co-signed By: SANDRITA Admin: 04/23/25 19:24 Dose: 600 mls/hr Documented By: JOLEEN Co-signed By: FAVIO Magnesium Sulfate/Dextrose (Magnesium Sulfate / D5w) 1 gm in 100 mls @ 50 mls/hr IV ONE ONE Stop: 04/25/25 10:06 Last Infusion: 04/25/25 11:26 Dose: Infused Documented By: EDMejia Admin: 04/25/25 08:57 Dose: 50 mls/hr Documented By: NANDO Magnesium Sulfate/Dextrose (Magnesium Sulfate / D5w) 1 gm in 100 mls @ 50 mls/hr IV ONE ONE Stop: 04/26/25 10:06 Last Infusion: 04/26/25 11:41 Dose: Infused Documented By: Admin: 04/26/25 09:41 Dose: 50 mls/hr Documented By: JACQUELINE Magnesium Sulfate/Dextrose (Magnesium Sulfate / D5w) 1 gm in 100 mls @ 50 mls/hr IV Q2H EMI Stop: 04/27/25 12:29 Last Infusion: 04/27/25 13:17 Dose: Infused Documented By: Admin: 04/27/25 11:10 Dose: 50 mls/hr Documented By: Infusion: 04/27/25 11:10 Dose: Infused Documented By: Admin: 04/27/25 09:12 Dose: 50 mls/hr Documented By: SHANNON Acetazolamide 250 mg/ Syringe 2.5 mls @ 0.833 mls/min IV ONE STA Stop: 04/27/25 13:21 Last Admin: 04/27/25 13:39 Dose: 0.833 mls/min Documented By: ARIN Magnesium Sulfate/Dextrose (Magnesium Sulfate / D5w) 1 gm in 100 mls @ 50 mls/hr IV Q2H EMI Stop: 04/28/25 14:29 Last Infusion: 04/28/25 17:08 Dose: Infused Documented By: Admin: 04/28/25 12:01 Dose: 50 mls/hr Documented By: Infusion: 04/28/25 12:01 Dose: Infused Documented By: Admin: 04/28/25 10:40 Dose: 50 mls/hr Documented By: ZOIE Acetazolamide 250 mg/ Syringe 2.5 mls @ 0.833 mls/min IV ONE STA Stop: 04/29/25 08:13 Last Admin: 04/29/25 09:02 Dose: 0.833 mls/min Documented By: ZOIE Magnesium Sulfate/Dextrose (Magnesium Sulfate / D5w) 1 gm in 100 mls @ 50 mls/hr IV ONE ONE Stop: 04/30/25 00:18 Last Infusion: 04/30/25 00:32 Dose: Infused Documented By: Admin: 04/29/25 22:32 Dose: 50 mls/hr Documented By: SHYANN Sodium Chloride (Nss) 500 mls @ 999 mls/hr IV .Q31M ONE Stop: 04/30/25 01:03 Last Infusion: 04/30/25 01:23 Dose: Infused Documented By: Admin: 04/30/25 00:44 Dose: 999 mls/hr Documented By: SHYANN Insulin Human Regular 6 units/ (Syringe) 6 mls @ 30 mls/min IV NOW ONE Stop: 04/30/25 16:46 Last Admin: 04/30/25 17:38 Dose: 30 mls/min Documented By: ZOIE Co-signed By: FRANCISCO JAVIER Potassium Chloride (K Travis / Wtr) 10 meq in 100 mls @ 100 mls/hr IV Q1H EMI Stop: 05/01/25 09:59 Last Infusion: 05/01/25 11:24 Dose: Infused Documented By: Admin: 05/01/25 09:38 Dose: 100 mls/hr Documented By: Infusion: 05/01/25 09:01 Dose: Infused Documented By: Admin: 05/01/25 08:01 Dose: 100 mls/hr Documented By: ZOIE Insulin Aspart (Insulin Aspart Per Unit Charge) 0 units SC 0000,0400 [facility] Stop: 05/01/25 04:01 Last Admin: 05/01/25 03:57 Dose: 5 units Documented By: SHYANN Co-signed By: CRISTOFER Admin: 05/01/25 00:21 Dose: 7 units Documented By: SHYANN Co-signed By: CRISTOFER Insulin Glargine (Lantus Per Unit Charge) 20 units SC ONE ONE Stop: 04/30/25 12:46 Last Admin: 04/30/25 13:45 Dose: 20 units Documented By: ZOIE Co-signed By: WILL Insulin Glargine (Lantus Per Unit Charge) 35 units SC DAILY [facility] Stop: 05/31/25 08:59 Last Admin: 05/01/25 09:33 Dose: 35 units Documented By: ZOIE Co-signed By: FRANCISCO JAVIER Lorazepam (Lorazepam 0.5 Mg Tab) 0.5 mg PO Q6H PRN PRN Reason: Anxiety Stop: 05/27/25 11:07 Last Admin: 04/28/25 06:37 Dose: 0.5 mg Documented By: Admin: 04/27/25 21:36 Dose: 0.5 mg Documented By: Admin: 04/27/25 11:23 Dose: 0.5 mg Documented By: ARIN Lorazepam (Lorazepam 2 Mg/1 Ml Vial) 0.5 mg IV NOW STA Stop: 04/27/25 13:57 Last Admin: 04/27/25 14:27 Dose: 0.5 mg Documented By: ARIN Lorazepam (Lorazepam 1 Mg Tab) 1 mg PO Q6H PRN PRN Reason: Anxiety Stop: 05/27/25 11:07 Last Admin: 04/29/25 07:55 Dose: 1 mg Documented By: Admin: 04/29/25 00:09 Dose: 1 mg Documented By: ANNMARIE Metoprolol Tartrate (Metoprolol Tartrate 100 Mg Tab) 100 mg PO HS EMI Stop: 05/21/25 20:59 Last Admin: 04/21/25 20:57 Dose: 100 mg Documented By: VALARIE Metoprolol Tartrate (Metoprolol Tartrate 1 Mg/Ml Vial) 5 mg IV NOW STA Stop: 04/28/25 06:24 Last Admin: 04/28/25 06:31 Dose: 5 mg Documented By: ANNMARIE Metoprolol Tartrate (Metoprolol Tartrate 1 Mg/Ml Vial) 5 mg IV NOW STA Stop: 04/28/25 06:48 Last Admin: 04/28/25 07:17 Dose: 5 mg Documented By: ZOIE Miscellaneous (Stop Order) 1 each N/A ONE ONE Stop: 04/23/25 18:26 Last Admin: 04/23/25 19:42 Dose: 1 each Documented By: JOLEEN Potassium Chloride (Potassium Chloride Crtab 20 Meq Tabcr) 40 meq PO NOW STA Stop: 04/27/25 08:22 Last Admin: 04/27/25 09:19 Dose: 40 meq Documented By: SHANNON Potassium Chloride (Potassium Chloride Crtab 20 Meq Tabcr) 40 meq PO NOW STA Stop: 04/28/25 07:36 Last Admin: 04/28/25 08:34 Dose: 40 meq Documented By: ZOIE Potassium Chloride (Potassium Chloride Crtab 20 Meq Tabcr) 60 meq PO NOW STA Stop: 04/30/25 00:32 Last Admin: 04/30/25 00:44 Dose: 60 meq Documented By: SHYANN Sodium Chloride (Sodium Chloride 1 Gm Tablet) 1 gm PO BID EMI Stop: 05/23/25 20:59 Last Admin: 04/27/25 09:20 Dose: 1 gm Documented By: Admin: 04/26/25 20:59 Dose: 1 gm Documented By: Admin: 04/26/25 09:41 Dose: 1 gm Documented By: Admin: 04/25/25 20:13 Dose: 1 gm Documented By: Admin: 04/25/25 08:59 Dose: 1 gm Documented By: Admin: 04/24/25 21:25 Dose: 1 gm Documented By: Admin: 04/24/25 10:45 Dose: 1 gm Documented By: Admin: 04/23/25 20:14 Dose: 1 gm Documented By: JOLEEN Urea (Urea (Urea-Na) 15 Gm Pack) 15 gm PO ONE ONE Stop: 04/23/25 17:46 Last Admin: 04/23/25 17:40 Dose: 15 gm Documented By: [facility] PG Care Time/CCT Total # of Minutes Spent Total Time Spent with Patient: Total time spent is greater than 50% in coordination of care (as documented) at patient's floor/unit and/or counseling patient:32 Coding [place] [address] SUB INP/OBS CARE 2/35MIN Patient Type Established History Expanded Problem Focused Exam Expanded Problem Focused Medical Decision Making Moderate Complexity Diagnoses Acute hypoxic respiratory failure J96.01 Paroxysmal atrial fibrillation I48.0 Time Spent (min) 35
--- NOTE | 2025-05-02 10:20 | Pulmonology Progress Note ---
Date of Service May 02, 2025 Assessment & Plan (1) Acute metabolic encephalopathy: (2) Hyponatremia: (3) Leukocytosis: (4) UTI (urinary tract infection): (5) Acute hypoxic respiratory failure: Plan Reason Critically Ill: 79-year-old female admitted to the ICU for severe hyponatremia and hypoxia. Pulmonary consulted for worsening hypoxia with bilateral pulmonary infiltrates concerning for pulmonary edema with small bilateral effusions. She has completed a course of antibiotics and has been diuresed aggressively but failed to improve. She was placed empirically on steroids for inflammatory pulmonary infiltrate/alveolar hemorrhage as the patient was too unstable and unwilling to consider bronchoscopy with BAL. Recommendations: 1. Hypoxemic respiratory failure with pulmonary infiltrates and pleural effusion: She is improved today with improved oxygen requirements. Her white count is up to 20,000 although it is unclear if this may be related to steroids. Creatinine continues to hold despite fairly aggressive diuretics. She remains net negative. Continue current therapy with aggressive diuresis and steroids. 2. Breast cancer status post therapy with docetaxel and cyclophosphamide. Per medical oncology. Patient is at risk for immunocompromised infections. LDH only minimally elevated. Again the patient is reluctant to consider bronchoscopy for assessment of PJP, alveolar hemorrhage, or other opportunistic infections. 3. CODE STATUS confirmed. DNR/DNI. She has not been tolerant to positive airway pressure previously discussed benefits of using it and patient will try during sleep. Prognosis guarded. Will continue to follow with you Admission and Anticipated Discharge Date Admission Date: April 21, 2025 Supervising Physician Co-Signing Physician Notes I saw and evaluated the patient with FRANKO Bonds, and agree with findings and plan as documented in the note. Patient seen and examined at bedside. Case was discussed with outgoing physician She is known to me when she was admitted to the hospital for severe hyponatremia in the ICU At the time of examination patient was saturating 93% on 10 L, I tried to go down to 8 L but she did desaturate to 87%. I went back to 10 L Heart rate was in the 110s Constitutional: No acute distress HEENT: EOMI, PERRLA Respiratory system: Decreased air entry bilaterally, no wheeze, no rhonchi, positive crackles bilaterally CVS: S1-S2 positive, no murmurs or gallops Abdomen: Soft, nontender, nondistended, positive bowel sounds x4 Extremities: +2 pulses bilaterally radialis/ dorsalis pedis, no cyanosis, minimal pitting edema bilateral lower extremity Neuro: Awake alert oriented x3 Psych: Normal mood and affect G/U: Positive Brown Plan: In/outs: -1.3 L, urine output 1974, -12 L since coming to the hospital CT chest 04/27/2025 personally reviewed: Interlobular thickening appreciated especially in the upper lobe Bilateral apical pleural scarring Groundglass opacities appreciated diffusely especially in the lower lobe Small bilateral pleural effusion Pretracheal as well as subcarinal lymphadenopathy Does have significant diffuse groundglass opacities in an immunocompromise state I think it is too early for the patient to have PJP given that she just finished her chemotherapy but it cannot be totally ruled out Patient is reluctant to have any procedures done including bronchoscopy On empiric Solu-Medrol possible pneumonitis related to chemotherapy Possibility of breast cancer into the lung is also there BUN and creatinine have started to bump. Would recommend to go down on diuretics Complete the course of antibiotic I spent more than 50 minutes looking in the chart, images, discussing with outgoing physician, discussing the plan of care with the patient, RN as well as primary team Please note the above document was generated using voice recognition software. It may contain grammatical, syntax or spelling errors.Any formal questions or concerns about the content, text or information contained within the body of this dictation should be directly addressed to the provider for clarification. Subjective "I feel like I am getting better." Patient 94% on 10L nasal cannula. Attempted to wean to 8L but SpO2 dropped to 87%. Patient placed to to 10L. WBC remains elevated at 18.52 likely secondary to corticosteroids. Diuresis continued and net negative 1470 this am. Discussed with patient need to utilize CPAP qhs. Review of Systems 2 Review of Systems: All systems reviewed & are unremarkable except as noted in HPI & below Physical Exam 2 Constitutional: + ill appearing, + thin and + frail appe aring Neck: trachea midline, no thyromegaly Respiratory: + tachypneic; no respiratory distress an d no labored breathing Auscultation: + crackles; no wheezes Cardiovascular: RRR, no murmur, no edema Gastrointestinal (Abdomen): normal bowel sounds, soft, nontender, no hepatosplenomegaly Musculoskeletal: Extremities: extremities normal to inspection Skin: no rashes, warm and dry Neurologic: Nonfocal exam Lymphatic: no cervical lymphadenopathy Results & Data Results & Data Vital Signs (Past 12 Hours) Vital Signs Temp Pulse Pulse Resp BP Pulse Ox O2 Del Method 05/02/25 08:01 36.4 C L 66 26 H 99/60 L 91 Nasal Cannula 05/02/25 08:00 66 05/02/25 03:01 36.4 C L 58 L 25 H 95/54 L 92 Nasal Cannula 05/02/25 00:52 96 High Flow Nasal Cannula 05/01/25 23:01 36.4 C L 80 20 89/49 L 98 Nasal Cannula 05/01/25 22:52 96 High Flow Nasal Cannula 05/01/25 22:41 82 O2 Flow Rate 05/02/25 08:01 05/02/25 08:00 05/02/25 03:01 05/02/25 00:52 8 05/01/25 23:01 05/01/25 22:52 10 05/01/25 22:41 Laboratory Results 05/02/25 09:16 05/02/25 07:43 Abnormal Lab Results 05/01/25 05/01/25 05/01/25 11:17 11:18 16:11 WBC RBC Hgb Hct MCV MCH MCHC RDW Std Deviation RDW Coeff of Jessica Plt Count MPV Sodium Potassium Chloride Carbon Dioxide Anion Gap BUN Creatinine Est Cr Clr Drug Dosing eGFR BUN/Creatinine Ratio Glucose POC Glucose 349 H* 360 H* 290 H Calcium 05/01/25 05/02/25 05/02/25 20:26 07:15 07:43 WBC 12.13 H RBC 2.24 L Hgb 6.4 L* D Hct 19.5 L* MCV 87.1 MCH 28.6 MCHC 32.8 RDW Std Deviation 51.9 H RDW Coeff of Jessica 16.3 H Plt Count 201 MPV 9.8 Sodium 138 Potassium 2.5 L* Chloride 102 Carbon Dioxide 29 Anion Gap 7 BUN 46 H Creatinine 0.57 L Est Cr Clr Drug Dosing 76.6 eGFR 92.38 BUN/Creatinine Ratio 80.7 H Glucose 145 H POC Glucose 254 H 173 H Calcium 7.1 L D 05/02/25 09:16 WBC 18.52 H RBC 3.50 L Hgb 9.7 L D Hct 29.7 L MCV 84.9 MCH 27.7 MCHC 32.7 RDW Std Deviation 50.8 H RDW Coeff of Jessica 16.4 H Plt Count 334 D MPV 10.3 Sodium Potassium Chloride Carbon Dioxide Anion Gap BUN Creatinine Est Cr Clr Drug Dosing eGFR BUN/Creatinine Ratio Glucose POC Glucose Calcium PG Care Time/CCT Total # of Minutes Spent Total Time Spent with Patient: Total time spent is greater than 50% in coordination of care (as documented) at patient's floor/unit and/or counseling patient: Coding Level of Care Code 13117 SUB INP/OBS CARE 3/50MIN Diagnoses Acute metabolic encephalopathy G93.41 Hyponatremia E87.1 Leukocytosis D72.829 UTI (urinary tract infection) N39.0 Acute hypoxic respiratory failure J96.01
[2025-05-02 10:49] LABS: Anion Gap 10.0 (3-11); Blood Urea Nitrogen 52.0 mg/dl (6-23); Calcium 8.7 mg/dl (8.6-10.3); Carbon Dioxide 32.0 mmol/L (21-32); Chloride 92.0 mmol/L (98-107); Creatinine Clr Calc Pharmacy 45.5 ml/min; Glucose 189.0 mg/dl (70-99(Fasting)); Potassium 3.1 mmol/L (3.5-5.1); Sodium 134.0 mmol/L (136-145)
[2025-05-02] MEDS: SODIUM BICARB 8.4% INJ 50 MEQ/50 ML SYR IV STA (10:52)
[2025-05-02] MEDS: POTASSIUM CHLORIDE / WTR 10 MEQ/100 ML PLCT IV SCH (11:03)
--- NOTE | 2025-05-02 11:42 | Pharmacy Report ---
Pharmacy Glycemic Short Note 2 - Date of Service May 02, 2025 - Glycemic Short BSG Results (Last 24 hours): 05/01/25 05/01/25 05/02/25 16:11 20:26 07:15 Glucose POC Glucose 290 H 254 H 173 H 05/02/25 05/02/25 05/02/25 07:43 09:26 11:01 Glucose 145 H 189 H POC Glucose 177 H OUTPATIENT ANTIDIABETIC REGIMEN: * metformin 1000mg po BID * Januvia 100mg po daily HbA1c: 6.6% on 04/21/25 ASSESSMENT: 05/02: * Mallorie received 100 units of insulin yesterday, 50 were basal. * BSGs yesterday were [phone] mg/dL. Fasting BSG improved again today and was 145 mg/dL. Will not make any further changes to day to better assess affects of inc basal and tightened NovoLog scale from yesterday. * Patient continues on Iv methylprednisolone 40mg IV q8h and continues on a diet/boost. 05/01: * Mallorie received 72 units of insulin yesterday, 35 were basal. * Spoke with LEXIS Angel, patient is receiving Boost with meals (111 carbs daily), but she drinks throughout the day so was not being covered with meals contributing to hyperglycemia. Will plan to factor into Lantus dosing vs carb coverage as covering could result in hypoglycemia without full amount being consumed at a meal. * Fasting BSG this AM elevated, but improved. Lantus at a weight based stress of 3 given yesterday, will continue with full weight based stress of 3 this AM plus 10 units to help with carb coverage of Boost and allow for an additional 20-30% at bedtime if BSGs remain elevated. * NovoLog tightened this morning to help with steroid induced hyperglycemia. She continues on methylprednisolone 40mg IV Q8H. 04/30: * Mallorie is a 79 year old female who was admitted 04/20 with acute metabolic encephalopathy, hypoxia, and hyponatremia. Pharmacy was consulted today for glycemic management as she was started on iv steroids yesterday and her blood glucose has been steadily increasing since then. * On consult her BSG was 382mg/dL. Lantus 20units SQ x 1 was ordered. She was already on a loose bolus insulin regimen without carb coverage, so this was tightened to a weight based regimen with a stress of 3. PLAN FOR INPATIENT GLYCEMIC CONTROL: * Hold outpatient oral diabetes medications * Basal insulin * Lantus 45 units SQ this AM * Lantus 0-15 units HS based on BSG (see eMAR for additional details) * Bolus insulin * NovoLog per scale ACHS or Q6hrs while NPO * Goal Range: Low 110 mg/dL - High 140 mg/dL * Correction Factor: 15 mg/dL/unit * Nutritional / Prandial insulin per carb ratio of 1 unit per 5 grams CHO consumed
[2025-05-03 06:45] LABS: Hematocrit (blood only) 32.1 % (37.0-47.0); Hemoglobin 10.5 g/dl (12.0-16.0); Mean Corpuscular Hemoglobin 27.9 pg (25.0-34.0); Mean Corpuscular Volume 85.1 fL (80.0-100.0); Platelet Count 368 K/uL (130-400); RDW Standard Deviation 51.6 fL (36.4-46.3); Red Blood Count 3.77 M/uL (4.20-5.40); White Blood Count 20.38 K/ul (4.8-10.8)
[2025-05-03 06:59] LABS: Anion Gap 9.0 (3-11); Blood Urea Nitrogen 64.0 mg/dl (6-23); Calcium 8.9 mg/dl (8.6-10.3); Carbon Dioxide 35.0 mmol/L (21-32); Chloride 93.0 mmol/L (98-107); Creatinine Clr Calc Pharmacy 48.8 ml/min; Glucose 93.0 mg/dl (70-99(Fasting)); Potassium 3.0 mmol/L (3.5-5.1); Sodium 137.0 mmol/L (136-145)
[2025-05-03] MEDS: FUROSEMIDE 40 MG/4 ML VIAL IV SCH (09:22)
[2025-05-03] MEDS: LANTUS PER UNIT CHARGE SC SCH (09:33)
[2025-05-03] MEDS: POTASSIUM CHLORIDE / WTR 10 MEQ/100 ML PLCT IV SCH (09:34)
--- NOTE | 2025-05-03 09:43 | Hospitalist Progress Note ---
Date of Service May 03, 2025 Assessment & Plan (1) Hypoxia: Plan: - Remains on 10LNC - Continue to hold diuretics - Echo: EF 55-60%, mod. pulm HTN - CXR showing pulmonary vascular congestion - Na+ improved to >130 -will give dose of lasix 40mg IV - cardiology consult appreciated - appears to have non cardiogenic pulmonary edema - pt has received docetaxel and cyclophosphamide possible pulmonary toxicity -pulmonary consult appreciated -CXR showing mild improvement -pulmonary edema -con't lasix 40 IV BID -on 30LNC hiflow -Solu-medrol IV started as per pulmonary -04/30nCXR showing no change in infiltrative pattern -con't steroids -clinically improving (2) Pelvic fracture: Plan: Seen by [facility] orthopedics and recommended conservative management. -pain control - Walker for gait assistance - PT/OT consult placed - recommending home with HH (3) Acute metabolic encephalopathy: Plan: -resolved (4) UTI (urinary tract infection): Plan: klebsiella ceftriaxone given sensitivities (5) Hyponatremia: Plan: Na+ improved to 135 (6) Leukocytosis: Plan lives at home w - right now goal would be to get back home at discharge - d/w pt needs to stay active in hospital so that she doesn't get weak enough to require rehab. Admission and Anticipated Discharge Date Admission Date: April 21, 2025 Subjective No events overnight. Pt resting in be on 8LNC Review of Systems Review of Systems: CONST: Negative for fever, body aches and chills. HENT: Negative for neck pain/stiffness, headache, congestion, sore throat, swelling. EYES: Negative for discharge/pain or vision changes. RESP: Negative for cough/hemoptysis and shortness of breath. CV: Negative chest pain, difficulty breathing, palpitations. ABD: Negative pain, nausea, vomiting. : Negative increase frequency, dysuria, blood in urine or stool. MUSC: Negative for muscle aches, edema. SKIN: Negative rash, lesions/sores. NEURO: Negative headache, dizziness, weakness. Physical Exam Physical Exam: GENERAL APPEARANCE NAD, activity normal for age, well developed/ well nourished, no cyanosis, pallor, or diaphoresis. EYES lids/conjunctiva normal. EARS/NOSE/THROAT Mucous membranes moist, nares normal, lips/teeth normal uvula midline without oral pharyngeal erythema, exudate or swelling TMs normal bilaterally. No lymphangitis/lymphedema. HEAD/NECK normocephalic atraumatic, no facial trauma, neck is supple. RESPIRATORY respiratory effort normal, speaks in full sentences, no tripod position, no accessory muscle use. Lungs clear to auscultation without rhonchi, wheezes, rales CARDIAC Regular rate and rhythm, no edema. ABDOMINAL Soft, ND/NT. No evidence of fluid wave. No pulsatile masses on exam, rebound tenderness, Sim sign or pain over Mcburney's point. MUSCLES/EXTREMITIES No abnormal range of motion, no swelling. SKIN Warm, pink and dry. No rashes, dermatoses, petechiae or lesions. NEUROLOGICAL Speech is clear and appropriate. Normal level of consciousness. Gait and coordination are normal. 5/5 strength in all extremities. PSYCH Normal mood and affect. Judgement/competence is appropriate Results & Data Results & Data Vital Signs (Past 12 Hours) Vital Signs Temp Pulse Pulse Resp BP BP Pulse Ox 05/03/25 08:21 36.3 C L 66 33 H 112/67 94 05/03/25 02:54 36.6 C 62 26 H 112/68 95 05/02/25 23:02 36.3 C L 59 L 24 120/56 L 98 05/02/25 22:50 59 L 33 H 95 05/02/25 22:09 53 L O2 Del Method O2 Flow Rate FiO2 05/03/25 08:21 Nasal Cannula 05/03/25 02:54 High Flow Nasal Cannula 8.0 05/02/25 23:02 CPAP 05/02/25 22:50 50 05/02/25 22:09 PG Care Time/CCT Total # of Minutes Spent Total Time Spent with Patient: Total time spent is greater than 50% in coordination of care (as documented) at patient's floor/unit and/or counseling patient: Coding Level of Care Code 40012 SUB INP/OBS CARE 2/35MIN Diagnoses Hypoxia R09.02 Pelvic fracture S32.9XXA Acute metabolic encephalopathy G93.41 UTI (urinary tract infection) N39.0 Hyponatremia E87.1 Leukocytosis D72.829
--- NOTE | 2025-05-03 10:21 | Pulmonology Progress Note ---
Date of Service May 03, 2025 Assessment & Plan (1) Acute metabolic encephalopathy: (2) Hyponatremia: (3) Leukocytosis: (4) UTI (urinary tract infection): (5) Acute hypoxic respiratory failure: Plan Reason Critically Ill: 79-year-old female history of triple negative breast CA admitted to the ICU for severe hyponatremia and hypoxia. Pulmonary consulted for worsening hypoxia with bilateral pulmonary infiltrates concerning for pulmonary edema with small bilateral effusions. She has completed a course of antibiotics and has been diuresed aggressively but failed to improve. She was placed empirically on steroids for inflammatory pulmonary infiltrate/alveolar hemorrhage as the patient was too unstable and unwilling to consider bronchoscopy with BAL. CT chest 04/27/2025 personally reviewed: Interlobular thickening appreciated especially in the upper lobe Bilateral apical pleural scarring Groundglass opacities appreciated diffusely especially in the lower lobe Small bilateral pleural effusion Pretracheal as well as subcarinal lymphadenopathy Recommendations: 1. Hypoxemic respiratory failure with pulmonary infiltrates and pleural effusion: Continues to have modest improvement today with improved oxygen requirements. HFNC at 7 liters and SpO2 90-94%. Her white count remains stable at 20,000 unclear if this may be related to steroids but patient has been afebrile. Creatinine increased yesterday and Lasix decreased to 40mg daily. She remains net negative this am. Continue current therapy with aggressive diuresis and steroids. 2. Breast cancer status post therapy with docetaxel and cyclophosphamide. Per medical oncology. Patient is at risk for immunocompromised infections. LDH only minimally elevated. Again the patient is reluctant to consider bronchoscopy for assessment of PJP, alveolar hemorrhage, or other opportunistic infections. Patient got total 3 cycles of chemotherapy starting mid February 2025 3. CODE STATUS confirmed. DNR/DNI. She has not been tolerant to positive airway pressure previously continue to discuss benefits of using it and patient will try today. Prognosis guarded. Will continue to follow with you Admission and Anticipated Discharge Date Admission Date: April 21, 2025 Supervising Physician Co-Signing Physician Notes I saw and evaluated the patient with FRANKO Bonds, and agree with findings and plan as documented in the note. Patient was seen and examined at bedside. No acute distress, no adverse events overnight Patient's daughter was in the room at the time of examination She was saturating 89-90% on 2 L nasal cannula. When she started to breathe through her nose her saturation went up to 93-94% Overall she stated she is feeling better. Shortness of breath is improved Appetite is still poor Denied any nausea vomiting Constitutional: No acute distress HEENT: EOMI, PERRLA Respiratory system: Decreased air entry bilaterally, no wheeze, no rhonchi, positive crackles bilaterally CVS: S1-S2 positive, no murmurs or gallops Abdomen: Soft, nontender, nondistended, positive bowel sounds x4 Extremities: +2 pulses bilaterally radialis/ dorsalis pedis, no cyanosis, minimal pitting edema bilateral lower extremity Neuro: Awake alert oriented x3 Psych: Normal mood and affect G/U: Positive Brown Plan: In/outs: - 1.8 L, urine output 2049, -14 L since coming to the hospital Does have significant diffuse groundglass opacities in an immunocompromised state, PJP in the differential but given mild elevated LDH and patient clinically improving even without addition of Bactrim the probability is low Patient is reluctant to have any procedures done including bronchoscopy On empiric Solu-Medrol possible pneumonitis related to chemotherapy, will decrease it to 40 mg twice daily Continue with diuretics BUN is elevated likely secondary to steroids. Given that the patient is dose steroids, add pantoprazole to daily Complete the course of antibiotic Please note the above document was generated using voice recognition software. It may contain grammatical, syntax or spelling errors.Any formal questions or concerns about the content, text or information contained within the body of this dictation should be directly addressed to the provider for clarification. Subjective "My breathing feels fine." Patient Lasix decreased to 40mg IV daily but remains net negative a liter this am. Oxygen requirement slowly improving was on 7L this am with SpO2 90-94%. Continue diuretics and steroids at this time. Review of Systems 2 Review of Systems: All systems reviewed & are unremarkable except as noted in HPI & below Physical Exam 2 Constitutional: + ill appearing, + thin and + frail appe aring Neck: trachea midline, no thyromegaly Respiratory: + tachypneic; no respiratory distress an d no labored breathing Auscultation: + crackles; no wheezes Cardiovascular: RRR, no murmur, no edema Gastrointestinal (Abdomen): normal bowel sounds, soft, nontender, no hepatosplenomegaly Musculoskeletal: Extremities: extremities normal to inspection Skin: no rashes, warm and dry Neurologic: Nonfocal exam Lymphatic: no cervical lymphadenopathy Results & Data Results & Data Vital Signs (Past 12 Hours) Vital Signs Temp Pulse Pulse Resp BP BP Pulse Ox 05/03/25 08:21 36.3 C L 66 33 H 112/67 94 05/03/25 02:54 36.6 C 62 26 H 112/68 95 05/02/25 23:02 36.3 C L 59 L 24 120/56 L 98 05/02/25 22:50 59 L 33 H 95 O2 Del Method O2 Flow Rate FiO2 05/03/25 08:21 Nasal Cannula 05/03/25 02:54 High Flow Nasal Cannula 8.0 05/02/25 23:02 CPAP 05/02/25 22:50 50 Laboratory Results 05/03/25 06:17 05/03/25 06:17 Abnormal Lab Results 05/02/25 05/02/25 05/02/25 09:26 11:01 15:57 WBC RBC Hgb Hct MCV MCH MCHC RDW Std Deviation RDW Coeff of Jessica Plt Count MPV Sodium 134 L Potassium 3.1 L D Chloride 92 L Carbon Dioxide 32 Anion Gap 10 BUN 52 H Creatinine 0.96 D Est Cr Clr Drug Dosing 45.5 eGFR 60.18 BUN/Creatinine Ratio 54.2 H Glucose 189 H POC Glucose 177 H 204 H Calcium 8.7 05/02/25 05/03/25 05/03/25 20:22 06:17 07:24 WBC 20.38 H RBC 3.77 L Hgb 10.5 L Hct 32.1 L MCV 85.1 MCH 27.9 MCHC 32.7 RDW Std Deviation 51.6 H RDW Coeff of Jessica 16.8 H Plt Count 368 MPV 10.0 Sodium 137 Potassium 3.0 L Chloride 93 L Carbon Dioxide 35 H Anion Gap 9 BUN 64 H Creatinine 0.88 Est Cr Clr Drug Dosing 48.8 eGFR 66.39 BUN/Creatinine Ratio 72.7 H Glucose 93 POC Glucose 191 H 106 H Calcium 8.9 Diagnostic Findings No recent chest imaging. PG Care Time/CCT Total # of Minutes Spent Total Time Spent with Patient: Total time spent is greater than 50% in coordination of care (as documented) at patient's floor/unit and/or counseling patient: Coding Level of Care Code 22699 SUB INP/OBS CARE 2/35MIN Diagnoses Acute metabolic encephalopathy G93.41 Hyponatremia E87.1 Leukocytosis D72.829 UTI (urinary tract infection) N39.0 Acute hypoxic respiratory failure J96.01
--- NOTE | 2025-05-03 14:49 | Pharmacy Report ---
Pharmacy Glycemic Short Note 2 - Date of Service May 03, 2025 - Glycemic Short BSG Results (Last 24 hours): 05/02/25 05/02/25 05/02/25 07:43 15:57 20:22 Glucose POC Glucose 204 H 191 H 05/03/25 05/03/25 05/03/25 06:17 07:24 11:00 Glucose 93 POC Glucose 106 H 244 H OUTPATIENT ANTIDIABETIC REGIMEN: * metformin 1000mg po BID * Januvia 100mg po daily HbA1c: 6.6% on 04/21/25 ASSESSMENT: 05/02: * Mallorie received a total of 96 units of insulin yesterday, 55 of which were basal. * BSGs yesterday were [phone] mg/dL. Fasting this morning was 93 mg/dL. * Patient continues on steroids and on a diet + boost with each meal. * Although over all BSGs greatly improved, fasting BSG downtrended significantly today. Will eliminate evening lantus at this point and tighten CR. * 05/02: * Mallorie received 100 units of insulin yesterday, 50 were basal. * BSGs yesterday were [phone] mg/dL. Fasting BSG improved again today and was 145 mg/dL. Will not make any further changes to day to better assess affects of inc basal and tightened NovoLog scale from yesterday. * Patient continues on Iv methylprednisolone 40mg IV q8h and continues on a diet/boost. 05/01: * Mallorie received 72 units of insulin yesterday, 35 were basal. * Spoke with LEXIS Angel, patient is receiving Boost with meals (111 carbs daily), but she drinks throughout the day so was not being covered with meals contributing to hyperglycemia. Will plan to factor into Lantus dosing vs carb coverage as covering could result in hypoglycemia without full amount being consumed at a meal. * Fasting BSG this AM elevated, but improved. Lantus at a weight based stress of 3 given yesterday, will continue with full weight based stress of 3 this AM plus 10 units to help with carb coverage of Boost and allow for an additional 20-30% at bedtime if BSGs remain elevated. * NovoLog tightened this morning to help with steroid induced hyperglycemia. She continues on methylprednisolone 40mg IV Q8H. 04/30: * Mallorie is a 79 year old female who was admitted 04/20 with acute metabolic encephalopathy, hypoxia, and hyponatremia. Pharmacy was consulted today for glycemic management as she was started on iv steroids yesterday and her blood glucose has been steadily increasing since then. * On consult her BSG was 382mg/dL. Lantus 20units SQ x 1 was ordered. She was already on a loose bolus insulin regimen without carb coverage, so this was tightened to a weight based regimen with a stress of 3. PLAN FOR INPATIENT GLYCEMIC CONTROL: * Hold outpatient oral diabetes medications * Basal insulin * Lantus 40 units SQ q AM * Bolus insulin * NovoLog per scale ACHS or Q6hrs while NPO * Goal Range: Low 110 mg/dL - High 140 mg/dL * Correction Factor: 15 mg/dL/unit * Nutritional / Prandial insulin per carb ratio of 1 unit per 4 grams CHO consumed
[2025-05-03 19:58] LABS: Fungitell (1-3)-B-D-Glucan <31 pg/mL
[2025-05-04 06:39] LABS: Hematocrit (blood only) 32.8 % (37.0-47.0); Hemoglobin 10.7 g/dl (12.0-16.0); Mean Corpuscular Hemoglobin 28.1 pg (25.0-34.0); Mean Corpuscular Volume 86.1 fL (80.0-100.0); Platelet Count 388 K/uL (130-400); RDW Standard Deviation 52.3 fL (36.4-46.3); Red Blood Count 3.81 M/uL (4.20-5.40); White Blood Count 21.15 K/ul (4.8-10.8)
[2025-05-04 06:55] LABS: Anion Gap 7.0 (3-11); Blood Urea Nitrogen 68.0 mg/dl (6-23); Calcium 8.8 mg/dl (8.6-10.3); Carbon Dioxide 37.0 mmol/L (21-32); Chloride 93.0 mmol/L (98-107); Creatinine Clr Calc Pharmacy 44.0 ml/min; Glucose 88.0 mg/dl (70-99(Fasting)); Potassium 3.0 mmol/L (3.5-5.1); Sodium 137.0 mmol/L (136-145)
[2025-05-04] MEDS: acetaZOLAMIDE 500 MG in SYRINGE 0 ML IV STA (09:35)
[2025-05-04] MEDS: LANTUS PER UNIT CHARGE SC SCH (09:48)
--- NOTE | 2025-05-04 10:19 | Hospitalist Progress Note ---
Date of Service May 04, 2025 Assessment & Plan (1) Hypoxia: Plan: - Remains on 10LNC - Continue to hold diuretics - Echo: EF 55-60%, mod. pulm HTN - CXR showing pulmonary vascular congestion - Na+ improved to >130 -will give dose of lasix 40mg IV - cardiology consult appreciated - appears to have non cardiogenic pulmonary edema - pt has received docetaxel and cyclophosphamide possible pulmonary toxicity -pulmonary consult appreciated -CXR showing mild improvement -pulmonary edema -con't lasix 40 daily -Solu-medrol IV started as per pulmonary -04/30nCXR showing no change in infiltrative pattern -con't steroids, tapering down -clinically improving (2) Pelvic fracture: Plan: Seen by [facility] orthopedics and recommended conservative management. -pain control - Walker for gait assistance - PT/OT consult placed - recommending home with HH (3) Acute metabolic encephalopathy: Plan: -resolved (4) UTI (urinary tract infection): Plan: klebsiella ceftriaxone given sensitivities (5) Hyponatremia: Plan: Na+ improved to 135 (6) Leukocytosis: Plan lives at home w - right now goal would be to get back home at discharge - d/w pt needs to stay active in hospital so that she doesn't get weak enough to require rehab. Admission and Anticipated Discharge Date Admission Date: April 21, 2025 Subjective Pt down to 4LNC this am, currently on 7LNC feeling better. Review of Systems Review of Systems: CONST: Negative for fever, body aches and chills. HENT: Negative for neck pain/stiffness, headache, congestion, sore throat, swelling. EYES: Negative for discharge/pain or vision changes. RESP: Negative for cough/hemoptysis and shortness of breath. CV: Negative chest pain, difficulty breathing, palpitations. ABD: Negative pain, nausea, vomiting. : Negative increase frequency, dysuria, blood in urine or stool. MUSC: Negative for muscle aches, edema. SKIN: Negative rash, lesions/sores. NEURO: Negative headache, dizziness, weakness. Physical Exam Physical Exam: GENERAL APPEARANCE NAD, activity normal for age, well developed/ well nourished, no cyanosis, pallor, or diaphoresis. EYES lids/conjunctiva normal. EARS/NOSE/THROAT Mucous membranes moist, nares normal, lips/teeth normal uvula midline without oral pharyngeal erythema, exudate or swelling TMs normal bilaterally. No lymphangitis/lymphedema. HEAD/NECK normocephalic atraumatic, no facial trauma, neck is supple. RESPIRATORY respiratory effort normal, speaks in full sentences, no tripod position, no accessory muscle use. Lungs clear to auscultation without rhonchi, wheezes, rales CARDIAC Regular rate and rhythm, no edema. ABDOMINAL Soft, ND/NT. No evidence of fluid wave. No pulsatile masses on exam, rebound tenderness, Sim sign or pain over Mcburney's point. MUSCLES/EXTREMITIES No abnormal range of motion, no swelling. SKIN Warm, pink and dry. No rashes, dermatoses, petechiae or lesions. NEUROLOGICAL Speech is clear and appropriate. Normal level of consciousness. Gait and coordination are normal. 5/5 strength in all extremities. PSYCH Normal mood and affect. Judgement/competence is appropriate Results & Data Results & Data Vital Signs (Past 12 Hours) Vital Signs Temp Pulse Pulse Resp BP BP Pulse Ox 05/04/25 07:48 05/04/25 07:34 36.5 C 61 18 125/66 93 05/04/25 07:13 51 L 05/04/25 03:06 36.5 C 54 L 18 102/58 L 98 05/03/25 23:07 36.4 C L 59 L 18 104/62 97 O2 Del Method O2 Flow Rate 05/04/25 07:48 Nasal Cannula 6 05/04/25 07:34 Nasal Cannula 2 05/04/25 07:13 05/04/25 03:06 High Flow Nasal Cannula 7.0 05/03/25 23:07 High Flow Nasal Cannula 7.0 PG Care Time/CCT Total # of Minutes Spent Total Time Spent with Patient: Total time spent is greater than 50% in coordination of care (as documented) at patient's floor/unit and/or counseling patient: Coding Level of Care Code 21072 SUB INP/OBS CARE 2/35MIN Diagnoses Hypoxia R09.02 Pelvic fracture S32.9XXA Acute metabolic encephalopathy G93.41 UTI (urinary tract infection) N39.0 Hyponatremia E87.1 Leukocytosis D72.829
--- NOTE | 2025-05-04 12:46 | Pulmonology Progress Note ---
Date of Service May 04, 2025 Assessment & Plan (1) Acute metabolic encephalopathy: (2) Hyponatremia: (3) Leukocytosis: (4) UTI (urinary tract infection): (5) Acute hypoxic respiratory failure: Plan Reason Critically Ill: 79-year-old female history of triple negative breast CA admitted to the ICU for severe hyponatremia and hypoxia. Pulmonary consulted for worsening hypoxia with bilateral pulmonary infiltrates concerning for pulmonary edema with small bilateral effusions. She has completed a course of antibiotics and has been diuresed aggressively but failed to improve. She was placed empirically on steroids for inflammatory pulmonary infiltrate/alveolar hemorrhage as the patient was too unstable and unwilling to consider bronchoscopy with BAL. CT chest 04/27/2025 personally reviewed: Interlobular thickening appreciated especially in the upper lobe Bilateral apical pleural scarring Groundglass opacities appreciated diffusely especially in the lower lobe Small bilateral pleural effusion Pretracheal as well as subcarinal lymphadenopathy Recommendations: 1. Hypoxemic respiratory failure with pulmonary infiltrates and pleural effusion: Continues to have modest improvement today with improved oxygen requirements. HFNC at 2-6 liters and SpO2 90-94%. Her white count remains stable at 21,000 unclear if this may be related to steroids but patient has been afebrile. Creatinine stable and continue Lasix at 40mg daily. She remains net negative this am. Given acetazolamide due to contracture alkalosis. Continue current therapy with aggressive diuresis and steroids. Methylprednisolone weaned to 40mg q12h. Will continue to wean steroids as appropriate. 2. Breast cancer status post therapy with docetaxel and cyclophosphamide. Per medical oncology. Patient is at risk for immunocompromised infections. LDH only minimally elevated. Again the patient is reluctant to consider bronchoscopy for assessment of PJP, alveolar hemorrhage, or other opportunistic infections. Fungitell negative. Patient got total 3 cycles of chemotherapy starting mid February 2025 3. CODE STATUS confirmed. DNR/DNI. She has not been tolerant to positive airway pressure previously continue to discuss benefits of using it and patient will try today. Prognosis guarded. Will continue to follow with you Admission and Anticipated Discharge Date Admission Date: April 21, 2025 Supervising Physician Co-Signing Physician Notes I saw and evaluated the patient with FRANKO Bonds, and agree with findings and plan as documented in the note. Patient was seen and examined at bedside. No acute distress, no adverse events overnight She was saturating 93-94% on 7 L nasal cannula. I tried to go down to 4 L but she did desaturate and I had to bump her back to 6 L She was in a better mood compared to yesterday. Denied any nausea or vomiting Appetite is still poor. Coughing up, bringing up clear phlegm. No nausea or vomiting Constitutional: No acute distress HEENT: EOMI, PERRLA Respiratory system: Decreased air entry bilaterally, no wheeze, no rhonchi, positive crackles bilaterally CVS: S1-S2 positive, no murmurs or gallops Abdomen: Soft, nontender, nondistended, positive bowel sounds x4 Extremities: +2 pulses bilaterally radialis/ dorsalis pedis, no cyanosis, minimal pitting edema bilateral lower extremity Neuro: Awake alert oriented x3 Psych: Normal mood and affect G/U: Positive Brown Plan: In/outs: - 3 L, urine output 3500, -16 L since coming to the hospital Does have significant diffuse groundglass opacities in an immunocompromised state, PJP in the differential but given mild elevated LDH and patient clinically improving even without addition of Bactrim the probability is low Patient is reluctant to have any procedures done including bronchoscopy Will decrease the Solu-Medrol to 40 mg daily starting tomorrow Continue with diuretics. Consider changing it to p.o. as of tomorrow BUN is elevated likely secondary to steroids. Continue with pantoprazole Complete the course of antibiotic Case was discussed with primary team Please note the above document was generated using voice recognition software. It may contain grammatical, syntax or spelling errors.Any formal questions or concerns about the content, text or information contained within the body of this dictation should be directly addressed to the provider for clarification. Subjective "I feel like I am having a good day." Patient oxygen requirements down this am to 2L NC with SpO2 in the mid 90's. during rounds patient up to 6L NC attempted to wean to 4 liters but SpO2 dropped to 87% ad oxygen placed back to 6L NC. Diuresis continued and patietn net negative 1900ml in last 24hrs. Creatinine stable at 0.88. HCO3 noted to be 37 and acetazolamide given for adjunct diuresis. Steroids tapered down to 40mg methylprednisolone q12h. Fungitell resulted and negative. Review of Systems 2 Review of Systems: All systems reviewed & are unremarkable except as noted in HPI & below Physical Exam 2 Constitutional: + ill appearing, + thin and + frail appe aring Neck: trachea midline, no thyromegaly Respiratory: + tachypneic; no respiratory distress an d no labored breathing Auscultation: + crackles; no wheezes Cardiovascular: RRR, no murmur, no edema Gastrointestinal (Abdomen): normal bowel sounds, soft, nontender, no hepatosplenomegaly Musculoskeletal: Extremities: extremities normal to inspection Skin: no rashes, warm and dry Neurologic: Nonfocal exam Lymphatic: no cervical lymphadenopathy Results & Data Results & Data Vital Signs (Past 12 Hours) Vital Signs Temp Pulse Pulse Resp BP Pulse Ox O2 Del Method 05/04/25 10:43 36.6 C 64 18 107/56 L Nasal Cannula 05/04/25 07:48 Nasal Cannula 05/04/25 07:34 36.5 C 61 18 125/66 93 Nasal Cannula 05/04/25 07:13 51 L 05/04/25 03:06 36.5 C 54 L 18 102/58 L 98 High Flow Nasal Cannula O2 Flow Rate 05/04/25 10:43 4 05/04/25 07:48 6 05/04/25 07:34 4 05/04/25 07:13 05/04/25 03:06 7.0 Laboratory Results 05/04/25 06:14 05/04/25 06:14 Abnormal Lab Results 04/29/25 05/03/25 05/03/25 08:16 15:53 20:38 WBC RBC Hgb Hct MCV MCH MCHC RDW Std Deviation RDW Coeff of Jessica Plt Count MPV Sodium Potassium Chloride Carbon Dioxide Anion Gap BUN Creatinine Est Cr Clr Drug Dosing eGFR BUN/Creatinine Ratio Glucose POC Glucose 188 H 176 H Calcium Beta-(1,3)-D-Glucan <31 B-(1,3)-D-Glucan Intrp NEGATIVE 05/04/25 05/04/25 05/04/25 06:14 07:24 11:19 WBC 21.15 H RBC 3.81 L Hgb 10.7 L Hct 32.8 L MCV 86.1 MCH 28.1 MCHC 32.6 RDW Std Deviation 52.3 H RDW Coeff of Jessica 17.0 H Plt Count 388 MPV 10.2 Sodium 137 Potassium 3.0 L Chloride 93 L Carbon Dioxide 37 H Anion Gap 7 BUN 68 H Creatinine 0.88 Est Cr Clr Drug Dosing 44.0 eGFR 66.39 BUN/Creatinine Ratio 77.3 H Glucose 88 POC Glucose 87 186 H Calcium 8.8 Beta-(1,3)-D-Glucan B-(1,3)-D-Glucan Intrp Diagnostic Findings No recent imaging. PG Care Time/CCT Total # of Minutes Spent Total Time Spent with Patient: Total time spent is greater than 50% in coordination of care (as documented) at patient's floor/unit and/or counseling patient: Coding Level of Care Code 39206 SUB INP/OBS CARE 2/35MIN Diagnoses Acute metabolic encephalopathy G93.41 Hyponatremia E87.1 Leukocytosis D72.829 UTI (urinary tract infection) N39.0 Acute hypoxic respiratory failure J96.01
--- NOTE | 2025-05-04 12:56 | Pharmacy Report ---
Pharmacy Glycemic Short Note 2 - Date of Service May 04, 2025 - Glycemic Short BSG Results (Last 24 hours): 05/03/25 05/03/25 05/04/25 15:53 20:38 06:14 Glucose 88 POC Glucose 188 H 176 H 05/04/25 05/04/25 07:24 11:19 Glucose POC Glucose 87 186 H OUTPATIENT ANTIDIABETIC REGIMEN: * metformin 1000mg po BID * Januvia 100mg po daily HbA1c: 6.6% on 04/21/25 ASSESSMENT: 05/04 * Received 83 units of insulin yesterday, 40 of which were basal * Fasting 87 mg/dL today- reduced basal approximately 15% * BSG with lunch 186 mg/dL however, breakfast insulin was administered closer to 10. Concern for a bit of stacking, slightly loosened correction 05/02: * Mallorie received a total of 96 units of insulin yesterday, 55 of which were basal. * BSGs yesterday were [phone] mg/dL. Fasting this morning was 93 mg/dL. * Patient continues on steroids and on a diet + boost with each meal. * Although over all BSGs greatly improved, fasting BSG downtrended significantly today. Will eliminate evening lantus at this point and tighten CR. * 05/02: * Mallorie received 100 units of insulin yesterday, 50 were basal. * BSGs yesterday were [phone] mg/dL. Fasting BSG improved again today and was 145 mg/dL. Will not make any further changes to day to better assess affects of inc basal and tightened NovoLog scale from yesterday. * Patient continues on Iv methylprednisolone 40mg IV q8h and continues on a diet/boost. 05/01: * Mallorie received 72 units of insulin yesterday, 35 were basal. * Spoke with LEXIS Angel, patient is receiving Boost with meals (111 carbs daily), but she drinks throughout the day so was not being covered with meals contributing to hyperglycemia. Will plan to factor into Lantus dosing vs carb coverage as covering could result in hypoglycemia without full amount being consumed at a meal. * Fasting BSG this AM elevated, but improved. Lantus at a weight based stress of 3 given yesterday, will continue with full weight based stress of 3 this AM plus 10 units to help with carb coverage of Boost and allow for an additional 20-30% at bedtime if BSGs remain elevated. * NovoLog tightened this morning to help with steroid induced hyperglycemia. She continues on methylprednisolone 40mg IV Q8H. 04/30: * Mallorie is a 79 year old female who was admitted 04/20 with acute metabolic encephalopathy, hypoxia, and hyponatremia. Pharmacy was consulted today for glycemic management as she was started on iv steroids yesterday and her blood glucose has been steadily increasing since then. * On consult her BSG was 382mg/dL. Lantus 20units SQ x 1 was ordered. She was already on a loose bolus insulin regimen without carb coverage, so this was tightened to a weight based regimen with a stress of 3. PLAN FOR INPATIENT GLYCEMIC CONTROL: * Hold outpatient oral diabetes medications * Basal insulin * Lantus 35 units SQ q AM * Bolus insulin * NovoLog per scale ACHS or Q6hrs while NPO * Goal Range: Low 110 mg/dL - High 140 mg/dL * Correction Factor: 20 mg/dL/unit * Nutritional / Prandial insulin per carb ratio of 1 unit per 4 grams CHO consumed
[2025-05-04] MEDS: POTASSIUM CHLORIDE / WTR 10 MEQ/100 ML PLCT IV SCH (13:02)
[2025-05-05 06:35] LABS: Hematocrit (blood only) 33.2 % (37.0-47.0); Hemoglobin 11.0 g/dl (12.0-16.0); Mean Corpuscular Hemoglobin 28.4 pg (25.0-34.0); Mean Corpuscular Volume 85.8 fL (80.0-100.0); Platelet Count 431 K/uL (130-400); RDW Standard Deviation 52.1 fL (36.4-46.3); Red Blood Count 3.87 M/uL (4.20-5.40); White Blood Count 22.74 K/ul (4.8-10.8)
[2025-05-05 07:03] LABS: Anion Gap 10.0 (3-11); Blood Urea Nitrogen 79.0 mg/dl (6-23); Calcium 8.9 mg/dl (8.6-10.3); Carbon Dioxide 35.0 mmol/L (21-32); Chloride 92.0 mmol/L (98-107); Creatinine Clr Calc Pharmacy 41.7 ml/min; Glucose 96.0 mg/dl (70-99(Fasting)); Potassium 3.0 mmol/L (3.5-5.1); Sodium 137.0 mmol/L (136-145)
[2025-05-05] MEDS: POTASSIUM CHLORIDE CRTAB 20 MEQ TABCR PO STA (09:03)
[2025-05-05] MEDS: POTASSIUM CHLORIDE / WTR 10 MEQ/100 ML PLCT IV SCH (09:04)
[2025-05-05] MEDS: FUROSEMIDE 40 MG/4 ML VIAL IV SCH (09:08)
[2025-05-05] MEDS: LANTUS PER UNIT CHARGE SC SCH (09:10)
[2025-05-05] MEDS: POLYETHYLENE (MIRALAX) 17 GM PACK PO PRN (09:14)
[2025-05-05] MEDS: FUROSEMIDE 20 MG TAB PO SCH (09:46)
--- NOTE | 2025-05-05 10:34 | Pulmonology Progress Note ---
Date of Service May 05, 2025 Assessment & Plan (1) Acute metabolic encephalopathy: (2) Hyponatremia: (3) Leukocytosis: (4) UTI (urinary tract infection): (5) Acute hypoxic respiratory failure: Plan Reason Critically Ill: 79-year-old female history of triple negative breast CA admitted to the ICU for severe hyponatremia and hypoxia. Pulmonary consulted for worsening hypoxia with bilateral pulmonary infiltrates concerning for pulmonary edema with small bilateral effusions. She has completed a course of antibiotics and has been diuresed aggressively but failed to improve. She was placed empirically on steroids for inflammatory pulmonary infiltrate/alveolar hemorrhage as the patient was too unstable and unwilling to consider bronchoscopy with BAL. CT chest 04/27/2025 personally reviewed: Interlobular thickening appreciated especially in the upper lobe Bilateral apical pleural scarring Groundglass opacities appreciated diffusely especially in the lower lobe Small bilateral pleural effusion Pretracheal as well as subcarinal lymphadenopathy Recommendations: 1. Hypoxemic respiratory failure with pulmonary infiltrates and pleural effusion: Continues to have improvement today with improved oxygen requirements. HFNC at 4 liters and SpO2 92-94%. Her white count remains stable at 22,000 unclear if this may be related to steroids but patient has been afebrile. Creatinine up to 0.93 and BUN 79 lasix dropped to 20mg daily PO. She remains net negative this am. Continue current therapy with aggressive diuresis and steroids. Methylprednisolone weaned to 40mg daily. Would transition to prednisone starting tomorrow with 40mg daily x 5 days then 20mg daily x 5 days. 2. Breast cancer status post therapy with docetaxel and cyclophosphamide. Per medical oncology. Patient is at risk for immunocompromised infections. LDH only minimally elevated. Again the patient is reluctant to consider bronchoscopy for assessment of PJP, alveolar hemorrhage, or other opportunistic infections. Fungitell negative. Patient got total 3 cycles of chemotherapy starting mid February 2025 3. CODE STATUS confirmed. DNR/DNI. She has not been tolerant to positive airway pressure previously continue to discuss benefits of using it and patient will try today. Patient okay to discharge to [facility] with oxygen from pulmonary perspective. Prognosis guarded. Will continue to follow with you Admission and Anticipated Discharge Date Admission Date: April 21, 2025 Supervising Physician Co-Signing Physician Notes I saw and evaluated the patient with FRANKO Bonds, and agree with findings and plan as documented in the note. Patient seen and examined at bedside. No acute distress, no adverse events overnight She was saturating 90-91% on 4 L nasal cannula while resting on the recliner Overall she stated she is feeling better Denied any nausea or vomiting Appetite is still poor. Denies any headache or blurry vision Constitutional: No acute distress HEENT: EOMI, PERRLA Respiratory system: Decreased air entry bilaterally, no wheeze, no rhonchi, positive crackles bilaterally CVS: S1-S2 positive, no murmurs or gallops Abdomen: Soft, nontender, nondistended, positive bowel sounds x4 Extremities: +2 pulses bilaterally radialis/ dorsalis pedis, no cyanosis, minimal pitting edema bilateral lower extremity Neuro: Awake alert oriented x3 Psych: Normal mood and affect G/U: Positive Brown Plan: In/outs: +195, urine output 1250, -16 L since coming to the hospital Does have significant diffuse groundglass opacities in an immunocompromised state, PJP in the differential but given mild elevated LDH and patient clinically improving even without addition of Bactrim the probability is low Patient is reluctant to have any procedures done including bronchoscopy Discontinue Solu-Medrol, start the patient on prednisone 40 mg on a daily basis as of tomorrow for 5 days followed by 20 for 5 days and then stop Creatinine seems to be bumping up a little bit. DC IV Lasix and give prednisone 20 mg on a daily basis instead BUN is elevated likely secondary to steroids. Continue with pantoprazole Completed the course of antibiotic Case was discussed with primary team Please note the above document was generated using voice recognition software. It may contain grammatical, syntax or spelling errors.Any formal questions or concerns about the content, text or information contained within the body of this dictation should be directly addressed to the provider for clarification. Subjective "I think I am doing great today." Patient subjectively states that her breathing feels much better and is encouraged by her decreasing oxygen requirement. Patient SpO2 94% on 4L NC this am. Patient net negative 1300 in last 24hrs. Will transition to oral lasix. Steroids tapered to 40 mg methylprednisolone daily. Will plan to move to prednisone tomorrow 40mg daily for 2 days and then 20mg x 2 days. Patient okay to discharge to [facility] from pulmonary perspective. Review of Systems 2 Review of Systems: All systems reviewed & are unremarkable except as noted in HPI & below Physical Exam 2 Constitutional: + ill appearing, + thin and + frail appe aring Neck: trachea midline, no thyromegaly Respiratory: + tachypneic; no respiratory distress an d no labored breathing Auscultation: + crackles; no wheezes Cardiovascular: RRR, no murmur, no edema Gastrointestinal (Abdomen): normal bowel sounds, soft, nontender, no hepatosplenomegaly Musculoskeletal: Extremities: extremities normal to inspection Skin: no rashes, warm and dry Neurologic: Nonfocal exam Lymphatic: no cervical lymphadenopathy Results & Data Results & Data Vital Signs (Past 12 Hours) Vital Signs Temp Pulse Resp BP BP Pulse Ox O2 Del Method 05/05/25 07:23 36.5 C 58 L 18 112/55 L 91 Nasal Cannula 05/05/25 03:02 46 L 18 106/65 96 Nasal Cannula 05/04/25 22:58 48 L 20 112/53 L 98 Nasal Cannula O2 Flow Rate 05/05/25 07:23 4 05/05/25 03:02 05/04/25 22:58 Laboratory Results 05/05/25 05:59 05/05/25 05:59 Abnormal Lab Results 05/04/25 05/04/25 05/04/25 11:19 16:23 19:59 WBC RBC Hgb Hct MCV MCH MCHC RDW Std Deviation RDW Coeff of Jessica Plt Count MPV Sodium Potassium Chloride Carbon Dioxide Anion Gap BUN Creatinine Est Cr Clr Drug Dosing eGFR BUN/Creatinine Ratio Glucose POC Glucose 186 H 159 H 142 H Calcium 05/05/25 05/05/25 05:59 07:25 WBC 22.74 H RBC 3.87 L Hgb 11.0 L Hct 33.2 L MCV 85.8 MCH 28.4 MCHC 33.1 RDW Std Deviation 52.1 H RDW Coeff of Jessica 17.0 H Plt Count 431 H MPV 10.5 Sodium 137 Potassium 3.0 L Chloride 92 L Carbon Dioxide 35 H Anion Gap 10 BUN 79 H Creatinine 0.93 Est Cr Clr Drug Dosing 41.7 eGFR 62.13 BUN/Creatinine Ratio 84.9 H Glucose 96 POC Glucose 104 H Calcium 8.9 Diagnostic Findings No recent imaging. PG Care Time/CCT Total # of Minutes Spent Total Time Spent with Patient: Total time spent is greater than 50% in coordination of care (as documented) at patient's floor/unit and/or counseling patient: Coding Level of Care Code 55731 SUB INP/OBS CARE MIN Diagnoses Acute metabolic encephalopathy G93.41 Hyponatremia E87.1 Leukocytosis D72.829 UTI (urinary tract infection) N39.0 Acute hypoxic respiratory failure J96.01
--- NOTE | 2025-05-05 10:53 | Hospitalist Progress Note ---
Date of Service May 05, 2025 Assessment & Plan (1) Hypoxia: Plan: - Remains on 10LNC - Continue to hold diuretics - Echo: EF 55-60%, mod. pulm HTN - CXR showing pulmonary vascular congestion - Na+ improved to >130 -will give dose of lasix 40mg IV - cardiology consult appreciated - appears to have non cardiogenic pulmonary edema - pt has received docetaxel and cyclophosphamide possible pulmonary toxicity -pulmonary consult appreciated -CXR showing mild improvement -pulmonary edema -con't lasix 40 daily -Solu-medrol IV started as per pulmonary -04/30nCXR showing no change in infiltrative pattern -con't steroids, tapering down -clinically improving -on 4LNC (2) Pelvic fracture: Plan: Seen by [facility] and recommended conservative management. -pain control - Walker for gait assistance - PT/OT consult placed - recommending home with HH (3) Acute metabolic encephalopathy: Plan: -resolved (4) UTI (urinary tract infection): Plan: klebsiella ceftriaxone given sensitivities (5) Hyponatremia: Plan: Na+ improved to 135 (6) Leukocytosis: Plan lives at home w - right now goal would be to get back home at discharge - d/w pt needs to stay active in hospital so that she doesn't get weak enough to require rehab. Admission and Anticipated Discharge Date Admission Date: April 21, 2025 Subjective Pt feeling overall better this am. She complaining of a bedsore on her buttock that is painful Review of Systems Review of Systems: CONST: Negative for fever, body aches and chills. HENT: Negative for neck pain/stiffness, headache, congestion, sore throat, swelling. EYES: Negative for discharge/pain or vision changes. RESP: Negative for cough/hemoptysis and shortness of breath. CV: Negative chest pain, difficulty breathing, palpitations. ABD: Negative pain, nausea, vomiting. : Negative increase frequency, dysuria, blood in urine or stool. MUSC: Negative for muscle aches, edema. SKIN: Negative rash, lesions/sores. NEURO: Negative headache, dizziness, weakness. Physical Exam Physical Exam: GENERAL APPEARANCE NAD, activity normal for age, well developed/ well nourished, no cyanosis, pallor, or diaphoresis. EYES lids/conjunctiva normal. EARS/NOSE/THROAT Mucous membranes moist, nares normal, lips/teeth normal uvula midline without oral pharyngeal erythema, exudate or swelling TMs normal bilaterally. No lymphangitis/lymphedema. HEAD/NECK normocephalic atraumatic, no facial trauma, neck is supple. RESPIRATORY respiratory effort normal, speaks in full sentences, no tripod position, no accessory muscle use. Lungs clear to auscultation without rhonchi, wheezes, rales CARDIAC Regular rate and rhythm, no edema. ABDOMINAL Soft, ND/NT. No evidence of fluid wave. No pulsatile masses on exam, rebound tenderness, Sim sign or pain over Mcburney's point. MUSCLES/EXTREMITIES No abnormal range of motion, no swelling. SKIN Warm, pink and dry. No rashes, dermatoses, petechiae or lesions. NEUROLOGICAL Speech is clear and appropriate. Normal level of consciousness. Gait and coordination are normal. 5/5 strength in all extremities. PSYCH Normal mood and affect. Judgement/competence is appropriate Results & Data Results & Data Vital Signs (Past 12 Hours) Vital Signs Temp Pulse Resp BP BP Pulse Ox O2 Del Method 05/05/25 07:23 36.5 C 58 L 18 112/55 L 91 Nasal Cannula 05/05/25 03:02 46 L 18 106/65 96 Nasal Cannula 05/04/25 22:58 48 L 20 112/53 L 98 Nasal Cannula O2 Flow Rate 05/05/25 07:23 4 05/05/25 03:02 05/04/25 22:58 PG Care Time/CCT Total # of Minutes Spent Total Time Spent with Patient: Total time spent is greater than 50% in coordination of care (as documented) at patient's floor/unit and/or counseling patient: Coding Level of Care Code 89736 SUB INP/OBS CARE 2/35MIN Diagnoses Hypoxia R09.02 Pelvic fracture S32.9XXA Acute metabolic encephalopathy G93.41 UTI (urinary tract infection) N39.0 Hyponatremia E87.1 Leukocytosis D72.829
--- NOTE | 2025-05-05 12:14 | Pharmacy Report ---
Pharmacy Glycemic Short Note 2 - Date of Service May 05, 2025 - Glycemic Short BSG Results (Last 24 hours): 05/04/25 05/04/25 05/05/25 16:23 19:59 05:59 Glucose 96 POC Glucose 159 H 142 H 05/05/25 05/05/25 07:25 11:02 Glucose POC Glucose 104 H 242 H OUTPATIENT ANTIDIABETIC REGIMEN: * metformin 1000mg po BID * Januvia 100mg po daily HbA1c: 6.6% on 04/21/25 ASSESSMENT: 05/05: * Received 72 units of insulin yesterday, 35 of which was basal. Total insulin requirements continue to decrease * Fasting BSG 96 mg/dL this morning. IV methylprednisolone also changed to once daily today. Will decrease Lantus dosing significantly but continue with novolog scale. 05/04 * Received 83 units of insulin yesterday, 40 of which were basal * Fasting 87 mg/dL today- reduced basal approximately 15% * BSG with lunch 186 mg/dL however, breakfast insulin was administered closer to 10. Concern for a bit of stacking, slightly loosened correction 05/02: * Mallorie received a total of 96 units of insulin yesterday, 55 of which were basal. * BSGs yesterday were [phone] mg/dL. Fasting this morning was 93 mg/dL. * Patient continues on steroids and on a diet + boost with each meal. * Although over all BSGs greatly improved, fasting BSG downtrended significantly today. Will eliminate evening lantus at this point and tighten CR. * 05/02: * Mallorie received 100 units of insulin yesterday, 50 were basal. * BSGs yesterday were [phone] mg/dL. Fasting BSG improved again today and was 145 mg/dL. Will not make any further changes to day to better assess affects of inc basal and tightened NovoLog scale from yesterday. * Patient continues on Iv methylprednisolone 40mg IV q8h and continues on a diet/boost. 05/01: * Mallorie received 72 units of insulin yesterday, 35 were basal. * Spoke with LEXIS Angel, patient is receiving Boost with meals (111 carbs daily), but she drinks throughout the day so was not being covered with meals contributing to hyperglycemia. Will plan to factor into Lantus dosing vs carb coverage as covering could result in hypoglycemia without full amount being consumed at a meal. * Fasting BSG this AM elevated, but improved. Lantus at a weight based stress of 3 given yesterday, will continue with full weight based stress of 3 this AM plus 10 units to help with carb coverage of Boost and allow for an additional 20-30% at bedtime if BSGs remain elevated. * NovoLog tightened this morning to help with steroid induced hyperglycemia. She continues on methylprednisolone 40mg IV Q8H. 04/30: * Mallorie is a 79 year old female who was admitted 04/20 with acute metabolic encephalopathy, hypoxia, and hyponatremia. Pharmacy was consulted today for glycemic management as she was started on iv steroids yesterday and her blood glucose has been steadily increasing since then. * On consult her BSG was 382mg/dL. Lantus 20units SQ x 1 was ordered. She was already on a loose bolus insulin regimen without carb coverage, so this was tightened to a weight based regimen with a stress of 3. PLAN FOR INPATIENT GLYCEMIC CONTROL: * Hold outpatient oral diabetes medications * Basal insulin * Lantus 20 units SQ q AM * Bolus insulin * NovoLog per scale ACHS or Q6hrs while NPO * Goal Range: Low 110 mg/dL - High 140 mg/dL * Correction Factor: 20 mg/dL/unit * Nutritional / Prandial insulin per carb ratio of 1 unit per 4 grams CHO consumed
[2025-05-06 06:44] LABS: Hematocrit (blood only) 34.5 % (37.0-47.0); Hemoglobin 11.4 g/dl (12.0-16.0); Mean Corpuscular Hemoglobin 28.9 pg (25.0-34.0); Mean Corpuscular Volume 87.3 fL (80.0-100.0); Platelet Count 462 K/uL (130-400); RDW Standard Deviation 55.1 fL (36.4-46.3); Red Blood Count 3.95 M/uL (4.20-5.40); White Blood Count 26.12 K/ul (4.8-10.8)
[2025-05-06 07:13] LABS: Anion Gap 7.0 (3-11); Blood Urea Nitrogen 70.0 mg/dl (6-23); Calcium 8.7 mg/dl (8.6-10.3); Carbon Dioxide 34.0 mmol/L (21-32); Chloride 96.0 mmol/L (98-107); Creatinine Clr Calc Pharmacy 44.0 ml/min; Glucose 78.0 mg/dl (70-99(Fasting)); Potassium 3.3 mmol/L (3.5-5.1); Sodium 137.0 mmol/L (136-145)
[2025-05-06] MEDS: LANTUS PER UNIT CHARGE SC SCH (08:29)
[2025-05-06] MEDS: POTASSIUM CHLORIDE / WTR 10 MEQ/100 ML PLCT IV SCH (08:30)
[2025-05-06] MEDS: predniSONE 20 MG TAB PO SCH (08:38)
--- NOTE | 2025-05-06 10:04 | Pulmonology Progress Note ---
Date of Service May 06, 2025 Assessment & Plan (1) Leukocytosis: (2) UTI (urinary tract infection): (3) Acute hypoxic respiratory failure: (4) Breast cancer: (5) Abnormal chest CT: (6) Pleural effusion: Plan Reason Critically Ill: 79-year-old female history of triple negative breast CA admitted to the ICU for severe hyponatremia and hypoxia. Pulmonary consulted for worsening hypoxia with bilateral pulmonary infiltrates concerning for pulmonary edema with small bilateral effusions. She has completed a course of antibiotics and has been diuresed aggressively but failed to improve. She was placed empirically on steroids for inflammatory pulmonary infiltrate/alveolar hemorrhage as the patient was too unstable and unwilling to consider bronchoscopy with BAL. CT chest 04/27/2025 personally reviewed: Interlobular thickening appreciated especially in the upper lobe Bilateral apical pleural scarring Groundglass opacities appreciated diffusely especially in the lower lobe Small bilateral pleural effusion Pretracheal as well as subcarinal lymphadenopathy -- Hypoxemic respiratory failure with pulmonary infiltrates and pleural effusion Continues to have improvement today with improved oxygen requirements. HFNC at 4 liters and SpO2 92-94%. Her white count remains stable at 22,000 unclear if this may be related to steroids but patient has been afebrile. Creatinine up to 0.93 and BUN 79 lasix dropped to 20mg daily PO. She remains net negative this am. Continue current therapy with diuresis and steroids. -- Breast cancer Status post therapy with docetaxel and cyclophosphamide. Per medical oncology. Patient is at risk for immunocompromised infections. LDH only minimally elevated. Patient got total 3 cycles of chemotherapy starting mid February 2025 Again the patient is reluctant to consider bronchoscopy for assessment of PJP, alveolar hemorrhage, or other opportunistic infections. Fungitell negative. -- CODE STATUS confirmed. DNR/DNI. She has not been tolerant to positive airway pressure previously continue to discuss benefits of using it and patient will try today. [facility]. Prognosis guarded. Will continue to follow with you Plan: In/outs: -500, urine output 1500 mL, -17 L since coming to the hospital Does have significant diffuse groundglass opacities in an immunocompromised state, PJP in the differential but given mild elevated LDH and patient clinically improving even without addition of Bactrim the probability is low Patient is reluctant to have any procedures done including bronchoscopy Continue with prednisone 40 mg on a daily basis as of tomorrow for 5 days followed by 20 for 5 days and then stop Continue 20 mg p.o. Lasix. Okay to hold if the blood pressures on the softer side BUN is elevated likely secondary to steroids. Continue with pantoprazole Case was discussed with primary team as well as RN Please note the above document was generated using voice recognition software. It may contain grammatical, syntax or spelling errors.Any formal questions or concerns about the content, text or information contained within the body of this dictation should be directly addressed to the provider for clarification. Admission and Anticipated Discharge Date Admission Date: April 21, 2025 Subjective Patient seen and examined at bedside. No acute distress, no adverse events overnight She was saturating 95-96% on 4 L nasal cannula, I went down to 2 L Patient's was also in the room at the time of examination Patient was in good mood today. She stated she is feeling much better. Breathing has improved Has been diuresing well Appetite has also improved, no nausea or vomiting Review of Systems 2 Review of Systems: All systems reviewed & are unremarkable except as noted in Subjective Physical Exam 2 Physical Exam: Constitutional: No acute distress HEENT: EOMI, PERRLA Respiratory system: Decreased air entry bilaterally, no wheeze, no rhonchi, positive crackles bilaterally, improved from before CVS: S1-S2 positive, no murmurs or gallops Abdomen: Soft, nontender, nondistended, positive bowel sounds x4 Extremities: +2 pulses bilaterally radialis/ dorsalis pedis, no cyanosis, minimal pitting edema bilateral lower extremity Neuro: Awake alert oriented x3 Psych: Normal mood and affect G/U: Positive Brown Skin: no rashes, warm and dry Lymphatic: no cervical or axillary lymphadenopathy Results & Data Results & Data Vital Signs (Past 12 Hours) Vital Signs Temp Pulse Pulse Resp BP Pulse Ox O2 Del Method 05/06/25 08:00 Nasal Cannula 05/06/25 08:00 87 05/06/25 07:27 36.4 C L 58 L 22 115/54 L 94 High Flow Nasal Cannula 05/06/25 02:49 49 L 21 89/52 L 96 Nasal Cannula 05/06/25 00:00 87 05/05/25 23:23 81 18 112/65 90 Nasal Cannula 05/05/25 23:20 53 L O2 Flow Rate 05/06/25 08:00 4 05/06/25 08:00 05/06/25 07:27 4 05/06/25 02:49 05/06/25 00:00 05/05/25 23:23 05/05/25 23:20 Laboratory Results 05/06/25 06:28 05/06/25 06:28 PG Care Time/CCT Total # of Minutes Spent Total Time Spent with Patient: Total time spent is greater than 50% in coordination of care (as documented) at patient's floor/unit and/or counseling patient: Coding Level of Care Code 50172 SUB INP/OBS CARE 2/35MIN Diagnoses Leukocytosis D72.829 UTI (urinary tract infection) N39.0 Acute hypoxic respiratory failure J96.01 Breast cancer C50.[address] R93.89 Pleural effusion J90
--- NOTE | 2025-05-06 11:20 | Hospitalist Progress Note ---
Date of Service May 06, 2025 Assessment & Plan (1) Hypoxia: Plan: - Remains on 10LNC - Continue to hold diuretics - Echo: EF 55-60%, mod. pulm HTN - CXR showing pulmonary vascular congestion - Na+ improved to >130 -will give dose of lasix 40mg IV - cardiology consult appreciated - appears to have non cardiogenic pulmonary edema - pt has received docetaxel and cyclophosphamide possible pulmonary toxicity -pulmonary consult appreciated -CXR showing mild improvement -pulmonary edema -con't lasix 40 daily -Solu-medrol IV started as per pulmonary -04/30nCXR showing no change in infiltrative pattern -con't steroids, tapering down -clinically improving -on 4LNC (2) Pelvic fracture: Plan: Seen by [facility] orthopedics and recommended conservative management. -pain control - Walker for gait assistance - PT/OT consult placed - recommending home with HH (3) Acute metabolic encephalopathy: Plan: -resolved (4) UTI (urinary tract infection): Plan: klebsiella ceftriaxone given sensitivities (5) Hyponatremia: Plan: Na+ improved to 135 (6) Leukocytosis: Plan lives at home w - right now goal would be to get back home at discharge - d/w pt needs to stay active in hospital so that she doesn't get weak enough to require rehab. Admission and Anticipated Discharge Date Admission Date: April 21, 2025 Subjective Pt feeling much better this am. No events overnight. Review of Systems Review of Systems: CONST: Negative for fever, body aches and chills. HENT: Negative for neck pain/stiffness, headache, congestion, sore throat, swelling. EYES: Negative for discharge/pain or vision changes. RESP: Negative for cough/hemoptysis and shortness of breath. CV: Negative chest pain, difficulty breathing, palpitations. ABD: Negative pain, nausea, vomiting. : Negative increase frequency, dysuria, blood in urine or stool. MUSC: Negative for muscle aches, edema. SKIN: Negative rash, lesions/sores. NEURO: Negative headache, dizziness, weakness. Physical Exam Physical Exam: GENERAL APPEARANCE NAD, activity normal for age, well developed/ well nourished, no cyanosis, pallor, or diaphoresis. EYES lids/conjunctiva normal. EARS/NOSE/THROAT Mucous membranes moist, nares normal, lips/teeth normal uvula midline without oral pharyngeal erythema, exudate or swelling TMs normal bilaterally. No lymphangitis/lymphedema. HEAD/NECK normocephalic atraumatic, no facial trauma, neck is supple. RESPIRATORY respiratory effort normal, speaks in full sentences, no tripod position, no accessory muscle use. Lungs clear to auscultation without rhonchi, wheezes, rales CARDIAC Regular rate and rhythm, no edema. ABDOMINAL Soft, ND/NT. No evidence of fluid wave. No pulsatile masses on exam, rebound tenderness, Sim sign or pain over Mcburney's point. MUSCLES/EXTREMITIES No abnormal range of motion, no swelling. SKIN Warm, pink and dry. No rashes, dermatoses, petechiae or lesions. NEUROLOGICAL Speech is clear and appropriate. Normal level of consciousness. Gait and coordination are normal. 5/5 strength in all extremities. PSYCH Normal mood and affect. Judgement/competence is appropriate Results & Data Results & Data Vital Signs (Past 12 Hours) Vital Signs Temp Pulse Pulse Resp BP Pulse Ox O2 Del Method 05/06/25 11:15 36.4 C L 56 L 16 89/44 L 95 High Flow Nasal Cannula 05/06/25 08:00 Nasal Cannula 05/06/25 08:00 87 05/06/25 07:27 36.4 C L 58 L 22 115/54 L 94 High Flow Nasal Cannula 05/06/25 02:49 49 L 21 89/52 L 96 Nasal Cannula 05/06/25 00:00 87 05/05/25 23:23 81 18 112/65 90 Nasal Cannula 05/05/25 23:20 53 L O2 Flow Rate 05/06/25 11:15 4 05/06/25 08:00 4 05/06/25 08:00 05/06/25 07:27 4 05/06/25 02:49 05/06/25 00:00 05/05/25 23:23 05/05/25 23:20 PG Care Time/CCT Total # of Minutes Spent Total Time Spent with Patient: Total time spent is greater than 50% in coordination of care (as documented) at patient's floor/unit and/or counseling patient: Coding Level of Care Code 04366 SUB INP/OBS CARE 2/35MIN Diagnoses Hypoxia R09.02 Pelvic fracture S32.9XXA Acute metabolic encephalopathy G93.41 UTI (urinary tract infection) N39.0 Hyponatremia E87.1 Leukocytosis D72.829
[2025-05-07 08:02] LABS: Hematocrit (blood only) 36.2 % (37.0-47.0); Hemoglobin 11.8 g/dl (12.0-16.0); Mean Corpuscular Hemoglobin 28.8 pg (25.0-34.0); Mean Corpuscular Volume 88.3 fL (80.0-100.0); Platelet Count 496 K/uL (130-400); RDW Standard Deviation 56.5 fL (36.4-46.3); Red Blood Count 4.10 M/uL (4.20-5.40); White Blood Count 28.16 K/ul (4.8-10.8)
[2025-05-07 08:21] LABS: Anion Gap 6.0 (3-11); Blood Urea Nitrogen 65.0 mg/dl (6-23); Calcium 8.6 mg/dl (8.6-10.3); Carbon Dioxide 35.0 mmol/L (21-32); Chloride 95.0 mmol/L (98-107); Creatinine Clr Calc Pharmacy 43.5 ml/min; Glucose 129.0 mg/dl (70-99(Fasting)); Potassium 3.4 mmol/L (3.5-5.1); Sodium 136.0 mmol/L (136-145)
--- NOTE | 2025-05-07 10:35 | Hospitalist Progress Note ---
Date of Service May 07, 2025 Assessment & Plan (1) Hypoxia: Plan: - Remains on 10LNC - Continue to hold diuretics - Echo: EF 55-60%, mod. pulm HTN - CXR showing pulmonary vascular congestion - Na+ improved to >130 -will give dose of lasix 40mg IV - cardiology consult appreciated - appears to have non cardiogenic pulmonary edema - pt has received docetaxel and cyclophosphamide possible pulmonary toxicity -pulmonary consult appreciated -CXR showing mild improvement -pulmonary edema -con't lasix 40 daily -Solu-medrol IV started as per pulmonary -04/30nCXR showing no change in infiltrative pattern -con't steroids, tapering down -clinically improving -on 4LNC, was titrated down to 2LNC (2) Pelvic fracture: Plan: Seen by [facility] orthopedics and recommended conservative management. -pain control - Walker for gait assistance - PT/OT consult placed - recommending home with HH (3) Acute metabolic encephalopathy: Plan: -resolved (4) UTI (urinary tract infection): Plan: klebsiella ceftriaxone given sensitivities (5) Hyponatremia: Plan: Na+ improved to 135 (6) Leukocytosis: Plan lives at home w - right now goal would be to get back home at discharge - d/w pt needs to stay active in hospital so that she doesn't get weak enough to require rehab. Admission and Anticipated Discharge Date Admission Date: April 21, 2025 Subjective Pt feeling a bit anxious this am. Respiratory status remains improving. Review of Systems Review of Systems: CONST: Negative for fever, body aches and chills. HENT: Negative for neck pain/stiffness, headache, congestion, sore throat, swelling. EYES: Negative for discharge/pain or vision changes. RESP: Negative for cough/hemoptysis and shortness of breath. CV: Negative chest pain, difficulty breathing, palpitations. ABD: Negative pain, nausea, vomiting. : Negative increase frequency, dysuria, blood in urine or stool. MUSC: Negative for muscle aches, edema. SKIN: Negative rash, lesions/sores. NEURO: Negative headache, dizziness, weakness. Physical Exam Physical Exam: GENERAL APPEARANCE NAD, activity normal for age, well developed/ well nourished, no cyanosis, pallor, or diaphoresis. EYES lids/conjunctiva normal. EARS/NOSE/THROAT Mucous membranes moist, nares normal, lips/teeth normal uvula midline without oral pharyngeal erythema, exudate or swelling TMs normal bilaterally. No lymphangitis/lymphedema. HEAD/NECK normocephalic atraumatic, no facial trauma, neck is supple. RESPIRATORY respiratory effort normal, speaks in full sentences, no tripod position, no accessory muscle use. Lungs clear to auscultation without rhonchi, wheezes, rales CARDIAC Regular rate and rhythm, no edema. ABDOMINAL Soft, ND/NT. No evidence of fluid wave. No pulsatile masses on exam, rebound tenderness, Sim sign or pain over Mcburney's point. MUSCLES/EXTREMITIES No abnormal range of motion, no swelling. SKIN Warm, pink and dry. No rashes, dermatoses, petechiae or lesions. NEUROLOGICAL Speech is clear and appropriate. Normal level of consciousness. Gait and coordination are normal. 5/5 strength in all extremities. PSYCH Normal mood and affect. Judgement/competence is appropriate Results & Data Results & Data Vital Signs (Past 12 Hours) Vital Signs Temp Pulse Pulse Resp BP BP Pulse Ox 05/07/25 08:08 36.5 C 67 22 117/52 L 92 05/07/25 07:30 05/07/25 04:31 36.4 C L 53 L 18 108/58 L 93 05/07/25 00:20 36.6 C 48 L 19 113/57 L 92 05/06/25 23:21 54 L O2 Del Method O2 Flow Rate 05/07/25 08:08 High Flow Nasal Cannula 4 05/07/25 07:30 Nasal Cannula 2 05/07/25 04:31 High Flow Nasal Cannula 2 05/07/25 00:20 High Flow Nasal Cannula 2 05/06/25 23:21 PG Care Time/CCT Total # of Minutes Spent Total Time Spent with Patient: Total time spent is greater than 50% in coordination of care (as documented) at patient's floor/unit and/or counseling patient: Coding Level of Care Code 93624 SUB INP/OBS CARE 2/35MIN Diagnoses Hypoxia R09.02 Pelvic fracture S32.9XXA Acute metabolic encephalopathy G93.41 UTI (urinary tract infection) N39.0 Hyponatremia E87.1 Leukocytosis D72.829
--- NOTE | 2025-05-07 11:34 | Pulmonology Progress Note ---
Date of Service May 07, 2025 Assessment & Plan (1) Leukocytosis: (2) UTI (urinary tract infection): (3) Acute hypoxic respiratory failure: (4) Breast cancer: (5) Abnormal chest CT: (6) Pleural effusion: Plan Reason Critically Ill: 79-year-old female history of triple negative breast CA admitted to the ICU for severe hyponatremia and hypoxia. Pulmonary consulted for worsening hypoxia with bilateral pulmonary infiltrates concerning for pulmonary edema with small bilateral effusions. She has completed a course of antibiotics and has been diuresed aggressively but failed to improve. She was placed empirically on steroids for inflammatory pulmonary infiltrate/alveolar hemorrhage as the patient was too unstable and unwilling to consider bronchoscopy with BAL. CT chest 04/27/2025 personally reviewed: Interlobular thickening appreciated especially in the upper lobe Bilateral apical pleural scarring Groundglass opacities appreciated diffusely especially in the lower lobe Small bilateral pleural effusion Pretracheal as well as subcarinal lymphadenopathy -- Hypoxemic respiratory failure with pulmonary infiltrates and pleural effusion Continues to have improvement today with improved oxygen requirements. HFNC at 4 liters and SpO2 92-94%. Her white count remains stable at 22,000 unclear if this may be related to steroids but patient has been afebrile. Creatinine up to 0.93 and BUN 79 lasix dropped to 20mg daily PO. She remains net negative this am. Continue current therapy with diuresis and steroids. -- Breast cancer Status post therapy with docetaxel and cyclophosphamide. Per medical oncology. Patient is at risk for immunocompromised infections. LDH only minimally elevated. Patient got total 3 cycles of chemotherapy starting mid February 2025 Again the patient is reluctant to consider bronchoscopy for assessment of PJP, alveolar hemorrhage, or other opportunistic infections. Fungitell negative. -- CODE STATUS confirmed. DNR/DNI. She has not been tolerant to positive airway pressure previously continue to discuss benefits of using it and patient will try today. Patient okay to discharge to [facility] with oxygen from pulmonary perspective. Prognosis guarded. Will continue to follow with you Plan: In/outs: -700, urine output 1550 mL, -18 L since coming to the hospital Does have significant diffuse groundglass opacities in an immunocompromised state, PJP in the differential but given mild elevated LDH and patient clinically improving even without addition of Bactrim the probability is low Patient is reluctant to have any procedures done including bronchoscopy Chest x-ray done today on personal review does show improvement in the alveolar opacities compared to before. Some of the alveolar opacities still present, mild blunting of bilateral costophrenic angle Continue with prednisone 40 mg on a daily basis as of tomorrow for 2 days followed by 20 for 5 days and then stop Continue 20 mg p.o. Lasix. Continue with pantoprazole Case was discussed with primary team as well as RN Please note the above document was generated using voice recognition software. It may contain grammatical, syntax or spelling errors.Any formal questions or concerns about the content, text or information contained within the body of this dictation should be directly addressed to the provider for clarification. Admission and Anticipated Discharge Date Admission Date: April 21, 2025 Subjective Patient seen and examined at bedside. No acute distress, no adverse events overnight She was saturating 91-92% on 4 L nasal cannula at rest She was having her lunch Patient's as well as daughter were in the room Denies any nausea or vomiting Appetite is still not optimal. Denied any headache, no blurry vision Review of Systems 2 Review of Systems: All systems reviewed & are unremarkable except as noted in Subjective Physical Exam 2 Physical Exam: Constitutional: No acute distress HEENT: EOMI, PERRLA Respiratory system: Decreased air entry bilaterally, no wheeze, no rhonchi, positive crackles bilaterally, improved from before CVS: S1-S2 positive, no murmurs or gallops Abdomen: Soft, nontender, nondistended, positive bowel sounds x4 Extremities: +2 pulses bilaterally radialis/ dorsalis pedis, no cyanosis, minimal pitting edema bilateral lower extremity Neuro: Awake alert oriented x3 Psych: Normal mood and affect G/U: Positive Brown Skin: no rashes, warm and dry Lymphatic: no cervical or axillary lymphadenopathy Results & Data Results & Data Vital Signs (Past 12 Hours) Vital Signs Temp Pulse Pulse Resp BP BP Pulse Ox 05/07/25 11:04 36.7 C 65 17 118/61 93 05/07/25 08:08 36.5 C 67 22 117/52 L 92 05/07/25 07:30 05/07/25 04:31 36.4 C L 53 L 18 108/58 L 93 05/07/25 00:20 36.6 C 48 L 19 113/57 L 92 O2 Del Method O2 Flow Rate 05/07/25 11:04 Nasal Cannula 4 05/07/25 08:08 High Flow Nasal Cannula 4 05/07/25 07:30 Nasal Cannula 2 05/07/25 04:31 High Flow Nasal Cannula 2 05/07/25 00:20 High Flow Nasal Cannula 2 Laboratory Results 05/07/25 07:48 05/07/25 07:48 PG Care Time/CCT Total # of Minutes Spent Total Time Spent with Patient: Total time spent is greater than 50% in coordination of care (as documented) at patient's floor/unit and/or counseling patient: Coding Level of Care Code 65120 SUB INP/OBS CARE 235MIN Diagnoses Leukocytosis D72.829 UTI (urinary tract infection) N39.0 Acute hypoxic respiratory failure J96.01 Breast cancer C50.[address] R93.89 Pleural effusion J90
--- NOTE | 2025-05-07 13:29 | XRay Report ---
XR chest 1V portable CLINICAL HISTORY: f/u COMPARISON STUDY: Chest CT April 27, 2025. Chest radiograph April 30, 2025. FINDINGS: Left internal jugular [id number] remains in place. There is no pneumothorax. Small bilat eral pleural effusions persist. Cardiomegaly is unchanged. Mediastinal contours are stable. There is persistent interstitial thickening and bilateral airspace opacities. IMPRESSION: 1. No significant change in appearance of the chest. Cardiomegaly with interstitial thickening which favors pulmonary edema. Airspace opacities could represent alveolar pulmonary edema or superimposed i nfectious process. 2. Small bilateral pleural effusions. ACT 112: Negative or not required by law. Electronically signed by: Mir De Oliveira M.D. 05/07/2025 1:28 PM
--- NOTE | 2025-05-07 13:31 | Pharmacy Report ---
Pharmacy Glycemic Short Note 2 - Date of Service May 07, 2025 - Glycemic Short BSG Results (Last 24 hours): 05/06/25 05/06/25 05/07/25 16:28 20:48 07:04 Glucose POC Glucose 162 H 125 H 66 L* 05/07/25 05/07/25 05/07/25 07:07 07:26 07:48 Glucose 129 H POC Glucose 67 L* 72 05/07/25 11:15 Glucose POC Glucose 199 H OUTPATIENT ANTIDIABETIC REGIMEN: * metformin 1000mg po BID * Januvia 100mg po daily HbA1c: 6.6% on 04/21/25 ASSESSMENT: 05/07: * Insulin needs trending downward. Methylprednisolone IV discontinued after 05/05 dose. Started prednisone 40 mg PO daily on 05/06. * Fasting hypoglycemia (67 mg/dL) despite significant decrease in Lantus (35 units --> 20 units --> 12 units). Hold Lantus today. * Novolog CF and CR loosened on 05/06. Post prandial BSGs are acceptable. 05/05: * Received 72 units of insulin yesterday, 35 of which was basal. Total insulin requirements continue to decrease * Fasting BSG 96 mg/dL this morning. IV methylprednisolone also changed to once daily today. Will decrease Lantus dosing significantly but continue with novolog scale. 05/04 * Received 83 units of insulin yesterday, 40 of which were basal * Fasting 87 mg/dL today- reduced basal approximately 15% * BSG with lunch 186 mg/dL however, breakfast insulin was administered closer to 10. Concern for a bit of stacking, slightly loosened correction 05/02: * Mallorie received a total of 96 units of insulin yesterday, 55 of which were basal. * BSGs yesterday were [phone] mg/dL. Fasting this morning was 93 mg/dL. * Patient continues on steroids and on a diet + boost with each meal. * Although over all BSGs greatly improved, fasting BSG downtrended significantly today. Will eliminate evening lantus at this point and tighten CR. * 05/02: * Mallorie received 100 units of insulin yesterday, 50 were basal. * BSGs yesterday were [phone] mg/dL. Fasting BSG improved again today and was 145 mg/dL. Will not make any further changes to day to better assess affects of inc basal and tightened NovoLog scale from yesterday. * Patient continues on Iv methylprednisolone 40mg IV q8h and continues on a diet/boost. 05/01: * Mallorie received 72 units of insulin yesterday, 35 were basal. * Spoke with LEXIS Angel, patient is receiving Boost with meals (111 carbs daily), but she drinks throughout the day so was not being covered with meals contributing to hyperglycemia. Will plan to factor into Lantus dosing vs carb coverage as covering could result in hypoglycemia without full amount being consumed at a meal. * Fasting BSG this AM elevated, but improved. Lantus at a weight based stress of 3 given yesterday, will continue with full weight based stress of 3 this AM plus 10 units to help with carb coverage of Boost and allow for an additional 20-30% at bedtime if BSGs remain elevated. * NovoLog tightened this morning to help with steroid induced hyperglycemia. She continues on methylprednisolone 40mg IV Q8H. 04/30: * Mallorie is a 79 year old female who was admitted 04/20 with acute metabolic enc ephalopathy, hypoxia, and hyponatremia. Pharmacy was consulted today for glycemic management as she was started on iv steroids yesterday and her blood glucose has been steadily increasing since then. * On consult her BSG was 382mg/dL. Lantus 20units SQ x 1 was ordered. She was already on a loose bolus insulin regimen without carb coverage, so this was tightened to a weight based regimen with a stress of 3. PLAN FOR INPATIENT GLYCEMIC CONTROL: * Hold outpatient oral diabetes medications * Basal insulin * Hold * Bolus insulin * NovoLog per scale ACHS or Q6hrs while NPO * Goal Range: Low 110 mg/dL - High 140 mg/dL * Correction Factor: 25 mg/dL/unit * Nutritional / Prandial insulin per carb ratio of 1 unit per 5 grams CHO consumed
[2025-05-08 06:14] LABS: Hematocrit (blood only) 33.3 % (37.0-47.0); Hemoglobin 10.5 g/dl (12.0-16.0); Mean Corpuscular Hemoglobin 28.2 pg (25.0-34.0); Mean Corpuscular Volume 89.3 fL (80.0-100.0); Platelet Count 411 K/uL (130-400); RDW Standard Deviation 57.7 fL (36.4-46.3); Red Blood Count 3.73 M/uL (4.20-5.40); White Blood Count 22.09 K/ul (4.8-10.8)
[2025-05-08 06:31] LABS: Anion Gap 4.0 (3-11); Blood Urea Nitrogen 63.0 mg/dl (6-23); Calcium 8.7 mg/dl (8.6-10.3); Carbon Dioxide 39.0 mmol/L (21-32); Chloride 95.0 mmol/L (98-107); Creatinine Clr Calc Pharmacy 49.0 ml/min; Glucose 66.0 mg/dl (70-99(Fasting)); Potassium 3.2 mmol/L (3.5-5.1); Sodium 138.0 mmol/L (136-145)
[2025-05-08] MEDS: NovoLIN-N (NPH) PER UNIT CHARGE SQ ONE (08:25)
[2025-05-08] MEDS: POTASSIUM CHLORIDE / WTR 10 MEQ/100 ML PLCT IV SCH (08:26)
--- NOTE | 2025-05-08 10:10 | Pulmonology Progress Note ---
Date of Service May 08, 2025 Assessment & Plan (1) Leukocytosis: (2) UTI (urinary tract infection): (3) Acute hypoxic respiratory failure: (4) Breast cancer: (5) Abnormal chest CT: (6) Pleural effusion: Plan Reason Critically Ill: 79-year-old female history of triple negative breast CA admitted to the ICU for severe hyponatremia and hypoxia. Pulmonary consulted for worsening hypoxia with bilateral pulmonary infiltrates concerning for pulmonary edema with small bilateral effusions. She has completed a course of antibiotics and has been diuresed aggressively but failed to improve. She was placed empirically on steroids for inflammatory pulmonary infiltrate/alveolar hemorrhage as the patient was too unstable and unwilling to consider bronchoscopy with BAL. CT chest 04/27/2025 personally reviewed: Interlobular thickening appreciated especially in the upper lobe Bilateral apical pleural scarring Groundglass opacities appreciated diffusely especially in the lower lobe Small bilateral pleural effusion Pretracheal as well as subcarinal lymphadenopathy -- Hypoxemic respiratory failure with pulmonary infiltrates and pleural effusion Continues to have improvement today with improved oxygen requirements. HFNC at 4 liters and SpO2 92-94%. Her white count remains stable at 22,000 unclear if this may be related to steroids but patient has been afebrile. Creatinine up to 0.93 and BUN 79 lasix dropped to 20mg daily PO. She remains net negative this am. Continue current therapy with diuresis and steroids. -- Breast cancer Status post therapy with docetaxel and cyclophosphamide. Per medical oncology. Patient is at risk for immunocompromised infections. LDH only minimally elevated. Patient got total 3 cycles of chemotherapy starting mid February 2025 Again the patient is reluctant to consider bronchoscopy for assessment of PJP, alveolar hemorrhage, or other opportunistic infections. Fungitell negative. -- CODE STATUS confirmed. DNR/DNI. She has not been tolerant to positive airway pressure previously continue to discuss benefits of using it and patient will try today. Patient okay to discharge to [facility] with oxygen from pulmonary perspective. Prognosis guarded. Will continue to follow with you Plan: In/outs: -950, urine output 1950mL, -19 L since coming to the hospital Does have significant diffuse groundglass opacities in an immunocompromised state, PJP in the differential but given mild elevated LDH and patient clinically improving even without addition of Bactrim the probability is low Patient is reluctant to have any procedures done including bronchoscopy Chest x-ray done today on personal review does show improvement in the alveolar opacities compared to before. Some of the alveolar opacities still present, mild blunting of bilateral costophrenic angle Continue with prednisone 40 mg on a daily basis as of tomorrow for 1 day followed by 20 for 5 days and then stop Continue 20 mg p.o. Lasix. Continue with pantoprazole Case was discussed with primary team as well as RN No further recommendation from pulmonary perspective, will sign off Please call directly with any questions Please note the above document was generated using voice recognition software. It may contain grammatical, syntax or spelling errors.Any formal questions or concerns about the content, text or information contained within the body of this dictation should be directly addressed to the provider for clarification. Admission and Anticipated Discharge Date Admission Date: April 21, 2025 Subjective Patient seen and examined at bedside. No acute distress, no gross events overnight Patient's daughter was in the room at the time of examination Patient was saturating 93% on 3 L nasal cannula Appetite is improving, denies any nausea or vomiting No coughing No dysuria or diarrhea Review of Systems 2 Review of Systems: All systems reviewed & are unremarkable except as noted in Subjective Physical Exam 2 Physical Exam: Constitutional: No acute distress HEENT: EOMI, PERRLA Respiratory system: Decreased air entry bilaterally, no wheeze, no rhonchi, positive crackles bilaterally, more on the right side, improved from before CVS: S1-S2 positive, no murmurs or gallops Abdomen: Soft, nontender, nondistended, positive bowel sounds x4 Extremities: +2 pulses bilaterally radialis/ dorsalis pedis, no cyanosis, minimal pitting edema bilateral lower extremity Neuro: Awake alert oriented x3 Psych: Normal mood and affect G/U: Positive [place] Skin: no rashes, warm and dry Lymphatic: no cervical or axillary lymphadenopathy Results & Data Results & Data Vital Signs (Past 12 Hours) Vital Signs Temp Pulse Pulse Resp BP Pulse Ox O2 Del Method 05/08/25 08:00 Nasal Cannula 05/08/25 08:00 50 L 05/08/25 07:35 36.5 C 54 L 18 123/76 91 Nasal Cannula 05/08/25 04:18 36.5 C 53 L 18 121/63 90 High Flow Nasal Cannula 05/08/25 00:25 36.4 C L 54 L 18 109/59 L 90 High Flow Nasal Cannula 05/08/25 00:00 67 O2 Flow Rate 05/08/25 08:00 3 05/08/25 08:00 05/08/25 07:35 3 05/08/25 04:18 4 05/08/25 00:25 2 05/08/25 00:00 Laboratory Results 05/08/25 05:41 05/08/25 05:41 PG Care Time/CCT Total # of Minutes Spent Total Time Spent with Patient: Total time spent is greater than 50% in coordination of care (as documented) at patient's floor/unit and/or counseling patient: Coding Level of Care Code 54627 SUB INP/OBS CARE 235MIN Diagnoses Leukocytosis D72.829 UTI (urinary tract infection) N39.0 Acute hypoxic respiratory failure J96.01 Breast cancer C50.[address] R93.89 Pleural effusion J90
--- NOTE | 2025-05-08 10:48 | Hospitalist Progress Note ---
Date of Service May 08, 2025 Assessment & Plan (1) Hypoxia: Plan: - Remains on 10LNC - Continue to hold diuretics - Echo: EF 55-60%, mod. pulm HTN - CXR showing pulmonary vascular congestion - Na+ improved to >130 -will give dose of lasix 40mg IV - cardiology consult appreciated - appears to have non cardiogenic pulmonary edema - pt has received docetaxel and cyclophosphamide possible pulmonary toxicity -pulmonary consult appreciated -CXR showing mild improvement -pulmonary edema -con't lasix 40 daily -Solu-medrol IV started as per pulmonary -04/30nCXR showing no change in infiltrative pattern -con't steroids, tapering down to prednisone 20mg in am for 5 days then stop -clinically improving and CXR 05/07 showing improvement in alveolar opacities -on 4LNC, was titrated down to 2LNC -plan to d/c to [facility] within 24-48hrs once approved (2) Pelvic fracture: Plan: Seen by [facility] orthopedics and recommended conservative management. -pain control - Walker for gait assistance - PT/OT consult - recommending rehab placement (3) Acute metabolic encephalopathy: Plan: -resolved (4) UTI (urinary tract infection): Plan: klebsiella ceftriaxone given sensitivities resolved, abx stopped (5) Hyponatremia: Plan: Na+ improved to 135 (6) Leukocytosis: Plan Pulmonary function as clinically been improving with steroids, plan to d/c to rehab once accepted and bed available. Admission and Anticipated Discharge Date Admission Date: April 21, 2025 Subjective Pt feeling better this am. Looking forward to being discharged soon. Has maintained 02 sats on 2-4LNC. Review of Systems Review of Systems: CONST: Negative for fever, body aches and chills. HENT: Negative for neck pain/stiffness, headache, congestion, sore throat, swelling. EYES: Negative for discharge/pain or vision changes. RESP: Negative for cough/hemoptysis and shortness of breath. CV: Negative chest pain, difficulty breathing, palpitations. ABD: Negative pain, nausea, vomiting. : Negative increase frequency, dysuria, blood in urine or stool. MUSC: Negative for muscle aches, edema. SKIN: Negative rash, lesions/sores. NEURO: Negative headache, dizziness, weakness. Physical Exam Physical Exam: GENERAL APPEARANCE NAD, activity normal for age, well developed/ well nourished, no cyanosis, pallor, or diaphoresis. EYES lids/conjunctiva normal. EARS/NOSE/THROAT Mucous membranes moist, nares normal, lips/teeth normal uvula midline without oral pharyngeal erythema, exudate or swelling TMs normal bilaterally. No lymphangitis/lymphedema. HEAD/NECK normocephalic atraumatic, no facial trauma, neck is supple. RESPIRATORY respiratory effort normal, speaks in full sentences, no tripod position, no accessory muscle use. Lungs clear to auscultation without rhonchi, wheezes, rales CARDIAC Regular rate and rhythm, no edema. ABDOMINAL Soft, ND/NT. No evidence of fluid wave. No pulsatile masses on exam, rebound tenderness, Sim sign or pain over Mcburney's point. MUSCLES/EXTREMITIES No abnormal range of motion, no swelling. SKIN Warm, pink and dry. No rashes, dermatoses, petechiae or lesions. NEUROLOGICAL Speech is clear and appropriate. Normal level of consciousness. Gait and coordination are normal. 5/5 strength in all extremities. PSYCH Normal mood and affect. Judgement/competence is appropriate Results & Data Results & Data Vital Signs (Past 12 Hours) Vital Signs Temp Pulse Pulse Resp BP Pulse Ox O2 Del Method 05/08/25 08:00 Nasal Cannula 05/08/25 08:00 50 L 05/08/25 07:35 36.5 C 54 L 18 123/76 91 Nasal Cannula 05/08/25 04:18 36.5 C 53 L 18 121/63 90 High Flow Nasal Cannula 05/08/25 00:25 36.4 C L 54 L 18 109/59 L 90 High Flow Nasal Cannula 05/08/25 00:00 67 O2 Flow Rate 05/08/25 08:00 3 05/08/25 08:00 05/08/25 07:35 3 05/08/25 04:18 4 05/08/25 00:25 2 05/08/25 00:00 PG Care Time/CCT Total # of Minutes Spent Total Time Spent with Patient: Total time spent is greater than 50% in coordination of care (as documented) at patient's floor/unit and/or counseling patient: Coding Level of Care Code 75477 SUB INP/OBS CARE 2/35MIN Diagnoses Hypoxia R09.02 Pelvic fracture S32.9XXA Acute metabolic encephalopathy G93.41 UTI (urinary tract infection) N39.0 Hyponatremia E87.1 Leukocytosis D72.829
--- NOTE | 2025-05-08 14:03 | Pharmacy Report ---
Pharmacy Glycemic Short Note 2 - Date of Service May 08, 2025 - Glycemic Short BSG Results (Last 24 hours): 05/07/25 05/07/25 05/08/25 16:11 21:12 05:41 Glucose 66 L POC Glucose 247 H 224 H 05/08/25 05/08/25 07:15 11:23 Glucose POC Glucose 77 125 H OUTPATIENT ANTIDIABETIC REGIMEN: * metformin 1000mg po BID * Januvia 100mg po daily HbA1c: 6.6% on 04/21/25 ASSESSMENT: 05/08: * Significant post prandial BSG elevation on 05/07. Patient required about 10 units of correction insulin.Will trial addition of low-dose NPH to cover for prednisone induced hyperglycemia. * Fasting BSG remains below goal despite last dose of Lantus being 05/06 AM. Continue to hold. 05/07: * Insulin needs trending downward. Methylprednisolone IV discontinued after 05/05 dose. Started prednisone 40 mg PO daily on 05/06. * Fasting hypoglycemia (67 mg/dL) despite significant decrease in Lantus (35 units --> 20 units --> 12 units). Hold Lantus today. * Novolog CF and CR loosened on 05/06. Post prandial BSGs are acceptable. 05/05: * Received 72 units of insulin yesterday, 35 of which was basal. Total insulin requirements continue to decrease * Fasting BSG 96 mg/dL this morning. IV methylprednisolone also changed to once daily today. Will decrease Lantus dosing significantly but continue with novolog scale. 05/04 * Received 83 units of insulin yesterday, 40 of which were basal * Fasting 87 mg/dL today- reduced basal approximately 15% * BSG with lunch 186 mg/dL however, breakfast insulin was administered closer to 10. Concern for a bit of stacking, slightly loosened correction 05/02: * Mallorie received a total of 96 units of insulin yesterday, 55 of which were basal. * BSGs yesterday were [phone] mg/dL. Fasting this morning was 93 mg/dL. * Patient continues on steroids and on a diet + boost with each meal. * Although over all BSGs greatly improved, fasting BSG downtrended significantly today. Will eliminate evening lantus at this point and tighten CR. * See previous notes for additional data/background PLAN FOR INPATIENT GLYCEMIC CONTROL: * Hold outpatient oral diabetes medications * Basal insulin * NPH 10 units SC qAM x 1 * Reassess additional NPH dosing on 05/09 * Bolus insulin * NovoLog per scale ACHS or Q6hrs while NPO * Goal Range: Low 110 mg/dL - High 140 mg/dL * Correction Factor: 25 mg/dL/unit * Nutritional / Prandial insulin per carb ratio of 1 unit per 5 grams CHO consumed
[2025-05-09 06:56] LABS: Hematocrit (blood only) 34.1 % (37.0-47.0); Hemoglobin 10.8 g/dl (12.0-16.0); Mean Corpuscular Hemoglobin 28.2 pg (25.0-34.0); Mean Corpuscular Volume 89.0 fL (80.0-100.0); Platelet Count 428 K/uL (130-400); RDW Standard Deviation 57.2 fL (36.4-46.3); Red Blood Count 3.83 M/uL (4.20-5.40); White Blood Count 19.66 K/ul (4.8-10.8)
--- NOTE | 2025-05-09 07:16 | Hospitalist Progress Note ---
Date of Service May 09, 2025 Assessment & Plan (1) Acute metabolic encephalopathy: (2) Hyponatremia: (3) Leukocytosis: (4) Hypoxia: Plan # Hypoxia: Pt appears to have non cardiogenic pulmonary edema. Pt has received docetaxel and cyclophosphamide possible pulmonary toxicity. Clinically improving and CXR 05/07 showing improvement in alveolar opacities. Echo: EF 55-60%, mod. pulm HTN - cardiology consult appreciated No new recommendations since 05/02 - pulmonary consult appreciated Tapering steroids, continue prednisone 20mg qam until 05/13/25 Continue lasix 20mg IV -on 4L via NC this morning, will titrate down per pt tolerance # Pelvic fracture: Seen by [facility] orthopedics and recommended conservative management. -pain control - Walker for gait assistance - PT/OT following - recommending rehab placement, insurance approved for SNF placement #Acute metabolic encephalopathy: -resolved # UTI (urinary tract infection): resolved, abx stopped # Hyponatremia: Resolved, Na is 138 # Leukocytosis: Down trending, WBC is 19.6 Pt continues on steroids, no signs of new infection Admission and Anticipated Discharge Date Admission Date: April 21, 2025 Supervising Physician Co-Signing Physician Notes Attending attestation Pt seen and examined in concert with Dr. Nava. In agreement with the documented findings as noted in the resident documentation with any exceptions or additions as noted here. Resting in bed at time of examination, pain well controlled on present regimen, actively engaged w/ rehab process. VS as noted. On examination, S1/S2 nl RRR no MCG. Decreased breath sounds bilateral bases. Abd NT/ND BS+ve Acute hypoxic respiratory failure - pulmonology consult - multifactorial cause potentially including chemotherapeutic toxicity. Ongoing steroid course to complete five total days at prednisone 20mg with ongoing monitoring. Wean O2 as tolerated. Pelvic fracture - [facility] orth[facility] consulted - PT/OT and engaged to work with rehab services in SNF setting Else see resident documentation as noted. Subjective Pt reports she continues having trouble with her bowels in that she feels like she is straining and cannot pass much stool. Pt denies abdominal pain, N/V/D, CP, headache or dizziness. Pt endorses SOB, pain at buttocks due to known sores, and weakness when moving in the room. Review of Systems Review of Systems: As per HPI Physical Exam Physical Exam: General: No acute distress HEENT: EOMI, PERRLA Respiratory system: Decreased air entry bilaterally, no wheeze, no rhonchi. Cardio: S1, S2, no murmurs or gallops Abdomen: Soft, nontender, nondistended, positive bowel sounds x4 Extremities: +2 pulses bilaterally radialis/ dorsalis pedis, no cyanosis, trace pitting edema bilateral lower extremity Neuro: Awake alert oriented x3 Psych: Normal mood and affect G/U: Positive Brown Results & Data Results & Data Vital Signs (Past 12 Hours) Vital Signs Temp Pulse Pulse Pulse Resp BP Pulse Ox 05/09/25 04:24 36.5 C 63 19 127/65 90 05/08/25 23:50 36.5 C 55 L 23 101/59 L 97 05/08/25 23:02 62 05/08/25 21:29 36.7 C 68 20 94 05/08/25 21:05 05/08/25 20:21 36.5 C 72 22 114/57 L 90 O2 Del Method O2 Flow Rate 05/09/25 04:24 High Flow Nasal Cannula 4 05/08/25 23:50 High Flow Nasal Cannula 4 05/08/25 23:02 05/08/25 21:29 Nasal Cannula 3 05/08/25 21:05 High Flow Nasal Cannula 3 05/08/25 20:21 High Flow Nasal Cannula 4 Resident Activity Tracking Resident Involvement: Resident Care Provided Care Provided: Adult Hospital Medicine
[2025-05-09 07:26] LABS: Anion Gap 5.0 (3-11); Blood Urea Nitrogen 55.0 mg/dl (6-23); Calcium 8.7 mg/dl (8.6-10.3); Carbon Dioxide 38.0 mmol/L (21-32); Chloride 94.0 mmol/L (98-107); Creatinine Clr Calc Pharmacy 55.4 ml/min; Glucose 120.0 mg/dl (70-99(Fasting)); Potassium 3.5 mmol/L (3.5-5.1); Sodium 137.0 mmol/L (136-145)
[2025-05-09] MEDS: INSULIN ASPART PER UNIT CHARGE SC SCH (07:59)
[2025-05-09] MEDS: POTASSIUM CHLORIDE CRTAB 20 MEQ TABCR PO STA (07:59)
[2025-05-09] MEDS: predniSONE 20 MG TAB PO SCH (08:00)
[2025-05-09] MEDS: NovoLIN-N (NPH) PER UNIT CHARGE SQ ONE (09:27)
--- NOTE | 2025-05-09 12:24 | Pharmacy Report ---
Pharmacy Glycemic Short Note 2 - Date of Service May 09, 2025 - Glycemic Short BSG Results (Last 24 hours): 05/08/25 05/08/25 05/09/25 16:24 20:38 06:35 Glucose 120 H POC Glucose 184 H 232 H 05/09/25 05/09/25 07:21 11:19 Glucose POC Glucose 124 H 158 H OUTPATIENT ANTIDIABETIC REGIMEN: * metformin 1000mg po BID * Januvia 100mg po daily HbA1c: 6.6% on 04/21/25 ASSESSMENT: 05/09: * Fasting 124 mg/dL today- within range, continue to hold basal for now * Will continue 10 units of NPH today, prednisone reduced to 20 mg; novolog parameters loosened * Will reassess needs tomorrow AM 05/08: * Significant post prandial BSG elevation on 05/07. Patient required about 10 units of correction insulin.Will trial addition of low-dose NPH to cover for prednisone induced hyperglycemia. * Fasting BSG remains below goal despite last dose of Lantus being 05/06 AM. Continue to hold. 05/07: * Insulin needs trending downward. Methylprednisolone IV discontinued after 05/05 dose. Started prednisone 40 mg PO daily on 05/06. * Fasting hypoglycemia (67 mg/dL) despite significant decrease in Lantus (35 units --> 20 units --> 12 units). Hold Lantus today. * Novolog CF and CR loosened on 05/06. Post prandial BSGs are acceptable. 05/05: * Received 72 units of insulin yesterday, 35 of which was basal. Total insulin requirements continue to decrease * Fasting BSG 96 mg/dL this morning. IV methylprednisolone also changed to once daily today. Will decrease Lantus dosing significantly but continue with novolog scale. 05/04 * Received 83 units of insulin yesterday, 40 of which were basal * Fasting 87 mg/dL today- reduced basal approximately 15% * BSG with lunch 186 mg/dL however, breakfast insulin was administered closer to 10. Concern for a bit of stacking, slightly loosened correction 05/02: * Mallorie received a total of 96 units of insulin yesterday, 55 of which were basal. * BSGs yesterday were [phone] mg/dL. Fasting this morning was 93 mg/dL. * Patient continues on steroids and on a diet + boost with each meal. * Although over all BSGs greatly improved, fasting BSG downtrended significantly today. Will eliminate evening lantus at this point and tighten CR. * See previous notes for additional data/background PLAN FOR INPATIENT GLYCEMIC CONTROL: * Hold outpatient oral diabetes medications * Basal insulin * NPH 10 units SC qAM x 1 * Bolus insulin * NovoLog per scale ACHS or Q6hrs while NPO * Goal Range: Low 120 mg/dL - High 160 mg/dL * Correction Factor: 30 mg/dL/unit * Nutritional / Prandial insulin per carb ratio of 1 unit per 8 grams CHO c onsumed
[2025-05-09] MEDS: IBUPROFEN 200 MG TAB PO PRN (13:42)
[2025-05-09] MEDS: LIDOCAINE 5% 1 PATCH TD STA (13:44)
[2025-05-09] MEDS: REMOVE LIDODERM PATCH SCH (19:34)
[2025-05-10 05:59] LABS: Hematocrit (blood only) 33.2 % (37.0-47.0); Hemoglobin 10.9 g/dl (12.0-16.0); Mean Corpuscular Hemoglobin 29.0 pg (25.0-34.0); Mean Corpuscular Volume 88.3 fL (80.0-100.0); Platelet Count 398 K/uL (130-400); RDW Standard Deviation 56.5 fL (36.4-46.3); Red Blood Count 3.76 M/uL (4.20-5.40); White Blood Count 18.09 K/ul (4.8-10.8)
[2025-05-10 06:16] LABS: Anion Gap 5.0 (3-11); Blood Urea Nitrogen 65.0 mg/dl (6-23); Calcium 8.8 mg/dl (8.6-10.3); Carbon Dioxide 37.0 mmol/L (21-32); Chloride 96.0 mmol/L (98-107); Creatinine Clr Calc Pharmacy 38.0 ml/min; Glucose 90.0 mg/dl (70-99(Fasting)); Potassium 3.9 mmol/L (3.5-5.1); Sodium 138.0 mmol/L (136-145)
--- NOTE | 2025-05-10 06:33 | Hospitalist Progress Note ---
Date of Service May 10, 2025 Assessment & Plan (1) Acute metabolic encephalopathy: (2) Hyponatremia: (3) Leukocytosis: (4) Hypoxia: Plan # Hypoxia: Pt appears to have non cardiogenic pulmonary edema. Pt has received docetaxel and cyclophosphamide possible pulmonary toxicity. Clinically improving and CXR 05/07 showing improvement in alveolar opacities. Echo: EF 55-60%, mod pulm HTN. - cardiology consult appreciated No new recommendations since 05/02 - pulmonary consult appreciated Tapering steroids, continue prednisone 20mg qam until 05/13/25 Continue lasix 20mg IV -on 6L via NC this morning, will titrate down per pt tolerance # Pelvic fracture: Seen by [facility] orthopedics and recommended conservative management. -pain control - Walker for gait assistance - PT/OT following - recommending rehab placement, insurance approved for SNF placement #Acute metabolic encephalopathy: -resolved # UTI (urinary tract infection): resolved, abx stopped # Hyponatremia: Resolved # Leukocytosis: Down trending, WBC is 18.09 Pt continues on steroids, no signs of new infection Admission and Anticipated Discharge Date Admission Date: April 21, 2025 Supervising Physician Co-Signing Physician Notes Attending attestation Pt seen and examined in concert with Dr. Nava. In agreement with the documented findings as noted in the resident documentation with any exceptions or additions as noted here. Pain well controlled on present regimen, actively engaged w/ rehab process. VS as noted. On examination, S1/S2 nl RRR no MCG. Decreased breath sounds bilateral bases. Abd NT/ND BS+ve Acute hypoxic respiratory failure - pulmonology consult - multifactorial cause potentially including chemotherapeutic toxicity. Continue prednisone 20mg to complete five total days. Wean O2 as tolerated. Pelvic fracture - [facility] orth[facility] consulted - PT/OT and engaged to work with rehab services in SNF setting Else see resident documentation as noted. Subjective Pt reports she continues with feeling weak and soreness at her bottom with sitting up in the chair. Pt denies abdominal pain, N/V/D, CP, headache or dizziness. Review of Systems Review of Systems: As per HPI Physical Exam Physical Exam: General: No acute distress HEENT: EOMI, PERRLA Respiratory system: Pt is using 6L of oxygen this morning. Decreased air entry bilaterally, no wheeze, no rhonchi. Cardio: S1, S2, no murmurs or gallops Abdomen: Soft, nontender, nondistended, positive bowel sounds x4 Extremities: +2 pulses bilaterally radialis/ dorsalis pedis, no cyanosis, No edema bilateral lower extremity Neuro: Awake alert oriented x3 Psych: Normal mood and affect Results & Data Results & Data Vital Signs (Past 12 Hours) Vital Signs Temp Pulse Pulse Resp BP Pulse Ox O2 Del Method 05/10/25 03:14 36.5 C 55 L 19 127/69 97 High Flow Nasal Cannula 05/10/25 00:00 54 L 05/09/25 23:15 36.6 C 53 L 18 97/50 L 98 Nasal Cannula 05/09/25 20:05 36.7 C 71 19 129/65 90 Nasal Cannula 05/09/25 20:00 High Flow Nasal Cannula O2 Flow Rate 05/10/25 03:14 6 05/10/25 00:00 05/09/25 23:15 6 05/09/25 20:05 8 05/09/25 20:00 8 Resident Activity Tracking Resident Involvement: Resident Care Provided Care Provided: Adult Hospital Medicine
[2025-05-10] MEDS: INSULIN HUMAN NPH SC SCH (08:12)
[2025-05-10] MEDS ORDERED: NovoLIN-N (NPH) PER UNIT CHARGE SQ ONE ×3 (09:00)
[2025-05-10] MEDS: PHENYLEPHRINE 0.25% SUPP 1 EA PR ONE (13:05)
[2025-05-10] MEDS ORDERED: POLYETHYLENE (MIRALAX) 17 GM PACK PO PRN (14:28)
[2025-05-10] MEDS: POLYETHYLENE (MIRALAX) 17 GM PACK PO SCH (14:53)
--- NOTE | 2025-05-10 15:05 | XRay Report ---
XR chest 1V portable HISTORY: 80 years-old Female hypoxia and acute shortness of breath COMPARISON: 05/07/2025 TECHNIQUE: AP view of the chest FINDINGS: Cardiac silhouette is enlarged. Left IJ [id number] catheter is unchanged. Mixed interstitial and a lveolar opacities are redemonstrated, stable to slightly progressed. No pneumothorax. Small pleural e ffusions again noted. Bones appear grossly intact. IMPRESSION: 1. Cardiomegaly with diffuse mixed interstitial and alveolar opacities redemonstrated, stable to mild ly progressed. 2. Unchanged small pleural effusions. ACT 112: Negative or not required by law. The above report was generated using voice recognition software. It may contain grammatical, syntax o r spelling errors. Electronically signed by: Lucian Boyd M.D. 05/10/2025 3:04 PM
[2025-05-10] MEDS: FUROSEMIDE INJ 20 MG/2 ML VIAL IV ONE (18:37)
[2025-05-10] MEDS ORDERED: POLYETHYLENE (MIRALAX) 17 GM PACK PO SCH (21:00)
[2025-05-11 06:21] LABS: Hematocrit (blood only) 36.5 % (37.0-47.0); Hemoglobin 12.1 g/dl (12.0-16.0); Mean Corpuscular Hemoglobin 29.4 pg (25.0-34.0); Mean Corpuscular Volume 88.6 fL (80.0-100.0); Platelet Count 448 K/uL (130-400); RDW Standard Deviation 58.8 fL (36.4-46.3); Red Blood Count 4.12 M/uL (4.20-5.40); White Blood Count 22.22 K/ul (4.8-10.8)
[2025-05-11 06:39] LABS: Anion Gap 9.0 (3-11); Blood Urea Nitrogen 59.0 mg/dl (6-23); Calcium 9.2 mg/dl (8.6-10.3); Carbon Dioxide 38.0 mmol/L (21-32); Chloride 91.0 mmol/L (98-107); Creatinine Clr Calc Pharmacy 40.4 ml/min; Glucose 118.0 mg/dl (70-99(Fasting)); Potassium 3.4 mmol/L (3.5-5.1); Sodium 138.0 mmol/L (136-145)
--- NOTE | 2025-05-11 06:41 | Hospitalist Progress Note ---
Date of Service May 11, 2025 Assessment & Plan (1) Acute metabolic encephalopathy: (2) Hyponatremia: (3) Leukocytosis: (4) Hypoxia: Plan Pt is an 80 yo female with PMH of Breast CA and DMT2 who presented with severe hyponatremia and encephalopathy. SInce admission, pt has had hypoxia and pelvic fracture. Late yesterday, pt was given an additional dose of IV lasix 20mg. Early this morning, overnight physician was alerted that pt was in a-fib RVR. Pt remained hemodynamically stable, but a-fib lasted more than 3 hours. Pt was started on heparin drip and given dose of diltiazem earlier than scheduled dose. Later in the afternoon, pt's BP dropped. She was placed in Trendelenburg position # A fib with RVR Started 0350 without known cause. Pt has been hemodynamically stable and asymptomatic. - Heparin drip was started at 0700 due to prolonged arrhythmia - Diltazem 120mg was given at 0700, 2 hours ahead of schedule - Continued metoprolol 50mg BID - Pt converted to sinus rhythm approximately 1200, but has had hypotension since that time. HR is controlled. - Pt maintained in trendelenberg position. If unable to tolerate, will consider IVF bolus. - Continue to monitor # Hypoxia: Pt appears to have non cardiogenic pulmonary edema. Pt has received docetaxel and cyclophosphamide possible pulmonary toxicity. Clinically improving and CXR 05/07 showing improvement in alveolar opacities. Echo: EF 55-60%, mod pulm HTN. - Continues on 4-8L high flow NC, titrating per pt tolerance - cardiology consult appreciated No new recommendations since 05/02 - pulmonary consult appreciated Tapering steroids, continue prednisone 20mg qam until 05/13/25 Continue lasix 20mg IV # Pelvic fracture: Seen by [facility] orthopedics and recommended conservative management. -pain control - Walker for gait assistance - PT/OT following - recommending rehab placement, insurance approved for SNF placement # A fib with RVR Started 0350 without known cause. Pt has been hemodynamically stable and asymptomatic. - Heparin drip was started at 0700 due to prolonged arrhythmia - Diltazem 120mg was given at 0700, 2 hours ahead of schedule - Continue to monitor # Hypokalemia - K was 3.4 this morning - Repleted with 40mEq PO KCl - Will monitor with AM BMP #Acute metabolic encephalopathy: -resolved # UTI (urinary tract infection): resolved, abx stopped # Hyponatremia: Resolved # Leukocytosis: Up-trended today, WBC is 22.22 Pt continues on steroids, no signs of new infection Admission and Anticipated Discharge Date Admission Date: April 21, 2025 Supervising Physician Co-Signing Physician Notes Attending attestation Pt seen and examined in concert with Dr. Nava. In agreement with the documented findings as noted in the resident documentation with any exceptions or additions as noted here. Pain well controlled on present regimen, actively engaged w/ rehab process. Developed AF with RVR with worsening tachypnea overnight without other significant symptoms reported. VS as noted. On examination, S1/S2 nl, rapid rate, no MCG. Decreased breath sounds bilateral bases. Abd NT/ND BS+ve Acute hypoxic respiratory failure - pulmonology consult - multifactorial cause potentially including chemotherapeutic toxicity. Continue prednisone 20mg to complete five total days. Wean O2 as tolerated. Atrial fibrillation w/ RVR - return to normal rate following administration of metoprolol 50mg with drop in BP which has since stabilized. Decrease metoprolol tartrate to 25mg BID and monitor closely, consider 500cc NS bolus if needed for diminished MAP Pelvic fracture - [facility] orth[facility] consulted - PT/OT and engaged to work with rehab services in SNF setting Else see resident documentation as noted. Subjective At exam this morning, pt reports she has had several BM's overnight. They started out painful, but have become softer. She does not feel palpitation or fast heart rate. She feels that she needs to take shallow breaths and that her belly is "bouncing" which is uncomfortable. Pt denies abdominal pain, N/V/D, CP, headache or dizziness. Review of Systems Review of Systems: As per HPI Physical Exam Physical Exam: General: No acute distress HEENT: EOMI, PERRLA Respiratory system: Pt is using 5-6L of oxygen this morning. Shallow breathing with tachypnea, no wheeze, no rhonchi. Cardio: S1, S2, no murmurs or gallops. No LE edema or JVD noted Abdomen: Soft, nontender, nondistended, positive bowel sounds x4 Extremities: 2+ pulses bilaterally radialis/ dorsalis pedis, no cyanosis, No edema bilateral lower extremity Neuro: Awake alert oriented x3 Psych: Normal mood and affect Results & Data Results & Data Vital Signs (Past 12 Hours) Vital Signs Temp Pulse Pulse Resp BP Pulse Ox O2 Del Method 05/11/25 04:07 36.6 C 108 H 18 134/84 96 Nasal Cannula 05/10/25 23:42 36.7 C 60 20 119/64 93 High Flow Nasal Cannula 05/10/25 21:44 69 05/10/25 20:53 36.6 C 86 16 130/81 97 High Flow Nasal Cannula 05/10/25 20:00 High Flow Nasal Cannula O2 Flow Rate 05/11/25 04:07 6 05/10/25 23:42 7 05/10/25 21:44 05/10/25 20:53 10 05/10/25 20:00 Resident Activity Tracking Resident Involvement: Resident Care Provided Care Provided: Adult Hospital Medicine
[2025-05-11] MEDS: MAGNESIUM SULFATE / D5W 1 GM/100 ML BAG IV ONE (06:48)
[2025-05-11 06:53] LABS: Magnesium 1.8 mg/dl (1.7-2.4)
[2025-05-11] MEDS: HEPARIN 25000 UNIT/500 ML D5W 25,000 UNITS/500 ML BAG IV SCH (07:29)
[2025-05-11] MEDS: Heparin IV Adult Wt-Based Low-Dose *NO* INITIAL Bolus Protocol IV STA (07:29)
[2025-05-11] MEDS: POTASSIUM CHLORIDE CRTAB 20 MEQ TABCR PO STA (08:47)
[2025-05-11] MEDS: INSULIN HUMAN NPH SC SCH (09:27)
--- NOTE | 2025-05-11 13:11 | Pharmacy Report ---
Pharmacy Glycemic Short Note 2 - Date of Service May 11, 2025 - Glycemic Short BSG Results (Last 24 hours): 05/10/25 05/10/25 05/10/25 16:03 20:27 20:29 Glucose POC Glucose 208 H 307 H* 315 H* 05/11/25 05/11/25 05/11/25 05:41 07:20 11:06 Glucose 118 H POC Glucose 154 H 184 H OUTPATIENT ANTIDIABETIC REGIMEN: * metformin 1000mg po BID * Januvia 100mg po daily HbA1c: 6.6% on 04/21/25 ASSESSMENT: 05/11 * Fasting 118 mg/dL on lab, 154 mg/dL with POC. * BSGs elevated throughout the day yesterday- will tighten carb ratio/increase NPH today * Prednisone 20 mg scheduled through 05/13. 05/09: * Fasting 124 mg/dL today- within range, continue to hold basal for now * Will continue 10 units of NPH today, prednisone reduced to 20 mg; novolog parameters loosened * Will reassess needs tomorrow AM 05/08: * Significant post prandial BSG elevation on 05/07. Patient required about 10 units of correction insulin.Will trial addition of low-dose NPH to cover for prednisone induced hyperglycemia. * Fasting BSG remains below goal despite last dose of Lantus being 05/06 AM. Continue to hold. 05/07: * Insulin needs trending downward. Methylprednisolone IV discontinued after 05/05 dose. Started prednisone 40 mg PO daily on 05/06. * Fasting hypoglycemia (67 mg/dL) despite significant decrease in Lantus (35 units --> 20 units --> 12 units). Hold Lantus today. * Novolog CF and CR loosened on 05/06. Post prandial BSGs are acceptable. 05/05: * Received 72 units of insulin yesterday, 35 of which was basal. Total insulin requirements continue to decrease * Fasting BSG 96 mg/dL this morning. IV methylprednisolone also changed to once daily today. Will decrease Lantus dosing significantly but continue with novolog scale. 05/04 * Received 83 units of insulin yesterday, 40 of which were basal * Fasting 87 mg/dL today- reduced basal approximately 15% * BSG with lunch 186 mg/dL however, breakfast insulin was administered closer to 10. Concern for a bit of stacking, slightly loosened correction 05/02: * Mallorie received a total of 96 units of insulin yesterday, 55 of which were basal. * BSGs yesterday were [phone] mg/dL. Fasting this morning was 93 mg/dL. * Patient continues on steroids and on a diet + boost with each meal. * Although over all BSGs greatly improved, fasting BSG downtrended significantly today. Will eliminate evening lantus at this point and tighten CR. * See previous notes for additional data/background PLAN FOR INPATIENT GLYCEMIC CONTROL: * Hold outpatient oral diabetes medications * Basal insulin * NPH 15 units sq with prednisone * Bolus insulin * NovoLog per scale ACHS or Q6hrs while NPO * Goal Range: Low 110 mg/dL - High 140 mg/dL * Correction Factor: 30 mg/dL/unit * Nutritional / Prandial insulin per carb ratio of 1 unit per 6 grams CHO consumed
[2025-05-11 15:51] LABS: ANTI-Xa, UFH(UnfractionatedHep 0.68 IU/ml (0.3-0.7)
[2025-05-11] MEDS: POLYETHYLENE (MIRALAX) 17 GM PACK PO SCH (19:25)
[2025-05-11] MEDS: METOPROLOL TARTRATE 25 MG TAB PO SCH (20:14)
[2025-05-11] MEDS: MELATONIN 3 MG TAB PO PRN (20:14)
[2025-05-12 06:12] LABS: Hematocrit (blood only) 36.4 % (37.0-47.0); Hemoglobin 11.6 g/dl (12.0-16.0); Mean Corpuscular Hemoglobin 28.3 pg (25.0-34.0); Mean Corpuscular Volume 88.8 fL (80.0-100.0); Platelet Count 393 K/uL (130-400); RDW Standard Deviation 59.4 fL (36.4-46.3); Red Blood Count 4.10 M/uL (4.20-5.40); White Blood Count 24.71 K/ul (4.8-10.8)
[2025-05-12 06:34] LABS: Anion Gap 9.0 (3-11); Blood Urea Nitrogen 57.0 mg/dl (6-23); Calcium 9.0 mg/dl (8.6-10.3); Carbon Dioxide 36.0 mmol/L (21-32); Chloride 92.0 mmol/L (98-107); Creatinine Clr Calc Pharmacy 39.1 ml/min; Glucose 95.0 mg/dl (70-99(Fasting)); Potassium 3.6 mmol/L (3.5-5.1); Sodium 137.0 mmol/L (136-145)
--- NOTE | 2025-05-12 06:40 | Hospitalist Progress Note ---
Date of Service May 12, 2025 Assessment & Plan (1) Hyponatremia: (2) Leukocytosis: (3) Hypoxia: Plan Pt is an 80 yo female with PMH of Breast CA and DMT2 who presented with severe hyponatremia and encephalopathy. SInce admission, pt has had hypoxia and pelvic fracture. Late yesterday, pt was given an additional dose of IV lasix 20mg. Early this morning, overnight physician was alerted that pt was in a-fib RVR. Pt remained hemodynamically stable, but a-fib lasted more than 3 hours. Pt was started on heparin drip and given dose of diltiazem earlier than scheduled dose. Later in the afternoon, pt's BP dropped. She was placed in Trendelenburg position # A fib with RVR Started 0350 without known cause. Pt has been hemodynamically stable and asymptomatic. - Heparin drip was started at 0700 due to prolonged arrhythmia - Diltazem 120mg was given at 0700, 2 hours ahead of schedule - Continued metoprolol 50mg BID - Pt converted to sinus rhythm approximately 1200, but has had hypotension since that time. HR is controlled. - Pt maintained in trendelenberg position. If unable to tolerate, will consider IVF bolus. - Continue to monitor # Hypoxia: Pt appears to have non cardiogenic pulmonary edema. Pt has received docetaxel and cyclophosphamide possible pulmonary toxicity. Clinically improving and CXR 05/07 showing improvement in alveolar opacities. Echo: EF 55-60%, mod pulm HTN. - Continues on 4-8L high flow NC, titrating per pt tolerance - cardiology consult appreciated No new recommendations since 05/02 - pulmonary consult appreciated Tapering steroids, continue prednisone 20mg qam until 05/13/25 Continue lasix 20mg IV # Pelvic fracture: Seen by [facility] orthopedics and recommended conservative management. -pain control - Walker for gait assistance - PT/OT following - recommending rehab placement, insurance approved for SNF placement # A fib with RVR Started 0350 without known cause. Pt has been hemodynamically stable and asymptomatic. - Heparin drip was started at 0700 due to prolonged arrhythmia - Diltazem 120mg was given at 0700, 2 hours ahead of schedule - Continue to monitor # Hypokalemia - K was 3.4 this morning - Repleted with 40mEq PO KCl - Will monitor with AM BMP #Acute metabolic encephalopathy: -resolved # UTI (urinary tract infection): resolved, abx stopped # Hyponatremia: Resolved # Leukocytosis: Up-trended today, WBC is 22.22 Pt continues on steroids, no signs of new infection Admission and Anticipated Discharge Date Admission Date: April 21, 2025 Subjective At exam this morning, pt reports she has had several BM's overnight. They started out painful, but have become softer. She does not feel palpitation or fast heart rate. She feels that she needs to take shallow breaths and that her belly is "bouncing" which is uncomfortable. Pt denies abdominal pain, N/V/D, CP, headache or dizziness. Review of Systems Review of Systems: As per HPI Physical Exam Physical Exam: General: No acute distress HEENT: EOMI, PERRLA Respiratory system: Pt is using 5-6L of oxygen this morning. Shallow breathing with tachypnea, no wheeze, no rhonchi. Cardio: S1, S2, no murmurs or gallops. No LE edema or JVD noted Abdomen: Soft, nontender, nondistended, positive bowel sounds x4 Extremities: 2+ pulses bilaterally radialis/ dorsalis pedis, no cyanosis, No edema bilateral lower extremity Neuro: Awake alert oriented x3 Psych: Normal mood and affect Results & Data Results & Data Vital Signs (Past 12 Hours) Vital Signs Temp Pulse Resp BP Pulse Ox O2 Del Method O2 Flow Rate 05/12/25 03:41 36.7 C 65 19 114/66 91 Nasal Cannula 3 05/11/25 22:31 36.5 C 58 L 17 100/68 97 Nasal Cannula 3 05/11/25 20:51 Nasal Cannula 3 05/11/25 20:49 36.5 C 73 18 115/75 93 Nasal Cannula 3
[2025-05-12 07:13] VITALS: TEMP 97.9
[2025-05-12] MEDS: METOPROLOL TARTRATE 25 MG TAB PO SCH (08:36)
[2025-05-12] MEDS: INSULIN HUMAN NPH SC SCH (08:37)
--- NOTE | 2025-05-12 09:26 | Pharmacy Report ---
Pharmacy Glycemic Short Note 2 - Date of Service May 12, 2025 - Glycemic Short BSG Results (Last 24 hours): 05/11/25 05/11/25 05/11/25 11:06 16:04 19:41 Glucose POC Glucose 184 H 188 H 203 H 05/12/25 05/12/25 05:34 07:15 Glucose 95 POC Glucose 116 H OUTPATIENT ANTIDIABETIC REGIMEN: * metformin 1000mg po BID * Januvia 100mg po daily HbA1c: 6.6% on 04/21/25 ASSESSMENT: 05/12 * Stressors stable. Last day of prednisone scheduled for tomorrow. * AM fasting BSG below goal after increasing NPH x1 dose yesterday. Will decrease back * Afternoon BSG's yesterday elevated x3 despite tightening CHO ratio yesterday. However, minimal po intake. Thus likely insufficient correctional insulin. Will tighten correction factor and slightly loosen CHO ratio, although still will be tighter than previous 05/11 * Fasting 118 mg/dL on lab, 154 mg/dL with POC. * BSGs elevated throughout the day yesterday- will tighten carb ratio/increase NPH today * Prednisone 20 mg scheduled through 05/13. 05/09: * Fasting 124 mg/dL today- within range, continue to hold basal for now * Will continue 10 units of NPH today, prednisone reduced to 20 mg; novolog parameters loosened * Will reassess needs tomorrow AM 05/08: * Significant post prandial BSG elevation on 05/07. Patient required about 10 units of correction insulin.Will trial addition of low-dose NPH to cover for prednisone induced hyperglycemia. * Fasting BSG remains below goal despite last dose of Lantus being 05/06 AM. Continue to hold. 05/07: * Insulin needs trending downward. Methylprednisolone IV discontinued after 05/05 dose. Started prednisone 40 mg PO daily on 05/06. * Fasting hypoglycemia (67 mg/dL) despite significant decrease in Lantus (35 units --> 20 units --> 12 units). Hold Lantus today. * Novolog CF and CR loosened on 05/06. Post prandial BSGs are acceptable. 05/05: * Received 72 units of insulin yesterday, 35 of which was basal. Total insulin requirements continue to decrease * Fasting BSG 96 mg/dL this morning. IV methylprednisolone also changed to once daily today. Will decrease Lantus dosing significantly but continue with novolog scale. 05/04 * Received 83 units of insulin yesterday, 40 of which were basal * Fasting 87 mg/dL today- reduced basal approximately 15% * BSG with lunch 186 mg/dL however, breakfast insulin was administered closer to 10. Concern for a bit of stacking, slightly loosened correction 05/02: * Mallorie received a total of 96 units of insulin yesterday, 55 of which were basal. * BSGs yesterday were [id number] mg/dL. Fasting this morning was 93 mg/dL. * Patient continues on steroids and on a diet + boost with each meal. * Although over all BSGs greatly improved, fasting BSG downtrended significantly today. Will eliminate evening lantus at this point and tighten CR. * See previous notes for additional data/background PLAN FOR INPATIENT GLYCEMIC CONTROL: * Hold outpatient oral diabetes medications * Basal insulin * NPH 10 units sq with prednisone * Bolus insulin * NovoLog per scale ACHS or Q6hrs while NPO * Goal Range: Low 110 mg/dL - High 140 mg/dL * Correction Factor: 25 mg/dL/unit * Nutritional / Prandial insulin per carb ratio of 1 unit per 7 grams CHO consumed
[2025-05-12 11:15] VITALS: BP 109/60; RESP 33; O2SAT 94
[2025-05-12 14:11] VITALS: PULSE 102
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
== END 2025-05-12 14:44 | DRG 871 ==
LOC: ED 23:08 → SUATTDRO 04-21 02:27 → 1E 04-21 02:27 → 3N 04-23 17:17 → 2E 04-27 11:00
DX: N39.0 Urinary tract infection, site not specified; K57.32 Diverticulitis of large intestine without perforation or abscess without bleeding; Z88.5 Allergy status to narcotic agent; R74.8 Abnormal levels of other serum enzymes; I48.0 Paroxysmal atrial fibrillation; E87.6 Hypokalemia; D84.9 Immunodeficiency, unspecified; C85.90 Non-Hodgkin lymphoma, unspecified, unspecified site; Y92.019 Unspecified place in single-family (private) house as the place of occurrence of the external cause; J90 Pleural effusion, not elsewhere classified; E87.1 Hypo-osmolality and hyponatremia; I11.0 Hypertensive heart disease with heart failure; E11.9 Type 2 diabetes mellitus without complications; T45.1X1A Poisoning by antineoplastic and immunosuppressive drugs, accidental (unintentional), initial encounter; A41.9 Sepsis, unspecified organism; E86.0 Dehydration; S32.592D Other specified fracture of left pubis, subsequent encounter for fracture with routine healing; I21.A1 Myocardial infarction type 2; Z66 Do not resuscitate; Z79.82 Long term (current) use of aspirin; N17.9 Acute kidney failure, unspecified; Z17.1 Estrogen receptor negative status [ER-]; V03.10XD Pedestrian on foot injured in collision with car, pick-up truck or van in traffic accident, subsequent encounter; G93.41 Metabolic encephalopathy; C50.919 Malignant neoplasm of unspecified site of unspecified female breast; J96.01 Acute respiratory failure with hypoxia; B96.1 Klebsiella pneumoniae [K. pneumoniae] as the cause of diseases classified elsewhere; E83.42 Hypomagnesemia; E78.5 Hyperlipidemia, unspecified; Y92.410 Unspecified street and highway as the place of occurrence of the external cause; J98.11 Atelectasis; I50.33 Acute on chronic diastolic (congestive) heart failure; Z79.84 Long term (current) use of oral hypoglycemic drugs; N39.41 Urge incontinence; R18.8 Other ascites

== ENCOUNTER 2025-05-13 14:46 | Inpatient (IN) ==
--- NOTE | 2025-05-13 15:05 | Emergency Department Note ---
History of Present Illness General Chief complaint: Shortness of Breath/Dyspnea Stated complaint: HYPOXIA Time Seen by Provider: 05/13/25 14:49 History of Present Illness Provider complaint: Weakness shortness of breath 80-year-old female presents emergency department for weakness and shortness of breath. Patient is from [facility]. Patient was at [facility] for 1 day and while getting therapy started becoming extremely fatigued and short of breath. Patient is wearing 2 to 3 L at time of admission to [facility] but her oxygen saturation went down into the 80s while on that had to be increased to 5 L. Patient was also hypotensive. Home Medications Medication Instructions Recorded Confirmed Type aspirin 81 mg tablet,delayed 81 mg PO DAILY 06/14/21 04/21/25 History release atorvastatin 20 mg tablet 20 mg PO DAILY 06/14/21 04/21/25 History cholecalciferol (vitamin D3) 25 25 mcg PO DAILY 06/14/21 04/21/25 History mcg (1,000 unit) capsule lisinopril 40 mg tablet 40 mg PO DAILY 06/14/21 04/21/25 History turmeric 100 mg-connor 150 1 cap PO DAILY 06/14/21 08/09/24 History mg-olive 50 mg-oreg 150 mg-capryl capsule amoxicillin 500 mg tablet 2,000 mg PO .PRN/UD PRN Prophylaxis 11/21/21 04/21/25 History zinc 50 mg tablet 50 mg PO DAILY 11/21/21 04/21/25 History metformin 500 mg tablet,extended 1,000 mg PO BID 04/20/25 04/21/25 History release 24 hr tramadol 50 mg tablet 50 mg PO UD 04/20/25 04/21/25 History amlodipine 5 mg tablet 5 mg PO DAILY 04/21/25 04/21/25 History lidocaine-prilocaine 2.5 %-2.5 % See Rx Instructions .Route .COMPLEX 04/21/25 04/21/25 History topical cream metoprolol tartrate 50 mg tablet See Rx Instructions .Route .COMPLEX 04/21/25 04/21/25 History ondansetron 8 mg disintegrating 8 mg translingual Q8 PRN Nausea 04/21/25 04/21/25 History tablet And Vomiting prochlorperazine maleate 10 mg 10 mg PO Q6 PRN N/V 04/21/25 04/21/25 History tablet sitagliptin phosphate 100 mg 100 mg PO DAILY 04/21/25 04/21/25 History tablet (Januvia) diclofenac sodium 1 % topical gel 2 g EXT TID #50 grams 05/12/25 Rx (Voltaren Arthritis Pain) furosemide 20 mg tablet 20 mg PO QAM 30 days #30 tabs 05/12/25 Rx hydroxyzine HCl 25 mg tablet 25 mg PO Q8H PRN anxiety 30 days 05/12/25 Rx #20 tabs melatonin 3 mg tablet 3 mg PO HS PRN sleep #30 tabs 05/12/25 Rx metolazone 2.5 mg tablet 2.5 mg PO QAM #30 tabs 05/12/25 Rx pantoprazole 40 mg tablet,delayed 40 mg PO QAM #30 tabs 05/12/25 Rx release prednisone 20 mg tablet 20 mg PO DAILY #1 tab 05/12/25 Rx Allergies Allergy/AdvReac Type Severity Reaction Status Date / Time alendronate sodium Allergy Severe LEGS SWELL Verified 08/09/24 12:56 iodine Allergy Verified 08/09/24 12:56 oxycodone AdvReac Intermediate GI SYMPTOMS Verified 08/09/24 12:56 Past Med/Surg History Problem List (Updated 05/13/25 @ 19:55 by Enrico Corona MD) Interstitial lung disease (Acute) Pneumonia (Acute) Pneumomediastinum (Acute) Sepsis (Acute) Hypoxia (Acute) Mediastinal lymphadenopathy noted on CT 6.25.25 and will need attn on repeat Pleural effusion Paroxysmal atrial fibrillation Breast cancer Pelvic fracture Acute hypoxic respiratory failure SIRS (systemic inflammatory response syndrome) Leukocytosis (Acute) Angiomyolipoma Edema of left foot DM type 2 (diabetes mellitus, type 2) Medical History Phalanx, distal fracture of finger Recurrent urinary tract infection 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) Keratosis, seborrheic Hypertension Chronic diarrhea Borderline hyperlipidemia Benign essential microscopic hematuria Surgical History 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, 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/12/13 History of cataract surgery Bilateral Family History Mother Breast cancer Myocardial infarction Hypertension Grandmother (Maternal) Diabetes Colon cancer Father Myocardial infarction Hypertension Social History Smoking Status: Never smoker Hx Alcohol Use: No Hx Substance Use: No Preferred Language: French Communication Ability: Effective Hearing Ability: Normal Jewelry Cutter Required: No Beliefs That Will Affect Care: Buddhist marital status: Current Living Situation: Spouse current occupational status: retired Feels Safe at Home: Yes Diet: regular Assistive Devices: Walker Physical Exam Vital Signs Vital Signs - 24 hr 05/13/25 14:50 05/13/25 14:56 05/13/25 14:59 Temperature 36.9 C Temperature Source Oral Pulse Rate 69 Pulse Rate [Apical] Pulse Rate from SpO2 Sensor Respiratory Rate 14 Respiratory Effort / Characteristics Non-Labored Respiratory Depth Normal Respiratory Pattern Regular Blood Pressure 96/57 L Blood Pressure [Right Arm] Blood Pressure Mean 70 Blood Pressure Mean [Right Arm] Blood Pressure Position [Right Arm] Pulse Oximetry 98 95 86 L Oxygen Delivery Method Nasal Cannula Nasal Cannula Nasal Cannula Oxygen Flow Rate 5 5 3 Sepsis Recent Fever Within 48 Hours No Sepsis New/Unexplained Change in Mental Status N/A Sepsis Action Taken by Nursing No Action Required Oxygen Flow Rate - Titration 5 Pulse Oximetry Post Tiitration 96 05/13/25 15:00 05/13/25 15:48 05/13/25 16:06 Temperature Temperature Source Pulse Rate 71 68 69 Pulse Rate [Apical] Pulse Rate from SpO2 Sensor 71 68 Respiratory Rate 25 H 22 Respiratory Effort / Characteristics Respiratory Depth Respiratory Pattern Blood Pressure 96/60 L 97/50 L Blood Pressure [Right Arm] Blood Pressure Mean 72 65 Blood Pressure Mean [Right Arm] Blood Pressure Position [Right Arm] Pulse Oximetry 97 96 Oxygen Delivery Method Nasal Cannula Nasal Cannula Oxygen Flow Rate 2 2 Sepsis Recent Fever Within 48 Hours Sepsis New/Unexplained Change in Mental Status Sepsis Action Taken by Nursing Oxygen Flow Rate - Titration Pulse Oximetry Post Tiitration 05/13/25 16:44 05/13/25 17:01 05/13/25 17:10 Temperature Temperature Source Pulse Rate Pulse Rate [Apical] Pulse Rate from SpO2 Sensor Respiratory Rate Respiratory Effort / Characteristics Respiratory Depth Respiratory Pattern Blood Pressure 87/54 L 72/34 L 96/41 L Blood Pressure [Right Arm] Blood Pressure Mean 60 45 61 Blood Pressure Mean [Right Arm] Blood Pressure Position [Right Arm] Pulse Oximetry Oxygen Delivery Method Oxygen Flow Rate Sepsis Recent Fever Within 48 Hours Sepsis New/Unexplained Change in Mental Status Sepsis Action Taken by Nursing Oxygen Flow Rate - Titration Pulse Oximetry Post Tiitration 05/13/25 17:15 05/13/25 17:20 05/13/25 17:25 Temperature Temperature Source Pulse Rate 67 Pulse Rate [Apical] Pulse Rate from SpO2 Sensor 68 Respiratory Rate 26 H Respiratory Effort / Characteristics Respiratory Depth Respiratory Pattern Blood Pressure 79/45 L 107/46 L 103/41 L Blood Pressure [Right Arm] Blood Pressure Mean 54 57 57 Blood Pressure Mean [Right Arm] Blood Pressure Position [Right Arm] Pulse Oximetry 93 Oxygen Delivery Method Oxygen Flow Rate Sepsis Recent Fever Within 48 Hours Sepsis New/Unexplained Change in Mental Status Sepsis Action Taken by Nursing Oxygen Flow Rate - Titration Pulse Oximetry Post Tiitration 05/13/25 17:30 05/13/25 17:33 05/13/25 17:57 Temperature Temperature Source Pulse Rate 65 66 66 Pulse Rate [Apical] Pulse Rate from SpO2 Sensor 65 65 66 Respiratory Rate 28 H 25 H 26 H Respiratory Effort / Characteristics Respiratory Depth Respiratory Pattern Blood Pressure 93/36 L 93/36 L 103/47 L Blood Pressure [Right Arm] Blood Pressure Mean 52 55 65 Blood Pressure Mean [Right Arm] Blood Pressure Position [Right Arm] Pulse Oximetry 92 95 92 Oxygen Delivery Method Oxygen Flow Rate Sepsis Recent Fever Within 48 Hours Sepsis New/Unexplained Change in Mental Status Sepsis Action Taken by Nursing Oxygen Flow Rate - Titration Pulse Oximetry Post Tiitration 05/13/25 18:09 05/13/25 18:12 05/13/25 18:15 Temperature Temperature Source Pulse Rate 68 77 Pulse Rate [Apical] Pulse Rate from SpO2 Sensor 68 74 Respiratory Rate 27 H 26 H Respiratory Effort / Characteristics Respiratory Depth Respiratory Pattern Blood Pressure 97/47 L 103/47 L 108/57 L Blood Pressure [Right Arm] Blood Pressure Mean 63 65 64 Blood Pressure Mean [Right Arm] Blood Pressure Position [Right Arm] Pulse Oximetry 92 93 Oxygen Delivery Method Oxygen Flow Rate Sepsis Recent Fever Within 48 Hours Sepsis New/Unexplained Change in Mental Status Sepsis Action Taken by Nursing Oxygen Flow Rate - Titration Pulse Oximetry Post Tiitration 05/13/25 18:25 05/13/25 18:30 05/13/25 18:39 Temperature Temperature Source Pulse Rate 110 H 117 H Pulse Rate [Apical] Pulse Rate from SpO2 Sensor 110 H 117 H Respiratory Rate 26 H 26 H Respiratory Effort / Characteristics Respiratory Depth Respiratory Pattern Blood Pressure 102/62 94/51 L 91/54 L Blood Pressure [Right Arm] Blood Pressure Mean 76 65 66 Blood Pressure Mean [Right Arm] Blood Pressure Position [Right Arm] Pulse Oximetry 94 92 Oxygen Delivery Method Oxygen Flow Rate Sepsis Recent Fever Within 48 Hours Sepsis New/Unexplained Change in Mental Status Sepsis Action Taken by Nursing Oxygen Flow Rate - Titration Pulse Oximetry Post Tiitration 05/13/25 18:45 05/13/25 18:50 05/13/25 19:00 Temperature Temperature Source Pulse Rate 121 H 124 H Pulse Rate [Apical] 115 H Pulse Rate from SpO2 Sensor 124 H 121 H Respiratory Rate 27 H 26 H 22 Respiratory Effort / Characteristics Non-Labored Spontaneous Respiratory Depth Respiratory Pattern Blood Pressure 119/66 90/47 L Blood Pressure [Right Arm] 102/54 L Blood Pressure Mean 71 66 Blood Pressure Mean [Right Arm] 70 Blood Pressure Position [Right Arm] Lying Pulse Oximetry 91 92 93 Oxygen Delivery Method Room Air Oxygen Flow Rate Sepsis Recent Fever Within 48 Hours Sepsis New/Unexplained Change in Mental Status Sepsis Action Taken by Nursing Oxygen Flow Rate - Titration Pulse Oximetry Post Tiitration 05/13/25 19:06 Temperature Temperature Source Pulse Rate 117 H Pulse Rate [Apical] Pulse Rate from SpO2 Sensor 112 H Respiratory Rate 24 Respiratory Effort / Characteristics Respiratory Depth Respiratory Pattern Blood Pressure 102/54 L Blood Pressure [Right Arm] Blood Pressure Mean 70 Blood Pressure Mean [Right Arm] Blood Pressure Position [Right Arm] Pulse Oximetry 94 Oxygen Delivery Method Oxygen Flow Rate Sepsis Recent Fever Within 48 Hours Sepsis New/Unexplained Change in Mental Status Sepsis Action Taken by Nursing Oxygen Flow Rate - Titration Pulse Oximetry Post Tiitration Physical Exam GENERAL: Ill-appearing. HENT: Exam performed. - Head: Normocephalic and atraumatic. EYES: Conjunctivae and EOM are normal. Right eye exhibits no discharge. Left eye exhibits no discharge. No scleral icterus. NECK: Normal range of motion. Neck supple. No JVD present. CV: Tachycardic. Rate, regular rhythm, normal heart sounds and intact distal pulses. Palpable radial pulses bue. PULM/CHEST: Rhonchi bilaterally. ABD: The abdomen is soft. There is no tenderness. NEURO: Motor and sensation grossly intact. SKIN: Skin is warm and dry. He is not diaphoretic. PSYCH: normal mood and affect. Behavior is normal. Judgment and thought content normal. Course Course 1449: The patient was evaluated in room C7. A complete history and physical exam was performed Cardiac monitoring: An order was placed for continuous cardiac monitoring. The monitor shows a rate of 70 with sinus rhythm interpreted by me Patient was found to be hypoxic on her normal 2 to 3 L. Oxygen via nasal cannula was increased. EMS reported the patient was also hypotensive and route. According to the call head sheet notes taking by charge nurse Viri the patient had a white blood cell count of 40,000 at [facility] and a creatinine of 1.6 today at [facility]. Sepsis protocols initiated. 1 L normal saline ordered for the patient. External medical records reviewed.Patient was admitted from April 21 to May 12, 2025. Patient was discharged yesterday. Patient was initially admitted for hyponatremia, hypomagnesemia, sepsis, diverticulitis, and respiratory failure. Patient did spend some time in the ICU during her 3-week admission. According to the discharge summary from yesterday the patient has noncardiogenic pulmonary edema and has an echo showing 55 to 60% with moderate pulmonary hypertension. Patient was discharged with 2 to 3 L nasal cannula. Patient prednisone was being tapered and the last dose was to be given today on May 13, 2025. The patient was discharged with an uptrending white blood cell count 22.2. 1620: Patient's lactic acid 4.6. Patient treated with 30 cc/kg normal saline bolus total of 2 L normal saline. Zosyn ordered for the patient. Chest x-ray is concerning for pneumonia. White blood cell count 31. Creatinine 1.84. BUN 72. Given the patient's GABRIEL, will obtain CT of the abdomen pelvis without contrast to rule out obstruction causing GABRIEL. 1737: Received call from radiology. Spoke with Dr. Mancera. He states that there is new pneumomediastinum and a worsening bilateral pneumonia. Given the new pneumomediastinum there is concern for esophageal injury. I discussed with him and we will get a CT of the chest without IV contrast but have the patient drink oral contrast to rule out any esophageal injury. 1750: CT of the chest viewed by me shows no esophageal injury. 1814: Spoke with radiology Dr. Gaitan. He confirms that there is no esophageal injury. He states that there is severe interstitial lung disease. He confirms that there is new pneumomediastinum. He states that this could be related to interstitial lung disease. He states the worsening of the interstitial lung disease could be related to the patient's chemotherapy. He also states that the pneumomediastinum could be due to alveolar rupture given the severe interstitial lung disease. He again confirms that there is no esophageal injury. 182: Spoke with Dr. Stoner on-call pulmonary. He states to continue the Zosyn. He recommends Solu-Medrol 40 mg IV 3 times daily. He recommends DuoNebs every 6 hours. He recommends budesonide 0.25 mg twice daily. 183: Patient switched into atrial fibrillation. No RVR. 183: Rediscussed with Dr. Caceres. Given the patient flipped into atrial fibrillation he recommends holding the DuoNebs at this time. He does states continue with rodenticide. He also states that it is possible that the patient could have PCP pneumonia given her immunocompromise days and the new pneumomediastinum. He recommends starting the patient on IV Bactrim renal dosing 3 times daily. He states patient can be admitted to the PCU. 1899: Discussed with pharmacy [facility] who will help renally dose the Bactrim. 1914: Discussed case with admitting hospitalist Dr. Garrett who evaluate the patient for admission. Administered Medications Discontinued Medications Budesonide (Budesonide 0.25 Mg/2 Ml Vial (Pulmicort)) 0.25 mg NEB NOW STA Stop: 05/13/25 18:39 Last Admin: 05/13/25 19:24 Dose: 0.25 mg Documented By: NOAH Sodium Chloride (Nss) 1,000 mls @ 999 mls/hr IV .Q1H1M EMI Stop: 05/13/25 18:00 Last Infusion: 05/13/25 19:06 Dose: Infused Documented By: Admin: 05/13/25 17:56 Dose: 999 mls/hr Documented By: Infusion: 05/13/25 17:08 Dose: Infused Documented By: Admin: 05/13/25 16:07 Dose: 999 mls/hr Documented By: AKIN Piperacillin Sod/Tazobactam Sod (Zosyn) 4.5 gm in 120 mls @ 240 mls/hr IV NOW ONE Stop: 05/13/25 16:43 Last Infusion: 05/13/25 17:56 Dose: Infused Documented By: Admin: 05/13/25 16:44 Dose: 240 mls/hr Documented By: AKIN Methylprednisolone (Methylprednisolone 125 Mg/2 Ml Vial) 40 mg IV NOW STA Stop: 05/13/25 18:30 Last Admin: 05/13/25 18:37 Dose: 40 mg Documented By: RODOLFO Critical Care Time Critical Care Time: Yes Total Critical Care Time: 80 I have personally spent greater than 80 minutes of critical care time in the direct management of this patient. This includes bedside care, interpretation of diagnostic studies, and testing, discussion with consultants, patient, and family members, and other required patient management activities. This 80 minutes is in excess of all separately billable procedures. Medical Decision Making Medical Records Attestation: I reviewed the patient's medical records. External medical records reviewed.Patient was admitted from April 21 to May 12, 2025. Patient was discharged yesterday. Patient was initially admitted for hyponatremia, hypomagnesemia, sepsis, diverticulitis, and respiratory failure. Patient did spend some time in the ICU during her 3-week admission. According to the discharge summary from yesterday the patient has noncardiogenic pulmonary edema and has an echo showing 55 to 60% with moderate pulmonary hypertension. Patient was discharged with 2 to 3 L nasal cannula. Patient prednisone was being tapered and the last dose was to be given today on May 13, 2025. The patient was discharged with an uptrending white blood cell count 22.2. Patient is DNR/DNI. During admission patient was also seen by pulmonology. She was continued with prednisone and finish her prednisone today. Patient was offered a bronchoscopy by pulmonology but declined. Laboratory Data Attestation: I reviewed the patient's lab results. 05/13/25 15:34 05/13/25 15:34 Lab Results 05/13/25 05/13/25 05/13/25 Range/Units 15:16 15:34 17:24 WBC 31.00 H* (4.8-10.8) K/ul RBC 3.87 L (4.20-5.40) M/uL Hgb 11.2 L (12.0-16.0) g/dl POC Hgb 11.6 L (12.0-16.0) g/dl Hct 34.8 L (37.0-47.0) % POC Hct 34 L (37-47) % MCV 89.9 (80.0-100.0) fL MCH 28.9 (25.0-34.0) pg MCHC 32.2 (32.0-36.0) g/dL RDW Std Deviation 58.4 H (36.4-46.3) fL RDW Coeff of Jessica 18.1 H (11.5-14.5) % Plt Count 340 (130-400) K/uL MPV 10.1 (9.4-12.4) fL Immature Gran % (Auto) 0.7 % Neut % (Auto) 65.4 % Lymph % (Auto) 32.9 % [place] % (Auto) 0.9 % Eos % (Auto) 0.0 % Baso % (Auto) 0.1 % Neut # (Auto) 20.24 H (1.40-6.50) K/uL Lymph # (Auto) 10.19 H (1.20-3.40) K/uL [place] # (Auto) 0.29 (0.11-0.59) K/uL Eos # (Auto) 0.01 (0.00-0.50) K/uL Baso # (Auto) 0.04 (0.00-0.20) K/uL Immature Gran # (Auto) 0.23 H (0.01-0.20) K/uL Tear Drop Cells 1+ PT 10.5 (9.0-12.0) Seconds INR 1.0 (0.9-1.1) APTT 26 (21-31) Seconds PTT Ratio 1.0 POC pH 7.48 H (7.35-7.45) POC pCO2 37 (35-46) mmHg POC pO2 78 L (80-95) mmHg POC HCO3 28 H (19-24) ina/L POC Total CO2 29 (24-31) mmol/L POC Base Excess 4.0 H (-9-1.8) ina/L POC ABG O2 Sat 96.0 H (90-95) % POC Sodium 127 L (135-144) mmol/L Sodium 130 L (136-145) mmol/L POC Potassium 4.2 (3.3-5.0) mmol/L Potassium 4.4 D (3.5-5.1) mmol/L Chloride 89 L (98-107) mmol/L Carbon Dioxide 29 (21-32) mmol/L Anion Gap 12 H (3-11) BUN 72 H (6-23) mg/dl Creatinine 1.84 H D (0.6-1.2) mg/dl Est Cr Clr Drug Dosing 20.4 ml/min eGFR 27.40 BUN/Creatinine Ratio 39.1 H (10-20) Glucose 179 H (70-99(Fasting)) mg/dl Lactate 4.6 H* (0.4-2.0) mmol/L Calcium 8.6 (8.6-10.3) mg/dl Magnesium 1.8 (1.7-2.4) mg/dl Total Bilirubin 0.8 (0.2-1.0) mg/dl Direct Bilirubin 0.2 (0-0.2) mg/dl AST 16 (13-39) U/L ALT 15 (7-52) U/L Alkaline Phosphatase 76 (34-104) U/L Total Creatine Kinase 17 L (26-192) U/L Troponin I High Sens 38.7 H (0-14) pg/ml B-Natriuretic Peptide 70 (0-100) pg/ml Total Protein 5.3 L (6.0-8.3) gm/dl Albumin 3.0 L (3.4-5.0) gm/dl Procalcitonin 0.26 (0-0.5) ng/ml Urine Color Yellow Urine Appearance Cloudy A (Clear) Urine pH 7.0 (4.5-7.5) Ur Specific [place] 1.015 (1.000-1.030) Urine Protein Trace H (Negative) Urine Glucose (UA) Negative (Negative) Urine Ketones Trace H (Negative) Urine Blood 3+ H (Negative) Urine Nitrite Negative (Negative) Urine Bilirubin Negative (Negative) Urine Urobilinogen Negative (Negative) Ur Leukocyte Esterase Trace H (Negative) Urine WBC (Auto) 0-5 (0-5) /hpf Urine RBC (Auto) >20 H (0-2) /hpf U Hyaline Cast (Auto) 11-20 H (0-2) /lpf U Epithel Cells (Auto) 0-2 (0-2) /hpf Urine Bacteria (Auto) 1+ H (None Seen) Urine Comment 05/13/25 Range/Units 18:11 WBC (4.8-10.8) K/ul RBC (4.20-5.40) M/uL Hgb (12.0-16.0) g/dl POC Hgb (12.0-16.0) g/dl Hct (37.0-47.0) % POC Hct (37-47) % MCV (80.0-100.0) fL MCH (25.0-34.0) pg MCHC (32.0-36.0) g/dL RDW Std Deviation (36.4-46.3) fL RDW Coeff of Jessica (11.5-14.5) % Plt Count (130-400) K/uL MPV (9.4-12.4) fL Immature Gran % (Auto) % Neut % (Auto) % Lymph % (Auto) % [place] % (Auto) % Eos % (Auto) % Baso % (Auto) % Neut # (Auto) (1.40-6.50) K/uL Lymph # (Auto) (1.20-3.40) K/uL [place] # (Auto) (0.11-0.59) K/uL Eos # (Auto) (0.00-0.50) K/uL Baso # (Auto) (0.00-0.20) K/uL Immature Gran # (Auto) (0.01-0.20) K/uL Tear Drop Cells PT (9.0-12.0) Seconds INR (0.9-1.1) APTT (21-31) Seconds PTT Ratio POC pH (7.35-7.45) POC pCO2 (35-46) mmHg POC pO2 (80-95) mmHg POC HCO3 (19-24) ina/L POC Total CO2 (24-31) mmol/L POC Base Excess (-9-1.8) ina/L POC ABG O2 Sat (90-95) % POC Sodium (135-144) mmol/L Sodium (136-145) mmol/L POC Potassium (3.3-5.0) mmol/L Potassium (3.5-5.1) mmol/L Chloride (98-107) mmol/L Carbon Dioxide (21-32) mmol/L Anion Gap (3-11) BUN (6-23) mg/dl Creatinine (0.6-1.2) mg/dl Est Cr Clr Drug Dosing ml/min eGFR BUN/Creatinine Ratio (10-20) Glucose (70-99(Fasting)) mg/dl Lactate 2.8 H* (0.4-2.0) mmol/L Calcium (8.6-10.3) mg/dl Magnesium (1.7-2.4) mg/dl Total Bilirubin (0.2-1.0) mg/dl Direct Bilirubin (0-0.2) mg/dl AST (13-39) U/L ALT (7-52) U/L Alkaline Phosphatase (34-104) U/L Total Creatine Kinase (26-192) U/L Troponin I High Sens 36.4 H (0-14) pg/ml B-Natriuretic Peptide (0-100) pg/ml Total Protein (6.0-8.3) gm/dl Albumin (3.4-5.0) gm/dl Procalcitonin (0-0.5) ng/ml Urine Color Urine Appearance (Clear) Urine pH (4.5-7.5) Ur Specific [place] (1.000-1.030) Urine Protein (Negative) Urine Glucose (UA) (Negative) Urine Ketones (Negative) Urine Blood (Negative) Urine Nitrite (Negative) Urine Bilirubin (Negative) Urine Urobilinogen (Negative) Ur Leukocyte Esterase (Negative) Urine WBC (Auto) (0-5) /hpf Urine RBC (Auto) (0-2) /hpf U Hyaline Cast (Auto) (0-2) /lpf U Epithel Cells (Auto) (0-2) /hpf Urine Bacteria (Auto) (None Seen) Urine Comment Imaging Data Attestation: I personally reviewed and interpreted this imaging study as follows: My Impression: Chest x-ray: Bilateral pneumonia CT chest with oral contrast: No esophageal injury Radiologist's Impression: Chest X-Ray 05/13/25 14:50 Chest radiograph, one view History: Sepsis Comparison: 05/10/2025 Findings: Single AP view of the chest performed. No pneumothorax. Thin irregular densities in the lung, which appear peripheral predominant are not significantly changed from prior exams. Left chest wall port with catheter tip at the upper SVC unchanged. The cardiomediastinal silhouette is unchanged, possibly slightly enlarged. The costophrenic angles are obscured with small pleural effusions not excluded. No visualized bony or soft tissue abnormality. Impression: No significant interval change Electronically signed by Duane Gaitan 05-13-2025 4:24 PM Abdomen/Pelvis CT 05/13/25 16:18 Clinical History: Acute renal injury Technique: Axial computed tomography images were obtained of the abdomen and pelvis without intravenous contrast. Comparison is made to the prior CT dated 04/21/2025 Findings: The liver is overall of normal size, attenuation, and contour with no sign of cirrhosis or significant fatty infiltration. No definite liver mass lesion is seen on this noncontrast study. There are apparent small gallstones. There is no sign of acute cholecystitis. No bile duct dilatation is noted. The spleen is of normal size. No focal splenic lesion is evident. The pancreas appears normal with no sign of acute or chronic pancreatitis and no mass lesion noted. The pancreatic duct is of normal caliber. There is an unchanged 1.2 cm left adrenal nodule, likely a benign adenoma. The right adrenal gland appears normal. No renal or proximal ureteral calculi are seen. There is no hydronephrosis or perinephric stranding. There is a 6 mm fatty lesion in the mid right kidney, likely a benign angiomyolipoma. The aorta is of normal caliber. No abdominal adenopathy is seen. There is a small hiatal hernia. There is no sign of small bowel obstruction. There is diverticulosis without evidence of diverticulitis. No free intraperitoneal fluid or air is identified. There is no sign of appendicitis No distal ureteral or bladder calculi are seen. No obvious bladder mass lesion is evident. The iliac arteries are of normal caliber. No pelvic adenopathy is noted. There is new pneumomediastinum. There are worsened interstitial and groundglass infiltrates in the lung bases bilaterally, consistent with pneumonia. The small pleural effusions seen before have resolved. Lumbar scoliosis and degenerative disc disease is seen. There are unchanged healing subacute fractures of the left pubic rami and the anterior left acetabulum. There is an unchanged sclerotic lesion in the L5 vertebral body, likely a benign bone island. Impression: 1. New pneumomediastinum. Chest CT could be obtained for further evaluation 2. Worsened bilateral pneumonia 3. Resolution of the previously seen pleural effusions 4. Small hiatal hernia 5. Cholelithiasis without evidence of acute cholecystitis 6. Small left adrenal adenoma 7. 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 Diverticulosis without evidence of diverticulitis ACT 112: Positive. There are findings on this exam that require communication between the performing entity and the patient following Patient Test Result Information Act ([place] ACT 112) guidelines. Electronically signed by Emory Romero 05-13-2025 5:[address] 05/13/25 17:36 CT chest without IV contrast, with oral contrast given History: Pneumomediastinum Comparison: April 27, 2025 Technique: Helical CT imaging of the chest performed without IV contrast. Oral contrast given Dose reduction techniques were achieved by using automatic exposure control and/or adjustment of mA and/or kV according to patient size and/or use of iterative reconstruction technique. Findings: Diffuse, coarsened interstitial opacities seen along the peribronchovascular regions with a lower lung predominance. There is mid and lower lung traction bronchiectasis. No focal consolidation. The lung apices are spared. No significant mosaic attenuation. No pleural effusion. No pneumothorax. Heart size is normal. The thoracic aorta is normal in size. The pulmonary artery is normal in size. No significant pericardial effusion. There is mild pneumomediastinum, which is seen to surround a small portion of the lower esophagus, and is mostly in the upper mediastinum. Oral contrast seen in the mid and lower esophagus without leak. The esophagus is otherwise unremarkable. No suspicious lymphadenopathy in the chest. The central airway is clear. Left chest wall port with catheter tip at the upper SVC. Limited visualized upper abdomen. No acute bony abnormalities. Impression: 1. No evidence for esophageal injury. No oral contrast leak from the esophagus. There is mild pneumomediastinum that persists. The origin of the pneumomediastinum may be from the lung, especially given the rapidly progressive severe interstitial lung disease, that is increased from April 27, 2025, and is markedly increased compared to March 08, 2025. Consider nonspecific interstitial pneumonia, or chronic eosinophilic pneumonia. Findings discussed with Dr. Corona by Dr. Gaitan at 6:20 PM, 05/13/2025 Electronically signed by Duane Gaitan 05-13-2025 6:24 PM ECG Data Attestation: I personally reviewed and interpreted this ECG as follows: Rate (beats per minute): 68 Rhythm: + normal sinus ECG Intervals/blocks: + Normal QRS, + Normal CA and + Normal QT-c ECG ST segments: + Normal ST segments ECG Findings: + LVH Additional Comments: EKG at 1835: Atrial fibrillation with a rate of 116. QRS and QTc intervals within normal limits. No ST elevation or ST depression MDM Narrative 1449: The patient was evaluated in room C7. A complete history and physical exam was performed Cardiac monitoring: An order was placed for continuous cardiac monitoring. The monitor shows a rate of 70 with sinus rhythm interpreted by me Patient was found to be hypoxic on her normal 2 to 3 L. Oxygen via nasal cannula was increased. EMS reported the patient was also hypotensive and route. According to the call head sheet notes taking by charge nurse Viri the patient had a white blood cell count of 40,000 at [facility] and a creatinine of 1.6 today at [facility]. Sepsis protocols initiated. 1 L normal saline ordered for the patient. External medical records reviewed.Patient was admitted from April 21 to May 12, 2025. Patient was discharged yesterday. Patient was initially admitted for hyponatremia, hypomagnesemia, sepsis, diverticulitis, and respiratory failure. Patient did spend some time in the ICU during her 3-week admission. According to the discharge summary from yesterday the patient has noncardiogenic pulmonary edema and has an echo showing 55 to 60% with moderate pulmonary hypertension. Patient was discharged with 2 to 3 L nasal cannula. Patient prednisone was being tapered and the last dose was to be given today on May 13, 2025. The patient was discharged with an uptrending white blood cell count 22.2. 1620: Patient's lactic acid 4.6. Patient treated with 30 cc/kg normal saline bolus total of 2 L normal saline. Zosyn ordered for the patient. Chest x-ray is concerning for pneumonia. White blood cell count 31. Creatinine 1.84. BUN 72. Given the patient's GABRIEL, will obtain CT of the abdomen pelvis without contrast to rule out obstruction causing GABRIEL. 1737: Received call from radiology. Spoke with Dr. Mancera. He states that there is new pneumomediastinum and a worsening bilateral pneumonia. Given the new pneumomediastinum there is concern for esophageal injury. I discussed with him and we will get a CT of the chest without IV contrast but have the patient drink oral contrast to rule out any esophageal injury. 1750: CT of the chest viewed by me shows no esophageal injury. 1815: Spoke with radiology Dr. Gaitan. He confirms that there is no esophageal injury. He states that there is severe interstitial lung disease. He confirms that there is new pneumomediastinum. He states that this could be related to interstitial lung disease. He states the worsening of the interstitial lung disease could be related to the patient's chemotherapy. He also states that the pneumomediastinum could be due to alveolar rupture given the severe interstitial lung disease. He again confirms that there is no esophageal injury. 1827: Spoke with Dr. Stoner on-call pulmonary. He states to continue the Zosyn. He recommends Solu-Medrol 40 mg IV 3 times daily. He recommends DuoNebs every 6 hours. He recommends budesonide 0.25 mg twice daily. 1834: Patient switched into atrial fibrillation. No RVR. 1837: Rediscussed with Dr. Caceres. Given the patient flipped into atrial fibrillation he recommends holding the DuoNebs at this time. He does states continue with rodenticide. He also states that it is possible that the patient could have PCP pneumonia given her immunocompromise days and the new pneumomediastinum. He recommends starting the patient on IV Bactrim renal dosing 3 times daily. He states patient can be admitted to the PCU. 1899: Discussed with pharmacy ba who will help renally dose the Bactrim. 1914: Discussed case with admitting hospitalist Dr. Garrett who evaluate the patient for admission. Impression & Plan Hypoxia, Sepsis, Pneumomediastinum, Pneumonia, Interstitial lung disease Discharge Plan Visit Data Chief Complaint: Shortness of Breath/Dyspnea Stated Complaint: HYPOXIA ED Provider: Enrico Corona Discharge Problem: Hypoxia, Sepsis, Pneumomediastinum, Pneumonia, Interstitial lung disease Patient Disposition: Admitted As Inpatient Condition: Serious Forms Stand Alone Forms: [facility] [employer] Prescriptions Prescriptions: No Action cholecalciferol (vitamin D3) 25 mcg (1,000 unit) capsule 25 mcg PO DAILY wzkrkhah-touy-lppog-oreg-capry 100 mg-150 mg- 50 mg-150 mg capsule 1 cap PO DAILY lisinopril 40 mg tablet 40 mg PO DAILY atorvastatin 20 mg tablet 20 mg PO DAILY aspirin 81 mg tablet,delayed release (DR/EC) 81 mg PO DAILY amoxicillin 500 mg tablet 2,000 mg PO .PRN/UD PRN (Reason: Prophylaxis) Rx Instructions: TAKE FOUR TABS ONE HOUR PRIOR TO DENTAL APPOINTMENT. zinc 50 mg Tablet 50 mg PO DAILY tramadol 50 mg tablet 50 mg PO UD metformin 500 mg tablet extended release 24 hr 1,000 mg PO BID amlodipine 5 mg tablet 5 mg PO DAILY prochlorperazine maleate 10 mg tablet 10 mg PO Q6 PRN (Reason: N/V) ondansetron 8 mg tablet,disintegrating 8 mg translingual Q8 PRN (Reason: Nausea And Vomiting) Januvia 100 mg tablet 100 mg PO DAILY lidocaine-prilocaine 2.5-2.5 % cream See Rx Instructions .ROUTE .COMPLEX Rx Instructions: APPLY TO AFFECTED AREA 30 MINUTES BEFORE PORT ACCESS metoprolol tartrate 50 mg tablet See Rx Instructions .ROUTE .COMPLEX Rx Instructions: TAKE 1 TABLET BY MOUTH EVERY MORNING AND 2 BY MOUTH AT BEDTIME metolazone 2.5 mg Tablet 2.5 mg PO QAM Qty: 30 0RF furosemide 20 mg Tablet 20 mg PO QAM 30 Days Qty: 30 0RF diclofenac sodium [Voltaren Arthritis Pain] 1 % Gel 2 g EXT TID Qty: 50 0RF pantoprazole 40 mg Tablet,Delayed Release (Dr/Ec) 40 mg PO QAM Qty: 30 0RF hydroxyzine HCl 25 mg Tablet 25 mg PO Q8H PRN (Reason: anxiety) 30 Days Qty: 20 0RF prednisone 20 mg Tablet 20 mg PO DAILY Qty: 1 0RF Rx Instructions: Last dose scheduled for 05/13/25 melatonin 3 mg Tablet 3 mg PO HS PRN (Reason: sleep) Qty: 30 0RF Referrals Referrals: Racheal Kyle MD [Primary Care Provider] - Discharge Problem: Sepsis Qualifiers: Sepsis type: sepsis due to unspecified organism Sepsis acute organ dysfunction status: with acute organ dysfunction Severe sepsis acute organ dysfunction type: acute renal failure Acute renal failure type: unspecified
[2025-05-13 15:30] LABS: iSTAT Art Bld Gas Base Excess 4.0 meg/L (-9-1.8)
[2025-05-13] MEDS: SODIUM CHLORIDE 0.9% 1,000 ML IV SCH (16:07)
[2025-05-13 16:12] LABS: Hematocrit (blood only) 34.8 % (37.0-47.0); Hemoglobin 11.2 g/dl (12.0-16.0); Mean Corpuscular Hemoglobin 28.9 pg (25.0-34.0); Mean Corpuscular Volume 89.9 fL (80.0-100.0); Platelet Count 340 K/uL (130-400); RDW Standard Deviation 58.4 fL (36.4-46.3); Red Blood Count 3.87 M/uL (4.20-5.40); White Blood Count 31.00 K/ul (4.8-10.8)
[2025-05-13 16:13] LABS: Alanine Aminotransferase 15.0 U/L (7-52); Alkaline Phosphatase 76.0 U/L (34-104); Anion Gap 12.0 (3-11); Bilirubin,Total 0.8 mg/dl (0.2-1.0); Blood Urea Nitrogen 72.0 mg/dl (6-23); Calcium 8.6 mg/dl (8.6-10.3); Carbon Dioxide 29.0 mmol/L (21-32); Chloride 89.0 mmol/L (98-107); Creatinine Clr Calc Pharmacy 20.4 ml/min; Glucose 179.0 mg/dl (70-99(Fasting)); Magnesium 1.8 mg/dl (1.7-2.4); Potassium 4.4 mmol/L (3.5-5.1); Sodium 130.0 mmol/L (136-145); Total Protein 5.3 gm/dl (6.0-8.3)
[2025-05-13 16:17] LABS: INR 1.0 (0.9-1.1); Partial Thromboplastin Time 26 Seconds (21-31); Prothrombin Time 10.5 Seconds (9.0-12.0)
--- NOTE | 2025-05-13 16:25 | XRay Report ---
Chest radiograph, one view History: Sepsis Comparison: 05/10/2025 Findings: Single AP view of the chest performed. No pneumothorax. Thin irregular densities in the lung, which appear peripheral predominant are not significantly changed from prior exams. Left chest wall port with catheter tip at the upper SVC unchanged. The cardiomediastinal silhouette is unchanged, possibly slightly enlarged. The costophrenic angles are obscured with small pleural effusions not excluded. No visualized bony or soft tissue abnormality. Impression: No significant interval change Electronically signed by Duane Gaitan 05-13-2025 4:24 PM
[2025-05-13 16:27] LABS: Immature Granulocytes # (auto) 0.23 K/uL (0.01-0.20); Immature Granulocytes % (auto) 0.7 %; Tear Drop Cells 1+
[2025-05-13] MEDS: PIPERACILLIN/TAZOBACTAM 4.5 GM/120 ML BAG IV ONE (16:44)
--- NOTE | 2025-05-13 17:28 | CT Scan Report ---
Clinical History: Acute renal injury Technique: Axial computed tomography images were obtained of the abdomen and pelvis without intravenous contrast. Comparison is made to the prior CT dated 04/21/2025 Findings: The liver is overall of normal size, attenuation, and contour with no sign of cirrhosis or significant fatty infiltration. No definite liver mass lesion is seen on this noncontrast study. There are apparent small gallstones. There is no sign of acute cholecystitis. No bile duct dilatation is noted. The spleen is of normal size. No focal splenic lesion is evident. The pancreas appears normal with no sign of acute or chronic pancreatitis and no mass lesion noted. The pancreatic duct is of normal caliber. There is an unchanged 1.2 cm left adrenal nodule, likely a benign adenoma. The right adrenal gland appears normal. No renal or proximal ureteral calculi are seen. There is no hydronephrosis or perinephric stranding. There is a 6 mm fatty lesion in the mid right kidney, likely a benign angiomyolipoma. The aorta is of normal caliber. No abdominal adenopathy is seen. There is a small hiatal hernia. There is no sign of small bowel obstruction. There is diverticulosis without evidence of diverticulitis. No free intraperitoneal fluid or air is identified. There is no sign of appendicitis No distal ureteral or bladder calculi are seen. No obvious bladder mass lesion is evident. The iliac arteries are of normal caliber. No pelvic adenopathy is noted. There is new pneumomediastinum. There are worsened interstitial and groundglass infiltrates in the lung bases bilaterally, consistent with pneumonia. The small pleural effusions seen before have resolved. Lumbar scoliosis and degenerative disc disease is seen. There are unchanged healing subacute fractures of the left pubic rami and the anterior left acetabulum. There is an unchanged sclerotic lesion in the L5 vertebral body, likely a benign bone island. Impression: 1. New pneumomediastinum. Chest CT could be obtained for further evaluation 2. Worsened bilateral pneumonia 3. Resolution of the previously seen pleural effusions 4. Small hiatal hernia 5. Cholelithiasis without evidence of acute cholecystitis 6. Small left adrenal adenoma 7. 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 Diverticulosis without evidence of diverticulitis ACT 112: Positive. There are findings on this exam that require communication between the performing entity and the patient following Patient Test Result Information Act ([place] ACT 112) guidelines. Electronically signed by Emory Romero 05-13-2025 5:27 PM
[2025-05-13 17:54] LABS: Appearance Urine Cloudy (Clear); Bacteria Urine Automated 1+ (None Seen); Epithelial Cell Urine Auto 0-2 /hpf (0-2); Glucose Urine UA Negative (Negative); RBC Urine Automated >20 /hpf (0-2); WBC Urine Automated 0-5 /hpf (0-5)
[2025-05-13 18:04] LABS: Creatine Kinase 17.0 U/L (26-192)
--- NOTE | 2025-05-13 18:25 | CT Scan Report ---
CT chest without IV contrast, with oral contrast given History: Pneumomediastinum Comparison: April 27, 2025 Technique: Helical CT imaging of the chest performed without IV contrast. Oral contrast given Dose reduction techniques were achieved by using automatic exposure control and/or adjustment of mA and/or kV according to patient size and/or use of iterative reconstruction technique. Findings: Diffuse, coarsened interstitial opacities seen along the peribronchovascular regions with a lower lung predominance. There is mid and lower lung traction bronchiectasis. No focal consolidation. The lung apices are spared. No significant mosaic attenuation. No pleural effusion. No pneumothorax. Heart size is normal. The thoracic aorta is normal in size. The pulmonary artery is normal in size. No significant pericardial effusion. There is mild pneumomediastinum, which is seen to surround a small portion of the lower esophagus, and is mostly in the upper mediastinum. Oral contrast seen in the mid and lower esophagus without leak. The esophagus is otherwise unremarkable. No suspicious lymphadenopathy in the chest. The central airway is clear. Left chest wall port with catheter tip at the upper SVC. Limited visualized upper abdomen. No acute bony abnormalities. Impression: 1. No evidence for esophageal injury. No oral contrast leak from the esophagus. There is mild pneumomediastinum that persists. The origin of the pneumomediastinum may be from the lung, especially given the rapidly progressive severe interstitial lung disease, that is increased from April 27, 2025, and is markedly increased compared to March 08, 2025. Consider nonspecific interstitial pneumonia, or chronic eosinophilic pneumonia. Findings discussed with Dr. Corona by Dr. Gaitan at 6:20 PM, 05/13/2025 Electronically signed by Duane Gaitan 05-13-2025 6:24 PM
[2025-05-13] MEDS ORDERED: BUDESONIDE 0.25 MG/2 ML VIAL (PULMICORT) NEB PRN (18:31)
[2025-05-13] MEDS ORDERED: TRIMETH IV ONE (18:42)
[2025-05-13] MEDS ORDERED: DEXTROSE 5% IV ONE (18:42)
[2025-05-13] MEDS ORDERED: SULFA IV ONE (18:42)
[2025-05-13] MEDS: BUDESONIDE 0.25 MG/2 ML VIAL (PULMICORT) NEB STA (19:24)
[2025-05-13] MEDS: DEXTROSE 5% IV ONE (19:42)
[2025-05-13] MEDS: TRIMETH IV ONE (19:42)
[2025-05-13] MEDS: SULFA IV ONE (19:42)
[2025-05-13] MEDS: LACTATED RINGER'S 1,000 ML IV ONE (19:46)
[2025-05-13] MEDS: MAGNESIUM SULFATE / D5W 1 GM/100 ML BAG IV STA (19:46)
[2025-05-13] MEDS: MAGNESIUM SULFATE 1GM / D5W BAG IV ONE (19:53)
[2025-05-13] MEDS: CALCIUM GLUCONATE 1,000 MG/60 ML BAG IV SCH (19:53)
[2025-05-13] MEDS: CALCIUM GLUCONATE 1000 MG/60 ML NSS IV ONE (19:54)
--- NOTE | 2025-05-13 19:58 | History & Physical Report ---
Date of Service May 13, 2025 Assessment & Plan (1) Sepsis: (2) Acute on chronic hypoxic respiratory failure: (3) Pneumomediastinum: (4) GABRIEL (acute kidney injury): (5) Paroxysmal atrial fibrillation: (6) DM type 2 (diabetes mellitus, type 2): (7) Hypertension: Plan 80yo female with history of breast cancer, HTN, DM, recent hospitalization from 04/18 - 05/12/2025 for acute metabolic encephalopathy, hyponatremia and sepsis returning to [facility] with worsening hypoxia, GABRIEL and sepsis. #Sepsis - present on admission. Patient with leukocytosis - WBC=31 (Has been chronically elevated, 24.71 on discharge yesterday 05/12/25), neutrophil predominant, bands present. Patient tachycardic, blood pressure has been borderline low. Possibly pulmonary source given marked changes in chest imaging. Possible aspiration event as patient describes coughing and vomiting after juice earlier today. Patient has thus far received 2.5L crystalloid infusion (sepsis fluid amount 182) as well as calcium gluconate x 2gm Blood pressure is tenuous at this time - still fluid responsive -Admit to PCU -Check random cortisol -Follow cultures sent from the ER -Check sputum culture and MRSA nares -Continue Zosyn 4.5gm IV q 8 hours -Should patient's blood pressure continue to decline she is agreeable to MICU transfer for vasopressor support -Will hold Metoprolol and Amlodipine #Acute on chronic respiratory failure with hypoxia - patient discharged to [facility] on 3L NC. Noted to be hypoxic today in the 70's, difficulty improving with supplemental O2. Possible PNA, possible aspiration, possible reaction to chemotherapy agents although last chemo treatment reported to be 04/07/2025. Possible PCP given patient's immune status -Check LDH -Check PO4 and replete as needed -Check sputum culture -Continue Solumedrol 40mg IV TID -Budesonide neb BID -Supplemental O2 as needed -Continue Zosyn -Pulmonary consultation appreciated #Pneumomediastinum - no evidence of esophageal damage on CT scan. Possible alveolar source, patient with history of ILD -Avoid positive pressure ventilation -Repeat CXR in AM #GABRIEL - patient with elevation of BUN=72 and Cr of 1.84, was just 57 and 0.99, respectively, on dishcharge labs 05/12/25. Likely multifactorial - sepsis, decreased volume intake as well as medication effects. Patient is on Lisinopril as well as Lasix and Metolazone outpatient -Check urine Na and Cr -Avoid nephrotoxic agents -Renal dosing where needed -Repeat chemistry in AM #Paroxysmal atrial fibrillation - patient in AF at present, RVR with rates in the 120's -Holding Metoprolol due to borderline low BP -Electrolytes acceptable, did give additional Mg -If needed rate control will give Digoxin IV #Diabetes -ISS, goal blood sugar 110 - 180 #Hypertension -Hold antihypertensives for now #Wound care -Turn and position q 2 hours -Wound care as needed on sacral wound (conveyed by daughter, not directly visualized by me) History of Present Illness Chief Complaint: sepsis, GABRIEL, hypoxia Primary Care Provider: Racheal Kyle MD Mallorie Sparrow is a pleasant 80yo female with history of breast cancer (Triple Negative, Stage I, s/p 3/4 cycles of chemotherapy), HTN, HLP, DM, recently admitted to [facility] from 04/21 - 05/12/2025 after presenting with generalized weakness and confusion. She was admitted for severe hyponatremia - sodium of 115 as well as acute encephalopathy, sepsis secondary to acute diverticulitis and UTI. Patient was found to have non-cardiogenic pulmonary edema, thought to be secondary to her chemotherapy agents - Docetaxel and Cyclophosphamide. She was managed with a steroid taper and ultimately discharged to [facility] on 3L of supplemental O2 and Lasix. Patient had some cranberry juice at breakfast this morning and reports coughing twice then vomiting it back up. She has not been able to participate much in rehab since arriving at [facility]. Family states that patient develops dizziness, sweating and some shortness of breath when she sits up. She also was found to have low blood pressure with positional changes. Daughter reports that patient has been getting anxious and panicky when she is asked to sit up. Patient hypoxic at [facility] - saturations reported to be in the 70's with difficulty increasing so they called 911. Patient with no specific complaints at present. She denies fever, chills, cough, SOB, chest pain, palpitations, abdominal pain, nausea, diarrhea or urinary complaints. In the ER patient has been in atrial fibrillation with rate of 110 - 127bpm Blood pressure has been low ranging 74-102 / 38-66 She has been tachypneic as well, initially 85% on room air, saturating well on NC 5L/min ER Course: NSS x 1500mL Zosyn 4.5gm Solumedrol 40mg IV Bactrim IV Budesonide 0.25mg neb Magnesium 1gm IV Calcium gluconate 2gm IV LR x 1L Allergies Allergy/AdvReac Type Severity Reaction Status Date / Time alendronate sodium Allergy Severe LEGS SWELL Verified 05/13/25 20:43 iodine Allergy Verified 05/13/25 20:43 oxycodone AdvReac Intermediate GI SYMPTOMS Verified 05/13/25 20:43 Home Medications Medication Instructions Recorded Confirmed Type aspirin 81 mg tablet,delayed 81 mg PO DAILY 06/14/21 05/13/25 History release atorvastatin 20 mg tablet 20 mg PO DAILY 06/14/21 05/13/25 History cholecalciferol (vitamin D3) 25 25 mcg PO DAILY 06/14/21 05/13/25 History mcg (1,000 unit) capsule lisinopril 40 mg tablet 40 mg PO DAILY 06/14/21 05/13/25 History turmeric 100 mg-connor 150 1 cap PO DAILY 06/14/21 05/13/25 History mg-olive 50 mg-oreg 150 mg-capryl capsule amoxicillin 500 mg tablet 2,000 mg PO .PRN/UD PRN Prophylaxis 11/21/21 05/13/25 History zinc 50 mg tablet 50 mg PO DAILY 11/21/21 05/13/25 History metformin 500 mg tablet,extended 1,000 mg PO BID 04/20/25 05/13/25 History release 24 hr tramadol 50 mg tablet 50 mg PO UD 04/20/25 05/13/25 History amlodipine 5 mg tablet 5 mg PO DAILY 04/21/25 05/13/25 History lidocaine-prilocaine 2.5 %-2.5 % See Rx Instructions .Route .COMPLEX 04/21/25 05/13/25 History topical cream metoprolol tartrate 50 mg tablet See Rx Instructions .Route .COMPLEX 04/21/25 05/13/25 History ondansetron 8 mg disintegrating 8 mg translingual Q8 PRN Nausea 04/21/25 05/13/25 History tablet And Vomiting prochlorperazine maleate 10 mg 10 mg PO Q6 PRN N/V 04/21/25 05/13/25 History tablet sitagliptin phosphate 100 mg 100 mg PO DAILY 04/21/25 05/13/25 History tablet (Januvia) diclofenac sodium 1 % topical gel 2 g EXT TID #50 grams 05/12/25 05/13/25 Rx (Voltaren Arthritis Pain) furosemide 20 mg tablet 20 mg PO QAM 30 days #30 tabs 05/12/25 05/13/25 Rx hydroxyzine HCl 25 mg tablet 25 mg PO Q8H PRN anxiety 30 days 05/12/25 05/13/25 Rx #20 tabs melatonin 3 mg tablet 3 mg PO HS PRN sleep #30 tabs 05/12/25 05/13/25 Rx metolazone 2.5 mg tablet 2.5 mg PO QAM #30 tabs 05/12/25 05/13/25 Rx pantoprazole 40 mg tablet,delayed 40 mg PO QAM #30 tabs 05/12/25 05/13/25 Rx release prednisone 20 mg tablet 20 mg PO DAILY #1 tab 05/12/25 05/13/25 Rx Past Med/Surg History Problem List (Updated 05/13/25 @ 20:44 by Renuka Garrett DO) Acute on chronic hypoxic respiratory failure GABRIEL (acute kidney injury) Interstitial lung disease (Acute) Pneumonia (Acute) Pneumomediastinum (Acute) Sepsis (Acute) Hypoxia (Acute) Mediastinal lymphadenopathy noted on CT 6.25.25 and will need attn on repeat Pleural effusion Paroxysmal atrial fibrillation Breast cancer Pelvic fracture Acute hypoxic respiratory failure SIRS (systemic inflammatory response syndrome) Leukocytosis (Acute) Angiomyolipoma Edema of left foot DM type 2 (diabetes mellitus, type 2) Medical History Phalanx, distal fracture of finger Recurrent urinary tract infection 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) Keratosis, seborrheic Hypertension Chronic diarrhea Borderline hyperlipidemia Benign essential microscopic hematuria Surgical History 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, 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/12/13 History of cataract surgery Bilateral Family History Mother Breast cancer Myocardial infarction Hypertension Grandmother (Maternal) Diabetes Colon cancer Father Myocardial infarction Hypertension Social History Smoking Status: Never smoker Hx Alcohol Use: No Hx Substance Use: No Preferred Language: Turkmen Communication Ability: Effective Hearing Ability: Normal Dry Curer Required: No Beliefs That Will Affect Care: Buddhist marital status: Current Living Situation: Spouse current occupational status: retired Feels Safe at Home: Yes Diet: regular Assistive Devices: Walker Review of Systems Review of Systems: All systems reviewed & are unremarkable except as noted in HPI & below Physical Exam Physical Exam: General: patient frail and cachectic in appearance, NAD, resting comfortably, answering questions appropriately and following commands Skin: warm, dry, intact, no rashes or lesions HEENT: NC/AT, PERRL, EOMI, anicteric sclera, conjunctiva without injection, external ear normal to inspection and nontender, nares patent, moist mucus membranes, dentition intact, no oropharyngeal lesions, neck supple, trachea midline, no LAD, no thyromegaly, no JVD Heart: +S1/S2, irregularly irregular, tachycardic, no m/r/g, left chest port in place, no bleeding/erythema/tenderness Lungs: equal air entry bilaterally, some crackles appreciated in bilateral bases and mid-lung damon anteriorly, no rhonchi/wheezes Abd: +BS, soft, NT/ND, no masses/organomegaly/ascites Ext: warm, 2+ pulses in UE/LE bilaterally, no clubbing/cyanosis, trace pitting edema of bilateral LE. Brown in place with appx 600mL brown colored Neuro: nonfocal, patient AA&O x 4, speech intact, no facial droop, moving all extremities on command with equal strength 5/5 Results & Data Results & Data Vital Signs (Past 12 Hours) Vital Signs Temp Pulse Pulse Pulse Resp BP BP 05/13/25 19:45 126 H 22 89/52 L 05/13/25 19:45 124 H 05/13/25 19:44 113 H 17 05/13/25 19:36 125 H 24 96/51 L 05/13/25 19:30 128 H 31 H 89/38 L 05/13/25 19:24 127 H 26 H 74/51 L 05/13/25 19:18 117 H 24 82/50 L 05/13/25 19:10 97/59 L 05/13/25 19:06 117 H 24 102/54 L 05/13/25 19:00 115 H 22 102/54 L 05/13/25 18:50 124 H 26 H 90/47 L 05/13/25 18:45 121 H 27 H 119/66 05/13/25 18:39 117 H 26 H 91/54 L 05/13/25 18:30 110 H 26 H 94/51 L 05/13/25 18:25 102/62 05/13/25 18:20 72 05/13/25 18:15 108/57 L 05/13/25 18:12 77 26 H 103/47 L 05/13/25 18:09 68 27 H 97/47 L 05/13/25 17:57 66 26 H 103/47 L 05/13/25 17:33 66 25 H 93/36 L 05/13/25 17:30 65 28 H 93/36 L 05/13/25 17:25 67 26 H 103/41 L 05/13/25 17:20 107/46 L 05/13/25 17:15 79/45 L 05/13/25 17:10 96/41 L 05/13/25 17:01 72/34 L 05/13/25 16:44 87/54 L 05/13/25 16:06 69 22 97/50 L 05/13/25 15:48 68 05/13/25 15:00 71 25 H 96/60 L 05/13/25 14:59 05/13/25 14:56 36.9 C 69 14 96/57 L 05/13/25 14:50 Pulse Ox O2 Del Method O2 Flow Rate 05/13/25 19:45 98 Nasal Cannula 5 05/13/25 19:45 05/13/25 19:44 93 Nasal Cannula 5 05/13/25 19:36 96 Nebulizer 05/13/25 19:30 96 05/13/25 19:24 93 05/13/25 19:18 90 05/13/25 19:10 05/13/25 19:06 94 05/13/25 19:00 93 Room Air 05/13/25 18:50 92 05/13/25 18:45 91 05/13/25 18:39 92 05/13/25 18:30 94 05/13/25 18:25 05/13/25 18:20 05/13/25 18:15 05/13/25 18:12 93 05/13/25 18:09 92 05/13/25 17:57 92 05/13/25 17:33 95 05/13/25 17:30 92 05/13/25 17:25 93 05/13/25 17:20 05/13/25 17:15 05/13/25 17:10 05/13/25 17:01 05/13/25 16:44 05/13/25 16:06 96 Nasal Cannula 2 05/13/25 15:48 05/13/25 15:00 97 Nasal Cannula 2 05/13/25 14:59 86 L Nasal Cannula 3 05/13/25 14:56 95 Nasal Cannula 5 05/13/25 14:50 98 Nasal Cannula 5 Laboratory Results Laboratory Results WBC 31.00 K/ul (4.8-10.8) H* 05/13/25 15:34 RBC 3.87 M/uL (4.20-5.40) L 05/13/25 15:34 Hgb 11.2 g/dl (12.0-16.0) L 05/13/25 15:34 POC Hgb 11.6 g/dl (12.0-16.0) L 05/13/25 15:16 Hct 34.8 % (37.0-47.0) L 05/13/25 15:34 POC Hct 34 % (37-47) L 05/13/25 15:16 MCV 89.9 fL (80.0-100.0) 05/13/25 15:34 MCH 28.9 pg (25.0-34.0) 05/13/25 15:34 MCHC 32.2 g/dL (32.0-36.0) 05/13/25 15:34 RDW Std Deviation 58.4 fL (36.4-46.3) H 05/13/25 15:34 RDW Coeff of Jessica 18.1 % (11.5-14.5) H 05/13/25 15:34 Plt Count 340 K/uL (130-400) 05/13/25 15:34 MPV 10.1 fL (9.4-12.4) 05/13/25 15:34 Immature Gran % (Auto) 0.7 % 05/13/25 15:34 Neut % (Auto) 65.4 % 05/13/25 15:34 Lymph % (Auto) 32.9 % 05/13/25 15:34 [place] % (Auto) 0.9 % 05/13/25 15:34 Eos % (Auto) 0.0 % 05/13/25 15:34 Baso % (Auto) 0.1 % 05/13/25 15:34 Neut # (Auto) 20.24 K/uL (1.40-6.50) H 05/13/25 15:34 Lymph # (Auto) 10.19 K/uL (1.20-3.40) H 05/13/25 15:34 [place] # (Auto) 0.29 K/uL (0.11-0.59) 05/13/25 15:34 Eos # (Auto) 0.01 K/uL (0.00-0.50) 05/13/25 15:34 Baso # (Auto) 0.04 K/uL (0.00-0.20) 05/13/25 15:34 Immature Gran # (Auto) 0.23 K/uL (0.01-0.20) H 05/13/25 15:34 Tear Drop Cells 1+ 05/13/25 15:34 PT 10.5 Seconds (9.0-12.0) 05/13/25 15:34 INR 1.0 (0.9-1.1) 05/13/25 15:34 APTT 26 Seconds (21-31) 05/13/25 15:34 PTT Ratio 1.0 05/13/25 15:34 POC pH 7.48 (7.35-7.45) H 05/13/25 15:16 POC pCO2 37 mmHg (35-46) 05/13/25 15:16 POC pO2 78 mmHg (80-95) L 05/13/25 15:16 POC HCO3 28 ina/L (19-24) H 05/13/25 15:16 POC Total CO2 29 mmol/L (24-31) 05/13/25 15:16 POC Base Excess 4.0 ina/L (-9-1.8) H 05/13/25 15:16 POC ABG O2 Sat 96.0 % (90-95) H 05/13/25 15:16 POC Sodium 127 mmol/L (135-144) L 05/13/25 15:16 Sodium 130 mmol/L (136-145) L 05/13/25 15:34 POC Potassium 4.2 mmol/L (3.3-5.0) 05/13/25 15:16 Potassium 4.4 mmol/L (3.5-5.1) D 05/13/25 15:34 Chloride 89 mmol/L (98-107) L 05/13/25 15:34 Carbon Dioxide 29 mmol/L (21-32) 05/13/25 15:34 Anion Gap 12 (3-11) H 05/13/25 15:34 BUN 72 mg/dl (6-23) H 05/13/25 15:34 Creatinine 1.84 mg/dl (0.6-1.2) H D 05/13/25 15:34 Est Cr Clr Drug Dosing 20.4 ml/min 05/13/25 15:34 eGFR 27.40 05/13/25 15:34 BUN/Creatinine Ratio 39.1 (10-20) H 05/13/25 15:34 Glucose 179 mg/dl (70-99(Fasting)) H 05/13/25 15:34 Lactate 2.8 mmol/L (0.4-2.0) H* 05/13/25 18:11 Calcium 8.6 mg/dl (8.6-10.3) 05/13/25 15:34 Magnesium 1.8 mg/dl (1.7-2.4) 05/13/25 15:34 Total Bilirubin 0.8 mg/dl (0.2-1.0) 05/13/25 15:34 Direct Bilirubin 0.2 mg/dl (0-0.2) 05/13/25 15:34 AST 16 U/L (13-39) 05/13/25 15:34 ALT 15 U/L (7-52) 05/13/25 15:34 Alkaline Phosphatase 76 U/L (34-104) 05/13/25 15:34 Total Creatine Kinase 17 U/L (26-192) L 05/13/25 15:34 Troponin I High Sens 36.4 pg/ml (0-14) H 05/13/25 18:11 B-Natriuretic Peptide 70 pg/ml (0-100) 05/13/25 15:34 Total Protein 5.3 gm/dl (6.0-8.3) L 05/13/25 15:34 Albumin 3.0 gm/dl (3.4-5.0) L 05/13/25 15:34 Procalcitonin 0.26 ng/ml (0-0.5) 05/13/25 15:34 Urine Color Yellow 05/13/25 17:24 Urine Appearance Cloudy (Clear) A 05/13/25 17:24 Urine pH 7.0 (4.5-7.5) 05/13/25 17:24 Ur Specific [place] 1.015 (1.000-1.030) 05/13/25 17:24 Urine Protein Trace (Negative) H 05/13/25 17:24 Urine Glucose (UA) Negative (Negative) 05/13/25 17:24 Urine Ketones Trace (Negative) H 05/13/25 17:24 Urine Blood 3+ (Negative) H 05/13/25 17:24 Urine Nitrite Negative (Negative) 05/13/25 17:24 Urine Bilirubin Negative (Negative) 05/13/25 17:24 Urine Urobilinogen Negative (Negative) 05/13/25 17:24 Ur Leukocyte Esterase Trace (Negative) H 05/13/25 17:24 Urine WBC (Auto) 0-5 /hpf (0-5) 05/13/25 17:24 Urine RBC (Auto) >20 /hpf (0-2) H 05/13/25 17:24 U Hyaline Cast (Auto) 11-20 /lpf (0-2) H 05/13/25 17:24 U Epithel Cells (Auto) 0-2 /hpf (0-2) 05/13/25 17:24 Urine Bacteria (Auto) 1+ (None Seen) H 05/13/25 17:24 Urine Comment 05/13/25 17:24 Impressions Chest X-Ray 05/13/25 14:50 Chest radiograph, one view History: Sepsis Comparison: 05/10/2025 Findings: Single AP view of the chest performed. No pneumothorax. Thin irregular densities in the lung, which appear peripheral predominant are not significantly changed from prior exams. Left chest wall port with catheter tip at the upper SVC unchanged. The cardiomediastinal silhouette is unchanged, possibly slightly enlarged. The costophrenic angles are obscured with small pleural effusions not excluded. No visualized bony or soft tissue abnormality. Impression: No significant interval change Electronically signed by Duane Gaitan 05-13-2025 4:24 PM Abdomen/Pelvis CT 05/13/25 16:18 Clinical History: Acute renal injury Technique: Axial computed tomography images were obtained of the abdomen and pelvis without intravenous contrast. Comparison is made to the prior CT dated 04/21/2025 Findings: The liver is overall of normal size, attenuation, and contour with no sign of cirrhosis or significant fatty infiltration. No definite liver mass lesion is seen on this noncontrast study. There are apparent small gallstones. There is no sign of acute cholecystitis. No bile duct dilatation is noted. The spleen is of normal size. No focal splenic lesion is evident. The pancreas appears normal with no sign of acute or chronic pancreatitis and no mass lesion noted. The pancreatic duct is of normal caliber. There is an unchanged 1.2 cm left adrenal nodule, likely a benign adenoma. The right adrenal gland appears normal. No renal or proximal ureteral calculi are seen. There is no hydronephrosis or perinephric stranding. There is a 6 mm fatty lesion in the mid right kidney, likely a benign angiomyolipoma. The aorta is of normal caliber. No abdominal adenopathy is seen. There is a small hiatal hernia. There is no sign of small bowel obstruction. There is diverticulosis without evidence of diverticulitis. No free intraperitoneal fluid or air is identified. There is no sign of appendicitis No distal ureteral or bladder calculi are seen. No obvious bladder mass lesion is evident. The iliac arteries are of normal caliber. No pelvic adenopathy is noted. There is new pneumomediastinum. There are worsened interstitial and groundglass infiltrates in the lung bases bilaterally, consistent with pneumonia. The small pleural effusions seen before have resolved. Lumbar scoliosis and degenerative disc disease is seen. There are unchanged healing subacute fractures of the left pubic rami and the anterior left acetabulum. There is an unchanged sclerotic lesion in the L5 vertebral body, likely a benign bone island. Impression: 1. New pneumomediastinum. Chest CT could be obtained for further evaluation 2. Worsened bilateral pneumonia 3. Resolution of the previously seen pleural effusions 4. Small hiatal hernia 5. Cholelithiasis without evidence of acute cholecystitis 6. Small left adrenal adenoma 7. 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 Diverticulosis without evidence of diverticulitis ACT 112: Positive. There are findings on this exam that require communication between the performing entity and the patient following Patient Test Result Information Act ([place] ACT 112) guidelines. Electronically signed by Emory Romero 05-13-2025 5:[address] 05/13/25 17:36 CT chest without IV contrast, with oral contrast given History: Pneumomediastinum Comparison: April 27, 2025 Technique: Helical CT imaging of the chest performed without IV contrast. Oral contrast given Dose reduction techniques were achieved by using automatic exposure control and/or adjustment of mA and/or kV according to patient size and/or use of iterative reconstruction technique. Findings: Diffuse, coarsened interstitial opacities seen along the peribronchovascular regions with a lower lung predominance. There is mid and lower lung traction bronchiectasis. No focal consolidation. The lung apices are spared. No significant mosaic attenuation. No pleural effusion. No pneumothorax. Heart size is normal. The thoracic aorta is normal in size. The pulmonary artery is normal in size. No significant pericardial effusion. There is mild pneumomediastinum, which is seen to surround a small portion of the lower esophagus, and is mostly in the upper mediastinum. Oral contrast seen in the mid and lower esophagus without leak. The esophagus is otherwise unremarkable. No suspicious lymphadenopathy in the chest. The central airway is clear. Left chest wall port with catheter tip at the upper SVC. Limited visualized upper abdomen. No acute bony abnormalities. Impression: 1. No evidence for esophageal injury. No oral contrast leak from the esophagus. There is mild pneumomediastinum that persists. The origin of the pneumomediastinum may be from the lung, especially given the rapidly progressive severe interstitial lung disease, that is increased from April 27, 2025, and is markedly increased compared to March 08, 2025. Consider nonspecific interstitial pneumonia, or chronic eosinophilic pneumonia. Findings discussed with Dr. Corona by Dr. Gaitan at 6:20 PM, 05/13/2025 Electronically signed by Duane Gaitan 05-13-2025 6:24 PM Code Status & VTE Plan VTE Prophylaxis Plan VTE Prophylaxis will be ordered: Yes PG Care Time/CCT Total # of Minutes Spent Total Time Spent with Patient: Total time spent is greater than 50% in coordination of care (as documented) at patient's floor/unit and/or counseling patient: Coding Level of Care Code 75573 INT INP/OBS CARE MIN Diagnoses Sepsis A41.9 Acute renal failure type: unspecified Sepsis acute organ dysfunction status: with acute organ dysfunction Sepsis type: sepsis due to unspecified organism Severe sepsis acute organ dysfunction type: acute renal failure Acute on chronic hypoxic respiratory failure J96.21 Pneumomediastinum J98.2 GABRIEL (acute kidney injury) N17.9 Paroxysmal atrial fibrillation I48.0 DM type 2 (diabetes mellitus, type 2) E11.9 Hypertension I10 (1) Sepsis Acute renal failure type: unspecified Sepsis acute organ dysfunction status: with acute organ dysfunction Sepsis type: sepsis due to unspecified organism Severe sepsis acute organ dysfunction type: acute renal failure
[2025-05-13] MEDS: NOREPINEPHRINE/D5W 4 MG/250 ML IV ONE (20:51)
[2025-05-13] MEDS ORDERED: ONDANSETRON INJ 2 MG/ML 2 ML VIAL IV PRN (22:08)
[2025-05-13] MEDS ORDERED: GLUCOSE 40% GEL 15 GM TUBE PO PRN (22:08)
[2025-05-13] MEDS ORDERED: GLUCOSE 10 TAB/TUBE PO PRN (22:08)
[2025-05-13] MEDS ORDERED: POLYETHYLENE (MIRALAX) 17 GM PACK PO PRN (22:08)
[2025-05-13] MEDS ORDERED: GLUCAGON FOR INJ 1 MG VIAL SQ PRN (22:08)
[2025-05-13] MEDS: BUDESONIDE 0.25 MG/2 ML VIAL (PULMICORT) NEB SCH (22:12)
[2025-05-13] MEDS: ACETAMINOPHEN 325 MG TAB PO PRN (22:52)
[2025-05-13] MEDS: MELATONIN 3 MG TAB PO PRN (22:53)
[2025-05-13] MEDS: DICLOFENAC SOD 1% GEL 100 GM TUBE EXT SCH (22:57)
[2025-05-13] MEDS: HEPARIN SOD 5,000 UNIT/0.5 ML VIAL SQ SCH (23:02)
[2025-05-13] MEDS: PIPERACILLIN/TAZOBACTAM 4.5 GM/100 ML BAG IV SCH (23:42)
--- NOTE | 2025-05-14 02:18 | XRay Report ---
Exam(s): XR CXR 1 VIEW EXAM: XR Chest, 1 View CLINICAL HISTORY: Reason for exam: pneumomediastinum. TECHNIQUE: Frontal view of the chest. COMPARISON: Prior chest x-ray from May 13, 2025 at 3:45 PM. FINDINGS: There is a left IJ approach Port-A-Cath in the left chest wall. Lungs: Bilateral patchy opacities with interval increase at the right lung base. Pleural space: Unremarkable. No pneumothorax. Heart: Mild cardiomegaly. Mediastinum: Unremarkable. Normal mediastinal contour. Bones/joints: Unremarkable. No acute fracture. IMPRESSION: Increased pulmonary infiltrate at the right lung base. Electronically signed by: Ana Luisa Stock MD 05/14/25 02:17 AM
[2025-05-14] MEDS: DIGOXIN 250 MCG in SYRINGE 9 ML IV STA (02:27)
[2025-05-14] MEDS ORDERED: ALBUT/IPRATROP 3MG/0.5MG NEB 3 ML VIAL NEB PRN (08:31)
[2025-05-14] MEDS: DOCUSATE SODIUM/SENNA 50/8.6MG TAB PO SCH (08:46)
[2025-05-14] MEDS: ASPIRIN 81 MG ECTAB PO SCH (08:48)
[2025-05-14] MEDS: INSULIN ASPART PER UNIT CHARGE SC SCH (09:46)
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
--- NOTE | 2025-05-14 10:08 | XRay Report ---
EXAM: Radiograph of the Chest 1 View INDICATION: Pneumomediastinum TECHNIQUE: Frontal view of the chest. COMPARISON: 05/13/2025 FINDINGS: Lungs and pleural spaces: Stable severe groundglass airspace disease and underlying fibrosis. No pleural effusion or pneumothorax. Heart: Stable large cardiac shadow. Mediastinum: Decreased conspicuity of pneumomediastinum. Bones/joints: No fracture, erosion or dislocation. Soft tissues: No abnormality noted. No radiopaque foreign body noted. Tubes, lines and devices: Left internal jugular port catheter tip terminates in the mid SVC. Upper abdomen: No abnormality noted. IMPRESSION: 1. Decreased conspicuity of pneumomediastinum. 2. Stable extensive lung disease on fibrosis. 3. Lines and tubes as above. ACT 112: N/A Electronically signed by Faiza Putnam 05-14-2025 10:08 AM
[2025-05-14] MEDS: ALBUT/IPRATROP 3MG/0.5MG NEB 3 ML VIAL NEB PRN (10:52)
[2025-05-14] MEDS: AZITHROMYCIN 500 MG/255 ML BAG IV ONE (11:02)
[2025-05-14] MEDS: TRIMETH IV SCH (11:03)
[2025-05-14] MEDS: SULFA IV SCH (11:03)
[2025-05-14] MEDS: DEXTROSE 5% IV SCH (11:03)
[2025-05-14 11:10] LABS: Hematocrit (blood only) 28.9 % (37.0-47.0); Hemoglobin 9.6 g/dl (12.0-16.0); Mean Corpuscular Hemoglobin 29.6 pg (25.0-34.0); Mean Corpuscular Volume 89.2 fL (80.0-100.0); Platelet Count 276 K/uL (130-400); RDW Standard Deviation 57.6 fL (36.4-46.3); Red Blood Count 3.24 M/uL (4.20-5.40); White Blood Count 19.33 K/ul (4.8-10.8)
[2025-05-14 11:14] LABS: Chlamydia pneumoniae PCR Not Detected (NotDetected); Coronavirus 229E PCR Not Detected (NotDetected); Coronavirus CoV-2 (COVID19)PCR Not Detected (NotDetected); Coronavirus HKU1 PCR Not Detected (NotDetected); Coronavirus NL63 PCR Not Detected (NotDetected); Coronavirus OC43PCR Not Detected (NotDetected); Human Metapneumovirus PCR Not Detected (NotDetected); Parainfluenza Virus 1 PCR Not Detected (NotDetected); Parainfluenza Virus 2 PCR Not Detected (NotDetected); Parainfluenza Virus 3 PCR Not Detected (NotDetected); Parainfluenza Virus 4 PCR Not Detected (NotDetected); Respiratory Syncytial VirusPCR Not Detected (NotDetected); Rhinovirus/Enterovirus PCR Not Detected (NotDetected)
[2025-05-14 11:26] LABS: Anion Gap 8.0 (3-11); Blood Urea Nitrogen 58.0 mg/dl (6-23); Calcium 8.4 mg/dl (8.6-10.3); Carbon Dioxide 31.0 mmol/L (21-32); Chloride 91.0 mmol/L (98-107); Creatinine Clr Calc Pharmacy 27.4 ml/min; Glucose 297.0 mg/dl (70-99(Fasting)); Potassium 3.8 mmol/L (3.5-5.1); Sodium 130.0 mmol/L (136-145)
[2025-05-14 11:39] LABS: Alanine Aminotransferase 14.0 U/L (7-52); Albumin Globulin Ratio 1.2 (0.9-2); Alkaline Phosphatase 63.0 U/L (34-104); Anion Gap 9.0 (3-11); Bilirubin,Total 0.8 mg/dl (0.2-1.0); Blood Urea Nitrogen 55.0 mg/dl (6-23); Calcium 8.3 mg/dl (8.6-10.3); Carbon Dioxide 31.0 mmol/L (21-32); Chloride 91.0 mmol/L (98-107); Creatinine Clr Calc Pharmacy 29.4 ml/min; Globulin 2.1 gm/dl (2.5-4.0); Glucose 302.0 mg/dl (70-99(Fasting)); Potassium 3.8 mmol/L (3.5-5.1); Sodium 131.0 mmol/L (136-145); Total Protein 4.7 gm/dl (6.0-8.3)
[2025-05-14 11:54] LABS: Immature Granulocytes # (auto) 0.09 K/uL (0.01-0.20); Immature Granulocytes % (auto) 0.5 %; Smudge Cells Present; Tear Drop Cells 1+
[2025-05-14] MEDS ORDERED: INSULIN HUMAN NPH SC ONE (12:31)
[2025-05-14] MEDS: NovoLIN-N (NPH) PER UNIT CHARGE SQ ONE (13:19)
--- NOTE | 2025-05-14 16:54 | Hospitalist Progress Note ---
Date of Service May 14, 2025 Assessment & Plan (1) Sepsis: (2) Acute on chronic hypoxic respiratory failure: (3) Pneumomediastinum: (4) GABRIEL (acute kidney injury): (5) Paroxysmal atrial fibrillation: (6) DM type 2 (diabetes mellitus, type 2): Plan 80yo woman with stage 1 breast cancer and recent chemotherapy (docetaxel and cyclophosphamide 04/09) who was hospitalized 04/18-05/12 with severe hyponatremia, diverticulitis/UTI, pulmonary hypertension, hypoxia who was quickly readmitted from [facility] with worsening acute on chronic respiratory failure #possible sepsis - POA. Unclear at this time whether she has infection (pneumonia) or an inflammatory problem. Leukocytosis is affected by her underlying lymphoproliferative disorder, though bands were present. -improved -blood cultures pending, see below #acute on chronic hypoxic respiratory failure #worsening pulmonary infiltrates - rapidly progressive ILD type changes with traction bronchiectasis, possible bibasilar pneumonia. Immunocompromised because of recent chemo and steroids #pneumomediastinum - no evidence of esophageal damage on CT scan, probably alveolar source During recent ([id number]) admission she was treated with aggressive diuresis and antibiotics for diverticulitis, UTI (pip-tazo then cefepime, ceftriaxone) but failed to improve. Chemotherapy pulmonary toxicity and opportunistic infections were considered. She was too hypoxic to undergo bronchoscopy safely. She seemed to improve on steroids Appreciate pulmonary consultation and reviewed recs by Dr. Shukla -had ILD on March CT scan but mild at that time and has rapidly progressed - related to toxicity from chemo or infection -continuing pip-tazo. serial procal negative and had broad spectrum IV antibiotics 04/20-at least 04/24 so seems less likely a standard bacterial pneumon ia -azithromycin added for atypical coverage and legionella urine Ag pending -too hypoxic for bronchoscopy agree with empiric treatment for PJP - continue bactrim. on steroids. -aspergillus ag, fungitell, urine histo/blasto antigen pending -continue solumedrol 40 IV q8h. CRP mildly elevated and ESR only 8 -continue supplemental oxygen -not volume overloaded at this time - BNP low and pleural effusions resolved -avoid positive pressure ventilation because of pneumomediastinum - reviewed CXR today and has not worsened #GABRIEL - patient with elevation of BUN=72 and Cr of 1.84, from 0.99 on 05/12/25. sepsis/prerenal -holding diuretics and SHYLA -was given IV fluids on admission -Check urine Na and Cr -Avoid nephrotoxic agents -improved to 1.37 #Hyponatremia - was severe (115) on previous admission 04/20, corrected by discharge, now mild-moderate -stable at 130. Urine Na 92 but not helpful since has been on diuretic. Can recheck in about 48h if persisting -had some fluids but did not go up -appears euvolemic -could have SIADH related to pulmonary process -monitor at this time, asymptomatic #Paroxysmal atrial fibrillation - RVR with rates in the 120's on admission -in NSR today -holding metoprolol, remains borderline hypotensive -is not anticoagulated #Diabetes with steroid induced hyperglycemia -BG high 300s today -added 15u NPH and increased premeal/PRN aspart dosing, discussed with bedside RN #Hypertension -Hold antihypertensives for now #Wound care - sacral decubitus present on admission -Turn and position q 2 hours -WON consult #Stage 1 breast cancer - followed by Dr. Candelaria. Consulted last admission. Completed 3/4 chemo cycles and he said no more chemo. Surgical treatment recommended at this time. #subacute pelvic fracture - WBAT, not causing pain PT/OT when hypoxia improved and can tolerate change SQ heparin to enoxaparin for DVT ppx when renal function a little better. [facility] [place] Admission and Anticipated Discharge Date Admission Date: May 13, 2025 Subjective Mallorie is feeling a little bit better today but still short of breath at rest and with exertion. Not sure if HF NC making a difference She thinks she just never got better from previous hospitalization, was unable to participate in PT because just standing and getting into chair caused severe dyspnea, though bed mobility was good She has had some episodes of regurgitation of food and esophageal dysphagia, more recently, but no overt aspiration events Physical Exam Physical Exam: Last 24h vitals reviewed GEN: no acute distress, sitting in bed HEENT: pupils equal, sclerae anicteric, moist MM RESP: labored and tachypneic, bilateral crackles in bases and mid lung damon without wheezing CV: mildly tachycardic reg no mrg ABD: soft/nt/nd +BT : no barnett SKIN: warm and dry, no generalized rashes EXT: wwp no edema NEURO: AOx person, place, and situation. Face symmetric, speech normal, moves 4 ext spontaneously and equally Results & Data Results & Data Vital Signs (Past 12 Hours) Vital Signs Temp Pulse Pulse Pulse Resp BP Pulse Ox 05/14/25 15:27 36.8 C 70 18 113/75 93 05/14/25 15:24 98 H 22 98 05/14/25 14:16 84 05/14/25 11:09 36.4 C L 77 17 93/51 L 96 05/14/25 10:54 22 93 05/14/25 08:03 36.3 C L 82 18 99/58 L 96 05/14/25 08:01 05/14/25 07:50 85 22 95 05/14/25 07:02 67 O2 Del Method O2 Flow Rate 05/14/25 15:27 Nasal Cannula 10 05/14/25 15:24 Nasal Cannula 8 05/14/25 14:16 05/14/25 11:09 High Flow Nasal Cannula 10 05/14/25 10:54 Nasal Cannula 10 05/14/25 08:03 High Flow Nasal Cannula 12 05/14/25 08:01 High Flow Nasal Cannula 12 05/14/25 07:50 Nasal Cannula 12 05/14/25 07:02 Laboratory Results Procal negative in ED and today resp Biofire negative nasal MRSA negative CRP 1.29 Tn 36 - flat LDH 245 - upper limit of normal BNP very low Cr improving 1.84--> 1.28, 1.37 Na 130, unchanged PG Care Time/CCT Total # of Minutes Spent Total Time Spent with Patient: Total time spent is greater than 50% in coordination of care (as documented) at patient's floor/unit and/or counseling patient: Coding Level of Care Code 35966 SUB INP/OBS CARE 3/50MIN Diagnoses Sepsis A41.9 Acute renal failure type: unspecified Sepsis acute organ dysfunction status: with acute organ dysfunction Sepsis type: sepsis due to unspecified organism Severe sepsis acute organ dysfunction type: acute renal failure Acute on chronic hypoxic respiratory failure J96.21 Pneumomediastinum J98.2 GABRIEL (acute kidney injury) N17.9 Paroxysmal atrial fibrillation I48.0 DM type 2 (diabetes mellitus, type 2) E11.9 (1) Sepsis Acute renal failure type: unspecified Sepsis acute organ dysfunction status: with acute organ dysfunction Sepsis type: sepsis due to unspecified organism Severe sepsis acute organ dysfunction type: acute renal failure
[2025-05-14] MEDS ORDERED: CHLORASEPTIC (PHENOL) 1.4% SOLN 180 ML BTL MT PRN (17:04)
[2025-05-14] MEDS: SULFA/TRIMETH 80/16MG/ML 304 MG in DEXTROSE 5% 500 ML IV SCH (21:03)
[2025-05-15] MEDS: MELATONIN 3 MG TAB PO ONE (01:58)
[2025-05-15 05:25] LABS: Hematocrit (blood only) 29.0 % (37.0-47.0); Hemoglobin 9.4 g/dl (12.0-16.0); Mean Corpuscular Hemoglobin 28.4 pg (25.0-34.0); Mean Corpuscular Volume 87.6 fL (80.0-100.0); Platelet Count 243 K/uL (130-400); RDW Standard Deviation 57.3 fL (36.4-46.3); Red Blood Count 3.31 M/uL (4.20-5.40); White Blood Count 22.99 K/ul (4.8-10.8)
[2025-05-15 05:40] LABS: Anion Gap 7.0 (3-11); Blood Urea Nitrogen 39.0 mg/dl (6-23); Calcium 8.4 mg/dl (8.6-10.3); Carbon Dioxide 33.0 mmol/L (21-32); Chloride 91.0 mmol/L (98-107); Creatinine Clr Calc Pharmacy 35.8 ml/min; Glucose 255.0 mg/dl (70-99(Fasting)); Magnesium 1.8 mg/dl (1.7-2.4); Potassium 3.5 mmol/L (3.5-5.1); Sodium 131.0 mmol/L (136-145)
[2025-05-15] MEDS: LANTUS PER UNIT CHARGE SQ SCH (09:34)
[2025-05-15] MEDS: FUROSEMIDE INJ 20 MG/2 ML VIAL IV ONE (10:45)
[2025-05-15] MEDS: LORazepam 0.5 MG TAB SL STA (10:45)
[2025-05-15] MEDS: POTASSIUM CHLORIDE CRTAB 20 MEQ TABCR PO STA (10:45)
[2025-05-15] MEDS: MAGNESIUM SULFATE / D5W 1 GM/100 ML BAG IV SCH (10:46)
[2025-05-15] MEDS: AZITHROMYCIN 250 MG in DEXTROSE 5% 250 ML IV SCH (11:19)
[2025-05-15] MEDS: DIGOXIN 250 MCG in SYRINGE 9 ML IV SCH (11:35)
--- NOTE | 2025-05-15 12:48 | Pulmonology Progress Note ---
Date of Service May 15, 2025 Assessment & Plan (1) Acute on chronic hypoxic respiratory failure: Plan: Patient with acute hypoxemic respiratory failure secondary to pulmonary process. Continue wean oxygen as able. Maintain saturations above 95% given the pat ient's cor pulmonale and pneumomediastinum. Patient is currently listed as a DNR/DNI. (2) Interstitial lung disease: Plan: Patient appeared to have mild ILD based on a CT scan from March of this year with mild subpleural reticulations predominantly at the bases. This appears to have progressed rapidly possibly related to toxicity from the chemotherapy and/or infectious etiology. Patient not a candidate for bronchoscopy or lung biopsy given her severe illness at present. RVP negative. Urine Legionella antigen pending. MRSA screen negative. BNP unremarkable. ESR unremarkable. CRP trending down and minimally elevated. Continue methylprednisone. Will treat empirically with IV Zosyn due to concerns of aspiration pneumonia and immunocompromised state. Continue azithromycin for atypical coverage for organism such as Legionella especially given hyponatremia. Continue bactrim for possible PJP. Beta glucan and aspergilus serum ag pending. Prior beta glucan from recent hospitalization negative. Continue with IV Solu-Medrol 40 mg, 3 times daily. (3) Pneumomediastinum: Plan: Repeat chest x-ray completed today without evidence of worsening pneumomediastinum or pneumothorax. Significant bilateral hazy interstitial opacities noted with shininess of the heart border. Avoid positive pressure given her pneumomediastinum. Pneumomediastinum does raise the suspicion of potential PJP. (4) Cor pulmonale: Plan: BNP unremarkable on admission and patient was suspected to be hypovolemic from sepsis. Monitor fluid status closely. (5) Sepsis: Plan: Patient presented with a lactic acidosis which has improved, but not completely resolved on the latest lactate. Patient resuscitated with IV fluids by the primary team. Continue to monitor hemodynamic status and continue with broad- spectrum antibiotics as outlined above. Acute renal failure type: unspecified Sepsis acute organ dysfunction status: with acute organ dysfunction Sepsis type: sepsis due to unspecified organism Severe sepsis acute organ dysfunction type: acute renal failure (6) GABRIEL (acute kidney injury): Plan: Suspect secondary to hypotension and possibly chemotherapy induced nephritis. Cr improving. (7) Dyspnea: Plan: Will give a dose of 2 mg IV morphine now to help with sensation of dyspnea. (8) Immunosuppressed due to chemotherapy: Plan Plan of care discussed with the patient, patient's daughter and patient's . Discussed with bedside nursing as well. Admission and Anticipated Discharge Date Admission Date: May 13, 2025 Subjective Significant anxiety and dyspnea. No pain or nausea. Review of Systems Review of Systems: All systems reviewed & are unremarkable except as noted in HPI & below Physical Exam Physical Exam: Constitutional: Patient appears ill and in mild distress. High flow nasal cannula in place. Eyes: Pupils are equal round and reactive to light. Conjunctivae are normal. Anicteric sclera. Ears nose, mouth and throat: Mallampati class 2. Normal posterior oropharynx. Uvula is midline. Neck: Trachea is midline. Visual inspection is normal. Respiratory: Mild bilateral lower lobe crackles noted on inspiration. Moderate tachypnea. Cardiovascular: Regular rate and rhythm. No murmurs. No edema. Gastrointestinal: Normal bowel sounds, soft, nontender and nondistended. No hepatosplenomegaly noted. Musculoskeletal: No cyanosis. Patient is able to move all extremities Skin: No rashes, warm dry and intact. Neurologic: No obvious focal neurological deficits seen. Psychiatric: Alert and oriented x3 with an anxious mood at times. Results & Data Results & Data Vital Signs (Past 12 Hours) Vital Signs Temp Pulse Pulse Resp BP Pulse Ox O2 Del Method 05/15/25 12:19 129 H 34 H 101/68 95 Nasal Cannula 05/15/25 11:35 152 H 05/15/25 11:02 36.2 C L 18 101/67 94 High Flow Nasal Cannula 05/15/25 10:38 109 H 20 92 Nasal Cannula 05/15/25 09:43 157 H 32 H 90/52 L 96 Nasal Cannula 05/15/25 07: 36.4 C L 88 23 106/62 92 Nasal Cannula 05/15/25 07:17 76 18 99 Nasal Cannula 05/15/25 02:50 35 C L 99 H 28 H 97/62 L 93 High Flow Nasal Cannula O2 Flow Rate 05/15/25 12:19 5 05/15/25 11:35 05/15/25 11:02 6 05/15/25 10:38 6 05/15/25 09:43 6 05/15/25 07:25 6 05/15/25 07:17 7 05/15/25 02:50 7.5 PG Care Time/CCT Total # of Minutes Spent Total Time Spent with Patient: Total time spent is greater than 50% in coordination of care (as documented) at patient's floor/unit and/or counseling patient: Coding Level of Care Code 57373 SUB INP/OBS CARE 3/50MIN Diagnoses Acute on chronic hypoxic respiratory failure J96.21 Interstitial lung disease J84.9 Pneumomediastinum J98.2 Cor pulmonale I27.81 Sepsis A41.9 Acute renal failure type: unspecified Sepsis acute organ dysfunction status: with acute organ dysfunction Sepsis type: sepsis due to unspecified organism Severe sepsis acute organ dysfunction type: acute renal failure GABRIEL (acute kidney injury) N17.9 Dyspnea R06.00 Immunosuppressed due to chemotherapy D84.821; Z79.69
[2025-05-15] MEDS: MoRPHine SULFATE 2 MG/ML CARP IV STA (12:56)
[2025-05-15] MEDS: INSULIN ASPART PER UNIT CHARGE SC STA (12:57)
[2025-05-15] MEDS ORDERED: STAT IV Infusion **Titration per Protocol STA (15:04)
--- NOTE | 2025-05-15 15:18 | Hospitalist Progress Note ---
Date of Service May 15, 2025 Assessment & Plan (1) Sepsis: (2) Acute on chronic hypoxic respiratory failure: (3) Pneumomediastinum: (4) GABRIEL (acute kidney injury): (5) Paroxysmal atrial fibrillation: (6) DM type 2 (diabetes mellitus, type 2): Plan 80yo woman with stage 1 breast cancer and recent chemotherapy (docetaxel and cyclophosphamide 04/09) who was hospitalized 04/18-05/12 with severe hyponatremia, diverticulitis/UTI, pulmonary hypertension, hypoxia who was quickly readmitted from [facility] with worsening acute on chronic respiratory failure #possible sepsis - POA. Unclear at this time whether she has infection (pneumonia) or an inflammatory problem. Leukocytosis is affected by her underlying lymphoproliferative disorder, though bands were present. 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 Immunocompromised because of recent chemo and steroids #pneumomediastinum - no evidence of esophageal damage on CT scan, probably alveolar source During recent ([id number]) admission she was treated with aggressive diuresis and antibiotics for diverticulitis, UTI (pip-tazo then cefepime, ceftriaxone) but failed to improve. Chemotherapy pulmonary toxicity and opportunistic infections were considered. She was too hypoxic to undergo bronchoscopy safely. She seemed to improve on steroids reviewed pulmonary recs and discussed briefly with Dr. Shukla -had ILD on March CT scan but mild at that time and has rapidly progressed - related to toxicity from chemo or infection -continuing pip-tazo. serial procal negative and had broad spectrum IV antibiotics 04/20-at least 04/24 so seems less likely a standard bacterial pneumonia. RVP was negative -azithromycin added for atypical coverage and legionella urine Ag pending -too hypoxic for bronchoscopy agree with empiric treatment for PJP - continue bactrim. on steroids. -aspergillus ag, fungitell, urine histo/blasto antigen pending -continue solumedrol 40 IV q8h. CRP mildly elevated and ESR only 8 -continue supplemental oxygen, changed to high flow but max 20L to avoid too much positive pressure with the pneumomediastinum -try lasix 20 mg IV x 1 -CXR today - personally reviewed film: pulmonary infiltrates unchanged and pneumomediastinum improved #GABRIEL - patient with elevation of BUN=72 and Cr of 1.84, from 0.99 on 05/12/25. sepsis/prerenal -holding scheduled diuretics and SHYLA -was given IV fluids on admission -improved to 1.04 #Hyponatremia - was severe (115) on previous admission 04/20, corrected by discharge, now mild-moderate -appears euvolemic -could have SIADH related to pulmonary process -remains 131 -AM BMP #Paroxysmal atrial fibrillation - RVR with rates in the 120's on admission -flipped into afib with RVR rates 130-150 with some mild hypotension today -digoxin IV 250 mcg q6h x 3 -when BP improved resume metoprolol or po dilt -is not anticoagulated #Diabetes with steroid induced hyperglycemia - severe, uncontrolled -discussed with pharmacist, bedside RN -gave 17u glargine this AM and 15u aspart lunch time but increased to 380 -will be on high dose steroids as well as IV bactrim (contains dextrose) for awhile -start insulin drip which will help determine her needs #Hypertension -Hold antihypertensives for now, currently low normal to borderline hypotensive #Wound care - sacral decubitus present on admission -Turn and position q 2 hours -WON consult #Stage 1 breast cancer - followed by Dr. Candelaria. Consulted last admission. Completed 3/4 chemo cycles and he said no more chemo. Surgical treatment recommended at this time. #subacute pelvic fracture - WBAT, not causing pain PT/OT when hypoxia improved and can tolerate DVT ppx - change SQ heparin to enoxaparin. [facility] Admission and Anticipated Discharge Date Admission Date: May 13, 2025 Subjective feels very breathless and uncomfortable this morning no chest pain mood is down family not here yet Physical Exam 2 Physical Exam: Last 24h vitals reviewed GEN: awake in bed HEENT: pupils equal, sclerae anicteric, moist MM RESP: increased WOB, no wheezing, bilateral crackles unchanged CV: reg no mrg, neck veins not visible ABD: soft/nt/nd +BT : no barnett SKIN: warm and dry, no generalized rashes EXT: wwp no edema NEURO: AOx person, place, and situation. Face symmetric, speech normal, moves 4 ext spontaneously and equally Results & Data Results & Data Vital Signs (Past 12 Hours) Vital Signs Temp Pulse Pulse Resp BP Pulse Ox O2 Del Method 05/15/25 14:07 78 18 98 Nasal Cannula 05/15/25 13:22 Nasal Cannula 05/15/25 12:19 129 H 34 H 101/68 95 Nasal Cannula 05/15/25 11:35 152 H 05/15/25 11:02 36.2 C L 18 101/67 94 High Flow Nasal Cannula 05/15/25 10:38 109 H 20 92 Nasal Cannula 05/15/25 09:43 157 H 32 H 90/52 L 96 Nasal Cannula 05/15/25 07:25 36.4 C L 88 23 106/62 92 Nasal Cannula 05/15/25 07:17 76 18 99 Nasal Cannula O2 Flow Rate 05/15/25 14:07 4 05/15/25 13:22 4 05/15/25 12:19 5 05/15/25 11:35 05/15/25 11:02 6 05/15/25 10:38 6 05/15/25 09:43 6 05/15/25 07:25 6 05/15/25 07:17 7 Laboratory Results 05/15/25 04:51 05/15/25 04:51 PG Care Time/CCT Total # of Minutes Spent Total Time Spent with Patient: Total time spent is greater than 50% in coordination of care (as documented) at patient's floor/unit and/or counseling patient: Coding Level of Care Code 59646 SUB INP/OBS CARE 3/50MIN Diagnoses Sepsis A41.9 Acute renal failure type: unspecified Sepsis acute organ dysfunction status: with acute organ dysfunction Sepsis type: sepsis due to unspecified organism Severe sepsis acute organ dysfunction type: acute renal failure Acute on chronic hypoxic respiratory failure J96.21 Pneumomediastinum J98.2 GABRIEL (acute kidney injury) N17.9 Paroxysmal atrial fibrillation I48.0 DM type 2 (diabetes mellitus, type 2) E11.9 (1) Sepsis Acute renal failure type: unspecified Sepsis acute organ dysfunction status: with acute organ dysfunction Sepsis type: sepsis due to unspecified organism S evere sepsis acute organ dysfunction type: acute renal failure
[2025-05-15] MEDS: INSULIN HUMAN REGULAR PER UNIT 2 UNITS in SYRINGE 1.98 ML IV ONE (16:07)
[2025-05-15] MEDS: INSULIN REGULAR 250 UNITS in SODIUM CHLORIDE 0.9% 247.5 ML IV SCH (16:07)
[2025-05-15] MEDS: INSULIN PROTOCOL GOAL RANGE ONE (16:15)
[2025-05-15] MEDS: SEVERE STRESS LEVEL ONE (16:15)
[2025-05-15] MEDS: INSULIN ASPART PER UNIT CHARGE SC SCH (17:46)
[2025-05-15] MEDS: LORazepam 0.5 MG TAB SL PRN (18:17)
[2025-05-15] MEDS: MoRPHine SULFATE 2 MG/ML CARP IV PRN (19:04)
[2025-05-15] MEDS: POTASSIUM CHLORIDE / WTR 10 MEQ/100 ML PLCT IV SCH (19:59)
[2025-05-15] MEDS: SULFA/TRIMETH 80/16MG/ML 320 MG in DEXTROSE 5% 500 ML IV SCH (20:01)
[2025-05-15] MEDS: METOPROLOL TARTRATE 25 MG TAB PO SCH (21:25)
[2025-05-16 06:17] LABS: Hematocrit (blood only) 28.0 % (37.0-47.0); Hemoglobin 9.0 g/dl (12.0-16.0); Mean Corpuscular Hemoglobin 28.3 pg (25.0-34.0); Mean Corpuscular Volume 88.1 fL (80.0-100.0); Platelet Count 198 K/uL (130-400); RDW Standard Deviation 56.7 fL (36.4-46.3); Red Blood Count 3.18 M/uL (4.20-5.40); White Blood Count 21.38 K/ul (4.8-10.8)
[2025-05-16 06:42] LABS: Alanine Aminotransferase 14.0 U/L (7-52); Albumin Globulin Ratio 1.4 (0.9-2); Alkaline Phosphatase 58.0 U/L (34-104); Anion Gap 6.0 (3-11); Bilirubin,Total 0.4 mg/dl (0.2-1.0); Blood Urea Nitrogen 26.0 mg/dl (6-23); Calcium 8.3 mg/dl (8.6-10.3); Carbon Dioxide 34.0 mmol/L (21-32); Chloride 89.0 mmol/L (98-107); Creatinine Clr Calc Pharmacy 39.5 ml/min; Globulin 2.0 gm/dl (2.5-4.0); Glucose 152.0 mg/dl (70-99(Fasting)); Magnesium 1.8 mg/dl (1.7-2.4); Potassium 4.4 mmol/L (3.5-5.1); Sodium 129.0 mmol/L (136-145); Total Protein 4.7 gm/dl (6.0-8.3)
[2025-05-16] MEDS ORDERED: PHARMACY GLYCEMIC MGMT CONSULT PRN (08:29)
--- NOTE | 2025-05-16 09:18 | XRay Report ---
XR chest 1V portable CLINICAL HISTORY: follow up pneumomediastinum COMPARISON STUDY: 05/14/2025 FINDINGS: Stable left chest port. Stable cardiomegaly without pulmonary vascular congestion. Stable d iffuse interstitial and patchy pulmonary opacities. No significant pneumomediastinum seen by plain fi lm. No pneumothorax seen. IMPRESSION: No significant pneumomediastinum seen. Otherwise as described. ACT 112: Negative or not required by law. Electronically signed by: Yash De La Torre M.D. 05/16/2025 9:16 AM
[2025-05-16] MEDS: INSULIN ASPART PER UNIT CHARGE SC SCH (09:35)
[2025-05-16] MEDS: LANTUS PER UNIT CHARGE SQ ONE (09:36)
--- NOTE | 2025-05-16 09:44 | Electrocardiogram Report ---
Test Reason : Blood Pressure : */* mmHG Vent. Rate : 68 BPM Atrial Rate : 68 BPM P-R Int : 126 ms QRS Dur : 98 ms QT Int : 442 ms P-R-T Axes : 51 -25 30 degrees QTcB Int : 469 ms Normal sinus rhythm Moderate voltage criteria for LVH, may be normal variant ( R in aVL , Juvenal product ) Nonspecific T wave abnormality Abnormal ECG When compared with ECG of 29-Apr-2025 22:03, Sinus rhythm has replaced Atrial fibrillation Vent. rate has decreased by [address] no longer depressed in Lateral leads Confirmed by Andreina Newton ([id number]) on 05/16/2025 9:43:50 AM Referred By: Confirmed By: Andreina Newton
--- NOTE | 2025-05-16 09:48 | Electrocardiogram Report ---
Test Reason : Blood Pressure : */* mmHG Vent. Rate : 116 BPM Atrial Rate : * BPM P-R Int : * ms QRS Dur : 96 ms QT Int : 344 ms P-R-T Axes : * -29 159 degrees QTcB Int : 478 ms Atrial fibrillation with rapid ventricular response Minimal voltage criteria for LVH, may be normal variant ( Juvenal product ) Abnormal ECG When compared with ECG of 13-May-2025 14:56, (unconfirmed) Atrial fibrillation has replaced Sinus rhythm Vent. rate has increased by 48 bpm T wave inversion no longer evident in Inferior leads Confirmed by Andreina Newton (Margot) on 05/16/2025 9:47:40 AM Referred By: REFERRED SELF Confirmed By: Andreina Newton
--- NOTE | 2025-05-16 10:02 | Pharmacy Report ---
Pharmacy Glycemic Short Note 2 - Date of Service May 16, 2025 - Glycemic Short BSG Results (Last 24 hours): 05/15/25 05/15/25 05/15/25 11:57 11:59 14:11 Glucose POC Glucose 346 H* 336 H* 380 H* 05/15/25 05/15/25 05/15/25 16:57 18:11 18:59 Glucose POC Glucose 174 H 202 H 141 H 05/15/25 05/15/25 05/15/25 20:20 21:00 22:37 Glucose POC Glucose 142 H 177 H 222 H 05/15/25 05/16/25 05/16/25 23:26 00:26 01:14 Glucose POC Glucose 210 H 187 H 173 H 05/16/25 05/16/25 05/16/25 02:22 03:26 04:27 Glucose POC Glucose 165 H 236 H 227 H 05/16/25 05/16/25 05/16/25 05:19 05:21 06:15 Glucose 152 H POC Glucose 164 H 122 H 05/16/25 05/16/25 05/16/25 07:22 08:10 08:53 Glucose POC Glucose 104 H 101 H 170 H OUTPATIENT ANTIDIABETIC REGIMEN: * metformin 1 gm bid, januvia 100 mg daily ASSESSMENT: * 80yo woman with stage 1 breast cancer and recent chemotherapy, readmitted from [facility] [place] with worsening acute on chronic respiratory failure. Continues on high dose steroids. Pharmacy consulted for glycemic management. Insulin drip started yesterday as BSGs>300 despite increase in novolog dosing. Insulin drip running this AM only at 0.4 units/hr. Patient received 17 units of basal insulin yesterday, will increase basal ~30% to 22 units x 1 dose this AM and d/c insulin infusion. With ongoing steroids, will provider tighter CR this AM. PLAN FOR INPATIENT GLYCEMIC CONTROL: * Hold outpatient oral diabetes medications * Basal insulin * Lantus 22 units x 1 now (d/c insulin drip) * Bolus insulin * NovoLog per scale ACHS or Q6hrs while NPO * Goal Range: Low 110 mg/dL - High 160 mg/dL * Correction Factor: 25 mg/dL/unit * Nutritional / Prandial insulin per carb ratio of 1 unit per 7 grams CHO consumed
--- NOTE | 2025-05-16 10:54 | Electrocardiogram Report ---
Test Reason : Blood Pressure : */* mmHG Vent. Rate : 153 BPM Atrial Rate : * BPM P-R Int : * ms QRS Dur : 96 ms QT Int : 314 ms P-R-T Axes : * -26 145 degrees QTcB Int : 501 ms Atrial fibrillation with rapid ventricular response Moderate voltage criteria for LVH, may be normal variant ( R in aVL ) Marked ST abnormality, possible lateral subendocardial injury Abnormal ECG When compared with ECG of 13-May-2025 18:35, (unconfirmed) ST elevation now present in Inferior leads ST more depressed Lateral leads T wave inversion less evident in Lateral leads Confirmed by Eulogio Phillips ([id number]) on 05/16/2025 10:54:32 AM Referred By: REFERRED SELF Confirmed By: Eulogio Phillips
[2025-05-16] MEDS: PIPERACILLIN/TAZOBACTAM 4.5 GM/100 ML BAG IV SCH (10:56)
--- NOTE | 2025-05-16 12:00 | Pulmonology Progress Note ---
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 CXR showed bilateral pulmonary infiltrates. CTA chest showed no pulmonary embolism, diffuse bilateral pulmonary infiltrates. Pulmonary consulted for evaluation and management. Acute hypoxic respiratory failure related to possible chemo induced lung toxicity v. infectious v. pulmonary edema; Interstitial lung disease; Cor pulmanle -Patient appeared to have mild ILD based on a CT scan from March of this year with mild subpleural reticulations predominantly at the bases. This appears to have progressed rapidly possibly related to toxicity from the chemotherapy and/or infectious etiology. Patient not a candidate for bronchoscopy or lung biopsy given her severe illness at present and desire to be DNR/DNI. -RVP negative. Urine Legionella antigen pending. MRSA screen negative. BNP 70. ESR unremarkable. CRP trending down and minimally elevated. Continue methylprednisone 40mg q8h. -Continue empiric antibiotics with IV Zosyn due to concerns of aspiration pneumonia and immunocompromised state. Continue azithromycin for atypical coverage for organism such as Legionella especially given hyponatremia. Continue Bactrim for possible PJP. Repeat Beta glucan and aspergillus serum ag pending. Prior admission beta glucan negative. -Continue supplemental oxygen titrated to maintain SpO2 > 92% Sepsis -Continue antibiotics -Blood cultures from 05/13 negative Pneumomediastinum -Stable -Avoid positive pressure ventilation -Can be seen in PJP Acute kidney injury -Creatinine on admission 1.85 down this am to 0.95. -Will continue to monitor qam with diuresis. Dyspnea -Will give a dose of 2 mg IV morphine now to help with sensation of dyspnea. -Family states they want to keep up with morphine for her comfort. If she continues to need may need to consider palliative care consult. Thank you for allowing us to participate in this patient's care. Please reach out with questions or concerns. Admission and Anticipated Discharge Date Admission Date: May 13, 2025 Supervising Physician Co-Signing Physician Notes Patient seen and examined. EMR reviewed. Discussed with outgoing mold stamper and repairer as well as with nurse practitioner. Agree with assessment plan as noted. Images were independently reviewed. The previously noted pleural effusions on her CT scan have resolved on the current CT scan however the groundglass opacities now have a much more fibrotic appearance to them. Differential would remain unchanged as noted previously to include fluid overload, potential chemotherapeutic toxicity, progression of malignancy, or other idiopathic progressive fibrosing interstitial lung diseases. Would continue diuretics and antibiotics in the hope of treating any reversible etiology. Suspicion for PJP is relatively low given the negative Fungitell and lack of significant increase in LDH. Bronchoscopy could be considered however given the patient's frail state and desire to avoid invasive procedures, will hold off for now. Continue steroids in the hope that there is some component of steroid responsiveness however given the patient's temporal pattern of decline, I am not sure how much of this may be potentially reversible. Patient and family are requesting morphine to alleviate symptoms and this may indicate a willingness to consider palliative care evaluation which might be appropriate at this point in time. Patient is currently not a candidate for any additional chemotherapeutic's at this point in time. Will continue to follow with you Subjective "My breathing right now feels good and i actually got sleep last night." "I went to rehab and I just couldn't do it; my breathing was so bad." Patient SpO2 93% on 8L NC this am. Patient given 20mg of Lasix and -735 ml in last 24hrs. Will re-dose 20mg this am and follow creatinine in am. Patient continues on steroids and broad spectrum antibiotics to include zosyn, azithromycin, and Bactrim Patient given 2mg of morphine and stated that she was able to sleep well overnight. Review of Systems 2 Review of Systems: All systems reviewed & are unremarkable except as noted in HPI & below Physical Exam 2 Constitutional: + ill appearing, + thin and + frail appe aring Neck: trachea midline, no thyromegaly Respiratory: + tachypneic; no respiratory distress an d no labored breathing Auscultation: + crackles; no wheezes Cardiovascular: RRR, no murmur, no edema Gastrointestinal (Abdomen): normal bowel sounds, soft, nontender, no hepatosplenomegaly Musculoskeletal: Extremities: extremities normal to inspection Skin: no rashes, warm and dry Neurologic: Nonfocal exam Lymphatic: no cervical lymphadenopathy Results & Data Results & Data Vital Signs (Past 12 Hours) Vital Signs Temp Pulse Pulse Resp BP Pulse Ox O2 Del Method 05/16/25 11:48 36.4 C L 84 19 101/62 97 Nasal Cannula 05/16/25 11:10 87 20 96 Nasal Cannula 05/16/25 10:50 76 05/16/25 09:42 65 22 83/55 L 92 Nasal Cannula 05/16/25 07:55 36.5 C 74 19 99/44 L 92 Nasal Cannula 05/16/25 07:49 Nasal Cannula 05/16/25 07:04 87 22 95 Nasal Cannula 05/16/25 03:28 36.4 C L 65 16 103/63 95 Nasal Cannula 05/16/25 00:06 36.5 C 83 18 111/62 95 Nasal Cannula O2 Flow Rate 05/16/25 11:48 8 05/16/25 11:10 8 05/16/25 10:50 05/16/25 09:42 7 05/16/25 07:55 7 05/16/25 07:49 4 05/16/25 07:04 4 05/16/25 03:28 6 05/16/25 00:06 Laboratory Results 05/16/25 05:19 05/16/25 05:19 05/16/25 05/16/25 05/16/25 Range/Units 08:53 08:10 07:22 WBC (4.8-10.8) K/ul RBC (4.20-5.40) M/uL Hgb (12.0-16.0) g/dl Hct (37.0-47.0) % MCV (80.0-100.0) fL MCH (25.0-34.0) pg MCHC (32.0-36.0) g/dL RDW Std Deviation (36.4-46.3) fL RDW Coeff of Jessica (11.5-14.5) % Plt Count (130-400) K/uL MPV (9.4-12.4) fL Sodium (136-145) mmol/L Potassium (3.5-5.1) mmol/L Chloride (98-107) mmol/L Carbon Dioxide (21-32) mmol/L Anion Gap (3-11) BUN (6-23) mg/dl Creatinine (0.6-1.2) mg/dl Est Cr Clr Drug Dosing ml/min eGFR BUN/Creatinine Ratio (10-20) Glucose (70-99(Fasting)) mg/dl POC Glucose 170 H 101 H 104 H (70-99) mg/dl Calcium (8.6-10.3) mg/dl Magnesium (1.7-2.4) mg/dl Total Bilirubin (0.2-1.0) mg/dl AST (13-39) U/L ALT (7-52) U/L Alkaline Phosphatase (34-104) U/L Total Protein (6.0-8.3) gm/dl Albumin (3.4-5.0) gm/dl Globulin (2.5-4.0) gm/dl Albumin/Globulin Ratio (0.9-2) Miscellaneous Test 05/16/25 05/16/25 05/16/25 Range/Units 06:15 05:21 05:19 WBC 21.38 H (4.8-10.8) K/ul RBC 3.18 L (4.20-5.40) M/uL Hgb 9.0 L (12.0-16.0) g/dl Hct 28.0 L (37.0-47.0) % MCV 88.1 (80.0-100.0) fL MCH 28.3 (25.0-34.0) pg MCHC 32.1 (32.0-36.0) g/dL RDW Std Deviation 56.7 H (36.4-46.3) fL RDW Coeff of Jessica 17.5 H (11.5-14.5) % Plt Count 198 (130-400) K/uL MPV 10.5 (9.4-12.4) fL Sodium 129 L (136-145) mmol/L Potassium 4.4 D (3.5-5.1) mmol/L Chloride 89 L (98-107) mmol/L Carbon Dioxide 34 H (21-32) mmol/L Anion Gap 6 (3-11) BUN 26 H (6-23) mg/dl Creatinine 0.94 (0.6-1.2) mg/dl Est Cr Clr Drug Dosing 39.5 ml/min eGFR 61.34 BUN/Creatinine Ratio 27.7 H (10-20) Glucose 152 H (70-99(Fasting)) mg/dl POC Glucose 122 H 164 H (70-99) mg/dl Calcium 8.3 L (8.6-10.3) mg/dl Magnesium 1.8 (1.7-2.4) mg/dl Total Bilirubin 0.4 (0.2-1.0) mg/dl AST 15 (13-39) U/L ALT 14 (7-52) U/L Alkaline Phosphatase 58 (34-104) U/L Total Protein 4.7 L (6.0-8.3) gm/dl Albumin 2.7 L (3.4-5.0) gm/dl Globulin 2.0 L (2.5-4.0) gm/dl Albumin/Globulin Ratio 1.4 (0.9-2) Miscellaneous Test 05/16/25 05/16/25 05/16/25 Range/Units 05:12 05:12 04:27 WBC (4.8-10.8) K/ul RBC (4.20-5.40) M/uL Hgb (12.0-16.0) g/dl Hct (37.0-47.0) % MCV (80.0-100.0) fL MCH (25.0-34.0) pg MCHC (32.0-36.0) g/dL RDW Std Deviation (36.4-46.3) fL RDW Coeff of Jessica (11.5-14.5) % Plt Count (130-400) K/uL MPV (9.4-12.4) fL Sodium (136-145) mmol/L Potassium (3.5-5.1) mmol/L Chloride (98-107) mmol/L Carbon Dioxide (21-32) mmol/L Anion Gap (3-11) BUN (6-23) mg/dl Creatinine (0.6-1.2) mg/dl Est Cr Clr Drug Dosing ml/min eGFR BUN/Creatinine Ratio (10-20) Glucose (70-99(Fasting)) mg/dl POC Glucose 227 H (70-99) mg/dl Calcium (8.6-10.3) mg/dl Magnesium (1.7-2.4) mg/dl Total Bilirubin (0.2-1.0) mg/dl AST (13-39) U/L ALT (7-52) U/L Alkaline Phosphatase (34-104) U/L Total Protein (6.0-8.3) gm/dl Albumin (3.4-5.0) gm/dl Globulin (2.5-4.0) gm/dl Albumin/Globulin Ratio (0.9-2) Miscellaneous Test Pending Cancelled 05/16/25 05/16/25 05/16/25 Range/Units 03:26 02:22 01:14 WBC (4.8-10.8) K/ul RBC (4.20-5.40) M/uL Hgb (12.0-16.0) g/dl Hct (37.0-47.0) % MCV (80.0-100.0) fL MCH (25.0-34.0) pg MCHC (32.0-36.0) g/dL RDW Std Deviation (36.4-46.3) fL RDW Coeff of Jessica (11.5-14.5) % Plt Count (130-400) K/uL MPV (9.4-12.4) fL Sodium (136-145) mmol/L Potassium (3.5-5.1) mmol/L Chloride (98-107) mmol/L Carbon Dioxide (21-32) mmol/L Anion Gap (3-11) BUN (6-23) mg/dl Creatinine (0.6-1.2) mg/dl Est Cr Clr Drug Dosing ml/min eGFR BUN/Creatinine Ratio (10-20) Glucose (70-99(Fasting)) mg/dl POC Glucose 236 H 165 H 173 H (70-99) mg/dl Calcium (8.6-10.3) mg/dl Magnesium (1.7-2.4) mg/dl Total Bilirubin (0.2-1.0) mg/dl AST (13-39) U/L ALT (7-52) U/L Alkaline Phosphatase (34-104) U/L Total Protein (6.0-8.3) gm/dl Albumin (3.4-5.0) gm/dl Globulin (2.5-4.0) gm/dl Albumin/Globulin Ratio (0.9-2) Miscellaneous Test 05/16/25 05/15/25 05/15/25 Range/Units 00:26 23:26 22:37 WBC (4.8-10.8) K/ul RBC (4.20-5.40) M/uL Hgb (12.0-16.0) g/dl Hct (37.0-47.0) % MCV (80.0-100.0) fL MCH (25.0-34.0) pg MCHC (32.0-36.0) g/dL RDW Std Deviation (36.4-46.3) fL RDW Coeff of Jessica (11.5-14.5) % Plt Count (130-400) K/uL MPV (9.4-12.4) fL Sodium (136-145) mmol/L Potassium (3.5-5.1) mmol/L Chloride (98-107) mmol/L Carbon Dioxide (21-32) mmol/L Anion Gap (3-11) BUN (6-23) mg/dl Creatinine (0.6-1.2) mg/dl Est Cr Clr Drug Dosing ml/min eGFR BUN/Creatinine Ratio (10-20) Glucose (70-99(Fasting)) mg/dl POC Glucose 187 H 210 H 222 H (70-99) mg/dl Calcium (8.6-10.3) mg/dl Magnesium (1.7-2.4) mg/dl Total Bilirubin (0.2-1.0) mg/dl AST (13-39) U/L ALT (7-52) U/L Alkaline Phosphatase (34-104) U/L Total Protein (6.0-8.3) gm/dl Albumin (3.4-5.0) gm/dl Globulin (2.5-4.0) gm/dl Albumin/Globulin Ratio (0.9-2) Miscellaneous Test 05/15/25 05/15/25 05/15/25 Range/Units 21:00 20:20 18:59 WBC (4.8-10.8) K/ul RBC (4.20-5.40) M/uL Hgb (12.0-16.0) g/dl Hct (37.0-47.0) % MCV (80.0-100.0) fL MCH (25.0-34.0) pg MCHC (32.0-36.0) g/dL RDW Std Deviation (36.4-46.3) fL RDW Coeff of Jessica (11.5-14.5) % Plt Count (130-400) K/uL MPV (9.4-12.4) fL Sodium (136-145) mmol/L Potassium (3.5-5.1) mmol/L Chloride (98-107) mmol/L Carbon Dioxide (21-32) mmol/L Anion Gap (3-11) BUN (6-23) mg/dl Creatinine (0.6-1.2) mg/dl Est Cr Clr Drug Dosing ml/min eGFR BUN/Creatinine Ratio (10-20) Glucose (70-99(Fasting)) mg/dl POC Glucose 177 H 142 H 141 H (70-99) mg/dl Calcium (8.6-10.3) mg/dl Magnesium (1.7-2.4) mg/dl Total Bilirubin (0.2-1.0) mg/dl AST (13-39) U/L ALT (7-52) U/L Alkaline Phosphatase (34-104) U/L Total Protein (6.0-8.3) gm/dl Albumin (3.4-5.0) gm/dl Globulin (2.5-4.0) gm/dl Albumin/Globulin Ratio (0.9-2) Miscellaneous Test 05/15/25 05/15/25 05/15/25 Range/Units 18:11 16:57 14:11 WBC (4.8-10.8) K/ul RBC (4.20-5.40) M/uL Hgb (12.0-16.0) g/dl Hct (37.0-47.0) % MCV (80.0-100.0) fL MCH (25.0-34.0) pg MCHC (32.0-36.0) g/dL RDW Std Deviation (36.4-46.3) fL RDW Coeff of Jessica (11.5-14.5) % Plt Count (130-400) K/uL MPV (9.4-12.4) fL Sodium (136-145) mmol/L Potassium (3.5-5.1) mmol/L Chloride (98-107) mmol/L Carbon Dioxide (21-32) mmol/L Anion Gap (3-11) BUN (6-23) mg/dl Creatinine (0.6-1.2) mg/dl Est Cr Clr Drug Dosing ml/min eGFR BUN/Creatinine Ratio (10-20) Glucose (70-99(Fasting)) mg/dl POC Glucose 202 H 174 H 380 H* (70-99) mg/dl Calcium (8.6-10.3) mg/dl Magnesium (1.7-2.4) mg/dl Total Bilirubin (0.2-1.0) mg/dl AST (13-39) U/L ALT (7-52) U/L Alkaline Phosphatase (34-104) U/L Total Protein (6.0-8.3) gm/dl Albumin (3.4-5.0) gm/dl Globulin (2.5-4.0) gm/dl Albumin/Globulin Ratio (0.9-2) Miscellaneous Test 05/15/25 05/15/25 Range/Units 11:59 11:57 WBC (4.8-10.8) K/ul RBC (4.20-5.40) M/uL Hgb (12.0-16.0) g/dl Hct (37.0-47.0) % MCV (80.0-100.0) fL MCH (25.0-34.0) pg MCHC (32.0-36.0) g/dL RDW Std Deviation (36.4-46.3) fL RDW Coeff of Jessica (11.5-14.5) % Plt Count (130-400) K/uL MPV (9.4-12.4) fL Sodium (136-145) mmol/L Potassium (3.5-5.1) mmol/L Chloride (98-107) mmol/L Carbon Dioxide (21-32) mmol/L Anion Gap (3-11) BUN (6-23) mg/dl Creatinine (0.6-1.2) mg/dl Est Cr Clr Drug Dosing ml/min eGFR BUN/Creatinine Ratio (10-20) Glucose (70-99(Fasting)) mg/dl POC Glucose 336 H* 346 H* (70-99) mg/dl Calcium (8.6-10.3) mg/dl Magnesium (1.7-2.4) mg/dl Total Bilirubin (0.2-1.0) mg/dl AST (13-39) U/L ALT (7-52) U/L Alkaline Phosphatase (34-104) U/L Total Protein (6.0-8.3) gm/dl Albumin (3.4-5.0) gm/dl Globulin (2.5-4.0) gm/dl Albumin/Globulin Ratio (0.9-2) Miscellaneous Test Diagnostic Findings Chest X-Ray 05/16/25 08:49 XR chest 1V portable CLINICAL HISTORY: follow up pneumomediastinum COMPARISON STUDY: 05/14/2025 FINDINGS: Stable left chest port. Stable cardiomegaly without pulmonary vascular congestion. Stable diffuse interstitial and patchy pulmonary opacities. No significant pneumomediastinum seen by plain film. No pneumothorax seen. IMPRESSION: No significant pneumomediastinum seen. Otherwise as described. ACT 112: Negative or not required by law. Electronically signed by: Yash De La Torre M.D. 05/16/2025 9:16 AM PG Care Time/CCT Total # of Minutes Spent Total Time Spent with Patient: Total time spent is greater than 50% in coordination of care (as documented) at patient's floor/unit and/or counseling patient: Coding Level of Care Code 91660 SUB INP/OBS CARE 2/35MIN Diagnoses Acute on chronic hypoxic respiratory failure J96.21 Interstitial lung disease J84.9 Pneumomediastinum J98.2 Cor pulmonale I27.81 Sepsis A41.9 Acute renal failure type: unspecified Sepsis acute organ dysfunction status: with acute organ dysfunction Sepsis type: sepsis due to unspecified organism Severe sepsis acute organ dysfunction type: acute renal failure GABRIEL (acute kidney injury) N17.9 Dyspnea R06.00 Immunosuppressed due to chemotherapy D84.821; Z79.69
[2025-05-16] MEDS: FUROSEMIDE INJ 20 MG/2 ML VIAL IV SCH (13:04)
--- NOTE | 2025-05-16 14:38 | Infectious Disease Consult ---
Date of Consultation May 16, 2025 Assessment & Plan (1) Immunosuppressed due to chemotherapy: (2) Acute on chronic hypoxic respiratory failure: (3) Interstitial lung disease: (4) Pneumonia: Plan ID Problem List: # Diffuse pulmonary infiltrates, possible aspiration pneumonitis and aspiration pneumonia # Acute hypoxemic respiratory failure # Breast cancer on chemotherapy Impression: Mallorie Sparrow is an 80-year-old woman with history of breast cancer (triple- negative, stage I, s/p 3/4 cycles of chemotherapy, last chemo treatment reported to be 04/07/2025), HTN, DM, recent admission to [facility] 04/21 - 05/12/2025 (severe hyponatremia, acute diverticulitis, UTI), who presents with shortness of breath and hypoxemia, with CT chest showing mild pneumomediastinum and progressive severe interstitial lung disease. ID is consulted for evaluation of possible pna. The patient was recently admitted to [facility] from 04/2105/12/2025 after presenting with generalized weakness and confusion. She was admitted for severe hypona tremia (Na 115), encephalopathy, and also had sepsis which was attributed to acute diverticulitis and UTI. She also had pulmonary edema which was attributed to her chemo (docetaxel and cyclophosphamide). She was placed on a steroid taper and discharged to rehab with supplemental O2 and Lasix. While at [facility] rehab, she has been having dizziness, sweats, shortness of breath, and orthostasis. On 05/13, she was having cranberry juice with breakfast and coughed twice then vomited the juice back up. She was reported to be hypoxemic to SpO2 in the 70%s at [facility], thus 911 was called. In the ED, afebrile, HR 110-120s (afib), BPs 74-102 / 38-66, placed on 5L nc. Labs showed WBC 31 (notably, WBC of 24.71 on discharge) Hgb 11.2 plt 340 Cr 1.84. Lactate 2.8. CRP 1.29. LDH 245. 05/13 CT A/P showed new pneumomediastinum, worsened b/l pna, resolved pleural effusions; no acute abd processes (did show small hiatal hernia, cholelithiasis, adrenal adenoma, small R renal angiomyolipoma, diverticulosis w/o diverticulitis). 05/13 CT chest shows rapidly progressive severe interstitial lung disease; mild pneumomediastinum without e/o esophageal injury thus source may be from the lung. She was started on pip-tazo and IV methylpred. She was also started on IV Bactrim for possible PJP pna. On 05/16, the patient is afebrile, SpO2 98% on 7L nc. RVP negative. Urine Legionella antigen neg. MRSA screen negative. Last chemo treatment reported to be 04/07/2025. CRP improved to 0.75 on 05/15. Discussion Pt presents with shortness of breath and hypoxemia, found on CT chest to have significant progression of interstitial infiltrates. Consider possible aspiration event as patient describes coughing and vomiting after juice on 05/13, which may have caused aspiration pneumonitis (pt was drinking cranberry juice which is very acidic) as well as a possible aspiration pna. The patient is on chemotherapy for breast cancer but is not neutropenic, thus she is relatively immunocompromised but at lower risk for mold/fungal/PJP than patients with hematologic malignancies. Will nevertheless send fungal biomarkers. Prior admission with negative BDG and thus feel that PJP would also be less likely to present acutely/rapidly. Agree with continuation of pip-tazo. MRSA nares negative. Given the patients tenuous respiratory status, and recent receipt of steroids, can continue IV Bactrim for now while awaiting BDG and PJP sputum, but overall lower suspicion. Also consider the possibility of a non-infectious etiology, e.g., organizing pneumonia. Note that the patient appeared to have mild ILD based on a CT scan from March of this year with mild subpleural reticulations predominantly at the bases. This has progressed significantly on her current CT scan, possibly from aspiration/infection. The patient is not currently felt to be a candidate for bronchoscopy or lung biopsy. Recommendations: - Continue pip-tazo - Can continue IV Bactrim for now - s/p 3-day course of azithromycin - Send sputum Cx if able - Send sputum PJP PCR if able - F/u BDG, galactomannan Ag, Histo UrAg, Crypto serum Ag - Appreciate pulmonary following. If clinical worsening, would consider bronchoscopy. If will be undergoing bronchoscopy, would obtain bronch/BAL studies including cultures (bacterial, fungal, AFB, Nocardia cultures), BAL galactomannan, PJP PCR, MTB PCR with rifampin susceptibilities, CMV, Legionella ID will continue to follow. Valerie Marcello, MD, MHS Infectious Diseases [facility] ID Connect direct line: [phone] Consultation Information This patient recommendation is based on a telemedicine consult request which was completed asynchronously through chart review and information provided by the primary physician. The patient was not seen or examined today. The evaluation is consultative in nature and all patient care and treatment decisions can either be accepted or rejected by the patient's primary hospital-based treating physician using their own independent medical judgment for their patient. Sample Card Maker contact information: Please call [facility] Connect Call Center . (Phone Number For Physician Use Only) Time Spent Reviewing Chart: 31+ minutes History of Present Illness Reason for Consultation: pneumonia Attending Physician: Gloria Rubi MD History of Present Illness PLEASE NOTE: E-consult was performed for this visit given limited telepresenter availability. Mallorie Sparrow is an 80-year-old woman with history of breast cancer (triple- negative, stage I, s/p 3/4 cycles of chemotherapy, last chemo treatment reported to be 04/07/2025), HTN, DM, recent admission to [facility] 04/21 - 05/12/2025 (severe hyponatremia, acute diverticulitis, UTI), who presents with shortness of breath and hypoxemia, with CT chest showing mild pneumomediastinum and progressive severe interstitial lung disease. ID is consulted for evaluation of possible pna. The patient was recently admitted to [facility] from 04/2105/12/2025 after presenting with generalized weakness and confusion. She was admitted for severe hyponatremia (Na 115), encephalopathy, and also had sepsis which was attributed to acute diverticulitis and UTI. She also had pulmonary edema which was attributed to her chemo (docetaxel and cyclophosphamide). She was placed on a steroid taper and discharged to rehab with supplemental O2 and Lasix. While at [facility] rehab, she has been having dizziness, sweats, shortness of breath, and orthostasis. On 05/13, she was having cranberry juice with breakfast and coughed twice then vomited the juice back up. She was reported to be hypoxemic to SpO2 in the 70%s at [facility], thus 911 was called. In the ED, afebrile, HR 110-120s (afib), BPs 74-102 / 38-66, placed on 5L nc. Labs showed WBC 31 (notably, WBC of 24.71 on discharge) Hgb 11.2 plt 340 Cr 1.84. Lactate 2.8. CRP 1.29. LDH 245. 05/13 CT A/P showed new pneumomediastinum, worsened b/l pna, resolved pleural effusions; no acute abd processes (did show small hiatal hernia, cholelithiasis, adrenal adenoma, small R renal angiomyolipoma, diverticulosis w/o diverticulitis). 05/13 CT chest shows rapidly progressive severe interstitial lung disease; mild pneumomediastinum without e/o esophageal injury thus source may be from the lung. She was started on pip-tazo and IV met hylpred. She was also started on IV Bactrim for possible PJP pna. On 05/16, the patient is afebrile, SpO2 98% on 7L nc. RVP negative. Urine Legionella antigen neg. MRSA screen negative. Last chemo treatment reported to be 04/07/2025. CRP improved to 0.75 on 05/15. Allergies Allergy/AdvReac Type Severity Reaction Status Date / Time alendronate sodium Allergy Severe LEGS SWELL Verified 05/13/25 20:43 iodine Allergy Verified 05/13/25 20:43 oxycodone AdvReac Intermediate GI SYMPTOMS Verified 05/13/25 20:43 Home Medications Medication Instructions Recorded Confirmed Type aspirin 81 mg tablet,delayed 81 mg PO DAILY 06/14/21 05/13/25 History release atorvastatin 20 mg tablet 20 mg PO DAILY 06/14/21 05/13/25 History cholecalciferol (vitamin D3) 25 25 mcg PO DAILY 06/14/21 05/13/25 History mcg (1,000 unit) capsule lisinopril 40 mg tablet 40 mg PO DAILY 06/14/21 05/13/25 History turmeric 100 mg-connor 150 1 cap PO DAILY 06/14/21 05/13/25 History mg-olive 50 mg-oreg 150 mg-capryl capsule amoxicillin 500 mg tablet 2,000 mg PO .PRN/UD PRN Prophylaxis 11/21/21 05/13/25 History zinc 50 mg tablet 50 mg PO DAILY 11/21/21 05/13/25 History metformin 500 mg tablet,extended 1,000 mg PO BID 04/20/25 05/13/25 History release 24 hr tramadol 50 mg tablet 50 mg PO UD 04/20/25 05/13/25 History amlodipine 5 mg tablet 5 mg PO DAILY 04/21/25 05/13/25 History lidocaine-prilocaine 2.5 %-2.5 % See Rx Instructions .Route .COMPLEX 04/21/25 05/13/25 History topical cream metoprolol tartrate 50 mg tablet See Rx Instructions .Route .COMPLEX 04/21/25 05/13/25 History ondansetron 8 mg disintegrating 8 mg translingual Q8 PRN Nausea 04/21/25 05/13/25 History tablet And Vomiting prochlorperazine maleate 10 mg 10 mg PO Q6 PRN N/V 04/21/25 05/13/25 History tablet sitagliptin phosphate 100 mg 100 mg PO DAILY 04/21/25 05/13/25 History tablet (Januvia) diclofenac sodium 1 % topical gel 2 g EXT TID #50 grams 05/12/25 05/13/25 Rx (Voltaren Arthritis Pain) furosemide 20 mg tablet 20 mg PO QAM 30 days #30 tabs 05/12/25 05/13/25 Rx hydroxyzine HCl 25 mg tablet 25 mg PO Q8H PRN anxiety 30 days 05/12/25 05/13/25 Rx #20 tabs melatonin 3 mg tablet 3 mg PO HS PRN sleep #30 tabs 05/12/25 05/13/25 Rx metolazone 2.5 mg tablet 2.5 mg PO QAM #30 tabs 05/12/25 05/13/25 Rx pantoprazole 40 mg tablet,delayed 40 mg PO QAM #30 tabs 05/12/25 05/13/25 Rx release prednisone 20 mg tablet 20 mg PO DAILY #1 tab 05/12/25 05/13/25 Rx Patient History Medical History Phalanx, distal fracture of finger Recurrent urinary tract infection 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) Keratosis, seborrheic Hypertension Chronic diarrhea Borderline hyperlipidemia Benign essential microscopic hematuria Surgical History 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, 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/12/13 History of cataract surgery Bilateral Family History Mother Breast cancer Myocardial infarction Hypertension Grandmother (Maternal) Diabetes Colon cancer Father Myocardial infarction Hypertension Social History Smoking Status: Unknown if ever smoked Second Hand Exposure: No; Do You Dip or Chew Tobacco: No; Hx Alcohol Use: No Hx Substance Use: No Preferred Language: Dominican Communication Ability: Effective Hearing Ability: Normal Svp Digital [employer] Required: No Beliefs That Will Affect Care: None marital status: Current Living Situation: Spouse current occupational status: retired Other Information That Helps Us Care for You: No Feels Safe at Home: Yes Safety Concerns: Feels Safe At This Time Diet: regular Assistive Devices: None Results & Data Vital Signs (Past 12 Hours) Vital Signs Temp Pulse Pulse Resp BP Pulse Ox O2 Del Method 05/16/25 11:48 36.4 C L 84 19 101/62 97 Nasal Cannula 05/16/25 11:10 87 20 96 Nasal Cannula 05/16/25 10:50 76 05/16/25 09:42 65 22 83/55 L 92 Nasal Cannula 05/16/25 07:55 36.5 C 74 19 99/44 L 92 Nasal Cannula 05/16/25 07:49 Nasal Cannula 05/16/25 07:04 87 22 95 Nasal Cannula 05/16/25 03:28 36.4 C L 65 16 103/63 95 Nasal Cannula O2 Flow Rate 05/16/25 11:48 8 05/16/25 11:10 8 05/16/25 10:50 05/16/25 09:42 7 05/16/25 07:55 7 05/16/25 07:49 4 05/16/25 07:04 4 05/16/25 03:28 6 Laboratory Results Diagnostics: 05/16 CXR FINDINGS: Stable left chest port. Stable cardiomegaly without pulmonary vascular congestion. Stable diffuse interstitial and patchy pulmonary opacities. No significant pneumomediastinum seen by plain film. No pneumothorax seen. IMPRESSION: No significant pneumomediastinum seen. Otherwise as described. 05/13 CT chest 1. No evidence for esophageal injury. No oral contrast leak from the esophagus. There is mild pneumomediastinum that persists. The origin of the pneumomediastinum may be from the lung, especially given the rapidly progressive severe interstitial lung disease, that is increased from April 27, 2025, and is markedly increased compared to March 08, 2025. 05/13 CT A/P 1. New pneumomediastinum. Chest CT could be obtained for further evaluation 2. Worsened bilateral pneumonia 3. Resolution of the previously seen pleural effusions 4. Small hiatal hernia 5. Cholelithiasis without evidence of acute cholecystitis 6. Small left adrenal adenoma 7. 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 Diverticulosis without evidence of diverticulitis Micro Data: 05/16 Histoplasma/Blasto urine Ag: PEND 05/14 [id number]: PEND 05/14 aspergillus serum Ag: PEND 05/14 RVP: neg 05/14 Legionella UrAg: neg 05/13 BCx x2: NGTD 05/13 MRSA nares: neg prior 04/21/25 BCx x2: NGTD 04/21 UCx: Klebsiella oxytoca Antibiotic Summary: pip-tazo (05/13 present) IV Bactrim (05/13 present) azithromycin (05/14 05/16)
--- NOTE | 2025-05-16 15:43 | Hospitalist Progress Note ---
Date of Service May 16, 2025 Assessment & Plan (1) Sepsis: (2) Acute on chronic hypoxic respiratory failure: (3) Pneumomediastinum: (4) GABRIEL (acute kidney injury): (5) Paroxysmal atrial fibrillation: (6) DM type 2 (diabetes mellitus, type 2): Plan 80yo woman with stage 1 breast cancer and recent chemotherapy (docetaxel and cyclophosphamide 04/09) who was hospitalized 04/18-05/12 with severe hyponatremia, diverticulitis/UTI, pulmonary hypertension, hypoxia who was quickly readmitted from [facility] with worsening acute on chronic respiratory failure #possible sepsis - POA. Unclear at this time whether she has infection (pneumonia) or an inflammatory problem. Leukocytosis is affected by her underlying lymphoproliferative disorder, though bands were present. 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 Immunocompromised because of recent chemo and steroids #pneumomediastinum - no evidence of esophageal damage on CT scan, probably alveolar source During recent ([id number]) admission she was treated with aggressive diuresis and antibiotics for diverticulitis, UTI (pip-tazo then cefepime, ceftriaxone) but failed to improve. Chemotherapy pulmonary toxicity and opportunistic infections were considered. She was too hypoxic to undergo bronchoscopy safely. She seemed to improve on steroids and diuresis though she says she didn't really get better reviewed pulmonary recs 05/16 consulted ID 05/16 -had ILD on March CT scan but mild at that time and has rapidly progressed - related to toxicity from chemo or infection -continuing pip-tazo. serial procal negative and had broad spectrum IV antibiotics 04/20-at least 04/24 so seems less likely a standard bacterial pneumonia. RVP was negative -azithromycin added for atypical coverage and legionella urine Ag pending -sputum Cx and PJP ordered but no sputum to date -too hypoxic for bronchoscopy agree with empiric treatment for PJP - continue bactrim. on steroids. -aspergillus ag, fungitell, urine histo/blasto antigen pending, crag pending -continue solumedrol 40 IV q8h. CRP mildly elevated and ESR only 8 -continue supplemental oxygen, per pulm can use high flow but max 20L to avoid too much positive pressure with the pneumomediastinum -fairly euvolemic, lasix 20 mg IV x 1 on 05/15, 05/16 -CXR today - personally reviewed film: pneumomediastinum not visible, bilateral extensive pulmonary infiltrates same to a little improved? #GABRIEL - admission Cr of 1.84, from 0.99 on 05/12/25. sepsis/prerenal -holding scheduled diuretics and SHYLA -was given IV fluids on admission -resolved and Cr 0.9 stable despite gentle diuresis #Hyponatremia - was severe (115) on previous admission 04/20, corrected by discharge, now mild-moderate -appears euvolemic -could have SIADH related to pulmonary process -stable at 129, monitor BMP #Paroxysmal atrial fibrillation - RVR with rates in the 120's on admission -flipped into afib with RVR rates 130-150 with some mild hypotension 05/15 -digoxin IV 250 mcg q6h x 3 on 05/15. I have not ordered ongoing dosing at this time - discuss with pharmacist if continuing, because of drug interactions and renal function -tried metoprolol tartrate 12.5 mg last night but too hypotensive this AM -amiodarone not a good choice with her severe lung disease -is not anticoagulated but its warranted if she improves and doesn't have any need for procedure #Diabetes with steroid induced hyperglycemia - severe, uncontrolled -will be on high dose steroids as well as IV bactrim (contains dextrose) for awhile -insulin drip 05/15-05/16 -consulted pharmacy for glycemic management - SQ insulins ordered to start today #Hypertension -Hold antihypertensives for now, currently low BP -usually on amlodipine and lisinopril, however, if able to start would benefit from something for rate control #Wound care - sacral decubitus present on admission -Turn and position q 2 hours -WON consult #Stage 1 breast cancer - followed by Dr. Candelaria. Consulted last admission. Completed 3/4 chemo cycles and he said no more chemo. Surgical treatment recommended at this time. #subacute pelvic fracture - WBAT, not causing pain PT/OT when hypoxia improved and can tolerate DVT ppx - enoxaparin. SCDs Admission and Anticipated Discharge Date Admission Date: May 13, 2025 Subjective Feels better this AM got some morphine overnight which helped dyspnea a lot. Feels less dyspneic this AM. Not producing any sputum. Physical Exam 2 Physical Exam: Last 24h vitals reviewed GEN: awake in bed sitting fairly upright HEENT: pupils equal, sclerae anicteric, moist MM RESP: continues to have labored breathing with retractions, no wheezing, bilateral crackles 1/3-1/2 way up - less prominent? CV: reg no mrg, neck veins not visible ABD: soft/nt/nd +BT : no barnett SKIN: warm and dry, no generalized rashes EXT: wwp no edema NEURO: AOx person, place, and situation. Face symmetric, speech normal, moves 4 ext spontaneously and equally Results & Data Results & Data Vital Signs (Past 12 Hours) Vital Signs Temp Pulse Pulse Resp BP Pulse Ox O2 Del Method 05/16/25 11:48 36.4 C L 84 19 101/62 97 Nasal Cannula 05/16/25 11:10 87 20 96 Nasal Cannula 05/16/25 10:50 76 05/16/25 09:42 65 22 83/55 L 92 Nasal Cannula 05/16/25 07:55 36.5 C 74 19 99/44 L 92 Nasal Cannula 05/16/25 07:49 Nasal Cannula 05/16/25 07:04 87 22 95 Nasal Cannula O2 Flow Rate 05/16/25 11:48 8 05/16/25 11:10 8 05/16/25 10:50 05/16/25 09:42 7 05/16/25 07:55 7 05/16/25 07:49 4 05/16/25 07:04 4 Laboratory Results 05/16/25 05:19 05/16/25 05:19 PG Care Time/CCT Total # of Minutes Spent Total Time Spent with Patient: Total time spent is greater than 50% in coordination of care (as documented) at patient's floor/unit and/or counseling patient: Coding Level of Care Code 45661 SUB INP/OBS CARE 3/50MIN Diagnoses Sepsis A41.9 Acute renal failure type: unspecified Sepsis acute organ dysfunction status: with acute organ dysfunction Sepsis type: sepsis due to unspecified organism Severe sepsis acute organ dysfunction type: acute renal failure Acute on chronic hypoxic respiratory failure J96.21 Pneumomediastinum J98.2 GABRIEL (acute kidney injury) N17.9 Paroxysmal atrial fibrillation I48.0 DM type 2 (diabetes mellitus, type 2) E11.9 (1) Sepsis Acute renal failure type: unspecified Sepsis acute organ dysfunction status: with acute organ dysfunction Sepsis type: sepsis due to unspecified organism S evere sepsis acute organ dysfunction type: acute renal failure
[2025-05-17] MEDS: INSULIN ASPART PER UNIT CHARGE SC SCH (00:07)
[2025-05-17 06:15] LABS: Hematocrit (blood only) 28.3 % (37.0-47.0); Hemoglobin 9.4 g/dl (12.0-16.0); Mean Corpuscular Hemoglobin 28.7 pg (25.0-34.0); Mean Corpuscular Volume 86.5 fL (80.0-100.0); Platelet Count 169 K/uL (130-400); RDW Standard Deviation 54.8 fL (36.4-46.3); Red Blood Count 3.27 M/uL (4.20-5.40); White Blood Count 18.08 K/ul (4.8-10.8)
[2025-05-17 06:36] LABS: Anion Gap 8.0 (3-11); Blood Urea Nitrogen 24.0 mg/dl (6-23); Calcium 8.3 mg/dl (8.6-10.3); Carbon Dioxide 31.0 mmol/L (21-32); Chloride 87.0 mmol/L (98-107); Creatinine Clr Calc Pharmacy 38.3 ml/min; Glucose 187.0 mg/dl (70-99(Fasting)); Magnesium 1.6 mg/dl (1.7-2.4); Potassium 4.6 mmol/L (3.5-5.1); Sodium 126.0 mmol/L (136-145)
--- NOTE | 2025-05-17 08:23 | Pulmonology Progress Note ---
Date of Service May 17, 2025 Assessment & Plan (1) Acute on chronic hypoxic respiratory failure: (2) Interstitial lung disease: (3) Pneumomediastinum: (4) Cor pulmonale: (5) Sepsis: Acute renal failure type: unspecified Sepsis acute organ dysfunction status: with acute organ dysfunction Sepsis type: sepsis due to unspecified organism Severe sepsis acute organ dysfunction type: acute renal failure (6) GABRIEL (acute kidney injury): (7) Dyspnea: (8) Immunosuppressed due to chemotherapy: Plan Impression: Mallorie Sparrow is a 79-year-old female history of triple negative breast CA recently admitted to the ICU for severe hyponatremia and hypoxia and discharged to rehab on 05/12/25 who is presenting back on 05/13/2025 with shortness of breath and hypoxia. CXR showed bilateral pulmonary infiltrates. CTA chest showed no pulmonary embolism, diffuse bilateral pulmonary infiltrates and new pneumomediastinum. Pulmonary consulted for evaluation and management. Recommendations: 1. Hypoxemic respiratory failure with pulmonary infiltrates: Continue to treat all reversible causes with diuresis and steroids. She is empirically on antibiotics. Low suspicion for PJP and the patient does not want to pursue bronchoscopy. Continue incentive spirometry and flutter valve and wean oxygen as tolerated. Currently receiving azithromycin, Zosyn, Bactrim, as well as Lasix and Solu-Medrol. 2. Breast cancer status post therapy with docetaxel and cyclophosphamide. Advised patient that given her current clinical status, she is not a candidate for additional chemotherapeutic interventions at this point in time. Given her frail state, would be reasonable to pursue palliative care again. 3. CODE STATUS confirmed. DNR/DNI. 4. Pneumomediastinum: Unclear etiology. Potentially related to the aspiration event and coughing with Elsy effect. Appears stable. Continue to follow clinically at this point in time. Prognosis guarded. Will continue to follow with you Admission and Anticipated Discharge Date Admission Date: May 13, 2025 Subjective Patient seen and examined. EMR reviewed. The patient is anxious and tearful. She feels she is not making progress. Despite this she feels her breathing is improving when questioned. She is not coughing or expectorating phlegm. No chest pain or palpitations. Her oxygen requirement remained stable. Review of Systems 2 Review of Systems: All systems reviewed & are unremarkable except as noted in Subjective Physical Exam 2 Constitutional: + ill appearing, + thin and + frail appe aring Neck: trachea midline, no thyromegaly Respiratory: + tachypneic; no respiratory distress an d no labored breathing Auscultation: + crackles; no wheezes Cardiovascular: RRR, no murmur, no edema Gastrointestinal (Abdomen): normal bowel sounds, soft, nontender, no hepatosplenomegaly Musculoskeletal: Extremities: extremities normal to inspection Skin: no rashes, warm and dry Neurologic: Nonfocal exam Lymphatic: no cervical lymphadenopathy Results & Data Results & Data Vital Signs (Past 12 Hours) Vital Signs Temp Pulse Pulse Resp BP Pulse Ox O2 Del Method 05/17/25 07:35 36.8 C 81 18 125/56 L 95 Nasal Cannula 05/17/25 07:27 73 20 91 Nasal Cannula 05/17/25 05:45 77 05/17/25 03:38 36.4 C L 59 L 18 102/61 100 High Flow Nasal Cannula 05/16/25 23:13 36.4 C L 72 18 90/47 L 98 Nasal Cannula 05/16/25 22:00 O2 Del Method O2 Flow Rate O2 Flow Rate 05/17/25 07:35 7 05/17/25 07:27 8 05/17/25 05:45 05/17/25 03:38 7 05/16/25 23:13 7 05/16/25 22:00 Nasal Cannula 7 Laboratory Results 05/17/25 05:53 05/17/25 05:53 PG Care Time/CCT Total # of Minutes Spent Total Time Spent with Patient: Total time spent is greater than 50% in coordination of care (as documented) at patient's floor/unit and/or counseling patient: Coding Level of Care Code 29488 SUB INP/OBS CARE 2/35MIN Diagnoses Acute on chronic hypoxic respiratory failure J96.21 Interstitial lung disease J84.9 Pneumomediastinum J98.2 Cor pulmonale I27.81 Sepsis A41.9 Acute renal failure type: unspecified Sepsis acute organ dysfunction status: with acute organ dysfunction Sepsis type: sepsis due to unspecified organism Severe sepsis acute organ dysfunction type: acute renal failure GABRIEL (acute kidney injury) N17.9 Dyspnea R06.00 Immunosuppressed due to chemotherapy D84.821; Z79.69
[2025-05-17] MEDS: LANTUS PER UNIT CHARGE SQ SCH (09:15)
[2025-05-17] MEDS: METOPROLOL TARTRATE 1 MG/ML VIAL IV STA (12:07)
--- NOTE | 2025-05-17 13:49 | Infectious Disease Progress Nt ---
Date of Service May 17, 2025 Assessment & Plan (1) Immunosuppressed due to chemotherapy: (2) Acute on chronic hypoxic respiratory failure: (3) Interstitial lung disease: (4) Pneumonia: Plan ID Problem List: # Diffuse pulmonary infiltrates, possible aspiration pneumonitis and aspiration pneumonia # Acute hypoxemic respiratory failure # Breast cancer on chemotherapy Impression: Mallorie Sparrow is an 80-year-old woman with history of breast cancer (triple- negative, stage I, s/p 3/4 cycles of chemotherapy, last chemo treatment reported to be 04/07/2025), HTN, DM, recent admission to [facility] 04/21 - 05/12/2025 (severe hyponatremia, acute diverticulitis, UTI), who presents with shortness of breath and hypoxemia, with CT chest showing mild pneumomediastinum and progressive severe interstitial lung disease. ID is consulted for evaluation of possible pna. The patient was recently admitted to [facility] from 04/2105/12/2025 after presenting with generalized weakness and confusion. She was admitted for severe hypon atremia (Na 115), encephalopathy, and also had sepsis which was attributed to acute diverticulitis and UTI. She also had pulmonary edema which was attributed to her chemo (docetaxel and cyclophosphamide). She was placed on a steroid taper and discharged to rehab with supplemental O2 and Lasix. While at [facility] rehab, she has been having dizziness, sweats, shortness of breath, and orthostasis. On 05/13, she was having cranberry juice with breakfast and coughed twice then vomited the juice back up. She was reported to be hypoxemic to SpO2 in the 70%s at [facility], thus 911 was called. In the ED, afebrile, HR 110-120s (afib), BPs 74-102 / 38-66, placed on 5L nc. Labs showed WBC 31 (notably, WBC of 24.71 on discharge) Hgb 11.2 plt 340 Cr 1.84. Lactate 2.8. CRP 1.29. LDH 245. 05/13 CT A/P showed new pneumomediastinum, worsened b/l pna, resolved pleural effusions; no acute abd processes (did show small hiatal hernia, cholelithiasis, adrenal adenoma, small R renal angiomyolipoma, diverticulosis w/o diverticulitis). 05/13 CT chest shows rapidly progressive severe interstitial lung disease; mild pneumomediastinum without e/o esophageal injury thus source may be from the lung. She was started on pip-tazo and IV methylpred. She was also started on IV Bactrim for possible PJP pna. On 05/16, the patient is afebrile, SpO2 98% on 7L nc. RVP negative. Urine Legionella antigen neg. MRSA screen negative. Last chemo treatment reported to be 04/07/2025. CRP improved to 0.75 on 05/15. Discussion Pt presents with shortness of breath and hypoxemia, found on CT chest to have significant progression of interstitial infiltrates. Consider possible aspiration event as patient describes coughing and vomiting after juice on 05/13, which may have caused aspiration pneumonitis (pt was drinking cranberry juice which is very acidic) as well as a possible aspiration pna. The patient is on chemotherapy for breast cancer but is not neutropenic, thus she is relatively immunocompromised but at lower risk for mold/fungal/PJP than patients with hematologic malignancies. Will nevertheless send fungal biomarkers. Prior admission with negative BDG and thus feel that PJP would also be less likely to present acutely/rapidly. Agree with continuation of pip-tazo. MRSA nares negative. If continued clinical improvement, then can complete a 10-day course of abx for aspiration pna (and could transition to PO such as with cefpodoxime upon discharge). Given the patients tenuous respiratory status, and recent receipt of steroids, can continue IV Bactrim for now while awaiting BDG and PJP sputum, but overall lower suspicion. Would likely stop IV Bactrim if repeat BDG is negative. Also consider the possibility of a non-infectious etiology, e.g., organizing pneumonia. Note that the patient appeared to have mild ILD based on a CT scan from March of this year with mild subpleural reticulations predominantly at the bases. This has progressed significantly on her current CT scan, possibly from aspiration/infection. The patient is not currently felt to be a candidate for bronchoscopy or lung biopsy. Recommendations: - Continue pip-tazo. If continued clinical improvement, anticipate completing a 10-day course for aspiration pna (through 05/22/25) with transition to cefpodoxime 400 mg PO BID upon discharge. - Can continue IV Bactrim for now. Likely stop if repeat BDG negative - s/p 3-day course of azithromycin - Send sputum Cx if able, sputum PJP PCR if able - F/u BDG, galactomannan Ag, Histo UrAg, Crypto serum Ag - Appreciate pulmonary following. If clinical worsening, would consider bronchoscopy. If will be undergoing bronchoscopy, would obtain bronch/BAL s tudies including cultures (bacterial, fungal, AFB, Nocardia cultures), BAL galactomannan, PJP PCR, MTB PCR with rifampin susceptibilities, CMV, Legionella ID will continue to follow. Valerie Armendariz MD, MHS Infectious Diseases [facility] Connect direct line: [phone] Admission and Anticipated Discharge Date Admission Date: May 13, 2025 Subjective Subsequent visit was provided via telemedicine using two-way real-time interactive telecommunication between the patient and the telemedicine provider. For the duration of the visit, the provider was performing the assessment from a different facility than the patient. This includesuse of bluetooth stethoscope forauscultationperformed by the telepresenter that the telemedicine provider can hear if described in the physical exam. Senior Instructor contact information: Please call [facility] Call Center [phone]. (Phone Number For Physician Use Only) After establishing a telemedicine visit, patient was: Patient was verified with two unique identifiers, Patient/authorized rep acknowledged consent and understanding and Gave permission to continue telehealth session Time Spent with Patient: Subsequent => 55 min - Afebrile, WBC improved to 18 - Feels weak. Denies any pain or new symptoms Physical Exam Physical Exam: Exam obtained with assistance of an in-person telepresenter General: Well-appearing, no acute distress HEENT: Conjunctivae non-injected, sclerae anicteric, MMM, OP clear. Chest: Port c/d/i currently accessed Resp: Respirations nonlabored. BS decreased Abd: Soft, nontender, nondistended. Back: Shallow sacral ulcers reported by nursing without significant erythema (wound image reviewed), dressing in place Ext: No joint warmth or effusions noted. Skin: No rashes or lesions. Neuro: Alert & interactive. Grossly non-focal. Psych: Pleasant, appropriate. Results & Data Vital Signs (Past 12 Hours) Vital Signs Temp Pulse Pulse Pulse Resp BP BP 05/17/25 12:22 99 H 110/63 05/17/25 12:07 132 H 101/59 L 05/17/25 12:02 132 H 101/59 L 05/17/25 10:57 36.6 C 148 H 24 111/63 05/17/25 07:35 36.8 C 81 18 125/56 L 05/17/25 07:27 73 20 05/17/25 05:45 77 05/17/25 03:38 36.4 C L 59 L 18 102/61 Pulse Ox O2 Del Method O2 Flow Rate 05/17/25 12:22 05/17/25 12:07 05/17/25 12:02 05/17/25 10:57 96 Nasal Cannula 7 05/17/25 07:35 95 Nasal Cannula 7 05/17/25 07:27 91 Nasal Cannula 8 05/17/25 05:45 05/17/25 03:38 100 High Flow Nasal Cannula 7 Diagnostic Findings Diagnostics: 05/16 CXR FINDINGS: Stable left chest port. Stable cardiomegaly without pulmonary vascular congestion. Stable diffuse interstitial and patchy pulmonary opacities. No significant pneumomediastinum seen by plain film. No pneumothorax seen. IMPRESSION: No significant pneumomediastinum seen. Otherwise as described. 05/13 CT chest 1. No evidence for esophageal injury. No oral contrast leak from the esophagus. There is mild pneumomediastinum that persists. The origin of the pneumomediastinum may be from the lung, especially given the rapidly progressive severe interstitial lung disease, that is increased from April 27, 2025, and is markedly increased compared to March 08, 2025. 05/13 CT A/P 1. New pneumomediastinum. Chest CT could be obtained for further evaluation 2. Worsened bilateral pneumonia 3. Resolution of the previously seen pleural effusions 4. Small hiatal hernia 5. Cholelithiasis without evidence of acute cholecystitis 6. Small left adrenal adenoma 7. 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 Diverticulosis without evidence of diverticulitis Micro Data: 05/16 serum CrAg: PEND 05/16 Histoplasma/Blasto urine Ag: PEND 05/14 [id number]: PEND 05/14 aspergillus serum Ag: PEND 05/14 RVP: neg 05/14 Legionella UrAg: neg 05/13 BCx x2: NGTD 05/13 MRSA nares: neg prior 04/29 BDG: <31 neg 04/21/25 BCx x2: NGTD 04/21 UCx: Klebsiella oxytoca Antibiotic Summary: pip-tazo (05/13 present) IV Bactrim (05/13 present) azithromycin (05/14 05/16)
--- NOTE | 2025-05-17 21:59 | Hospitalist Progress Note ---
Date of Service May 17, 2025 Assessment & Plan (1) Sepsis: (2) Acute on chronic hypoxic respiratory failure: (3) Pneumomediastinum: (4) GABRIEL (acute kidney injury): (5) Paroxysmal atrial fibrillation: (6) DM type 2 (diabetes mellitus, type 2): Plan 80yo woman with stage 1 breast cancer and recent chemotherapy (docetaxel and cyclophosphamide 04/09) who was hospitalized 04/18-05/12 with severe hyponatremia, diverticulitis/UTI, pulmonary hypertension, hypoxia who was quickly readmitted from [facility] with worsening acute on chronic respiratory failure #possible sepsis - POA. Unclear at this time whether she has infection (pneumonia) or an inflammatory problem. Leukocytosis is affected by her underlying lymphoproliferative disorder, though bands were present. 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 Immunocompromised because of recent chemo and steroids #pneumomediastinum - no evidence of esophageal damage on CT scan, probably alveolar source During recent ([id number]) admission she was treated with aggressive diuresis and antibiotics for diverticulitis, UTI (pip-tazo then cefepime, ceftriaxone) but failed to improve. Chemotherapy pulmonary toxicity and opportunistic infections were considered. She was too hypoxic to undergo bronchoscopy safely. She seemed to improve on steroids and diuresis though she says she didn't really get better reviewed pulmonary recs 05/16 consulted ID 05/16 -had ILD on March CT scan but mild at that time and has rapidly progressed - related to toxicity from chemo or infection -continuing pip-tazo. serial procal negative and had broad spectrum IV antibiotics 04/20-at least 04/24 so seems less likely a standard bacterial pneumonia. RVP was negative -azithromycin added for atypical coverage and legionella urine Ag pending -sputum Cx and PJP ordered but no sputum to date -too hypoxic for bronchoscopy agree with empiric treatment for PJP - continue bactrim. on steroids. -aspergillus ag, fungitell, urine histo/blasto antigen pending, crag pending -continue solumedrol 40 IV q8h. CRP mildly elevated and ESR only 8 -continue supplemental oxygen, per pulm can use high flow but max 20L to avoid too much positive pressure with the pneumomediastinum -fairly euvolemic, lasix 20 mg IV x 1 on 05/15, 05/16 -CXR today - personally reviewed film: pneumomediastinum not visible, bilateral extensive pulmonary infiltrates same to a little improved? -On 05/17 no worsening oxygen requirements. #GABRIEL - admission Cr of 1.84, from 0.99 on 05/12/25. sepsis/prerenal -holding scheduled diuretics and SHYLA -was given IV fluids on admission -resolved and Cr 0.9 stable despite gentle diuresis. #Hyponatremia - was severe (115) on previous admission 04/20, corrected by discharge, now mild-moderate -appears euvolemic -could have SIADH related to pulmonary process -stable at 129, monitor BMP #Paroxysmal atrial fibrillation - RVR with rates in the 120's on admission -flipped into afib with RVR rates 130-150 with some mild hypotension 05/15 -digoxin IV 250 mcg q6h x 3 on 05/15. I have not ordered ongoing dosing at this time - discuss with pharmacist if continuing, because of drug interactions and renal function -tried metoprolol tartrate 12.5 mg last night but too hypotensive this AM -amiodarone not a good choice with her severe lung disease -is not anticoagulated but its warranted if she improves and doesn't have any need for procedure. -Patient again flipped in A FIB WITH RVR ON 05/17. Reordered metoprolol IV and then placed on oral metoprolol. #Diabetes with steroid induced hyperglycemia - severe, uncontrolled -will be on high dose steroids as well as IV bactrim (contains dextrose) for awhile -insulin drip 05/15-05/16 -consulted pharmacy for glycemic management - SQ insulins ordered to start today #Hypertension -Hold antihypertensives for now, currently low BP -usually on amlodipine and lisinopril, however, if able to start would benefit from something for rate control #Wound care - sacral decubitus present on admission -Turn and position q 2 hours -WON consult #Stage 1 breast cancer - followed by Dr. Candelaria. Consulted last admission. Completed 3/4 chemo cycles and he said no more chemo. Surgical treatment recommended at this time. #subacute pelvic fracture - WBAT, not causing pain PT/OT when hypoxia improved and can tolerate DVT ppx - enoxaparin. SCDs Admission and Anticipated Discharge Date Admission Date: May 13, 2025 Subjective Patient reports no new symptoms. She just continues to feel fatigued. Physical Exam Physical Exam: GEN: awake in bed sitting HEENT: pupils equal, sclerae anicteric, moist MM RESP: using accessory muscles to breath, coarse breath sounds. CV: reg no mrg, neck veins not visible ABD: soft/nt/nd +BT : no barnett SKIN: warm and dry, no generalized rashes EXT: wwp no edema Results & Data Results & Data Vital Signs (Past 12 Hours) Vital Signs Temp Pulse Pulse Pulse Resp BP BP 05/17/25 20:21 111/53 L 05/17/25 19:43 77 20 05/17/25 19:25 36.7 C 74 18 95/51 L 05/17/25 19:07 05/17/25 15:54 108 H 05/17/25 15:27 36.5 C 99 H 18 100/60 05/17/25 12:22 99 H 110/63 05/17/25 12:07 132 H 101/59 L 05/17/25 12:02 132 H 101/59 L 05/17/25 10:57 36.6 C 148 H 24 111/63 Pulse Ox O2 Del Method O2 Flow Rate 05/17/25 20:21 05/17/25 19:43 96 Nasal Cannula 6 05/17/25 19:25 97 High Flow Nasal Cannula 6 05/17/25 19:07 High Flow Nasal Cannula 7 05/17/25 15:54 05/17/25 15:27 92 Nasal Cannula 7 05/17/25 12:22 05/17/25 12:07 05/17/25 12:02 05/17/25 10:57 96 Nasal Cannula 7 PG Care Time/CCT Total # of Minutes Spent Total Time Spent with Patient: Total time spent is greater than 50% in coordination of care (as documented) at patient's floor/unit and/or counseling patient: Coding Level of Care Code 95995 SUB INP/OBS CARE 3/50MIN Diagnoses Sepsis A41.9 Acute renal failure type: unspecified Sepsis acute organ dysfunction status: with acute organ dysfunction Sepsis type: sepsis due to unspecified organism Severe sepsis acute organ dysfunction type: acute renal failure Acute on chronic hypoxic respiratory failure J96.21 Pneumomediastinum J98.2 GABRIEL (acute kidney injury) N17.9 Paroxysmal atrial fibrillation I48.0 DM type 2 (diabetes mellitus, type 2) E11.9 (1) Sepsis Acute renal failure type: unspecified Sepsis acute organ dysfunction status: with acute organ dysfunction Sepsis type: sepsis due to unspecified organism Severe sepsis acute organ dysfunction type: acute renal failure
[2025-05-17] MEDS: HEPARIN 100 UNIT/ML 5ML FLUSH FLUSH PRN (22:38)
[2025-05-17] MEDS: METOPROLOL SUCC 25MG EXT REL TAB PO SCH (22:38)
[2025-05-18 05:39] LABS: Hematocrit (blood only) 27.3 % (37.0-47.0); Hemoglobin 9.3 g/dl (12.0-16.0); Mean Corpuscular Hemoglobin 29.2 pg (25.0-34.0); Mean Corpuscular Volume 85.6 fL (80.0-100.0); Platelet Count 149 K/uL (130-400); RDW Standard Deviation 52.0 fL (36.4-46.3); Red Blood Count 3.19 M/uL (4.20-5.40); White Blood Count 19.35 K/ul (4.8-10.8)
[2025-05-18 05:57] LABS: Anion Gap 5.0 (3-11); Blood Urea Nitrogen 21.0 mg/dl (6-23); Calcium 8.2 mg/dl (8.6-10.3); Carbon Dioxide 31.0 mmol/L (21-32); Chloride 85.0 mmol/L (98-107); Creatinine Clr Calc Pharmacy 43.3 ml/min; Glucose 133.0 mg/dl (70-99(Fasting)); Magnesium 1.4 mg/dl (1.7-2.4); Potassium 4.7 mmol/L (3.5-5.1); Sodium 121.0 mmol/L (136-145)
[2025-05-18] MEDS: LANTUS PER UNIT CHARGE SQ SCH (08:53)
--- NOTE | 2025-05-18 09:08 | Pulmonology Progress Note ---
Date of Service May 18, 2025 Assessment & Plan (1) Acute on chronic hypoxic respiratory failure: (2) Interstitial lung disease: (3) Pneumomediastinum: (4) Cor pulmonale: (5) Sepsis: Acute renal failure type: unspecified Sepsis acute organ dysfunction status: with acute organ dysfunction Sepsis type: sepsis due to unspecified organism Severe sepsis acute organ dysfunction type: acute renal failure (6) GABRIEL (acute kidney injury): (7) Dyspnea: (8) Immunosuppressed due to chemotherapy: Plan Impression: Mallorie Sparrow is a 79-year-old female history of triple negative breast CA recently admitted to the ICU for severe hyponatremia and hypoxia and discharged to rehab on 05/12/25 who is presenting back on 05/13/2025 with shortness of breath and hypoxia. CXR showed bilateral pulmonary infiltrates. CTA chest showed no pulmonary embolism, diffuse bilateral pulmonary infiltrates and new pneumomediastinum. Pulmonary consulted for evaluation and management. Recommendations: 1. Hypoxemic respiratory failure with pulmonary infiltrates: Continue to treat all reversible causes with diuresis and steroids. She is empirically on antibiotics. Low suspicion for PJP and the patient does not want to pursue bronchoscopy. Continue incentive spirometry and flutter valve and wean oxygen as tolerated. Currently receiving azithromycin, Zosyn, Bactrim, as well as Lasix and Solu-Medrol. 2. Breast cancer status post therapy with docetaxel and cyclophosphamide. Advised patient that given her current clinical status, she is not a candidate for additional chemotherapeutic interventions at this point in time. Given her frail state, would be reasonable to pursue palliative care again. 3. CODE STATUS confirmed. DNR/DNI. 4. Pneumomediastinum: Unclear etiology. Potentially related to the aspiration event and coughing with Elsy effect. Appears stable on last imaging. Continue to follow clinically at this point in time. Prognosis guarded. Will continue to follow with you. Admission and Anticipated Discharge Date Admission Date: May 13, 2025 Subjective "I think I am doing good this morning." Patient subjectively states her breathing feels better and she was able to sleep. Patient on 6L NC this am with initial SpO2 88% which improved to 93% with some deep breathing. Patient continues with daily scheduled Lasix and was negative 1.4 liters in last 24hrs. Patient encouraged to get out of bed and perform activity as tolerated. Review of Systems 2 Review of Systems: All systems reviewed & are unremarkable except as noted in HPI & below Physical Exam 2 Constitutional: + ill appearing, + thin and + frail appe aring Neck: trachea midline, no thyromegaly Respiratory: + tachypneic; no respiratory distress an d no labored breathing Auscultation: + crackles; no wheezes Cardiovascular: RRR, no murmur, no edema Gastrointestinal (Abdomen): normal bowel sounds, soft, nontender, no hepatosplenomegaly Musculoskeletal: Extremities: extremities normal to inspection Skin: no rashes, warm and dry Neurologic: Nonfocal exam Lymphatic: no cervical lymphadenopathy Results & Data Results & Data Vital Signs (Past 12 Hours) Vital Signs Temp Pulse Pulse Resp BP Pulse Ox Pulse Ox 05/18/25 07:45 36.4 C L 58 L 18 104/57 L 96 05/18/25 07:26 75 18 91 05/18/25 02:50 36.8 C 68 20 125/60 93 05/17/25 22:37 36.4 C L 75 22 120/63 94 05/17/25 22:00 94 05/17/25 21:40 74 O2 Del Method O2 Del Method O2 Flow Rate O2 Flow Rate 05/18/25 07:45 Nasal Cannula 6 05/18/25 07:26 Nasal Cannula 6 05/18/25 02:50 High Flow Nasal Cannula 5 05/17/25 22:37 High Flow Nasal Cannula 6 05/17/25 22:00 High Flow Nasal Cannula 6 05/17/25 21:40 Laboratory Results 05/18/25 05:21 05/18/25 05:21 Abnormal Lab Results 05/17/25 05/17/25 05/17/25 11:24 16:29 16:31 WBC RBC Hgb Hct MCV MCH MCHC RDW Std Deviation RDW Coeff of Jessica Plt Count MPV Sodium Potassium Chloride Carbon Dioxide Anion Gap BUN Creatinine Est Cr Clr Drug Dosing eGFR BUN/Creatinine Ratio Glucose POC Glucose 193 H 70 70 Calcium Magnesium C-Reactive Protein 05/17/25 05/17/25 05/18/25 19:58 23:14 05:21 WBC 19.35 H RBC 3.19 L Hgb 9.3 L Hct 27.3 L MCV 85.6 MCH 29.2 MCHC 34.1 RDW Std Deviation 52.0 H RDW Coeff of Jessica 16.5 H Plt Count 149 MPV 9.7 Sodium 121 L Potassium 4.7 Chloride 85 L Carbon Dioxide 31 Anion Gap 5 BUN 21 Creatinine 0.85 Est Cr Clr Drug Dosing 43.3 eGFR 69.21 BUN/Creatinine Ratio 24.7 H Glucose 133 H POC Glucose 305 H* 97 Calcium 8.2 L Magnesium 1.4 L C-Reactive Protein 1.36 H 16/ 08:08 WBC RBC Hgb Hct MCV MCH MCHC RDW Std Deviation RDW Coeff of Jessica Plt Count MPV Sodium Potassium Chloride Carbon Dioxide Anion Gap BUN Creatinine Est Cr Clr Drug Dosing eGFR BUN/Creatinine Ratio Glucose POC Glucose 92 Calcium Magnesium C-Reactive Protein Diagnostic Findings No recent imaging studies. PG Care Time/CCT Total # of Minutes Spent Total Time Spent with Patient: Total time spent is greater than 50% in coordination of care (as documented) at patient's floor/unit and/or counseling patient: Coding Level of Care Code 31175 SUB INP/OBS CARE 2/35MIN Diagnoses Acute on chronic hypoxic respiratory failure J96.21 Interstitial lung disease J84.9 Pneumomediastinum J98.2 Cor pulmonale I27.81 Sepsis A41.9 Acute renal failure type: unspecified Sepsis acute organ dysfunction status: with acute organ dysfunction Sepsis type: sepsis due to unspecified organism Severe sepsis acute organ dysfunction type: acute renal failure GABRIEL (acute kidney injury) N17.9 Dyspnea R06.00 Immunosuppressed due to chemotherapy D84.821; Z79.69
--- NOTE | 2025-05-18 10:41 | Pharmacy Report ---
Pharmacy Glycemic Short Note 2 - Date of Service May 18, 2025 - Glycemic Short BSG Results (Last 24 hours): 05/17/25 05/17/25 05/17/25 11:24 16:29 16:31 Glucose POC Glucose 193 H 70 70 05/17/25 05/17/25 05/18/25 19:58 23:14 05:21 Glucose 133 H POC Glucose 305 H* 97 05/18/25 08:08 Glucose POC Glucose 92 OUTPATIENT ANTIDIABETIC REGIMEN: * metformin 1 gm bid, januvia 100 mg daily * HbA1c 6.6% (04/21/25) ASSESSMENT: 05/18: * Mallorie received 44 units of insulin yesterday (22 were basal) * Fasting BSG this AM below goal range, will decrease 10% at this time. * She continues on methylprednisolone 40mg IV TID as well as Bactrim IV (in D5W), Zosyn, and Zithromycin IV (mixed in D5W). * Carbohydrate ratio tighten slightly to prevent BSG increases. Correction factor loosened to prevent overcorrection. 05/16: * 80yo woman with stage 1 breast cancer and recent chemotherapy, readmitted from [facility] with worsening acute on chronic respiratory failure. Continues on high dose steroids. Pharmacy consulted for glycemic management. Insulin drip started yesterday as BSGs>300 despite increase in novolog dosing. Insulin drip running this AM only at 0.4 units/hr. Patient received 17 units of basal insulin yesterday, will increase basal ~30% to 22 units x 1 dose this AM and d/c insulin infusion. With ongoing steroids, will provider tighter CR this AM. PLAN FOR INPATIENT GLYCEMIC CONTROL: * Hold outpatient oral diabetes medications * Basal insulin * Lantus 20 units SQ daily * Bolus insulin * NovoLog per scale ACHS or Q6hrs while NPO * Goal Range: Low 110 mg/dL - High 160 mg/dL * Correction Factor: 30 mg/dL/unit * Nutritional / Prandial insulin per carb ratio of 1 unit per 6 grams CHO consumed
[2025-05-18] MEDS: CARBOHYDRATES FOR HYPOGLYCEMIA PO PRN (12:42)
[2025-05-18] MEDS: DEXTROSE 50% 50 ML SYRINGE IV PRN (13:07)
--- NOTE | 2025-05-18 13:30 | Infectious Disease Progress Nt ---
Date of Service May 18, 2025 Assessment & Plan (1) Immunosuppressed due to chemotherapy: (2) Acute on chronic hypoxic respiratory failure: (3) Interstitial lung disease: (4) Pneumonia: Plan ID Problem List: # Diffuse pulmonary infiltrates, possible aspiration pneumonitis and aspiration pneumonia # Acute hypoxemic respiratory failure # Breast cancer on chemotherapy Impression: Mallorie Sparrow is an 80-year-old woman with history of breast cancer (triple- negative, stage I, s/p 3/4 cycles of chemotherapy, last chemo treatment reported to be 04/07/2025), HTN, DM, recent admission to [facility] 04/21 - 05/12/2025 (severe hyponatremia, acute diverticulitis, UTI), who presents with shortness of breath and hypoxemia, with CT chest showing mild pneumomediastinum and progressive severe interstitial lung disease. ID is consulted for evaluation of possible pna. The patient was recently admitted to [facility] from 04/2105/12/2025 after presenting with generalized weakness and confusion. She was admitted for severe hypon atremia (Na 115), encephalopathy, and also had sepsis which was attributed to acute diverticulitis and UTI. She also had pulmonary edema which was attributed to her chemo (docetaxel and cyclophosphamide). She was placed on a steroid taper and discharged to rehab with supplemental O2 and Lasix. While at [facility] rehab, she has been having dizziness, sweats, shortness of breath, and orthostasis. On 05/13, she was having cranberry juice with breakfast and coughed twice then vomited the juice back up. She was reported to be hypoxemic to SpO2 in the 70%s at [facility], thus 911 was called. In the ED, afebrile, HR 110-120s (afib), BPs 74-102 / 38-66, placed on 5L nc. Labs showed WBC 31 (notably, WBC of 24.71 on discharge) Hgb 11.2 plt 340 Cr 1.84. Lactate 2.8. CRP 1.29. LDH 245. 05/13 CT A/P showed new pneumomediastinum, worsened b/l pna, resolved pleural effusions; no acute abd processes (did show small hiatal hernia, cholelithiasis, adrenal adenoma, small R renal angiomyolipoma, diverticulosis w/o diverticulitis). 05/13 CT chest shows rapidly progressive severe interstitial lung disease; mild pneumomediastinum without e/o esophageal injury thus source may be from the lung. She was started on pip-tazo and IV methylpred. She was also started on IV Bactrim for possible PJP pna. On 05/16, the patient is afebrile, SpO2 98% on 7L nc. RVP negative. Urine Legionella antigen neg. MRSA screen negative. Last chemo treatment reported to be 04/07/2025. CRP improved to 0.75 on 05/15. Discussion Pt presents with shortness of breath and hypoxemia, found on CT chest to have significant progression of interstitial infiltrates. Consider possible aspiration event as patient describes coughing and vomiting after juice on 05/13, which may have caused aspiration pneumonitis (pt was drinking cranberry juice which is very acidic) as well as a possible aspiration pna. The patient is on chemotherapy for breast cancer but is not neutropenic, thus she is relatively immunocompromised but at lower risk for mold/fungal/PJP than patients with hematologic malignancies. Will nevertheless send fungal biomarkers. Prior admission with negative BDG and thus feel that PJP would also be less likely to present acutely/rapidly. Agree with continuation of pip-tazo. MRSA nares negative. If continued clinical improvement, then can complete a 10-day course of abx for aspiration pna (and could transition to PO such as with cefpodoxime upon discharge). Given the patients tenuous respiratory status, and recent receipt of steroids, can continue IV Bactrim for now while awaiting BDG and PJP sputum, but overall lower suspicion. Would likely stop IV Bactrim if repeat BDG is negative. Also consider the possibility of a non-infectious etiology, e.g., organizing pneumonia. Note that the patient appeared to have mild ILD based on a CT scan from March of this year with mild subpleural reticulations predominantly at the bases. This has progressed significantly on her current CT scan, possibly from aspiration/infection. The patient is not currently felt to be a candidate for bronchoscopy or lung biopsy. Recommendations: - Continue pip-tazo. If continued clinical improvement, anticipate completing a 10-day course for aspiration pna (through 05/22/25) with transition to cefpodoxime 400 mg PO BID upon discharge. - Can continue IV Bactrim for now. Likely stop if repeat BDG negative - s/p 3-day course of azithromycin - Send sputum Cx if able, sputum PJP PCR if able - F/u BDG, galactomannan Ag, Histo UrAg, Crypto serum Ag - Appreciate pulmonary following. Patient currently not interested in bronchoscopy given GOC. If will be undergoing bronchoscopy, would obtain bron ch/BAL studies including cultures (bacterial, fungal, AFB, Nocardia cultures), BAL galactomannan, PJP PCR, MTB PCR with rifampin susceptibilities, CMV, Legionella ID will continue to follow. Valerie Armendariz MD, M[facility] Infectious Diseases [facility]/ID Connect ID Connect direct line: [phone] Admission and Anticipated Discharge Date Admission Date: May 13, 2025 Subjective This patient recommendation is based on a telemedicine consult request which was completed asynchronously through chart review and information provided by the primary physician. The patient was not seen or examined today. The evaluation is consultative in nature and all patient care and treatment decisions can either be accepted or rejected by the patient's primary hospital-based treating physician using their own independent medical judgment for their patient. Time Spent Reviewing Chart: 21 - 30 minutes - Afebrile, WBC 19 - On 6L nc - Subjectively feels that her breathing feels better Results & Data Vital Signs (Past 12 Hours) Vital Signs Temp Pulse Pulse Resp BP Pulse Ox O2 Del Method 05/18/25 11:53 96 Nasal Cannula 05/18/25 11:50 36.7 C 97 H 28 H 137/79 97 Nasal Cannula 05/18/25 07:45 36.4 C L 58 L 18 104/57 L 96 Nasal Cannula 05/18/25 07:26 75 18 91 Nasal Cannula 05/18/25 02:50 36.8 C 68 20 125/60 93 High Flow Nasal Cannula O2 Flow Rate 05/18/25 11:53 6 05/18/25 11:50 10 05/18/25 07:45 6 05/18/25 07:26 6 05/18/25 02:50 5 Diagnostic Findings Diagnostics: 05/16 CXR FINDINGS: Stable left chest port. Stable cardiomegaly without pulmonary vascular congestion. Stable diffuse interstitial and patchy pulmonary opacities. No significant pneumomediastinum seen by plain film. No pneumothorax seen. IMPRESSION: No significant pneumomediastinum seen. Otherwise as described. 05/13 CT chest 1. No evidence for esophageal injury. No oral contrast leak from the esophagus. There is mild pneumomediastinum that persists. The origin of the pneumomediastinum may be from the lung, especially given the rapidly progressive severe interstitial lung disease, that is increased from April 27, 2025, and is markedly increased compared to March 08, 2025. 05/13 CT A/P 1. New pneumomediastinum. Chest CT could be obtained for further evaluation 2. Worsened bilateral pneumonia 3. Resolution of the previously seen pleural effusions 4. Small hiatal hernia 5. Cholelithiasis without evidence of acute cholecystitis 6. Small left adrenal adenoma 7. 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 Diverticulosis without evidence of diverticulitis Micro Data: 05/16 serum CrAg: PEND 05/16 Histoplasma/Blasto urine Ag: PEND 05/14 qrqj-[id number]-ictixh: PEND 05/14 aspergillus serum Ag: PEND 05/14 RVP: neg 05/14 Legionella UrAg: neg 05/13 BCx x2: NGTD 05/13 MRSA nares: neg prior 04/29 BDG: <31 neg 04/21/25 BCx x2: NGTD 04/21 UCx: Klebsiella oxytoca Antibiotic Summary: pip-tazo (05/13 present) IV Bactrim (05/13 present) azithromycin (05/14 05/16)
[2025-05-18 15:12] LABS: Source Serum
--- NOTE | 2025-05-18 22:35 | Hospitalist Progress Note ---
Date of Service May 18, 2025 Assessment & Plan (1) Sepsis: (2) Acute on chronic hypoxic respiratory failure: (3) Pneumomediastinum: (4) GABRIEL (acute kidney injury): (5) Paroxysmal atrial fibrillation: (6) DM type 2 (diabetes mellitus, type 2): Plan 80yo woman with stage 1 breast cancer and recent chemotherapy (docetaxel and cyclophosphamide 04/09) who was hospitalized 04/18-05/12 with severe hyponatremia, diverticulitis/UTI, pulmonary hypertension, hypoxia who was quickly readmitted from [facility] with worsening acute on chronic respiratory failure #possible sepsis - POA. Unclear at this time whether she has infection (pneumonia) or an inflammatory problem. Leukocytosis is affected by her underlying lymphoproliferative disorder, though bands were present. 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 Immunocompromised because of recent chemo and steroids #pneumomediastinum - no evidence of esophageal damage on CT scan, probably alveolar source During recent ([id number]) admission she was treated with aggressive diuresis and antibiotics for diverticulitis, UTI (pip-tazo then cefepime, ceftriaxone) but failed to improve. Chemotherapy pulmonary toxicity and opportunistic infections were considered. She was too hypoxic to undergo bronchoscopy safely. She seemed to improve on steroids and diuresis though she says she didn't really get better reviewed pulmonary recs 05/16 consulted ID 05/16 -had ILD on March CT scan but mild at that time and has rapidly progressed - related to toxicity from chemo or infection -continuing pip-tazo. serial procal negative and had broad spectrum IV antibiotics 04/20-at least 04/24 so seems less likely a standard bacterial pneumonia. RVP was negative -azithromycin added for atypical coverage and legionella urine Ag pending -sputum Cx and PJP ordered but no sputum to date -too hypoxic for bronchoscopy agree with empiric treatment for PJP - continue bactrim. on steroids. -aspergillus ag, fungitell, urine histo/blasto antigen pending, crag pending -continue solumedrol 40 IV q8h. CRP mildly elevated and ESR only 8 -continue supplemental oxygen, per pulm can use high flow but max 20L to avoid too much positive pressure with the pneumomediastinum -fairly euvolemic, lasix 20 mg IV x 1 on 05/15, 05/16 -CXR today - personally reviewed film: pneumomediastinum not visible, bilateral extensive pulmonary infiltrates same to a little improved? -On 05/17 no worsening oxygen requirements. On 05/18, oxygen requirements are slowly improving. HOwever patient's ambulatory function was concerning given that she reuired max assst to even sit her up to the edge of the bed. She became even more hypoxic. Long road ahead if she continues to improve, family interested in a palliative care consult. #GABRIEL - admission Cr of 1.84, from 0.99 on 05/12/25. sepsis/prerenal -holding scheduled diuretics and SHYLA -was given IV fluids on admission -resolved and Cr 0.9 stable despite gentle diuresis. #Hyponatremia - was severe (115) on previous admission 04/20, corrected by discharge, now mild-moderate -appears euvolemic -could have SIADH related to pulmonary process -stable at 129, down trending, moisés monitor. consult nephro in AM. #Paroxysmal atrial fibrillation - RVR with rates in the 120's on admission -flipped into afib with RVR rates 130-150 with some mild hypotension 05/15 -digoxin IV 250 mcg q6h x 3 on 05/15. I have not ordered ongoing dosing at this time - discuss with pharmacist if continuing, because of drug interactions and renal function -tried metoprolol tartrate 12.5 mg last night but too hypotensive this AM -amiodarone not a good choice with her severe lung disease -is not anticoagulated but its warranted if she improves and doesn't have any need for procedure. -Patient again flipped in A FIB WITH RVR ON 05/17. Reordered metoprolol IV and then placed on oral metoprolol. #Diabetes with steroid induced hyperglycemia - severe, uncontrolled -will be on high dose steroids as well as IV bactrim (contains dextrose) for awhile -insulin drip 05/15-05/16 -consulted pharmacy for glycemic management - SQ insulins ordered to start today #Hypertension -Hold antihypertensives for now, currently low BP -usually on amlodipine and lisinopril, however, if able to start would benefit from something for rate control #Wound care - sacral decubitus present on admission Stage III pressure ulcer of coccyx POA Unstageable bilateral medial buttock pressure ulcers PO -Turn and position q 2 hours -WON consult #Stage 1 breast cancer - followed by Dr. Candelaria. Consulted last admission. Completed 3/4 chemo cycles and he said no more chemo. Surgical treatment recommended at this time. #subacute pelvic fracture - WBAT, not causing pain Severe malnutrition Multiple areas of skin breakdown/decubiti, per RD sales development consultant patient has lost 12 .3% of her body weight in approximately 1 month Risk Factor(s): Age, acute illness/infection with loss of appetite Treatment: RD consultation, boost 3 times daily, Daily weights, I's and O's, PT/OT when hypoxia improved and can tolerate DVT ppx - enoxaparin. [facility] Admission and Anticipated Discharge Date Admission Date: May 13, 2025 Subjective 80 yo female reports no new symptoms. Physical Exam Physical Exam: GEN: awake in bed sitting HEENT: pupils equal, sclerae anicteric, moist MM RESP: using accessory muscles to breath, coarse breath sounds. CV: reg no mrg, neck veins not visible ABD: soft/nt/nd +BT : no barnett SKIN: warm and dry, no generalized rashes EXT: wwp no edema Results & Data Results & Data Vital Signs (Past 12 Hours) Vital Signs Temp Pulse Pulse Resp BP Pulse Ox O2 Del Method 05/18/25 22:02 36.3 C L 61 18 132/50 L 98 Nasal Cannula 05/18/25 20:41 High Flow Nasal Cannula 05/18/25 20:24 70 18 91 Nasal Cannula 05/18/25 19:25 36.5 C 67 18 114/66 93 Nasal Cannula 05/18/25 16:07 36.3 C L 66 18 108/56 L 95 Oxymask 05/18/25 11:53 96 Nasal Cannula 05/18/25 11:50 36.7 C 97 H 28 H 137/79 97 Nasal Cannula O2 Flow Rate 05/18/25 22:02 6 05/18/25 20:41 05/18/25 20:24 8 05/18/25 19:25 6 05/18/25 16:07 6 05/18/25 11:53 6 05/18/25 11:50 10 PG Care Time/CCT Total # of Minutes Spent Total Time Spent with Patient: Total time spent is greater than 50% in coordination of care (as documented) at patient's floor/unit and/or counseling patient: Coding Level of Care Code 31533 SUB INP/OBS CARE 50MIN Diagnoses Sepsis A41.9 Acute renal failure type: unspecified Sepsis acute organ dysfunction status: with acute organ dysfunction Sepsis type: sepsis due to unspecified organism Severe sepsis acute organ dysfunction type: acute renal failure Acute on chronic hypoxic respiratory failure J96.21 Pneumomediastinum J98.2 GABRIEL (acute kidney injury) N17.9 Paroxysmal atrial fibrillation I48.0 DM type 2 (diabetes mellitus, type 2) E11.9 (1) Sepsis Acute renal failure type: unspecified Sepsis acute organ dysfunction status: with acute organ dysfunction Sepsis type: sepsis due to unspecified organism Severe sepsis acute organ dysfunction type: acute renal failure
[2025-05-19 06:15] LABS: Hematocrit (blood only) 28.0 % (37.0-47.0); Hemoglobin 9.4 g/dl (12.0-16.0); Mean Corpuscular Hemoglobin 28.6 pg (25.0-34.0); Mean Corpuscular Volume 85.1 fL (80.0-100.0); Platelet Count 141 K/uL (130-400); RDW Standard Deviation 51.2 fL (36.4-46.3); Red Blood Count 3.29 M/uL (4.20-5.40); White Blood Count 20.91 K/ul (4.8-10.8)
[2025-05-19 06:48] LABS: Anion Gap 6.0 (3-11); Blood Urea Nitrogen 18.0 mg/dl (6-23); Calcium 8.1 mg/dl (8.6-10.3); Carbon Dioxide 29.0 mmol/L (21-32); Chloride 82.0 mmol/L (98-107); Creatinine Clr Calc Pharmacy 45.8 ml/min; Glucose 139.0 mg/dl (70-99(Fasting)); Potassium 5.0 mmol/L (3.5-5.1); Sodium 117.0 mmol/L (136-145)
[2025-05-19] MEDS ORDERED: STAT IV/IM STA (08:13)
--- NOTE | 2025-05-19 08:36 | Hospitalist Progress Note ---
Date of Service May 19, 2025 Assessment & Plan (1) Sepsis: (2) Acute on chronic hypoxic respiratory failure: (3) Pneumomediastinum: (4) GABRIEL (acute kidney injury): (5) Paroxysmal atrial fibrillation: (6) DM type 2 (diabetes mellitus, type 2): Plan 80yo woman with stage 1 breast cancer and recent chemotherapy (docetaxel and cyclophosphamide 04/09) who was hospitalized 04/18-05/12 with severe hyponatremia, diverticulitis/UTI, pulmonary hypertension, hypoxia who was quickly readmitted from [facility] with worsening acute on chronic respiratory failure #possible sepsis - POA. Unclear at this time whether she has infection (pneumonia) or an inflammatory problem. Leukocytosis is affected by her underlying lymphoproliferative disorder, though bands were present. 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 Immunocompromised because of recent chemo and steroids #pneumomediastinum - no evidence of esophageal damage on CT scan, probably alveolar source During recent ([id number]) admission she was treated with aggressive diuresis and antibiotics for diverticulitis, UTI (pip-tazo then cefepime, ceftriaxone) but failed to improve. Chemotherapy pulmonary toxicity and opportunistic infections were considered. She was too hypoxic to undergo bronchoscopy safely. She seemed to improve on steroids and diuresis though she says she didn't really get better reviewed pulmonary recs 05/16 Pulmonary following consulted ID 05/16 ID following -had ILD on March CT scan but mild at that time and has rapidly progressed - related to toxicity from chemo or infection -continuing pip-tazo. serial procal negative and had broad spectrum IV antibio tics 04/20-at least 04/24 so seems less likely a standard bacterial pneumonia. RVP was negative -azithromycin added for atypical coverage and legionella urine Ag pending -sputum Cx and PJP ordered but no sputum to date -too hypoxic for bronchoscopy agree with empiric treatment for PJP - continue bactrim. on steroids. -aspergillus ag, fungitell, urine histo/blasto antigen pending, crag pending -continue solumedrol 40 IV q8h. CRP mildly elevated and ESR only 8 -continue supplemental oxygen, per pulm can use high flow but max 20L to avoid too much positive pressure with the pneumomediastinum -fairly euvolemic, lasix 20 mg IV x 1 on 05/15, 05/16 -CXR today - personally reviewed film: pneumomediastinum not visible, bilateral extensive pulmonary infiltrates same to a little improved? -On 05/17 no worsening oxygen requirements. -On 05/18, oxygen requirements are slowly improving. However patient's ambulatory function was concerning given that she required max assit to even sit her up to the edge of the bed. She became even more hypoxic. Long road ahead if she continues to improve. -Palliative care consulted > Patient would like to pursue this route of care at this time. >Start sublingual morphine and ativan for shortness of breath and anxiety #GABRIEL - admission Cr of 1.84, from 0.99 on 05/12/25. sepsis/prerenal -holding scheduled diuretics and SHYLA -was given IV fluids on admission -resolved and Cr 0.9 stable despite gentle diuresis. 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 -Nephro consulted - pending -decreased to 117, hold lasix, trend BMP q4hrs, give 100 mL 3% saline bolus > after 100 mL 3% saline, 118. #Hypomagnesemia - 1.4 on 05/18, will rechecked today (05/19) > 1.4 on recheck (05/19). #Paroxysmal atrial fibrillation - RVR with rates in the 120's on admission -flipped into afib with RVR rates 130-150 with some mild hypotension 05/15 -digoxin IV 250 mcg q6h x 3 on 05/15. I have not ordered ongoing dosing at this time - discuss with pharmacist if continuing, because of drug interactions and renal function -tried metoprolol tartrate 12.5 mg last night but too hypotensive this AM -amiodarone not a good choice with her severe lung disease -is not anticoagulated but its warranted if she improves and doesn't have any need for procedure. -Patient again flipped in A FIB WITH RVR ON 05/17. Reordered metoprolol IV and then placed on oral metoprolol. #Diabetes with steroid induced hyperglycemia - severe, uncontrolled -will be on high dose steroids as well as IV bactrim (contains dextrose) for awhile -insulin drip 05/15-05/16 -consulted pharmacy for glycemic management - Continue SQ insulins #Hypertension -Hold antihypertensives for now, currently low BP -usually on amlodipine and lisinopril, however, if able to start would benefit from something for rate control #Wound care - sacral decubitus present on admission Stage III pressure ulcer of coccyx POA Unstageable bilateral medial buttock pressure ulcers PO -Turn and position q 2 hours -WON consult #Stage 1 breast cancer - followed by Dr. Candelaria. Consulted last admission. Completed 3/4 chemo cycles and he said no more chemo. Surgical treatment recommended at this time. #subacute pelvic fracture - WBAT, not causing pain #Severe malnutrition Multiple areas of skin breakdown/decubiti, per RD lead sales consultant patient has lost 12.3% of her body weight in approximately 1 month Risk Factor(s): Age, acute illness/infection with loss of appetite Treatment: RD consultation, boost 3 times daily, Daily weights, I's and O's, DVT ppx - enoxaparin. SCDs Admission and Anticipated Discharge Date Admission Date: May 13, 2025 Supervising Physician Co-Signing Physician Notes I personally examined the patient and verified all rivera points of history and exam, discussed case, and agree with decision making with Dr Nava and Camron Keane MS4 feel significant shortness of breath with just about any activity. Family present at the bedside. Extensive discussion with palliative before seeing the patient, reviewed what I was informed by palliative in the room with the patient. When I was talking to her, she expressed somewhat incongruent with goals of careinitially expressing just a desire to go home, but then later whenever asked her about what she meant by "I just want something for hope" she related that she would like to get stronger, walk on a treadmill, etc. In these extensive discussions, showed patient, , daughter the progression on CT scans, and reviewed everything that has been done with her unfortunately only worsening for the most part in the process. Vitals noted, in general she is awake and alert very frail and thin appearing fatigued. HEENT normocephalic atraumatic mucous membranes moist. Breathing unlabored no accessory muscle use she is on 5 L nasal cannula. Neuro without focal deficits. Labs and diagnostics noted. Hypoxia/infiltratesagree with pulmonary that it is quite concerning that things have been progressing, and she has been managed aggressively with di uretics, antibiotics, and steroids. My biggest concern is this is progressive fibrosispossibly related to her chemo, possibly related to the cancer itselfbut likely unfortunately not reversible. , understandably, given the patient's rapid decline, would really like concrete answerswe discussed, however, that a bronchoscopy/biopsy would be exceedingly risky for complications up to and unfortunately not surprisingly including from respiratory failure. Discussed symptom management strategies in more of a hospice approach, the patient seems to be considering this, daughter definitely seems to be considering this, is really having a hard time without a pathologically proven diagnosis. To help the patient and her decision making and potentially to help the with some degree of acceptance, it has been about a week since her last CT scan, given that we cannot get a bronchoscopy/biopsy safely, I did ask the patient if she felt like she would be able to tolerate a CT scan and she didordered to follow for any progression. Continue antibiotics, steroids, diuretics for now. HyponatremiaI suspect it is a bad combination of SIADH and poor solute intake. Fortunately she is asymptomatic, unfortunately her sodium has dipped precipitously. Appreciate nephrology input. We gave 3% saline earlier today and at least she came up rather than continuing to fall. Salt tabs have been started. Consider risk/benefit of diuretics to move water versus potentially salt wasting, but for now given that it may also potentially help the hypoxia (although unfortunately I doubt this will be the case) continue. With the hyperkalemia this afternoontoo low to be causing problems yetwill give a dose of Lokelma x 1 and continue to follow. At least 30 minutes [id number], probably longer. Subjective Patient was lying in bed comfortably, in no acute distress. She was able to sit up to eat her breakfast without having a panic attack. Nursing staff denies any overnight events. Denies CP, SOB, abdominal pain, dizziness, HUTCHISON. Review of Systems Review of Systems: As per HPI Physical Exam Physical Exam: GEN: lying in bed awake HEENT: pupils equal, sclerae anicteric, moist MM RESP: using accessory muscles to breath, coarse breath sounds. no wheezing, rales CV: RRR, no murmurs, rubs or gallops, no peripheral edema ABD: soft, nontender, bowel sounds present SKIN: warm and dry, no generalized rashes Results & Data Results & Data Vital Signs (Past 12 Hours) Vital Signs Temp Pulse Pulse Resp BP Pulse Ox Pulse Ox 05/19/25 07:59 36.4 C L 59 L 18 98/58 L 95 05/19/25 06:59 82 19 97 05/19/25 02:24 36.4 C L 65 18 127/55 L 93 05/18/25 22:52 59 L 05/18/25 22:02 36.3 C L 61 18 132/50 L 98 05/18/25 22:00 97 05/18/25 20:41 O2 Del Method O2 Del Method O2 Flow Rate O2 Flow Rate 05/19/25 07:59 Nasal Cannula 5 05/19/25 06:59 Nasal Cannula 6 05/19/25 02:24 High Flow Nasal Cannula 6 05/18/25 22:52 05/18/25 22:02 Nasal Cannula 6 05/18/25 22:00 High Flow Nasal Cannula 6 05/18/25 20:41 High Flow Nasal Cannula (1) Sepsis Acute renal failure type: unspecified Sepsis acute organ dysfunction status: with acute organ dysfunction Sepsis type: sepsis due to unspecified organism Severe sepsis acute organ dysfunction type: acute renal failure
[2025-05-19] MEDS: SODIUM CHLORIDE 3 % 100 ML IV ONE (08:40)
--- NOTE | 2025-05-19 09:01 | Palliative Care Consultation ---
Date of Consultation May 19, 2025 Assessment & Plan (1) Palliative care by specialist: Met with pt at bedside, her spouse Jeremi was present. Introduced Palliative Medicine and explained our role in advanced care planning, symptom management and navigation through the progression of life limiting disease. Patient and/or family were receptive to palliative services for goals of care discussions. Reviewed we are different from hospice, a home health nurse visiting service. (2) Encounter for assessment of decision-making capacity: Patient currently exhibits of decisional capacity based on the ability to convey understanding of personal PMHx, current medical condition, treatment options nor the risks / benefits/ potential outcomes of accepting/declining those options, and ability to make decisions based on such knowledge. Hospital does not have written documentation of patient wishes concerning her chosen proxy for medical decisions. Per PA [id number], in absence of written documentation of patient wishes, pt's proxy for medical decisions would be her spouse Jeremi Sparrow ([phone]). Pt DOES NOT require a proxy for medical decisions. (3) Counseling regarding advanced directives and goals of care: Met with pt and her spouse from 13:00 - 13:40 to discuss ACP. Pt and Jeremi both expressed frustration with oncology and medical teams "giving up" on patient. Jeremi expressed concern that the pt's lungs "keep getting worse regardless of what you do". He shacred concern that the patient may just be "triggering being short of breath when she gets agitated". He states that her dyspnea does not make any sense because her oxygen levels remain high. Jeremi stated that the patient has been on a "downward spiral" for the last several months. Patient shared that she was tolerating cancer directed therapies well until her third cycle of chemo and now she feels that she is getting weaker and sicker by the day. Jeremi shared that pt's oncologist told him there is nothing more they can do to treat her cancer that will not make her sicker. He shared that pulmonology also told him that a biopsy would possibly land the patient on the ventilator salvage determiner. At this point the patient shared that she knows she is getting sicker and she wants to go home. She shared that she does not want any further diagnostics and interventions for her lungs if ultimately her cancer cannot be cured. She expressed that she is ready to go home and stay home until she dies, but afraid of possible struggle to breathe as she dies. We discussed prognosis based on the following prognostic scores (calculation based on pt's current condition): Palliative Prognostic Index (PPI) Score: 11 (PPI > 6 = approx survival of three weeks. Sensitivity 80% / Specificity 85%.) Domingo CY, Rich YS, Simmons HM, Kathleen JS, Greg TL, Reema CY, Mick CC, Jessa YC, Isaac JM, Zofia JH, Brittany WC.Combination of initial palliative prognostic index and score change provides a better prognostic value for terminally ill cancer patients: a six- year observational cohort study https://www.ncbi.nlm.nih.gov/pubmed/32821476 . J Pain Symptom Manage. 2014;48(5):804-14. Palliative Prognostic Score (PaP - predicts 30 day survival probability in cancer and non cancer diagnoses): 8.5 = 30-day survival probability 30-70% Tsering Gallardo.Independent validation of Palliative Prognostic Score in terminally ill patients referred to a hospital-based palliative medicine consultation service https://www.ncbi.nlm.nih.gov/pubmed/59687050 . J Pain Symp Manage. 2001; 22(5):917512. Given poor prognosis for pt, we discussed option of ongoing life prolonging treatments involving hospitalizations and return to SNF vs a transition to comfort directed care. Discussed hospice benefit: an interdisciplinary program offered by nurses, nurses aides, social workers, chaplains and a medical cash poster for patients with a terminal condition and a life expectancy of less than 6 months. This is covered by Medicare at 100%/no out of pocket expense to patient and all meds/supplies needed by patient for the reason they are on hospice are paid for/covered by hospice. The goal is assure quality of life of the patient in their home setting (home, intermediate, inpatient hospice setting) by providing symptoms management, psychosocial and spiritual support. However, they cannot offer 24 hours care and if the family is unable to provide that care, they will have to consider personal care with out of pocket cost vs. intermediate placement. We discussed the goals of hospice as a patient service and the goals of care; we discussed EOL trajectories and transitions naty the emotional impact of realizing mortality as a concrete reality from prior abstract considerations. Pt was reassured that no matter where they are along this trajectory, they are not alone - their medical team will remain by their side through their journey. Discussed the pros/cons of accepting help when especially weakened and distressed by pain-which would also help provide relief/decrease caregiver burden/strain. Jeremi shared that the pt's daughter Mayela will be coming to the hospital and he would like help explaining things to her. He said that Mayela had previously mentioned taking time off work to stay with patient as primary patient care technician. Ultimately patient wishes to return to her home for hospice care. BSRN, CM and attending team made aware. (4) Comfort measures only status: Pt and her spouse request transition to [facility] with hope for discharge home for hospice care. (5) Need for comfort care: Comfort plan of care parameters: 1. Patient/Family want hospice added to their care. 2. NO rehab/PT/OT 3. Strictly End of Life care only 4. NO escalation of care: do not increase oxygen, escalate therapies, etc. The focus is on comfort through end of life, assure this is accomplished with aggressive symptom management (i.e. relief of dyspnea, pain, etc.) 5. NO return to hospital 6. NO labs, imaging, surgery 7. Oral intake as desired for comfort and pleasure: NO dietary restriction, Allow permissive aspiration, do not withhold food or drink for concern of aspiration and allow PO for pleasure and comfort. 8. If difficulty urinating/commode/bedpan, ok to place Brown catheter for comfort/hygiene/skin protection AND/OR Continue Brown catheter for comfort/hygiene/skin protection 9. NO: calorie counts, artificial nutrition, feeding tubes or IV fluids EOL Symptom manamgement: Pain/dyspnea/tachypnea morphine 2mg IVP PRN [id number] Consider titratable morphine drip if pt requires >3 PRN doses in under two consecutive hours. Nausea/vomitting zofran 4mg IVP q4h PRN Agitation ativan 0.5mg IVP q4h PRN Hyperactive delirium haldol 5mg IVP q6h PRN Secretions - if repositioning not effective robinul 0.4mg IV q4h PRN atropine SL 3 drops Q1h PRN Nursing care: Discontinue all medications not directed towards comfort. Detether pt from IV tubing, monitor cables, and check vitals once per shift. Please continue HFNC and titrate down as able for patient comfort. Use medications above PRN for dyspnea/tachypnea and do not increase oxygen once titrated down. Assess q1h for pain/dyspnea and treat accordingly. Plan as above History of Present Illness Reason for Consultation: goals of care Requesting Physician: Jin Garcia DO Attending Physician: Jin Garcia DO History of Present Illness Mallorie Sparrow is a pleasant 80yo female with history of breast cancer (Triple Negative, Stage I, s/p 3/4 cycles of chemotherapy), HTN, HLP, DM, recently admitted to [facility] from 04/21 - 05/12/2025 after presenting with generalized weakness and confusion. She was admitted for severe hyponatremia - sodium of 115 as well as acute encephalopathy, sepsis secondary to acute diverticulitis and UTI. Patient was found to have non-cardiogenic pulmonary edema, thought to be secondary to her chemotherapy agents - Docetaxel and Cyclophosphamide. She was managed with a steroid taper and ultimately discharged to [facility] on 3L of supplemental O2 and Lasix on 05/12. She returned to ED on 05/19 c/o sob after an episode of cough and emesis while drinking juice. IN ED family reports dizziness, sweating and some shortness of breath when she sits up. Patient hypoxic at [facility] - saturations reported to be in the 70's with difficulty increasing so they called 911. Allergies Allergy/AdvReac Type Severity Reaction Status Date / Time alendronate sodium Allergy Severe LEGS SWELL Verified 05/13/25 20:43 iodine Allergy Verified 05/13/25 20:43 oxycodone AdvReac Intermediate GI SYMPTOMS Verified 05/13/25 20:43 Home Medications Medication Instructions Recorded Confirmed Type aspirin 81 mg tablet,delayed 81 mg PO DAILY 06/14/21 05/13/25 History release atorvastatin 20 mg tablet 20 mg PO DAILY 06/14/21 05/13/25 History cholecalciferol (vitamin D3) 25 25 mcg PO DAILY 06/14/21 05/13/25 History mcg (1,000 unit) capsule lisinopril 40 mg tablet 40 mg PO DAILY 06/14/21 05/13/25 History turmeric 100 mg-connor 150 1 cap PO DAILY 06/14/21 05/13/25 History mg-olive 50 mg-oreg 150 mg-capryl capsule amoxicillin 500 mg tablet 2,000 mg PO .PRN/UD PRN Prophylaxis 11/21/21 05/13/25 History zinc 50 mg tablet 50 mg PO DAILY 11/21/21 05/13/25 History metformin 500 mg tablet,extended 1,000 mg PO BID 04/20/25 05/13/25 History release 24 hr tramadol 50 mg tablet 50 mg PO UD 04/20/25 05/13/25 History amlodipine 5 mg tablet 5 mg PO DAILY 04/21/25 05/13/25 History lidocaine-prilocaine 2.5 %-2.5 % See Rx Instructions .Route .COMPLEX 04/21/25 05/13/25 History topical cream metoprolol tartrate 50 mg tablet See Rx Instructions .Route .COMPLEX 04/21/25 05/13/25 History ondansetron 8 mg disintegrating 8 mg translingual Q8 PRN Nausea 04/21/25 05/13/25 History tablet And Vomiting prochlorperazine maleate 10 mg 10 mg PO Q6 PRN N/V 04/21/25 05/13/25 History tablet sitagliptin phosphate 100 mg 100 mg PO DAILY 04/21/25 05/13/25 History tablet (Januvia) diclofenac sodium 1 % topical gel 2 g EXT TID #50 grams 05/12/25 05/13/25 Rx (Voltaren Arthritis Pain) furosemide 20 mg tablet 20 mg PO QAM 30 days #30 tabs 05/12/25 05/13/25 Rx hydroxyzine HCl 25 mg tablet 25 mg PO Q8H PRN anxiety 30 days 05/12/25 05/13/25 Rx #20 tabs melatonin 3 mg tablet 3 mg PO HS PRN sleep #30 tabs 05/12/25 05/13/25 Rx metolazone 2.5 mg tablet 2.5 mg PO QAM #30 tabs 05/12/25 05/13/25 Rx pantoprazole 40 mg tablet,delayed 40 mg PO QAM #30 tabs 05/12/25 05/13/25 Rx release prednisone 20 mg tablet 20 mg PO DAILY #1 tab 05/12/25 05/13/25 Rx Patient History Medical History Phalanx, distal fracture of finger Recurrent urinary tract infection 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) Keratosis, seborrheic Hypertension Chronic diarrhea Borderline hyperlipidemia Benign essential microscopic hematuria Surgical History 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, 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/12/13 History of cataract surgery Bilateral Family History Mother Breast cancer Myocardial infarction Hypertension Grandmother (Maternal) Diabetes Colon cancer Father Myocardial infarction Hypertension Social History Smoking Status: Unknown if ever smoked Second Hand Exposure: No; Do You Dip or Chew Tobacco: No; Hx Alcohol Use: No Hx Substance Use: No Preferred Language: [place] African Communication Ability: Effective Hearing Ability: Normal Rhinologist Required: No Beliefs That Will Affect Care: Pent[employer]alism marital status: Current Living Situation: Spouse current occupational status: retired Other Information That Helps Us Care for You: No Feels Safe at Home: Yes Safety Concerns: Feels Safe At This Time Diet: regular Assistive Devices: None Review of Systems Review of Systems: All systems reviewed & are unremarkable except as noted in HPI & below Respiratory: + dyspnea on exertion Physical Exam Constitutional: + ill appearing, + thin and + frail appe aring Neck: trachea midline, no thyromegaly Respiratory: + tachypneic; no respiratory distress an d no labored breathing Auscultation: + crackles; no wheezes Cardiovascular: RRR, no murmur, no edema Gastrointestinal (Abdomen): normal bowel sounds, soft, nontender, no hepatosplenomegaly Musculoskeletal: Extremities: extremities normal to inspection Skin: no rashes, warm and dry Lymphatic: no cervical lymphadenopathy Results & Data Vital Signs (Past 12 Hours) Vital Signs Temp Pulse Pulse Resp BP Pulse Ox Pulse Ox 05/19/25 07:59 36.4 C L 59 L 18 98/58 L 95 05/19/25 06:59 82 19 97 05/19/25 02:24 36.4 C L 65 18 127/55 L 93 05/18/25 22:52 59 L 05/18/25 22:02 36.3 C L 61 18 132/50 L 98 05/18/25 22:00 97 O2 Del Method O2 Del Method O2 Flow Rate O2 Flow Rate 05/19/25 07:59 Nasal Cannula 5 05/19/25 06:59 Nasal Cannula 6 05/19/25 02:24 High Flow Nasal Cannula 6 05/18/25 22:52 05/18/25 22:02 Nasal Cannula 6 05/18/25 22:00 High Flow Nasal Cannula 6 Laboratory Results Abnormal lab results 05/18/25 05/18/25 05/18/25 Range/Units 12:04 12:04 12:29 WBC (4.8-10.8) K/ul RBC (4.20-5.40) M/uL Hgb (12.0-16.0) g/dl Hct (37.0-47.0) % RDW Std Deviation (36.4-46.3) fL RDW Coeff of Jessica (11.5-14.5) % Sodium (136-145) mmol/L Chloride (98-107) mmol/L BUN/Creatinine Ratio (10-20) Glucose (70-99(Fasting)) mg/dl POC Glucose 66 L* 67 L* 66 L* (70-99) mg/dl Calcium (8.6-10.3) mg/dl C-Reactive Protein (0-0.5) mg/dl 05/18/25 05/18/25 05/18/25 Range/Units 12:40 12:54 12:58 WBC (4.8-10.8) K/ul RBC (4.20-5.40) M/uL Hgb (12.0-16.0) g/dl Hct (37.0-47.0) % RDW Std Deviation (36.4-46.3) fL RDW Coeff of Jessica (11.5-14.5) % Sodium (136-145) mmol/L Chloride (98-107) mmol/L BUN/Creatinine Ratio (10-20) Glucose (70-99(Fasting)) mg/dl POC Glucose 68 L* 60 L* 58 L* (70-99) mg/dl Calcium (8.6-10.3) mg/dl C-Reactive Protein (0-0.5) mg/dl 05/18/25 05/18/25 05/18/25 Range/Units 13:25 17:06 20:04 WBC (4.8-10.8) K/ul RBC (4.20-5.40) M/uL Hgb (12.0-16.0) g/dl Hct (37.0-47.0) % RDW Std Deviation (36.4-46.3) fL RDW Coeff of Jessica (11.5-14.5) % Sodium (136-145) mmol/L Chloride (98-107) mmol/L BUN/Creatinine Ratio (10-20) Glucose (70-99(Fasting)) mg/dl POC Glucose 143 H 184 H 135 H (70-99) mg/dl Calcium (8.6-10.3) mg/dl C-Reactive Protein (0-0.5) mg/dl 05/19/25 Range/Units 05:44 WBC 20.91 H (4.8-10.8) K/ul RBC 3.29 L (4.20-5.40) M/uL Hgb 9.4 L (12.0-16.0) g/dl Hct 28.0 L (37.0-47.0) % RDW Std Deviation 51.2 H (36.4-46.3) fL RDW Coeff of Jessica 16.4 H (11.5-14.5) % Sodium 117 L* (136-145) mmol/L Chloride 82 L (98-107) mmol/L BUN/Creatinine Ratio 24.3 H (10-20) Glucose 139 H (70-99(Fasting)) mg/dl POC Glucose (70-99) mg/dl Calcium 8.1 L (8.6-10.3) mg/dl C-Reactive Protein 1.10 H (0-0.5) mg/dl Diagnostic Findings Abdomen/Pelvis CT 05/13/25 16:18 Clinical History: Acute renal injury Technique: Axial computed tomography images were obtained of the abdomen and pelvis without intravenous contrast. Comparison is made to the prior CT dated 04/21/2025 Findings: The liver is overall of normal size, attenuation, and contour with no sign of cirrhosis or significant fatty infiltration. No definite liver mass lesion is seen on this noncontrast study. There are apparent small gallstones. There is no sign of acute cholecystitis. No bile duct dilatation is noted. The spleen is of normal size. No focal splenic lesion is evident. The pancreas appears normal with no sign of acute or chronic pancreatitis and no mass lesion noted. The pancreatic duct is of normal caliber. There is an unchanged 1.2 cm left adrenal nodule, likely a benign adenoma. The right adrenal gland appears normal. No renal or proximal ureteral calculi are seen. There is no hydronephrosis or perinephric stranding. There is a 6 mm fatty lesion in the mid right kidney, likely a benign angiomyolipoma. The aorta is of normal caliber. No abdominal adenopathy is seen. There is a small hiatal hernia. There is no sign of small bowel obstruction. There is diverticulosis without evidence of diverticulitis. No free intraperitoneal fluid or air is identified. There is no sign of appendicitis No distal ureteral or bladder calculi are seen. No obvious bladder mass lesion is evident. The iliac arteries are of normal caliber. No pelvic adenopathy is noted. There is new pneumomediastinum. There are worsened interstitial and groundglass infiltrates in the lung bases bilaterally, consistent with pneumonia. The small pleural effusions seen before have resolved. Lumbar scoliosis and degenerative disc disease is seen. There are unchanged healing subacute fractures of the left pubic rami and the anterior left acetabulum. There is an unchanged sclerotic lesion in the L5 vertebral body, likely a benign bone island. Impression: 1. New pneumomediastinum. Chest CT could be obtained for further evaluation 2. Worsened bilateral pneumonia 3. Resolution of the previously seen pleural effusions 4. Small hiatal hernia 5. Cholelithiasis without evidence of acute cholecystitis 6. Small left adrenal adenoma 7. 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 Diverticulosis without evidence of diverticulitis ACT 112: Positive. There are findings on this exam that require communication between the performing entity and the patient following Patient Test Result Information Act ([place] ACT 112) guidelines. Electronically signed by Emory Romero 05-13-2025 5:[address] 05/13/25 17:36 CT chest without IV contrast, with oral contrast given History: Pneumomediastinum Comparison: April 27, 2025 Technique: Helical CT imaging of the chest performed without IV contrast. Oral contrast given Dose reduction techniques were achieved by using automatic exposure control and/or adjustment of mA and/or kV according to patient size and/or use of iterative reconstruction technique. Findings: Diffuse, coarsened interstitial opacities seen along the peribronchovascular regions with a lower lung predominance. There is mid and lower lung traction bronchiectasis. No focal consolidation. The lung apices are spared. No significant mosaic attenuation. No pleural effusion. No pneumothorax. Heart size is normal. The thoracic aorta is normal in size. The pulmonary artery is normal in size. No significant pericardial effusion. There is mild pneumomediastinum, which is seen to surround a small portion of the lower esophagus, and is mostly in the upper mediastinum. Oral contrast seen in the mid and lower esophagus without leak. The esophagus is otherwise unremarkable. No suspicious lymphadenopathy in the chest. The central airway is clear. Left chest wall port with catheter tip at the upper SVC. Limited visualized upper abdomen. No acute bony abnormalities. Impression: 1. No evidence for esophageal injury. No oral contrast leak from the esophagus. There is mild pneumomediastinum that persists. The origin of the pneumomediastinum may be from the lung, especially given the rapidly progressive severe interstitial lung disease, that is increased from April 27, 2025, and is markedly increased compared to March 08, 2025. Consider nonspecific interstitial pneumonia, or chronic eosinophilic pneumonia. Findings discussed with Dr. Corona by Dr. Gaitan at 6:20 PM, 05/13/2025 Electronically signed by Duane Gaitan 05-13-2025 6:24 PM Chest X-Ray 05/16/25 08:49 XR chest 1V portable CLINICAL HISTORY: follow up pneumomediastinum COMPARISON STUDY: 05/14/2025 FINDINGS: Stable left chest port. Stable cardiomegaly without pulmonary vascular congestion. Stable diffuse interstitial and patchy pulmonary opacities. No significant pneumomediastinum seen by plain film. No pneumothorax seen. IMPRESSION: No significant pneumomediastinum seen. Otherwise as described. ACT 112: Negative or not required by law. Electronically signed by: Yash De La Torre M.D. 05/16/2025 9:16 AM Medications Administered Current Inpatient Medications Acetaminophen (Acetaminophen 325 Mg Tab) 650 mg PO Q4H PRN PRN Reason: Pain or Fever Stop: 06/12/25 22:07 Last Admin: 05/13/25 22:52 Dose: 650 mg Albuterol (Albut/Ipratrop 3mg/0.5mg Neb 3 Ml Vial) 3 ml NEB Q4R PRN; Protocol PRN Reason: Shortness Of Breath Or Wheezing Stop: 06/13/25 08:37 Last Admin: 05/19/25 06:59 Dose: 3 ml Aspirin (Aspirin 81 Mg Ectab) 81 mg PO DAILY EMI Stop: 06/13/25 08:59 Last Admin: 05/19/25 08:51 Dose: 81 mg Budesonide (Budesonide 0.25 Mg/2 Ml Vial (Pulmicort)) 0.25 mg NEB BIDR EMI Stop: 06/12/25 22:07 Last Admin: 05/19/25 06:59 Dose: 0.25 mg Dextrose (Dextrose 50% 50 Ml Syringe) 25 - 50 ml IV UD PRN; Protocol PRN Reason: Hypoglycemia Protocol Stop: 06/12/25 22:07 Last Admin: 05/18/25 13:07 Dose: 25 ml Diclofenac Sodium (Diclofenac Sod 1% Gel 100 Gm Tube) 2 gm EXT TID EMI; Protocol Stop: 06/12/25 22:07 Last Admin: 05/19/25 08:51 Dose: Not Given Furosemide (Furosemide Inj 20 Mg/2 Ml Vial) 20 mg IV DAILY EMI Stop: 06/15/25 12:14 Last Admin: 05/18/25 08:55 Dose: 20 mg Glucagon (Glucagon For Inj 1 Mg Vial) 1 mg SQ UD PRN; Protocol PRN Reason: Hypoglycemia Protocol Stop: 06/12/25 22:07 Glucose (Glucose 40% Gel 15 Gm Tube) 15 - 30 gm PO UD PRN; Protocol PRN Reason: Hypoglycemia Protocol Stop: 06/12/25 22:07 Glucose (Glucose 10 Tab/Tube) 4 - 8 tab PO UD PRN; Protocol PRN Reason: Hypoglycemia Protocol Stop: 06/12/25 22:07 Heparin Sodium (Porcine) (Heparin Sod 5,000 Unit/0.5 Ml Vial) 5,000 units SQ Q12 EMI Stop: 06/12/25 22:07 Last Admin: 05/19/25 08:49 Dose: 5,000 units Heparin Sodium (Porcine) (Heparin 100 Unit/Ml 5ml Flush) 5 ml FLUSH PRN PRN PRN Reason: Flush Stop: 06/15/25 02:58 Last Admin: 05/17/25 22:38 Dose: 5 ml Methylprednisolone 40 mg/ (Syringe) 0.64 mls @ 1.5 mls/min IV TID EMI Stop: 06/14/25 08:59 Last Admin: 05/19/25 08:51 Dose: 1.5 mls/min Trimethoprim/Sulfamethoxazole (320 mg/ Dextrose) 520 mls @ 333.333 mls/hr IV Q8H [facility]; Protocol Stop: 06/03/25 23:59 Last Infusion: 05/19/25 04:48 Dose: Infused Piperacillin Sod/Tazobactam Sod (Zosyn) 4.5 gm in 100 mls @ 25 mls/hr IV Q8H [facility]; Protocol Stop: 05/23/25 10:29 Last Infusion: 05/19/25 06:32 Dose: Infused Insulin Aspart (Insulin Aspart Per Unit Charge) 0 units SC ACHS [facility] Stop: 06/15/25 09:29 Last Admin: 05/19/25 08:41 Dose: 2 units Lorazepam (Lorazepam 0.5 Mg Tab) 0.5 mg SL Q4H PRN PRN Reason: shortness of breath or anxiety Stop: 06/14/25 09:48 Last Admin: 05/19/25 07:16 Dose: 0.5 mg Melatonin (Melatonin 3 Mg Tab) 3 mg PO HS PRN PRN Reason: sleep Stop: 06/12/25 22:07 Last Admin: 05/14/25 23:27 Dose: 3 mg Metoprolol Succinate (Metoprolol Succ 25mg Ext Rel Tab) 25 mg PO HS EMI Stop: 06/16/25 21:59 Last Admin: 05/18/25 21:03 Dose: 25 mg Miscellaneous (Carbohydrates For Hypoglycemia ) 15 - 30 gm PO UD PRN PRN Reason: Hypoglycemia Protocol Stop: 06/12/25 22:07 Last Admin: 05/18/25 12:42 Dose: 15 gm Miscellaneous Information (Pharmacy Glycemic Mgmt Consult) 1 each N/A UD PRN; Protocol PRN Reason: Consult Stop: 06/15/25 08:28 Morphine Sulfate (Morphine Sulfate 2 Mg/Ml Carp) 2 mg IV Q6H PRN PRN Reason: Dyspnea Stop: 05/29/25 14:28 Last Admin: 05/19/25 02:28 Dose: 2 mg Pantoprazole Sodium (Pantoprazole 40 Mg Tab) 40 mg PO QAM [facility] Stop: 06/13/25 08:59 Last Admin: 05/19/25 08:52 Dose: 40 mg Phenol (Chloraseptic (Phenol) 1.4% Soln 180 Ml Btl) 0 sprays MT TID PRN PRN Reason: sore throat Stop: 05/20/25 17:03 Polyethylene Glycol (Polyethylene (Miralax) 17 Gm Pack) 17 gm PO DAILY PRN PRN Reason: Constipation Stop: 06/12/25 22:07 Senna/Docusate Sodium (Docusate Sodium/Senna 50/8.6mg Tab) 1 tab PO QAM EMI Stop: 06/13/25 08:59 Last Admin: 05/19/25 08:51 Dose: 1 tab PG Care Time/CCT Total # of Minutes Spent Total Time Spent with Patient: Total time spent is greater than 50% in coordination of care (as documented) at patient's floor/unit and/or counseling patient: Advanced Care Planning 60483 Advanced Care Planning 30 [place] [address] IN/OBS CONSULT LVL 4,60M Patient Type New History Expanded Problem Focused Exam Expanded Problem Focused Medical Decision Making Moderate Complexity Diagnoses Palliative care by specialist Z51.5 Encounter for assessment of decision-making capacity Z00.8 Counseling regarding advanced directives and goals of care Z71.89 Comfort measures only status Z51.5 Need for comfort care Additional Codes Advanced Care Planning - 17014 Advanced Care Planning 30 Min: 61691 Advanced Care Planning 30 Min ([id number])
[2025-05-19 10:01] LABS: Anion Gap 6.0 (3-11); Blood Urea Nitrogen 18.0 mg/dl (6-23); Calcium 8.1 mg/dl (8.6-10.3); Carbon Dioxide 28.0 mmol/L (21-32); Chloride 84.0 mmol/L (98-107); Creatinine Clr Calc Pharmacy 50.5 ml/min; Glucose 90.0 mg/dl (70-99(Fasting)); Potassium 4.5 mmol/L (3.5-5.1); Sodium 118.0 mmol/L (136-145)
--- NOTE | 2025-05-19 11:27 | Pulmonology Progress Note ---
Date of Service May 19, 2025 Assessment & Plan (1) Acute on chronic hypoxic respiratory failure: (2) Interstitial lung disease: (3) Pneumomediastinum: (4) Cor pulmonale: (5) Sepsis: Acute renal failure type: unspecified Sepsis acute organ dysfunction status: with acute organ dysfunction Sepsis type: sepsis due to unspecified organism Severe sepsis acute organ dysfunction type: acute renal failure (6) GABRIEL (acute kidney injury): (7) Dyspnea: (8) Immunosuppressed due to chemotherapy: Plan Impression: Mallorie Sparrow is a 79-year-old female history of triple negative breast CA recently admitted to the ICU for severe hyponatremia and hypoxia and discharged to rehab on 05/12/25 who is presenting back on 05/13/2025 with shortness of breath and hypoxia. CXR showed bilateral pulmonary infiltrates. CTA chest showed no pulmonary embolism, diffuse bilateral pulmonary infiltrates and new pneumomediastinum. Pulmonary consulted for evaluation and management. Recommendations: 1. Hypoxemic respiratory failure with pulmonary infiltrates: I am concerned at this point in time that the patient has been aggressively treated for almost 30 days now for reversible etiologies of her lung disease including diuretics, antibiotics, and steroids. She appears to have plateaued clinically and is not making any significant clinical progress. Mentioned to the patient and at bedside that we may need to reevaluate our goals of therapy as we may not be able to achieve previously stated goals of going home and functioning independently. I advised them that it is highly likely at a minimum the patient will require supplemental oxygen at discharge. She is not in a position to undergo repeat evaluation for status of her malignancy and is too frail to consider any chemotherapeutic options if the malignancy were to have returned. She is unable to even participate in transfer from bed to chair without becoming significantly winded. Unclear how much might be anxiety related. Agreed with plans for palliative care consult and defining goals of therapy at this point in time. Infectious disease notes were reviewed. Patient is too frail to consider bronchoscopy at this point in time and I am not sure that it would ion exchange operator strategy. Advised patient and that we will continue with steroids and attempts at diuresis in an effort to improve her oxygen requirement but ultimately she needs to be able to participate in some form of rehab in order to consider any degree of functional recovery. 2. Breast cancer status post therapy with docetaxel and cyclophosphamide. Advised patient that given her current clinical status, she is not a candidate for additional chemotherapeutic interventions at this point in time. Given her frail state, would be reasonable to pursue palliative care again. 3. CODE STATUS confirmed. DNR/DNI. 4. Pneumomediastinum: Unclear etiology. Potentially related to the aspiration event and coughing with Elsy effect. Appears stable on last imaging. Continue to follow clinically at this point in time. Unfortunately little else to offer from a pulmonary standpoint at this time Admission and Anticipated Discharge Date Admission Date: May 13, 2025 Subjective Patient seen and examined. EMR reviewed. Discussed with patient and at bedside as well as with bedside clinical nurse. Patient unfortunately is relatively clinically stagnant although she does feel that her breathing is better. Her oxygen requirement remains about the same and according to the bedside nurse the patient becomes very anxious, tachypneic, with any significant movement. This includes transitioning to sitting on the side of the bed. She is occasionally coughing but not expectorating any phlegm. Review of Systems 2 Review of Systems: All systems reviewed & are unremarkable except as noted in Subjective Physical Exam 2 Constitutional: + ill appearing, + thin and + frail appe aring Neck: trachea midline, no thyromegaly Respiratory: + tachypneic; no respiratory distress an d no labored breathing Auscultation: + crackles; no wheezes Cardiovascular: RRR, no murmur, no edema Gastrointestinal (Abdomen): normal bowel sounds, soft, nontender, no hepatosplenomegaly Musculoskeletal: Extremities: extremities normal to inspection Skin: no rashes, warm and dry Lymphatic: no cervical lymphadenopathy Results & Data Results & Data Vital Signs (Past 12 Hours) Vital Signs Temp Pulse Resp BP Pulse Ox O2 Del Method O2 Flow Rate 05/19/25 07:59 36.4 C L 59 L 18 98/58 L 95 Nasal Cannula 5 05/19/25 06:59 82 19 97 Nasal Cannula 6 05/19/25 02:24 36.4 C L 65 18 127/55 L 93 High Flow Nasal Cannula 6 Laboratory Results 05/19/25 05:44 05/19/25 08:57 Diagnostic Findings No new imaging PG Care Time/CCT Total # of Minutes Spent Total Time Spent with Patient: Total time spent is greater than 50% in coordination of care (as documented) at patient's floor/unit and/or counseling patient: Coding Level of Care Code 58232 SUB INP/OBS CARE 350MIN Diagnoses Acute on chronic hypoxic respiratory failure J96.21 Interstitial lung disease J84.9 Pneumomediastinum J98.2 Cor pulmonale I27.81 Sepsis A41.9 Acute renal failure type: unspecified Sepsis acute organ dysfunction status: with acute organ dysfunction Sepsis type: sepsis due to unspecified organism Severe sepsis acute organ dysfunction type: acute renal failure GABRIEL (acute kidney injury) N17.9 Dyspnea R06.00 Immunosuppressed due to chemotherapy D84.821; Z79.69
--- NOTE | 2025-05-19 12:49 | Nephrology Consultation ---
Date of Consultation May 19, 2025 Assessment & Plan (1) Hyponatremia: (2) Hypoxia: (3) GABRIEL (acute kidney injury): Plan 80 year old female with past medical history significant for hypertension, diabetes, recurrent UTI and history of breast cancer has been on chemotherapy with cyclophosphamide and docetaxel. Recently she had a prolonged hospitalization from 04/21/2025 to 05/12/25 hyponatremia, with lethargy and generalized weakness. Sodium was lowest 115 but improved prior to discharge. She was readmitted on 05/13/2025 with hypoxic respiratory failure. On admission. Sodium was 130 which slowly declined to 117 this morning. Sodium slightly improved to 118 after she received 3% saline 100 mL bolus. Sodium staying low at 118 after hypertonic saline bolus. Overall she has been feeling poorly and clinically declining without any improvement in respiratory status over last almost a week. B . --Restart on salt tablet 2 g twice a day, Lasix 20 mg daily. --Overall prognosis seems quite poor. With poor respiratory status for more than a week despite all measures including antibiotic, steroid and oxygen. Thank you for the consult. History of Present Illness Reason for Consultation: Hyponatremia Attending Physician: Jin Garcia DO History of Present Illness Ms. Mallorie Sparrow is a 80-year-old female with past medical history significant for hypertension, diabetes, recurrent UTI, repeated episodes of hyponatremia and history of breast cancer, admitted with hypoxic respiratory failure. Nephrology consult is requested as she progressively cephaladly to hyponatremia for last few days. Electronic medical records were reviewed in detail during patient's visit. Mallorie presented to ER on 05/13/25. with progressive shortness of breath and admitted with hypoxic respiratory failure. Her respiratory status has not been improving despite getting antibiotic, steroid as well as nasal cannula oxygen. She has unstable to have a bronchoscopy. She had prolonged hospitalization from 04/21/2025 to 05/12/25 with lethargy and generalized weakness and discharged on 05/12/2025 and came back to hospital the following day. During last hospitalization she developed severe hyponatremia, sodium as low as 115 with urine osmolality 177. Hyponatremia eventually improved and she was taken off of salt tablet and discharged to rehab. On admission this time sodium was 129 but has been slowly decreasing over last few days and this morning sodium dropped to 117. bS sodium he received 100 mL of 3% saline and sodium slightly improved to 119 after the bolus. She also had mild GABRIEL earlier this admission, creatinine increased up to 1.9 but resolved quickly and lately creatinine staying 0.8-0.9. She was on Lasix 20 mg daily which is currently on hold. She reported overall feeling poorly this morning and has been having some exertional shortness of breath. Appetite has been poor. Blood pressure well- controlled. Allergies Allergy/AdvReac Type Severity Reaction Status Date / Time alendronate sodium Allergy Severe LEGS SWELL Verified 05/13/25 20:43 iodine Allergy Verified 05/13/25 20:43 oxycodone AdvReac Intermediate GI SYMPTOMS Verified 05/13/25 20:43 Home Medications Medication Instructions Recorded Confirmed Type aspirin 81 mg tablet,delayed 81 mg PO DAILY 06/14/21 05/13/25 History release atorvastatin 20 mg tablet 20 mg PO DAILY 06/14/21 05/13/25 History cholecalciferol (vitamin D3) 25 25 mcg PO DAILY 06/14/21 05/13/25 History mcg (1,000 unit) capsule lisinopril 40 mg tablet 40 mg PO DAILY 06/14/21 05/13/25 History turmeric 100 mg-connor 150 1 cap PO DAILY 06/14/21 05/13/25 History mg-olive 50 mg-oreg 150 mg-capryl capsule amoxicillin 500 mg tablet 2,000 mg PO .PRN/UD PRN Prophylaxis 11/21/21 05/13/25 History zinc 50 mg tablet 50 mg PO DAILY 11/21/21 05/13/25 History metformin 500 mg tablet,extended 1,000 mg PO BID 04/20/25 05/13/25 History release 24 hr tramadol 50 mg tablet 50 mg PO UD 04/20/25 05/13/25 History amlodipine 5 mg tablet 5 mg PO DAILY 04/21/25 05/13/25 History lidocaine-prilocaine 2.5 %-2.5 % See Rx Instructions .Route .COMPLEX 04/21/25 05/13/25 History topical cream metoprolol tartrate 50 mg tablet See Rx Instructions .Route .COMPLEX 04/21/25 05/13/25 History ondansetron 8 mg disintegrating 8 mg translingual Q8 PRN Nausea 04/21/25 05/13/25 History tablet And Vomiting prochlorperazine maleate 10 mg 10 mg PO Q6 PRN N/V 04/21/25 05/13/25 History tablet sitagliptin phosphate 100 mg 100 mg PO DAILY 04/21/25 05/13/25 History tablet (Januvia) diclofenac sodium 1 % topical gel 2 g EXT TID #50 grams 05/12/25 05/13/25 Rx (Voltaren Arthritis Pain) furosemide 20 mg tablet 20 mg PO QAM 30 days #30 tabs 05/12/25 05/13/25 Rx hydroxyzine HCl 25 mg tablet 25 mg PO Q8H PRN anxiety 30 days 05/12/25 05/13/25 Rx #20 tabs melatonin 3 mg tablet 3 mg PO HS PRN sleep #30 tabs 05/12/25 05/13/25 Rx metolazone 2.5 mg tablet 2.5 mg PO QAM #30 tabs 05/12/25 05/13/25 Rx pantoprazole 40 mg tablet,delayed 40 mg PO QAM #30 tabs 05/12/25 05/13/25 Rx release prednisone 20 mg tablet 20 mg PO DAILY #1 tab 05/12/25 05/13/25 Rx Patient History Medical History Phalanx, distal fracture of finger Recurrent urinary tract infection 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) Keratosis, seborrheic Hypertension Chronic diarrhea Borderline hyperlipidemia Benign essential microscopic hematuria Surgical History 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, 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/12/13 History of cataract surgery Bilateral Family History Mother Breast cancer Myocardial infarction Hypertension Grandmother (Maternal) Diabetes Colon cancer Father Myocardial infarction Hypertension Social History Smoking Status: Unknown if ever smoked Second Hand Exposure: No; Do You Dip or Chew Tobacco: No; Hx Alcohol Use: No Hx Substance Use: No Preferred Language: Monegasque Communication Ability: Effective Hearing Ability: Normal Oversize Load Pilot Escort Required: No Beliefs That Will Affect Care: Jewish marital status: Current Living Situation: Spouse current occupational status: retired Other Information That Helps Us Care for You: No Feels Safe at Home: Yes Safety Concerns: Feels Safe At This Time Diet: regular Assistive Devices: None Review of Systems Review of Systems: All systems reviewed & are unremarkable except as noted in HPI & below Constitutional: + fatigue, + weakness and + anorexia Respiratory: + dyspnea on exertion Cardiovascular: no chest pain Physical Exam Constitutional: WD/WN, vitals as above + ill appearing Eyes: + anicteric sclerae Respiratory: + respiratory distress Auscultation: + diminished lung sounds and + rhonchi; no wheezes Cardiovascular: RRR, no murmur, no edema Gastrointestinal (Abdomen): Inspection/Auscultation: abdomen normal to inspection Musculoskeletal: Extremities: extremities normal to inspection Skin: no rashes, warm and dry Neurologic: no focal motor deficits Psychiatric: Orientation: alert and oriented x 3 Affect: euthymic affect Results & Data Vital Signs (Past 12 Hours) Vital Signs Temp Pulse Resp BP Pulse Ox O2 Del Method O2 Flow Rate 05/19/25 12:44 36.3 C L 62 17 112/67 96 Nasal Cannula 5 05/19/25 08:00 Nasal Cannula 6 05/19/25 07:59 36.4 C L 59 L 18 98/58 L 95 Nasal Cannula 5 05/19/25 06:59 82 19 97 Nasal Cannula 6 05/19/25 02:24 36.4 C L 65 18 127/55 L 93 High Flow Nasal Cannula 6 PG Care Time/CCT Total # of Minutes Spent Total Time Spent with Patient: Total time spent is greater than 50% in coordination of care (as documented) at patient's floor/unit and/or counseling patient: Coding Level of Care Code 85708 INT INP/OBS CARE 3/75MIN Diagnoses Hyponatremia E87.1 Hypoxia R09.02 GABRIEL (acute kidney injury) N17.9
[2025-05-19] MEDS ORDERED: ONDANSETRON INJ 2 MG/ML 2 ML VIAL IV PRN (13:18)
[2025-05-19] MEDS ORDERED: HYOSCYAMINE SULFATE 0.125 MG TAB SL PRN (13:18)
[2025-05-19] MEDS ORDERED: MoRPHine SULFATE 2 MG/ML CARP IV PRN (13:18)
[2025-05-19] MEDS ORDERED: HALOPERIDOL ORAL SOLN 2 MG/ML PO PRN (13:18)
[2025-05-19] MEDS ORDERED: ONDANSETRON 4 MG OD TAB SL PRN (13:18)
[2025-05-19] MEDS ORDERED: MoRPHine SULFATE 10 MG/0.5 ML UDP PO PRN ×2 (13:18→13:26)
[2025-05-19] MEDS ORDERED: GLYCOPYRROLATE 0.2 MG/ML VIAL IV PRN (13:18)
[2025-05-19 13:24] LABS: Anion Gap 5.0 (3-11); Blood Urea Nitrogen 17.0 mg/dl (6-23); Calcium 8.3 mg/dl (8.6-10.3); Carbon Dioxide 27.0 mmol/L (21-32); Chloride 86.0 mmol/L (98-107); Creatinine Clr Calc Pharmacy 49.8 ml/min; Glucose 117.0 mg/dl (70-99(Fasting)); Magnesium 1.4 mg/dl (1.7-2.4); Potassium 4.9 mmol/L (3.5-5.1); Sodium 118.0 mmol/L (136-145)
--- NOTE | 2025-05-19 14:03 | Pharmacy Report ---
Pharmacy Glycemic Short Note 2 - Date of Service May 19, 2025 - Glycemic Short BSG Results (Last 24 hours): 05/18/25 05/18/25 05/19/25 17:06 20:04 05:44 Glucose 139 H POC Glucose 184 H 135 H 05/19/25 05/19/25 05/19/25 07:57 08:57 11:43 Glucose 90 POC Glucose 93 115 H 05/19/25 12:43 Glucose 117 H POC Glucose OUTPATIENT ANTIDIABETIC REGIMEN: * metformin 1 gm bid, januvia 100 mg daily * HbA1c 6.6% (04/21/25) ASSESSMENT: 05/19: * Mallorie received 40 units of insulin yesterday (20 were basal) * Fasting BSG this AM below goal range, Lantus held this AM. She continues on IV methylprednisolone 40mg IV TID, Bactrim, and Zosyn (Zithromax course completed yesterday). No clear trends in highs and lows. Will start basal insulin at a scale based on BSG tonight due to labile BSGs. * Hypoglycemic yesterday at lunch, NovoLog loosened, goal range increased. Continue at this time. 05/18: * Mallorie received 44 units of insulin yesterday (22 were basal) * Fasting BSG this AM below goal range, will decrease 10% at this time. * She continues on methylprednisolone 40mg IV TID as well as Bactrim IV (in D5W), Zosyn, and Zithromycin IV (mixed in D5W). * Carbohydrate ratio tighten slightly to prevent BSG increases. Correction factor loosened to prevent overcorrection. 05/16: * 80yo woman with stage 1 breast cancer and recent chemotherapy, readmitted from [facility] with worsening acute on chronic respiratory failure. Continues on high dose steroids. Pharmacy consulted for glycemic management. Insulin drip started yesterday as BSGs>300 despite increase in novolog dosing. Insulin drip running this AM only at 0.4 units/hr. Patient received 17 units of basal insulin yesterday, will increase basal ~30% to 22 units x 1 dose this AM and d/c insulin infusion. With ongoing steroids, will provider tighter CR this AM. PLAN FOR INPATIENT GLYCEMIC CONTROL: * Hold outpatient oral diabetes medications * Basal insulin * Lantus 0-10 units SQ BID (see eMAR for additional details) * Bolus insulin * NovoLog per scale ACHS or Q6hrs while NPO * Goal Range: Low 110 mg/dL - High 160 mg/dL * Correction Factor: 35 mg/dL/unit * Nutritional / Prandial insulin per carb ratio of 1 unit per 7 grams CHO consumed
[2025-05-19] MEDS: SODIUM CHLORIDE 1 GM TABLET PO SCH ×2 (15:06→21:05)
[2025-05-19] MEDS: FUROSEMIDE 20 MG TAB PO SCH (15:06)
[2025-05-19] MEDS: MoRPHine SULFATE 2 MG/ML CARP IV PRN (15:35)
[2025-05-19 16:47] LABS: Aspergillus Antigen, Serum Not Detected (Not Detected); Fungitell (1-3)-B-D-Glucan <31 pg/mL (<60)
[2025-05-19 17:14] LABS: Anion Gap 6.0 (3-11); Blood Urea Nitrogen 17.0 mg/dl (6-23); Calcium 8.4 mg/dl (8.6-10.3); Carbon Dioxide 27.0 mmol/L (21-32); Chloride 85.0 mmol/L (98-107); Creatinine Clr Calc Pharmacy 48.4 ml/min; Glucose 195.0 mg/dl (70-99(Fasting)); Potassium 5.5 mmol/L (3.5-5.1); Sodium 118.0 mmol/L (136-145)
--- NOTE | 2025-05-19 18:27 | Infectious Disease Progress Nt ---
Date of Service May 19, 2025 Assessment & Plan (1) Immunosuppressed due to chemotherapy: (2) Acute on chronic hypoxic respiratory failure: (3) Interstitial lung disease: (4) Pneumonia: Plan ID Problem List: # Diffuse pulmonary infiltrates, possible aspiration pneumonitis and aspiration pneumonia # Acute hypoxemic respiratory failure # Breast cancer on chemotherapy Impression: Mallorie Sparrow is an 80-year-old woman with history of breast cancer (triple- negative, stage I, s/p 3/4 cycles of chemotherapy, last chemo treatment reported to be 04/07/2025), HTN, DM, recent admission to [facility] 04/21 - 05/12/2025 (severe hyponatremia, acute diverticulitis, UTI), who presents with shortness of breath and hypoxemia, with CT chest showing mild pneumomediastinum and progressive severe interstitial lung disease. ID is consulted for evaluation of possible pna. The patient was recently admitted to [facility] from 04/2105/12/2025 after presenting with generalized weakness and confusion. She was admitted for severe hypon atremia (Na 115), encephalopathy, and also had sepsis which was attributed to acute diverticulitis and UTI. She also had pulmonary edema which was attributed to her chemo (docetaxel and cyclophosphamide). She was placed on a steroid taper and discharged to rehab with supplemental O2 and Lasix. While at [facility] rehab, she has been having dizziness, sweats, shortness of breath, and orthostasis. On 05/13, she was having cranberry juice with breakfast and coughed twice then vomited the juice back up. She was reported to be hypoxemic to SpO2 in the 70%s at [facility], thus 911 was called. In the ED, afebrile, HR 110-120s (afib), BPs 74-102 / 38-66, placed on 5L nc. Labs showed WBC 31 (notably, WBC of 24.71 on discharge) Hgb 11.2 plt 340 Cr 1.84. Lactate 2.8. CRP 1.29. LDH 245. 05/13 CT A/P showed new pneumomediastinum, worsened b/l pna, resolved pleural effusions; no acute abd processes (did show small hiatal hernia, cholelithiasis, adrenal adenoma, small R renal angiomyolipoma, diverticulosis w/o diverticulitis). 05/13 CT chest shows rapidly progressive severe interstitial lung disease; mild pneumomediastinum without e/o esophageal injury thus source may be from the lung. She was started on pip-tazo and IV methylpred. She was also started on IV Bactrim for possible PJP pna. On 05/16, the patient is afebrile, SpO2 98% on 7L nc. RVP negative. Urine Legionella antigen neg. MRSA screen negative. Last chemo treatment reported to be 04/07/2025. CRP improved to 0.75 on 05/15. Discussion Pt presents with shortness of breath and hypoxemia, found on CT chest to have significant progression of interstitial infiltrates. Consider possible aspiration event as patient describes coughing and vomiting after juice on 05/13, which may have caused aspiration pneumonitis (pt was drinking cranberry juice which is very acidic) as well as a possible aspiration pna. The patient is on chemotherapy for breast cancer but is not neutropenic, thus she is relatively immunocompromised but at lower risk for mold/fungal/PJP than patients with hematologic malignancies. Will nevertheless send fungal biomarkers. Prior admission with negative BDG and thus feel that PJP would also be less likely to present acutely/rapidly. GOC discussions ongoing. Per discussion with Dr. Garcia on 05/19, will repeat CT scan. Since no diagnostics will be pursued, agree with trial of broadening treatment to meropenem for now given persistent respiratory failure. MRSA nares negative. Given the patients tenuous respiratory status, and recent receipt of steroids, can continue IV Bactrim for now while awaiting BDG and PJP sputum, but overall lower suspicion. Would likely stop IV Bactrim if repeat BDG is negative. Also consider the possibility of a non-infectious etiology, e.g., organizing pneumonia. Note that the patient appeared to have mild ILD based on a CT scan from March of this year with mild subpleural reticulations predominantly at the bases. This has progressed significantly on her current CT scan, possibly from aspiration/infection. The patient is not currently felt to be a candidate for bronchoscopy or lung biopsy. Recommendations: - Agree with trial of broadening treatment to meropenem for now given persistent respiratory failure - Can continue IV Bactrim for now. Likely stop if repeat BDG negative - s/p 5-day course of azithromycin - Send sputum Cx if able, sputum PJP PCR if able - F/u BDG, galactomannan Ag, Histo UrAg, Crypto serum Ag - Appreciate pulmonary following. Patient currently not interested in bronchoscopy given GOC. If will be undergoing bronchoscopy, would obtain bronch/BAL studies including cultures (bacterial, fungal, AFB, Nocardia cultures), BAL galactomannan, PJP PCR, MTB PCR with rifampin susceptibilities, CMV, Legionella ID will continue to follow. Valerie Armendariz MD, MHS Infectious Diseases [facility] [place]/ID Connect ID Connect direct line: [phone] Admission and Anticipated Discharge Date Admission Date: May 13, 2025 Subjective This patient recommendation is based on a telemedicine consult request which was completed asynchronously through chart review and information provided by the primary physician. The patient was not seen or examined today. The evaluation is consultative in nature and all patient care and treatment decisions can either be accepted or rejected by the patient's primary hospital-based treating physician using their own independent medical judgment for their patient. Time Spent Reviewing Chart: 31+ minutes - Afebrile, WBC 20.9 - On 5L nc - GOC discussions ongoing Results & Data Vital Signs (Past 12 Hours) Vital Signs Temp Pulse Resp BP Pulse Ox O2 Del Method O2 Flow Rate 05/19/25 12:44 36.3 C L 62 17 112/67 96 Nasal Cannula 5 05/19/25 08:00 Nasal Cannula 6 05/19/25 07:59 36.4 C L 59 L 18 98/58 L 95 Nasal Cannula 5 05/19/25 06:59 82 19 97 Nasal Cannula 6 Laboratory Results 05/16 CXR FINDINGS: Stable left chest port. Stable cardiomegaly without pulmonary vascular congestion. Stable diffuse interstitial and patchy pulmonary opacities. No significant pneumomediastinum seen by plain film. No pneumothorax seen. IMPRESSION: No significant pneumomediastinum seen. Otherwise as described. 05/13 CT chest 1. No evidence for esophageal injury. No oral contrast leak from the esophagus. There is mild pneumomediastinum that persists. The origin of the pneumomediastinum may be from the lung, especially given the rapidly progressive severe interstitial lung disease, that is increased from April 27, 2025, and is markedly increased compared to March 08, 2025. 05/13 CT A/P 1. New pneumomediastinum. Chest CT could be obtained for further evaluation 2. Worsened bilateral pneumonia 3. Resolution of the previously seen pleural effusions 4. Small hiatal hernia 5. Cholelithiasis without evidence of acute cholecystitis 6. Small left adrenal adenoma 7. 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 Diverticulosis without evidence of diverticulitis Micro Data: 05/16 serum CrAg: neg 05/16 Histoplasma/Blasto urine Ag: PEND 05/14 [id number]-[id number]: <31 neg 05/14 aspergillus serum Ag: neg 05/14 RVP: neg 05/14 Legionella UrAg: neg 05/13 BCx x2: NGTD 05/13 MRSA nares: neg prior 04/29 BDG: <31 neg 04/21/25 BCx x2: NGTD 04/21 UCx: Klebsiella oxytoca Antibiotic Summary: meropenem (05/19 present) prior pip-tazo (05/13 05/19) IV Bactrim (05/13 05/19) azithromycin (05/14 05/18)
[2025-05-19] MEDS: MEROPENEM 500 MG in SYRINGE 0 ML IV SCH (19:40)
--- NOTE | 2025-05-19 19:53 | Billing Data ---
Date of Service May 19, 2025 Coding Level of Care Code 93924 SUB INP/OBS CARE MIN
[2025-05-19] MEDS: SODIUM ZIRCONIUM CYCLOSILICATE 10 GM PACKET PO ONE (20:44)
[2025-05-19] MEDS: LANTUS PER UNIT CHARGE SC SCH (21:04)
--- NOTE | 2025-05-19 21:18 | CT Scan Report ---
Exam(s): CT CHEST Without Contrast EXAM: CT Chest Without Intravenous Contrast CLINICAL HISTORY: hypoxia, ?worsening fibrosis. TECHNIQUE: Axial computed tomography images of the chest without intravenous contrast. CTDI is 6.03 mGy and DLP is 170.62 mGy-cm. Automated exposure control was utilized for the study. A dose lowering technique was utilized adhering to the principles of ALARA. COMPARISON: No relevant prior studies available. FINDINGS: Limitations: There is diffuse respiratory artifact, which degrades image quality throughout the examination. Lungs: There is extensive bronchiectasis involving both lower lobes with diffuse coarse interstitial markings. Similar involvement of the right middle lobe. There is also peripheral changes involving both upper lobes. No lobar consolidation. Pleural space: There is abnormal gas along the anteromedial aspect of the right upper lobe along the pleural reflection, which does not appear to be bullous disease. There is also subtle crescentic lucency along the posterior pleural reflection adjacent to the right medial basal segment (series 3; images 35-39). No significant effusion. Heart: Cardiomegaly. Moderate coronary artery calcification. No significant pericardial effusion. Mediastinum: Hiatal hernia. Bones/joints: Unremarkable. No acute fracture. Soft tissues: Unremarkable. Vasculature: Atherosclerotic disease involving the aorta. No aneurysm. Lymph nodes: Unremarkable. No enlarged lymph nodes. Tubes, lines and devices: A left internal jugular approach port a catheter is noted with the tip in the superior vena cava. IMPRESSION: 1. There is diffuse respiratory artifact, which degrades image quality throughout the examination. 2. There is abnormal gas along the anteromedial aspect of the right upper lobe along the pleural reflection, which does not appear to be bullous disease. There is also subtle crescentic lucency along the posterior pleural reflection adjacent to the right medial basal segment (series 3; images 35-39). These findings are most consistent with subtle trace right pneumothorax. The suspected pneumothorax is too small for percentile estimation. Recommend short interval follow-up upright expiratory examination to excluded advancing process. 3. There is extensive bronchiectasis involving both lower lobes with diffuse coarse interstitial markings. Similar involvement of the right middle lobe. There is also peripheral changes involving both upper lobes. While there may represent a subtle component of interstitial vascular congestion, the findings are concerning for extensive fibrotic changes. No lobar consolidation. Communications: Call Doctor Pneumothorax Electronically signed by: Rigoberto Nielson MD 05/19/25 21:17 PM
[2025-05-19 21:34] LABS: Anion Gap 8.0 (3-11); Blood Urea Nitrogen 19.0 mg/dl (6-23); Calcium 8.4 mg/dl (8.6-10.3); Carbon Dioxide 26.0 mmol/L (21-32); Chloride 84.0 mmol/L (98-107); Creatinine Clr Calc Pharmacy 44.6 ml/min; Glucose 199.0 mg/dl (70-99(Fasting)); Potassium 4.8 mmol/L (3.5-5.1); Sodium 118.0 mmol/L (136-145)
[2025-05-20] MEDS: CALCIUM CARBONATE 500 MG CHEWABLE TAB PO PRN (00:12)
[2025-05-20 00:31] LABS: Anion Gap 4.0 (3-11); Blood Urea Nitrogen 19.0 mg/dl (6-23); Calcium 8.4 mg/dl (8.6-10.3); Carbon Dioxide 30.0 mmol/L (21-32); Chloride 89.0 mmol/L (98-107); Creatinine Clr Calc Pharmacy 52.1 ml/min; Glucose 74.0 mg/dl (70-99(Fasting)); Potassium 4.5 mmol/L (3.5-5.1); Sodium 123.0 mmol/L (136-145)
[2025-05-20 04:35] LABS: Anion Gap 2.0 (3-11); Anion Gap 3.0 (3-11); Blood Urea Nitrogen 20.0 mg/dl (6-23); Calcium 8.3 mg/dl (8.6-10.3); Calcium 8.4 mg/dl (8.6-10.3); Carbon Dioxide 29.0 mmol/L (21-32); Carbon Dioxide 31.0 mmol/L (21-32); Chloride 90.0 mmol/L (98-107); Creatinine Clr Calc Pharmacy 49.8 ml/min; Creatinine Clr Calc Pharmacy 52.1 ml/min; Glucose 108.0 mg/dl (70-99(Fasting)); Glucose 110.0 mg/dl (70-99(Fasting)); Potassium 4.8 mmol/L (3.5-5.1); Sodium 122.0 mmol/L (136-145); Sodium 123.0 mmol/L (136-145)
--- NOTE | 2025-05-20 06:59 | Hospitalist Progress Note ---
Date of Service May 20, 2025 Assessment & Plan (1) Sepsis: (2) Acute on chronic hypoxic respiratory failure: (3) Pneumomediastinum: (4) GABRIEL (acute kidney injury): (5) Paroxysmal atrial fibrillation: (6) DM type 2 (diabetes mellitus, type 2): Plan 80yo woman with stage 1 breast cancer and recent chemotherapy (docetaxel and cyclophosphamide 04/09) who was hospitalized 04/18-05/12 with severe hyponatremia, diverticulitis/UTI, pulmonary hypertension, hypoxia who was quickly readmitted from [facility] with worsening acute on chronic respiratory failure #possible sepsis - POA. Unclear at this time whether she has infection (pneumonia) or an inflammatory problem. Leukocytosis is affected by her underlying lymphoproliferative disorder, though bands were present. 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 Immunocompromised because of recent chemo and steroids #pneumomediastinum - no evidence of esophageal damage on CT scan, probably alveolar source During recent ([id number]) admission she was treated with aggressive diuresis and antibiotics for diverticulitis, UTI (pip-tazo then cefepime, ceftriaxone) but failed to improve. Chemotherapy pulmonary toxicity and opportunistic infections were considered. She was too hypoxic to undergo bronchoscopy safely. She seemed to improve on steroids and diuresis though she says she didn't really get better reviewed pulmonary recs 05/16 Pulmonary following consulted ID 05/16 ID following -had ILD on March CT scan but mild at that time and has rapidly progressed - related to toxicity from chemo or infection -continuing pip-tazo. serial procal negative and had broad spectrum IV antibiotics 04/20-at least 04/24 so seems less likely a standard bacterial pneumonia. RVP was negative -azithromycin added for atypical coverage and legionella urine Ag pending -sputum Cx and PJP ordered but no sputum to date -too hypoxic for bronchoscopy agree with empiric treatment for PJP - continue bactrim. on steroids. -aspergillus ag, fungitel, urine histo/blasto antigen pending, crag pending -continue solumedrol 40 IV q8h. Weaning from high doses due to COLD MEAT COOK status, plan to start 30mg q8h on 05/21 -continue supplemental oxygen, per pulm can use high flow but max 20L to avoid too much positive pressure with the pneumomediastinum -fairly euvolemic, lasix 20 mg IV -CXR today - personally reviewed film: pneumomediastinum not visible, bilateral extensive pulmonary infiltrates same to a little improved? -On 05/17 no worsening oxygen requirements. -On 05/18, oxygen requirements are slowly improving. However patient's ambulatory function was concerning given that she required max assist to even sit her up to the edge of the bed. She became even more hypoxic. Long road ahead if she continues to improve. -Palliative care consulted > Patient requesting COLD MEAT COOK and transfer to hospice at home >Start sublingual morphine and ativan for shortness of breath and anxiety > CM to assist with hospice referral #GABRIEL - admission Cr of 1.84, from 0.99 on 05/12/25. sepsis/prerenal -holding scheduled diuretics and SHYLA -was given IV fluids on admission -resolved and Cr 0.9 stable despite gentle diuresis. 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 -Nephro consulted - pending -decreased to 117, hold lasix, trend BMP q4hrs, give 100 mL 3% saline bolus > after 100 mL 3% saline, 118 on 05/19 - Na was 122 in AM labs #Paroxysmal atrial fibrillation - RVR with rates in the 120's on admission -flipped into afib with RVR rates 130-150 with some mild hypotension 05/15 -digoxin IV 250 mcg q6h x 3 on 05/15. I have not ordered ongoing dosing at this time - discuss with pharmacist if continuing, because of drug interactions and renal function -tried metoprolol tartrate 12.5 mg last night but too hypotensive this AM -amiodarone not a good choice with her severe lung disease -is not anticoagulated but its warranted if she improves and doesn't have any need for procedure. -Patient again flipped in A FIB WITH RVR ON 05/17. Reordered metoprolol IV and then placed on oral metoprolol. - Has resolved with HR in the 70-80s #Diabetes with steroid induced hyperglycemia - severe, uncontrolled -will be on high dose steroids as well as IV bactrim (contains dextrose) for awhile -insulin drip 05/15-05/16 -consulted pharmacy for glycemic management - Continue SQ insulins #Hypertension -Hold antihypertensives for now, currently low BP -usually on amlodipine and lisinopril, however, if able to start would benefit from something for rate control #Wound care - sacral decubitus present on admission Stage III pressure ulcer of coccyx POA Unstageable bilateral medial buttock pressure ulcers PO -Turn and position q 2 hours -WON consult #Stage 1 breast cancer - followed by Dr. Candelaria. Consulted last admission. Completed 3/4 chemo cycles and he said no more chemo. #subacute pelvic fracture - WBAT, not causing pain #Severe malnutrition Multiple areas of skin breakdown/decubiti, per RD sales support consultant patient has lost 12.3% of her body weight in approximately 1 month Risk Factor(s): Age, acute illness/infection with loss of appetite Treatment: RD consultation, boost 3 times daily, Daily weights, I's and O's, DVT ppx - enoxaparin. SCDs Admission and Anticipated Discharge Date Admission Date: May 13, 2025 Supervising Physician Co-Signing Physician Notes I personally examined the patient and verified all rivera points of history and exam, discussed case, and agree with decision making with Dr Nava and Camron Keane MS4 pt and family far more comfortable with home/hospice and have much better feel that things have unfortunately progressed to where hospice is the most viable option. Vitals noted, in general she is awake and alert very frail and thin appearing fatigued. HEENT normocephalic atraumatic mucous membranes moist. Breathing unlabored no accessory muscle use she is on nasal cannula. Neuro without focal deficits. Labs and diagnostics noted. Hypoxia/infiltratessee prior notes and pulmonary notes - appears to have been rapid fibrotic process, did not respond to multitude of abx or prolonged high dose steroids - extensive discussions. for home with hospice once everything set up (hospital bed, prn ativan /morphine for dyspnea, O2) - hopefully home 05/21 but once hospice set up -would slowly wean steroids since, while i unfortunately do not think they helped, she was on high dosing steroids for quite a while and would not want her to have any iatrogenic steroid withdrawal sx HyponatremiaI suspect it is a bad combination of SIADH and poor solute intake. Fortunately she is asymptomatic for home once all is set up for hospice, hopefully 05/21 Subjective Pt laying in bed this morning and somewhat tired and tearful. Pt reports she thinks she would like to go home and that she is tired from all the things she has gone through in the hospital. She denies any new symptoms since yesterday. She reports she has a low appetitie. She is awaiting her and her daughter to arrive later this morning. Denies chest pain, HUTCHISON, abdominal pain, N/V/D. Review of Systems Review of Systems: As per HPI Physical Exam Physical Exam: GEN: lying in bed awake HEENT: pupils equal, sclerae anicteric, moist MM RESP: using accessory muscles to breath, coarse breath sounds. no wheezing, rales CV: RRR, no murmurs, rubs or gallops, no peripheral edema ABD: soft, nontender, bowel sounds present SKIN: warm and dry, no generalized rashes Results & Data Results & Data Vital Signs (Past 12 Hours) Vital Signs Temp Pulse Pulse Resp BP Pulse Ox O2 Del Method 05/19/25 23:57 36.5 C 70 18 110/61 95 Room Air 05/19/25 22:15 70 05/19/25 20:28 36.4 C L 75 18 120/60 94 Nasal Cannula 05/19/25 20:00 High Flow Nasal Cannula 05/19/25 19:50 79 18 94 Nasal Cannula O2 Flow Rate 05/19/25 23:57 05/19/25 22:15 05/19/25 20:28 5 05/19/25 20:00 7 05/19/25 19:50 8 Resident Activity Tracking Resident Involvement: Resident Care Provided Care Provided: Adult Hospital Medicine (1) Sepsis Acute renal failure type: unspecified Sepsis acute organ dysfunction status: with acute organ dysfunction Sepsis type: sepsis due to unspecified organism Severe sepsis acute organ dysfunction type: acute renal failure
--- NOTE | 2025-05-20 09:22 | Palliative Care Progress Note ---
Date of Service May 20, 2025 Assessment & Plan (1) Encounter for assessment of decision-making capacity: Plan: (1) Palliative care by specialist: Met with pt at bedside, her spouse Jeremi was present. Introduced Palliative Medicine and explained our role in advanced care planning, symptom management and navigation through the progression of life limiting disease. Patient and/or family were receptive to palliative services for goals of care discussions. Reviewed we are different from hospice, a home health nurse visiting service. (2) Encounter for assessment of decision-making capacity: Patient currently exhibits of decisional capacity based on the ability to convey understanding of personal PMHx, current medical condition, treatment options nor the risks / benefits/ potential outcomes of accepting/declining those options, and ability to make decisions based on such knowledge. Hospital does not have written documentation of patient wishes concerning her chosen proxy for medical decisions. Per PA [id number], in absence of written documentation of patient wishes, pt's proxy for medical decisions would be her spouse Jeremi Sparrow ([phone]). Pt DOES NOT require a proxy for medical decisions. (3) Counseling regarding advanced directives and goals of care: Met with pt and her spouse from 13:00 - 13:40 to discuss ACP. (2) Counseling regarding advanced directives and goals of care: Plan: 05/20/25: met with pt, her spouse and daughter at bedside today. Reinforced goals of care discussion and anticipatory guidance offered to pt and spouse yesterday. Met with pt's daughter Mayela one on one from 11:00 - 11:30 to discuss hospice care at home and what that might entail for her. 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 She shared feeling relief that she will have some assistance with the hospice team and asked if it would be possible to hire extra help or utilize [facility] along with hospice care. I shared that this may be possible but generally would involve an out of pocket expense, which she shared that she expected. Family is all in agreement that they would like to try to get patient home with hospice care and understand that if patient declines and requires more care than they can safely provide at home, SNF with hospice would be an option they can discuss with hospice at that time. 05/19/25: Pt and Jeremi both expressed frustration with oncology and medical teams "giving up" on patient. Jeremi expressed concern that the pt's lungs "keep getting worse regardless of what you do". He shacred concern that the patient may just be "triggering being short of breath when she gets agitated". He states that her dyspnea does not make any sense because her oxygen levels remain high. Jeremi stated that the patient has been on a "downward spiral" for the last several months. Patient shared that she was tolerating cancer directed therapies well until her third cycle of chemo and now she feels that she is getting weaker and sicker by the day. Jeremi shared that pt's oncologist told him there is nothing more they can do to treat her cancer that will not make her sicker. 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 At this point the patient shared that she knows she is getting sicker and she wants to go home. She shared that she does not want any further diagnostics and interventions for her lungs if ultimately her cancer cannot be cured. She expressed that she is ready to go home and stay home until she dies, but afraid of possible struggle to breathe as she dies. We discussed prognosis based on the following prognostic scores (calculation based on pt's current condition): Palliative Prognostic Index (PPI) Score: 11 (PPI > 6 = approx survival of three weeks. Sensitivity 80% / Specificity 85%.) Domingo CY, Rich YS, Simmons HM, Wang JS, Greg TL, Reema CY, Mick CC, Jessa YC, Poncho JM, Zofia JH, Brittany WC.Combination of initial palliative prognostic index and score change provides a better prognostic value for terminally ill cancer patients: a six- year observational cohort study https://www.ncbi.nlm.nih.gov/pubmed/83390149 . J Pain Symptom Manage. 2014;48(5):804-14. Palliative Prognostic Score (PaP - predicts 30 day survival probability in cancer and non cancer diagnoses): 8.5 = 30-day survival probability 30-70% Tsering Gallardo.Independent validation of Palliative Prognostic Score in terminally ill patients referred to a hospital-based palliative medicine consultation service https://www.ncbi.nlm.nih.gov/pubmed/73267358 . J Pain Symp Manage. 2001; 22(5):856866. Given poor prognosis for pt, we discussed option of ongoing life prolonging treatments involving hospitalizations and return to SNF vs a transition to comfort directed care. Discussed hospice benefit: an interdisciplinary program offered by nurses, nurses aides, social workers, chaplains and a medical office professional instructor for patients with a terminal condition and a life expectancy of less than 6 months. This is covered by Medicare at 100%/no out of pocket expense to patient and all meds/supplies needed by patient for the reason they are on hospice are paid for/covered by hospice. The goal is assure quality of life of the patient in their home setting (home, long-term, inpatient hospice setting) by providing symptoms management, psychosocial and spiritual support. However, they cannot offer 24 hours care and if the family is unable to provide that care, they will have to consider personal care with out of pocket cost vs. long-term placement. We discussed the goals of hospice as a patient service and the goals of care; we discussed EOL trajectories and transitions naty the emotional impact of realizing mortality as a concrete reality from prior abstract considerations. Pt was reassured that no matter where they are along this trajectory, they are not alone - their medical team will remain by their side through their journey. Discussed the pros/cons of accepting help when especially weakened and distressed by pain-which would also help provide relief/decrease caregiver burden/strain. Jeremi shared that the pt's daughter Mayela will be coming to the hospital and he would like help explaining things to her. He said that Mayela had previously mentioned taking time off work to stay with patient as primary mining analyst. Ultimately patient wishes to return to her home for hospice care. BSRN, MADHU and attending team made aware. (3) Comfort measures only status: Plan: transitioned to MEDICAL SUPPORT SPECIALIST on 05/19/25 with hope for discharge home for hospice care. (4) Need for comfort care: Plan: Comfort plan of care parameters: 1. Patient/Family want hospice added to their care. 2. NO rehab/PT/OT 3. Strictly End of Life care only 4. NO escalation of care: do not increase oxygen, escalate therapies, etc. The focus is on comfort through end of life, assure this is accomplished with aggressive symptom management (i.e. relief of dyspnea, pain, etc.) 5. NO return to hospital 6. NO labs, imaging, surgery 7. Oral intake as desired for comfort and pleasure: NO dietary re striction, Allow permissive aspiration, do not withhold food or drink for concern of aspiration and allow PO for pleasure and comfort. 8. If difficulty urinating/commode/bedpan, ok to place Brown catheter for comfort/hygiene/skin protection AND/OR Continue Brown catheter for comfort/hygiene/skin protection 9. NO: calorie counts, artificial nutrition, feeding tubes or IV fluids EOL Symptom manamgement: Pain/dyspnea/tachypnea morphine 2mg IVP PRN [id number] Consider titratable morphine drip if pt requires >3 PRN doses in under two consecutive hours. Nausea/vomitting zofran 4mg IVP q4h PRN Agitation ativan 0.5mg IVP q4h PRN Hyperactive delirium haldol 5mg IVP q6h PRN Secretions - if repositioning not effective robinul 0.4mg IV q4h PRN atropine SL 3 drops Q1h PRN Nursing care: Discontinue all medications not directed towards comfort. Detether pt from IV tubing, monitor cables, and check vitals once per shift. Please continue HFNC and titrate down as able for patient comfort. Use medications above PRN for dyspnea/tachypnea and do not increase oxygen once titrated down. Assess q1h for pain/dyspnea and treat accordingly. (5) Palliative care by specialist: Plan: Palliative care will continue to follow for ongoing EOL pt care and family support. Admission and Anticipated Discharge Date Admission Date: May 13, 2025 Subjective Assessed pt at bedside, she was transitioned to MEDICAL SUPPORT SPECIALIST on 05/19/25. Pt is awake and alert and pleasantly communicative. She c/o mild dyspnea and feeling anxious "like I can't breathe". Respiratory effort increased, rate 26/min with noted accessory muscle use. requested BSRN medicate pt with ativan and morphine, which did provide relief. Pt's spouse, daughter and grandson at bedside. Review of Systems Review of Systems: All systems reviewed & are unremarkable except as noted in Subjective Physical Exam Constitutional: + ill appearing, + thin and + frail appe aring Neck: trachea midline, no thyromegaly Respiratory: + tachypneic; no respiratory distress an d no labored breathing Auscultation: + crackles; no wheezes Cardiovascular: RRR, no murmur, no edema Gastrointestinal (Abdomen): normal bowel sounds, soft, nontender, no hepatosplenomegaly Musculoskeletal: Extremities: extremities normal to inspection Skin: no rashes, warm and dry Psychiatric: Orientation: alert, oriented x 3 and cooperative Mood: + anxious mood Results & Data Vital Signs (Past 12 Hours) Vital Signs Temp Pulse Pulse Resp BP Pulse Ox O2 Del Method 05/20/25 08:47 36.6 C 79 18 94/45 L 97 High Flow Nasal Cannula 05/20/25 07:26 72 18 90 Nasal Cannula 05/19/25 23:57 36.5 C 70 18 110/61 95 Room Air 05/19/25 22:15 70 O2 Flow Rate 05/20/25 08:47 9 05/20/25 07:26 9 05/19/25 23:57 05/19/25 22:15 Laboratory Results No further labs or diagnostics in concert with comfort directed care. Diagnostic Findings No further labs or diagnostics in concert with comfort directed care. Medications Administered Current Inpatient Medications Acetaminophen (Acetaminophen 325 Mg Tab) 650 mg PO Q4H PRN PRN Reason: Pain or Fever Stop: 06/12/25 22:07 Last Admin: 05/13/25 22:52 Dose: 650 mg Albuterol (Albut/Ipratrop 3mg/0.5mg Neb 3 Ml Vial) 3 ml NEB Q4R PRN; Protocol PRN Reason: Shortness Of Breath Or Wheezing Stop: 06/13/25 08:37 Last Admin: 05/19/25 06:59 Dose: 3 ml Aspirin (Aspirin 81 Mg Ectab) 81 mg PO DAILY EMI Stop: 06/13/25 08:59 Last Admin: 05/20/25 09:26 Dose: 81 mg Atropine Sulfate (Atropine Sulfate 1% Op Soln 5 Ml Btl) 4 drops SL Q1H PRN PRN Reason: Secretions or pulm congestion Stop: 06/18/25 13:17 Budesonide (Budesonide 0.25 Mg/2 Ml Vial (Pulmicort)) 0.25 mg NEB BIDR EMI Stop: 06/12/25 22:07 Last Admin: 05/20/25 07:25 Dose: 0.25 mg Calcium Carbonate (Calcium Carbonate 500 Mg Chewable Tab) 500 mg PO BID PRN PRN Reason: Indigestion Stop: 06/18/25 14:32 Last Admin: 05/20/25 00:12 Dose: 500 mg Dextrose (Dextrose 50% 50 Ml Syringe) 25 - 50 ml IV UD PRN; Protocol PRN Reason: Hypoglycemia Protocol Stop: 06/12/25 22:07 Last Admin: 05/18/25 13:07 Dose: 25 ml Diclofenac Sodium (Diclofenac Sod 1% Gel 100 Gm Tube) 2 gm EXT TID EMI; Protocol Stop: 06/12/25 22:07 Last Admin: 05/20/25 13:12 Dose: Not Given Furosemide (Furosemide Inj 20 Mg/2 Ml Vial) 20 mg IV DAILY EMI Stop: 06/15/25 12:14 Last Admin: 05/18/25 08:55 Dose: 20 mg Furosemide (Furosemide 20 Mg Tab) 20 mg PO QAM EMI Stop: 06/18/25 14:44 Last Admin: 05/20/25 09:28 Dose: 20 mg Glucagon (Glucagon For Inj 1 Mg Vial) 1 mg SQ UD PRN; Protocol PRN Reason: Hypoglycemia Protocol Stop: 06/12/25 22:07 Glucose (Glucose 40% Gel 15 Gm Tube) 15 - 30 gm PO UD PRN; Protocol PRN Reason: Hypoglycemia Protocol Stop: 06/12/25 22:07 Glucose (Glucose 10 Tab/Tube) 4 - 8 tab PO UD PRN; Protocol PRN Reason: Hypoglycemia Protocol Stop: 06/12/25 22:07 Glycopyrrolate (Glycopyrrolate 0.2 Mg/Ml Vial) 0.4 mg IV Q4H PRN PRN Reason: Rattling Secretions or Pulm Congestion Stop: 06/18/25 13:17 Haloperidol (Haloperidol Oral Soln 2 Mg/Ml) 0.5 mg PO Q4H PRN PRN Reason: Nausea &/or Vomiting Stop: 06/18/25 13:17 Heparin Sodium (Porcine) (Heparin 100 Unit/Ml 5ml Flush) 5 ml FLUSH PRN PRN PRN Reason: Flush Stop: 06/15/25 02:58 Last Admin: 05/20/25 07:43 Dose: 5 ml Hyoscyamine (Hyoscyamine Sulfate 0.125 Mg Tab) 0.125 mg SL Q4H PRN PRN Reason: Secretions or Pulm Congestion Stop: 06/18/25 13:17 Methylprednisolone 40 mg/ (Syringe) 0.64 mls @ 1.5 mls/min IV TID EMI Stop: 06/14/25 08:59 Last Admin: 05/20/25 13:16 Dose: 1.5 mls/min Meropenem 500 mg/ Syringe 10 mls @ 2 mls/min IV Q6H [facility]; Protocol Stop: 05/26/25 18:59 Last Admin: 05/20/25 13:12 Dose: 2 mls/min Insulin Aspart (Insulin Aspart Per Unit Charge) 0 units SC ACHS [facility] Stop: 06/15/25 09:29 Last Admin: 05/20/25 13:11 Dose: 5 units Insulin Glargine (Lantus Per Unit Charge) 0 units SC BID EMI; Protocol Stop: 06/18/25 20:59 Last Admin: 05/20/25 09:28 Dose: Not Given Lorazepam (Lorazepam 0.5 Mg Tab) 0.5 mg SL Q4H PRN PRN Reason: shortness of breath or anxiety Stop: 06/14/25 09:48 Last Admin: 05/20/25 10:19 Dose: 0.5 mg Melatonin (Melatonin 3 Mg Tab) 3 mg PO HS PRN PRN Reason: sleep Stop: 06/12/25 22:07 Last Admin: 05/14/25 23:27 Dose: 3 mg Metoprolol Succinate (Metoprolol Succ 25mg Ext Rel Tab) 25 mg PO HS EMI Stop: 06/16/25 21:59 Last Admin: 05/19/25 21:05 Dose: 25 mg Miscellaneous (Carbohydrates For Hypoglycemia ) 15 - 30 gm PO UD PRN PRN Reason: Hypoglycemia Protocol Stop: 06/12/25 22:07 Last Admin: 05/18/25 12:42 Dose: 15 gm Miscellaneous Information (Pharmacy Glycemic Mgmt Consult) 1 each N/A UD PRN; Protocol PRN Reason: Consult Stop: 06/15/25 08:28 Morphine Sulfate (Morphine Sulfate 2 Mg/Ml Carp) 2 mg IV Q30M PRN PRN Reason: Pain or Respiratory Distress Stop: 06/02/25 13:17 Last Admin: 05/20/25 10:19 Dose: 2 mg Morphine Sulfate (Morphine Sulfate 10 Mg/0.5 Ml Udp) 5 mg PO Q2H PRN PRN Reason: Pain or Respiratory Distress Stop: 06/02/25 13:17 Ondansetron HCl (Ondansetron Inj 2 Mg/Ml 2 Ml Vial) 4 mg IV Q4H PRN PRN Reason: Nausea &/or Vomiting Stop: 06/18/25 13:17 Ondansetron HCl (Ondansetron 4 Mg Od Tab) 4 mg SL Q4H PRN PRN Reason: Nausea &/or Vomiting Stop: 06/18/25 13:17 Pantoprazole Sodium (Pantoprazole 40 Mg Tab) 40 mg PO QAM EMI Stop: 06/13/25 08:59 Last Admin: 05/20/25 09:29 Dose: 40 mg Phenol (Chloraseptic (Phenol) 1.4% Soln 180 Ml Btl) 0 sprays MT TID PRN PRN Reason: sore throat Stop: 05/20/25 17:03 Polyethylene Glycol (Polyethylene (Miralax) 17 Gm Pack) 17 gm PO DAILY PRN PRN Reason: Constipation Stop: 06/12/25 22:07 Senna/Docusate Sodium (Docusate Sodium/Senna 50/8.6mg Tab) 1 tab PO QAM [facility] Stop: 06/13/25 08:59 Last Admin: 05/20/25 09:28 Dose: 1 tab Sodium Chloride (Sodium Chloride 1 Gm Tablet) 2 gm PO TID [facility] Stop: 06/18/25 20:59 Last Admin: 05/20/25 13:13 Dose: Not Given PG Care Time/CCT Total # of Minutes Spent Total Time Spent with Patient: Total time spent is greater than 50% in coordination of care (as documented) at patient's floor/unit and/or counseling patient: Advanced Care Planning 47425 Advanced Care Planning 30 Min [place] [address] SUB INP/OBS CARE 2/35MIN Patient Type Established History Expanded Problem Focused Exam Expanded Problem Focused Medical Decision Making Moderate Complexity Diagnoses Encounter for assessment of decision-making capacity Z00.8 Counseling regarding advanced directives and goals of care Z71.89 Comfort measures only status Z51.5 Need for comfort care Palliative care by specialist Z51.5 Additional Codes Advanced Care Planning - 20801 Advanced Care Planning 30 Min: 97081 Advanced Care Planning 30 Min ([id number])
--- NOTE | 2025-05-20 10:34 | Nephrology Progress Note ---
Date of Service May 20, 2025 Assessment & Plan (1) Hyponatremia: (2) Hypoxia: (3) GABRIEL (acute kidney injury): Plan 80 year old female with past medical history significant for hypertension, diabetes, recurrent UTI and history of breast cancer has been on chemotherapy with cyclophosphamide and docetaxel. Recently she had a prolonged hospitalization from 04/21/2025 to 05/12/25 hyponatremia, with lethargy and generalized weakness. Sodium was lowest 115 but improved prior to discharge. She was readmitted on 05/13/2025 with hypoxic respiratory failure. On admission. Sodium was 130 which slowly declined to 117 this morning. Sodium slightly improved to 118 after she received 3% saline 100 mL bolus. Sodium slightly improved to 122 to 123 this morning. Has been having difficulty swallowing the salt tablets. overall she has been feeling poorly and clinically declining without any improvement in respiratory status over last almost a week. --Try giving salt tablet with applesauce or pudding but otherwise okay to salt tab to hold salt tablets if she is having difficulty swallowing them. Continue on Lasix 20 mg daily. --Overall prognosis seems quite poor. With poor respiratory status for more than a week despite all measures including antibiotic, steroid and oxygen. Admission and Anticipated Discharge Date Admission Date: May 13, 2025 Octavio Nobles was seen and evaluated this morning with her daughter at bedside. She was very emotional but she was talking in full sentence however within few minutes she started coughing and choking after she took salt tablet. Blood pressure has been relatively low. Sodium slightly improved to 123 but again dropped to 122. Kidney function staying normal. Review of Systems Constitutional: + fatigue, + weakness and + anorexia Respiratory: + dyspnea on exertion Cardiovascular: no chest pain Physical Exam Constitutional: WD/WN, vitals as above + acute distress and + ill appearing Eyes: + anicteric sclerae Respiratory: + respiratory distress Auscultation: + diminished lung sounds and + rhonchi; no wheezes Cardiovascular: RRR, no murmur, no edema Musculoskeletal: Extremities: extremities normal to inspection Skin: no rashes, warm and dry Neurologic: no focal motor deficits Psychiatric: Orientation: alert and oriented x 3 Affect: euthymic affect Results & Data Vital Signs (Past 12 Hours) Vital Signs Temp Pulse Resp BP Pulse Ox O2 Del Method O2 Flow Rate 05/20/25 08:47 36.6 C 79 18 94/45 L 97 High Flow Nasal Cannula 9 07/18/25 07:26 72 18 90 Nasal Cannula 9 05/19/25 23:57 36.5 C 70 18 110/61 95 Room Air PG Care Time/CCT Total # of Minutes Spent Total Time Spent with Patient: Total time spent is greater than 50% in coordination of care (as documented) at patient's floor/unit and/or counseling patient: Coding Level of Care Code 44367 SUB INP/OBS CARE 2/35MIN Diagnoses Hyponatremia E87.1 Hypoxia R09.02 GABRIEL (acute kidney injury) N17.9
--- NOTE | 2025-05-20 13:05 | Pulmonology Progress Note ---
Date of Service May 20, 2025 Assessment & Plan (1) Acute on chronic hypoxic respiratory failure: (2) Interstitial lung disease: (3) Pneumomediastinum: (4) Cor pulmonale: (5) Sepsis: Acute renal failure type: unspecified Sepsis acute organ dysfunction status: with acute organ dysfunction Sepsis type: sepsis due to unspecified organism Severe sepsis acute organ dysfunction type: acute renal failure (6) GABRIEL (acute kidney injury): (7) Dyspnea: (8) Immunosuppressed due to chemotherapy: Plan Impression: Mallorie Sparrow is a 79-year-old female history of triple negative breast CA recently admitted to the ICU for severe hyponatremia and hypoxia and discharged to rehab on 05/12/25 who is presenting back on 05/13/2025 with shortness of breath and hypoxia. CXR showed bilateral pulmonary infiltrates. CTA chest showed no pulmonary embolism, diffuse bilateral pulmonary infiltrates and new pneumomediastinum. Pulmonary consulted for evaluation and management. Recommendations: 1. Hypoxemic respiratory failure with pulmonary infiltrates: I am concerned at this point in time that the patient has been aggressively treated for almost 30 days now for reversible etiologies of her lung disease including diuretics, antibiotics, and steroids. She appears to have plateaued clinically and is not making any significant clinical progress. Mentioned to the patient and at bedside that we may need to reevaluate our goals of therapy as we may not be able to achieve previously stated goals of going home and functioning independently. I advised them that it is highly likely at a minimum the patient will require supplemental oxygen at discharge. She is not in a position to undergo repeat evaluation for status of her malignancy and is too frail to consider any chemotherapeutic options if the malignancy were to have returned. She is unable to even participate in transfer from bed to chair without becoming significantly winded. Unclear how much might be anxiety related. Agreed with plans for palliative care consult and defining goals of therapy at this point in time. Infectious disease notes were reviewed. Patient is too frail to consider bronchoscopy at this point in time and I am not sure that it would changer fixer strategy. Advised patient and that we will continue with steroids and attempts at diuresis in an effort to improve her oxygen requirement but ultimately she needs to be able to participate in some form of rehab in order to consider any degree of functional recovery. 2. Breast cancer status post therapy with docetaxel and cyclophosphamide. Advised patient that given her current clinical status, she is not a candidate for additional chemotherapeutic interventions at this point in time. Given her frail state, would be reasonable to pursue palliative care again. 3. CODE STATUS confirmed. DNR/DNI. 4. Pneumomediastinum: Unclear etiology. Potentially related to the aspiration event and coughing with Elsy effect. Appears stable on last imaging. Continue to follow clinically at this point in time. Unfortunately little else to offer from a pulmonary standpoint at this time. Palliative care discussions ongoing. Admission and Anticipated Discharge Date Admission Date: May 13, 2025 Subjective "I am tired and I want to go home." Patient feels her breathing is okay at times especially after morphine PRN. She is subjectively tired and states she would like to go home. SpO2 97% on 7L HFNC. Palliative care discusiions ongoing. Review of Systems 2 Review of Systems: All systems reviewed & are unremarkable except as noted in Subjective Physical Exam 2 Constitutional: + ill appearing, + thin and + frail appe aring Neck: trachea midline, no thyromegaly Respiratory: + tachypneic; no respiratory distress an d no labored breathing Auscultation: + crackles; no wheezes Cardiovascular: RRR, no murmur, no edema Gastrointestinal (Abdomen): normal bowel sounds, soft, nontender, no hepatosplenomegaly Musculoskeletal: Extremities: extremities normal to inspection Skin: no rashes, warm and dry Neurologic: Nonfocal exam Lymphatic: no cervical lymphadenopathy Results & Data Results & Data Vital Signs (Past 12 Hours) Vital Signs Temp Pulse Pulse Resp BP Pulse Ox O2 Del Method 05/20/25 09:00 High Flow Nasal Cannula 05/20/25 09:00 63 05/20/25 08:47 36.6 C 79 18 94/45 L 97 High Flow Nasal Cannula 05/20/25 07:26 72 18 90 Nasal Cannula O2 Flow Rate 05/20/25 09:00 7 05/20/25 09:00 05/20/25 08:47 9 05/20/25 07:26 9 Laboratory Results 05/19/25 05:44 05/20/25 04:04 Abnormal Lab Results 05/14/25 05/19/25 05/19/25 13:15 12:43 16:32 Sodium 118 L* 118 L* Potassium 4.9 5.5 H Chloride 86 L 85 L Carbon Dioxide 27 27 Anion Gap 5 6 BUN 17 17 Creatinine 0.68 0.70 Est Cr Clr Drug Dosing 49.8 48.4 eGFR 87.99 87.37 BUN/Creatinine Ratio 25.0 H 24.3 H Glucose 117 H 195 H POC Glucose Calcium 8.3 L 8.4 L Magnesium 1.4 L A. galactomannan Ag Not Detected A. galactomannan Ag Idx 0.04 Beta-(1,3)-D-Glucan <31 B-(1,3)-D-Glucan [facility] Negative 05/19/25 05/19/25 05/19/25 17:37 20:18 20:49 Sodium 118 L* Potassium 4.8 Chloride 84 L Carbon Dioxide 26 Anion Gap 8 BUN 19 Creatinine 0.76 Est Cr Clr Drug Dosing 44.6 eGFR 79.16 BUN/Creatinine Ratio 25.0 H Glucose 199 H POC Glucose 191 H 210 H Calcium 8.4 L Magnesium A. galactomannan Ag A. galactomannan Ag Idx Beta-(1,3)-D-Glucan B-(1,3)-D-Glucan [facility] 05/19/25 05/20/25 05/20/25 23:45 04:04 04:04 Sodium 123 L 123 L 122 L Potassium 4.5 4.8 Chloride 89 L Carbon Dioxide 30 Anion Gap 4 BUN 19 Creatinine 0.65 Est Cr Clr Drug Dosing 52.1 eGFR 88.95 BUN/Creatinine Ratio 29.2 H Glucose 74 POC Glucose Calcium 8.4 L Magnesium A. galactomannan Ag A. galactomannan Ag Idx Beta-(1,3)-D-Glucan B-(1,3)-D-Glucan [facility] 05/20/25 05/20/25 05/20/25 04:04 04:04 04:04 Sodium Potassium 4.8 Chloride 90 L 90 L Carbon Dioxide 31 29 Anion Gap 2 L BUN Creatinine Est Cr Clr Drug Dosing eGFR BUN/Creatinine Ratio Glucose POC Glucose Calcium Magnesium A. galactomannan Ag A. galactomannan Ag Idx Beta-(1,3)-D-Glucan B-(1,3)-D-Glucan [facility] 05/20/25 05/20/25 05/20/25 04:04 04:04 04:04 Sodium Potassium Chloride Carbon Dioxide Anion Gap 3 BUN 20 20 Creatinine 0.65 0.68 Est Cr Clr Drug Dosing 52.1 eGFR BUN/Creatinine Ratio Glucose POC Glucose Calcium Magnesium A. galactomannan Ag A. galactomannan Ag Idx Beta-(1,3)-D-Glucan B-(1,3)-D-Glucan Intrp 05/20/25 05/20/25 05/20/25 04:04 04:04 04:04 Sodium Potassium Chloride Carbon Dioxide Anion Gap BUN Creatinine Est Cr Clr Drug Dosing 49.8 eGFR 88.95 87.99 BUN/Creatinine Ratio 30.8 H 29.4 H Glucose 108 H POC Glucose Calcium Magnesium A. galactomannan Ag A. galactomannan Ag Idx Beta-(1,3)-D-Glucan B-(1,3)-D-Glucan Intrp 05/20/25 05/20/25 05/20/25 04:04 04:04 08:03 Sodium Potassium Chloride Carbon Dioxide Anion Gap BUN Creatinine Est Cr Clr Drug Dosing eGFR BUN/Creatinine Ratio Glucose 110 H POC Glucose 90 Calcium 8.3 L 8.4 L Magnesium A. galactomannan Ag A. galactomannan Ag Idx Beta-(1,3)-D-Glucan B-(1,3)-D-Glucan Intrp 05/20/25 12:02 Sodium Potassium Chloride Carbon Dioxide Anion Gap BUN Creatinine Est Cr Clr Drug Dosing eGFR BUN/Creatinine Ratio Glucose POC Glucose 107 H Calcium Magnesium A. galactomannan Ag A. galactomannan Ag Idx Beta-(1,3)-D-Glucan B-(1,3)-D-Glucan Intrp Diagnostic Findings Chest CT 05/19/25 19:39 CR Exam(s): CT CHEST Without Contrast EXAM: CT Chest Without Intravenous Contrast CLINICAL HISTORY: hypoxia, ?worsening fibrosis. TECHNIQUE: Axial computed tomography images of the chest without intravenous contrast. CTDI is 6.03 mGy and DLP is 170.62 mGy-cm. Automated exposure control was utilized for the study. A dose lowering technique was utilized adhering to the principles of ALARA. COMPARISON: No relevant prior studies available. FINDINGS: Limitations: There is diffuse respiratory artifact, which degrades image quality throughout the examination. Lungs: There is extensive bronchiectasis involving both lower lobes with diffuse coarse interstitial markings. Similar involvement of the right middle lobe. There is also peripheral changes involving both upper lobes. No lobar consolidation. Pleural space: There is abnormal gas along the anteromedial aspect of the right upper lobe along the pleural reflection, which does not appear to be bullous disease. There is also subtle crescentic lucency along the posterior pleural reflection adjacent to the right medial basal segment (series 3; images 35-39). No significant effusion. Heart: Cardiomegaly. Moderate coronary artery calcification. No significant pericardial effusion. Mediastinum: Hiatal hernia. Bones/joints: Unremarkable. No acute fracture. Soft tissues: Unremarkable. Vasculature: Atherosclerotic disease involving the aorta. No aneurysm. Lymph nodes: Unremarkable. No enlarged lymph nodes. Tubes, lines and devices: A left internal jugular approach port a catheter is noted with the tip in the superior vena cava. IMPRESSION: 1. There is diffuse respiratory artifact, which degrades image quality throughout the examination. 2. There is abnormal gas along the anteromedial aspect of the right upper lobe along the pleural reflection, which does not appear to be bullous disease. There is also subtle crescentic lucency along the posterior pleural reflection adjacent to the right medial basal segment (series 3; images 35-39). These findings are most consistent with subtle trace right pneumothorax. The suspected pneumothorax is too small for percentile estimation. Recommend short interval follow-up upright expiratory examination to excluded advancing process. 3. There is extensive bronchiectasis involving both lower lobes with diffuse coarse interstitial markings. Similar involvement of the right middle lobe. There is also peripheral changes involving both upper lobes. While there may represent a subtle component of interstitial vascular congestion, the findings are concerning for extensive fibrotic changes. No lobar consolidation. Communications: Call Doctor Pneumothorax Electronically signed by: Rigoberto Nielson MD 05/19/25 21:17 PM PG Care Time/CCT Total # of Minutes Spent Total Time Spent with Patient: Total time spent is greater than 50% in coordination of care (as documented) at patient's floor/unit and/or counseling patient: Coding Level of Care Code 96498 SUB INP/OBS CARE 2/35MIN Diagnoses Acute on chronic hypoxic respiratory failure J96.21 Interstitial lung disease J84.9 Pneumomediastinum J98.2 Cor pulmonale I27.81 Sepsis A41.9 Acute renal failure type: unspecified Sepsis acute organ dysfunction status: with acute organ dysfunction Sepsis type: sepsis due to unspecified organism Severe sepsis acute organ dysfunction type: acute renal failure GABRIEL (acute kidney injury) N17.9 Dyspnea R06.00 Immunosuppressed due to chemotherapy D84.821; Z79.69
--- NOTE | 2025-05-20 14:19 | Pharmacy Report ---
Pharmacy Glycemic Short Note 2 - Date of Service May 20, 2025 - Glycemic Short BSG Results (Last 24 hours): 05/19/25 05/19/25 05/19/25 16:32 17:37 20:18 Glucose 195 H 199 H POC Glucose 191 H 05/19/25 05/19/25 05/20/25 20:49 23:45 04:04 Glucose 74 108 H POC Glucose 210 H 05/20/25 05/20/25 05/20/25 04:04 08:03 12:02 Glucose 110 H POC Glucose 90 107 H OUTPATIENT ANTIDIABETIC REGIMEN: * metformin 1 gm bid, januvia 100 mg daily * HbA1c 6.6% (04/21/25) ASSESSMENT: 05/20: * Mallorie received 20 units of insulin yesterday (5 were basal) * Fasting BSG this AM again below goal range. Patient wishes to go home on hospice per case management notes. Will increase goal ranges of basal scale. * Continue with increased NovoLog goal range, loosen slightly with goals of care change to prevent hyperglycemic complications. 05/19: * Mallorie received 40 units of insulin yesterday (20 were basal) * Fasting BSG this AM below goal range, Lantus held this AM. She continues on IV methylprednisolone 40mg IV TID, Bactrim, and Zosyn (Zithromax course completed yesterday). No clear trends in highs and lows. Will start basal insulin at a scale based on BSG tonight due to labile BSGs. * Hypoglycemic yesterday at lunch, NovoLog loosened, goal range increased. Continue at this time. 05/18: * Mallorie received 44 units of insulin yesterday (22 were basal) * Fasting BSG this AM below goal range, will decrease 10% at this time. * She continues on methylprednisolone 40mg IV TID as well as Bactrim IV (in D5W), Zosyn, and Zithromycin IV (mixed in D5W). * Carbohydrate ratio tighten slightly to prevent BSG increases. Correction factor loosened to prevent overcorrection. 05/16: * 80yo woman with stage 1 breast cancer and recent chemotherapy, readmitted from [facility] with worsening acute on chronic respiratory failure. Continues on high dose steroids. Pharmacy consulted for glycemic management. Insulin drip started yesterday as BSGs>300 despite increase in novolog dosing. Insulin drip running this AM only at 0.4 units/hr. Patient received 17 units of basal insulin yesterday, will increase basal ~30% to 22 units x 1 dose this AM and d/c insulin infusion. With ongoing steroids, will provider tighter CR this AM. PLAN FOR INPATIENT GLYCEMIC CONTROL: * Hold outpatient oral diabetes medications * Basal insulin * Lantus 0-10 units SQ BID (see eMAR for additional details) * Bolus insulin * NovoLog per scale ACHS or Q6hrs while NPO * Goal Range: Low 110 mg/dL - High 160 mg/dL * Correction Factor: 45 mg/dL/unit * Nutritional / Prandial insulin per carb ratio of 1 unit per 8 grams CHO consumed
[2025-05-20 14:57] LABS: Anion Gap 5.0 (3-11); Blood Urea Nitrogen 23.0 mg/dl (6-23); Calcium 8.3 mg/dl (8.6-10.3); Carbon Dioxide 29.0 mmol/L (21-32); Chloride 91.0 mmol/L (98-107); Creatinine Clr Calc Pharmacy 53.7 ml/min; Glucose 180.0 mg/dl (70-99(Fasting)); Potassium 4.8 mmol/L (3.5-5.1); Sodium 125.0 mmol/L (136-145)
--- NOTE | 2025-05-20 15:44 | Infectious Disease Progress Nt ---
Date of Service May 20, 2025 Assessment & Plan Admission and Anticipated Discharge Date Admission Date: May 13, 2025 Subjective This patient recommendation is based on a telemedicine consult request which was completed asynchronously through chart review and information provided by the primary physician. The patient was not seen or examined today. The evaluation is consultative in nature and all patient care and treatment decisions can either be accepted or rejected by the patient's primary hospital-based treating physician using their own independent medical judgment for their patient. Results & Data Vital Signs (Past 12 Hours) Vital Signs Temp Pulse Pulse Resp BP Pulse Ox O2 Del Method 05/20/25 14:45 77 05/20/25 09:00 High Flow Nasal Cannula 05/20/25 09:00 63 05/20/25 08:47 36.6 C 79 18 94/45 L 97 High Flow Nasal Cannula 05/20/25 07:26 72 18 90 Nasal Cannula O2 Flow Rate 05/20/25 14:45 05/20/25 09:00 7 05/20/25 09:00 05/20/25 08:47 9 05/20/25 07:26 9
--- NOTE | 2025-05-20 18:58 | Billing Data ---
Date of Service May 20, 2025 Coding Level of Care Code 38925 SUB INP/OBS CARE MIN
--- NOTE | 2025-05-21 08:22 | Pulmonology Progress Note ---
Date of Service May 21, 2025 Assessment & Plan (1) Acute on chronic hypoxic respiratory failure: (2) Interstitial lung disease: (3) Pneumomediastinum: (4) Cor pulmonale: (5) Sepsis: Acute renal failure type: unspecified Sepsis acute organ dysfunction status: with acute organ dysfunction Sepsis type: sepsis due to unspecified organism Severe sepsis acute organ dysfunction type: acute renal failure (6) GABRIEL (acute kidney injury): (7) Dyspnea: (8) Immunosuppressed due to chemotherapy: Plan Impression: Mallorie Sparrow is a 79-year-old female history of triple negative breast CA recently admitted to the ICU for severe hyponatremia and hypoxia and discharged to rehab on 05/12/25 who is presenting back on 05/13/2025 with shortness of breath and hypoxia. CXR showed bilateral pulmonary infiltrates. CTA chest showed no pulmonary embolism, diffuse bilateral pulmonary infiltrates and new pneumomediastinum. She unfortunately has been clinically stagnant. CT scan now demonstrates progression to fibrotic changes in the lung. She has been treated for all reversible causes with antibiotics, diuretics, and steroids without significant improvement. After discussion with family, she is elected to pursue a palliative care approach. Recommendations: 1. Hypoxemic respiratory failure with pulmonary infiltrates: I CT scan on the demonstrates transition to a fibrotic changes. This is unlikely to be reversible. No role for biopsy. She has failed steroids antibiotics and diuretics. After meeting with palliative care they have planned on pursuing palliative/comfort measures. At this point in time I think weaning her steroids is appropriate. Will decrease her down to prednisone 20 mg a day and would decrease her steroid dose by 2 to 3 mg every 3 or 4 days until off. 2. Breast cancer status post therapy with docetaxel and cyclophosphamide. Advised patient that given her current clinical status, she is not a candidate for additional chemotherapeutic interventions at this point in time. Given her frail state, would be reasonable to pursue palliative care again. 3. CODE STATUS confirmed. DNR/DNI. 4. Pneumomediastinum: Unclear etiology. Potentially related to the aspiration event and coughing with Elsy effect. Appears stable on last imaging. Continue to follow clinically at this point in time. Agree with palliative care interventions. Pulmonary will sign off at this point in time. Feel free to contact us with questions or concerns. Admission and Anticipated Discharge Date Admission Date: May 13, 2025 Subjective Patient seen and examined. EMR reviewed. The patient states that she feels about the same. Her breathing is not showing any significant improvement. She is not coughing or expectorating phlegm. She remains essentially bedbound. She has met with palliative care and there are discussions about pursuing home hospice Review of Systems 2 Review of Systems: All systems reviewed & are unremarkable except as noted in Subjective Physical Exam 2 Constitutional: + ill appearing, + thin and + frail appe aring Neck: trachea midline, no thyromegaly Respiratory: + tachypneic; no respiratory distress an d no labored breathing Auscultation: + crackles; no wheezes Cardiovascular: RRR, no murmur, no edema Gastrointestinal (Abdomen): normal bowel sounds, soft, nontender, no hepatosplenomegaly Musculoskeletal: Extremities: extremities normal to inspection Skin: no rashes, warm and dry Lymphatic: no cervical lymphadenopathy Results & Data Results & Data Vital Signs (Past 12 Hours) Vital Signs Pulse Pulse Resp Pulse Ox O2 Del Method O2 Flow Rate 05/21/25 07:44 67 20 95 Nasal Cannula 9 05/21/25 07:20 62 05/20/25 22:00 74 Laboratory Results 05/19/25 05:44 05/20/25 14:19 Diagnostic Findings No new imaging PG Care Time/CCT Total # of Minutes Spent Total Time Spent with Patient: Total time spent is greater than 50% in coordination of care (as documented) at patient's floor/unit and/or counseling patient: Coding Level of Care Code 79751 SUB INP/OBS CARE 2/35MIN Diagnoses Acute on chronic hypoxic respiratory failure J96.21 Interstitial lung disease J84.9 Pneumomediastinum J98.2 Cor pulmonale I27.81 Sepsis A41.9 Acute renal failure type: unspecified Sepsis acute organ dysfunction status: with acute organ dysfunction Sepsis type: sepsis due to unspecified organism Severe sepsis acute organ dysfunction type: acute renal failure GABRIEL (acute kidney injury) N17.9 Dyspnea R06.00 Immunosuppressed due to chemotherapy D84.821; Z79.69
[2025-05-21] MEDS ORDERED: predniSONE 20 MG TAB PO SCH (09:00)
[2025-05-21] MEDS: predniSONE 20 MG TAB PO SCH (09:14)
--- NOTE | 2025-05-21 10:35 | Nephrology Progress Note ---
Date of Service May 21, 2025 Assessment & Plan (1) Hyponatremia: (2) Hypoxia: (3) GABRIEL (acute kidney injury): Plan 80 year old female with past medical history significant for hypertension, diabetes, recurrent UTI and history of breast cancer has been on chemotherapy with cyclophosphamide and docetaxel. Recently she had a prolonged hospitalization from 04/21/2025 to 05/12/25 hyponatremia, with lethargy and generalized weakness. Sodium was lowest 115 but improved prior to discharge. She was readmitted on 05/13/2025 with hypoxic respiratory failure. On admission. Sodium was 130 which slowly declined to 117 this morning. Sodium slightly improved to 118 after she received 3% saline 100 mL bolus. Sodium improved yesterday to 125. However, labs were stopped and salt tablet was stopped as she has been difficulty and plan is to go home with hospice care. Admission and Anticipated Discharge Date Admission Date: May 13, 2025 Octavio Nobles was seen this morning with her daughter at bedside. She was sleeping comfortably. Family is waiting for arrangement with hospice care to go home. Has not been getting any more labs checked. Sodium was 125 yesterday. Salt tablet was stopped yesterday as she was having difficulty swallowing them. Physical Exam Constitutional: + ill appearing and comfortable; no acut e distress Results & Data Vital Signs (Past 12 Hours) Vital Signs Temp Pulse Pulse Resp BP Pulse Ox O2 Del Method 05/21/25 08:24 36.3 C L 75 117/61 97 Room Air 05/21/25 07:44 67 20 95 Nasal Cannula 05/21/25 07:20 62 O2 Flow Rate 05/21/25 08:24 9 05/21/25 07:44 9 05/21/25 07:20 PG Care Time/CCT Total # of Minutes Spent Total Time Spent with Patient: Total time spent is greater than 50% in coordination of care (as documented) at patient's floor/unit and/or counseling patient: Coding Level of Care Code 04117 SUB INP/OBS CARE 11/27MIN Diagnoses Hyponatremia E87.1 Hypoxia R09.02 GABRIEL (acute kidney injury) N17.9
--- NOTE | 2025-05-21 11:32 | Hospitalist Progress Note ---
Date of Service May 21, 2025 Assessment & Plan (1) Sepsis: Plan: -had ILD on March CT scan but mild at that time and has rapidly progressed - related to toxicity from chemo or infection -continuing pip-tazo. serial procal negative and had broad spectrum IV antibiotics 04/20-at least 04/24 so seems less likely a standard bacterial pneumonia. RVP was negative -azithromycin added for atypical coverage -pt transitioning to [facility] [facility] and palliative care, plan to d/c all abx upon discharge (2) Acute on chronic hypoxic respiratory failure: Plan: - rapidly progressive ILD type changes with traction bronchiectasis, possible bibasilar pneumonia. Immunocompromised because of recent chemo and steroids -steroids change to 20mg daily (3) Pneumomediastinum: Plan: -no evidence of esophageal damage on CT scan, probably alveolar source (4) GABRIEL (acute kidney injury): Plan: -resolved and Cr 0.9 stable despite gentle diuresis. -no further lab draws 2nd [facility] (5) Paroxysmal atrial fibrillation: Plan: -placed on oral metoprolol. - Has resolved with HR in the 70-80s (6) DM type 2 (diabetes mellitus, type 2): Plan: -consulted pharmacy for glycemic management - Continue SQ insulins Plan 80yo woman with stage 1 breast cancer and recent chemotherapy (docetaxel and cyclophosphamide 04/09) who was hospitalized 04/18-05/12 with severe hyponatremia, diverticulitis/UTI, pulmonary hypertension, hypoxia who was quickly readmitted from [facility] with worsening acute on chronic respiratory failure Palliative care consult appreciated Plan for discharge on home hospice once arrangements made Admission and Anticipated Discharge Date Admission Date: May 13, 2025 Subjective Pt appears comfortable this am, expressing anticipation to go home. Daughter by bedside. Review of Systems Review of Systems: CONST: Negative for fever, body aches and chills. HENT: Negative for neck pain/stiffness, headache, congestion, sore throat, swelling. EYES: Negative for discharge/pain or vision changes. RESP: Negative for cough/hemoptysis and shortness of breath. CV: Negative chest pain, difficulty breathing, palpitations. ABD: Negative pain, nausea, vomiting. : Negative increase frequency, dysuria, blood in urine or stool. MUSC: Negative for muscle aches, edema. SKIN: Negative rash, lesions/sores. NEURO: Negative headache, dizziness, weakness. Physical Exam Physical Exam: GENERAL APPEARANCE NAD, activity normal for age, well developed/ well nourished, no cyanosis, pallor, or diaphoresis. EYES lids/conjunctiva normal. EARS/NOSE/THROAT Mucous membranes moist, nares normal, lips/teeth normal uvula midline without oral pharyngeal erythema, exudate or swelling TMs normal bilaterally. No lymphangitis/lymphedema. HEAD/NECK normocephalic atraumatic, no facial trauma, neck is supple. RESPIRATORY respiratory effort normal, speaks in full sentences, no tripod position, no accessory muscle use. Lungs clear to auscultation without rhonchi, wheezes, rales CARDIAC Regular rate and rhythm, no edema. ABDOMINAL Soft, ND/NT. No evidence of fluid wave. No pulsatile masses on exam, rebound tenderness, Sim sign or pain over Mcburney's point. MUSCLES/EXTREMITIES No abnormal range of motion, no swelling. SKIN Warm, pink and dry. No rashes, dermatoses, petechiae or lesions. NEUROLOGICAL Speech is clear and appropriate. Normal level of consciousness. Gait and coordination are normal. 5/5 strength in all extremities. PSYCH Normal mood and affect. Judgement/competence is appropriate Results & Data Results & Data Vital Signs (Past 12 Hours) Vital Signs Temp Pulse Pulse Resp BP Pulse Ox O2 Del Method 05/21/25 09:00 High Flow Nasal Cannula 05/21/25 08:24 36.3 C L 75 117/61 97 Room Air 05/21/25 07:44 67 20 95 Nasal Cannula 05/21/25 07:20 62 O2 Flow Rate 05/21/25 09:00 7 05/21/25 08:24 9 05/21/25 07:44 9 05/21/25 07:20 PG Care Time/CCT Total # of Minutes Spent Total Time Spent with Patient: Total time spent is greater than 50% in coordination of care (as documented) at patient's floor/unit and/or counseling patient: Coding Level of Care Code 77646 SUB INP/OBS CARE 2/35MIN Diagnoses Sepsis A41.9 Acute renal failure type: unspecified Sepsis acute organ dysfunction status: with acute organ dysfunction Sepsis type: sepsis due to unspecified organism Severe sepsis acute organ dysfunction type: acute renal failure Acute on chronic hypoxic respiratory failure J96.21 Pneumomediastinum J98.2 GABRIEL (acute kidney injury) N17.9 Paroxysmal atrial fibrillation I48.0 DM type 2 (diabetes mellitus, type 2) E11.9 (1) Sepsis Acute renal failure type: unspecified Sepsis acute organ dysfunction status: with acute organ dysfunction Sepsis type: sepsis due to unspecified organism Severe sepsis acute organ dysfunction type: acute renal failure
[2025-05-22 07:50] VITALS: BP 110/64; RESP 19; TEMP 97.7; O2SAT 75
--- NOTE | 2025-05-22 09:19 | Discharge Summary ---
Discharge Summary Date of Service May 22, 2025 Principal Dx & Hospital Course #1 = Principal Diagnosis (1) Sepsis: -had ILD on March CT scan but mild at that time and has rapidly progressed - related to toxicity from chemo or infection -continuing pip-tazo. serial procal negative and had broad spectrum IV antibiotics 04/20-at least 04/24 so seems less likely a standard bacterial pneumonia. RVP was negative -azithromycin added for atypical coverage -pt transitioning to [facility] and palliative care, plan to d/c all abx upon discharge (2) Acute on chronic hypoxic respiratory failure: - rapidly progressive ILD type changes with traction bronchiectasis, possible bibasilar pneumonia. Immunocompromised because of recent chemo and steroids -steroids change to 20mg daily (3) Pneumomediastinum: -no evidence of esophageal damage on CT scan, probably alveolar source (4) GABRIEL (acute kidney injury): -resolved and Cr 0.9 stable despite gentle diuresis. -no further lab draws 2nd [facility] (5) Paroxysmal atrial fibrillation: -placed on oral metoprolol. - Has resolved with HR in the 70-80s (6) DM type 2 (diabetes mellitus, type 2): -consulted pharmacy for glycemic management - Continue SQ insulins Plan 80yo woman with stage 1 breast cancer and recent chemotherapy (docetaxel and cyclophosphamide 04/09) who was hospitalized 04/18-05/12 with severe hyponatremia, diverticulitis/UTI, pulmonary hypertension, hypoxia who was quickly readmitted from [facility] with worsening acute on chronic respiratory failure Palliative care consult appreciated Plan for discharge on home hospice once arrangements made Admission HPI Per Admitting Provider Mallorie Sparrow is a pleasant 80yo female with history of breast cancer (Triple Nega tive, Stage I, s/p 3/4 cycles of chemotherapy), HTN, HLP, DM, recently admitted to [facility] from 04/21 - 05/12/2025 after presenting with generalized weakness and confusion. She was admitted for severe hyponatremia - sodium of 115 as well as acute encephalopathy, sepsis secondary to acute diverticulitis and UTI. Patient was found to have non-cardiogenic pulmonary edema, thought to be secondary to her chemotherapy agents - Docetaxel and Cyclophosphamide. She was managed with a steroid taper and ultimately discharged to [facility] on 3L of supplemental O2 and Lasix. Patient had some cranberry juice at breakfast this morning and reports coughing twice then vomiting it back up. She has not been able to participate much in rehab since arriving at [facility]. Family states that patient develops dizziness, sweating and some shortness of breath when she sits up. She also was found to have low blood pressure with positional changes. Daughter reports that patient has been getting anxious and panicky when she is asked to sit up. Patient hypoxic at [facility] - saturations reported to be in the 70's with difficulty increasing so they called 911. Patient with no specific complaints at present. She denies fever, chills, cough, SOB, chest pain, palpitations, abdominal pain, nausea, diarrhea or urinary complaints. In the ER patient has been in atrial fibrillation with rate of 110 - 127bpm Blood pressure has been low ranging 74-102 / 38-66 She has been tachypneic as well, initially 85% on room air, saturating well on NC 5L/min ER Course: NSS x 1500mL Zosyn 4.5gm Solumedrol 40mg IV Bactrim IV Budesonide 0.25mg neb Magnesium 1gm IV Calcium gluconate 2gm IV LR x 1L Discharge Exam GENERAL APPEARANCE NAD, activity normal for age, well developed/ well nourished, no cyanosis, pallor, or diaphoresis. EYES lids/conjunctiva normal. EARS/NOSE/THROAT Mucous membranes moist, nares normal, lips/teeth normal uvula midline without oral pharyngeal erythema, exudate or swelling TMs normal bilaterally. No lymphangitis/lymphedema. HEAD/NECK normocephalic atraumatic, no facial trauma, neck is supple. RESPIRATORY respiratory effort normal, speaks in full sentences, no tripod position, no accessory muscle use. Lungs clear to auscultation without rhonchi, wheezes, rales CARDIAC Regular rate and rhythm, no edema. ABDOMINAL Soft, ND/NT. No evidence of fluid wave. No pulsatile masses on exam, rebound tenderness, Sim sign or pain over Mcburney's point. MUSCLES/EXTREMITIES No abnormal range of motion, no swelling. SKIN Warm, pink and dry. No rashes, dermatoses, petechiae or lesions. NEUROLOGICAL Speech is clear and appropriate. Normal level of consciousness. Gait and coordination are normal. 5/5 strength in all extremities. PSYCH Normal mood and affect. Judgement/competence is appropriate Discharge Plan Discharge Items Patient Disposition: Hospice - Home Reason For Visit: SEPSIS, GABRIEL Discharge Diagnosis: Interstitial Lung disease, respiratory failure Condition on Discharge: Serious Activity: Resume your previous activity Non-emergency contact: Primary Care Provider Call non-emergency contact if: you have any medication questions Follow-up/Referrals: Racheal Kyle MD [Primary Care Provider] - Diet: Regular Addtl Attending Provider Instructions: Follow up with home hospice Pending Studies at Discharge: No Stand-Alone Forms: [facility] Medications and DC Order Prescriptions: New hyoscyamine sulfate [Levsin] 0.125 mg Tablet 0.125 mg sublingual Q4H PRN (Reason: dyspepsia) Qty: 60 0RF morphine concentrate 100 mg/5 mL (20 mg/mL) Solution 5 mg PO Q2H PRN (Reason: pain) Qty: 30 0RF lorazepam 0.5 mg Tablet 0.5 mg sublingual Q4H PRN (Reason: anxiety) Qty: 60 0RF haloperidol lactate 2 mg/mL Concentrate 0.5 mg PO Q4H PRN (Reason: agitation) Qty: 30 0RF atropine 1 % Drops 4 drp sublingual Q1H PRN (Reason: secretions) Qty: 15 0RF Discontinued cholecalciferol (vitamin D3) 25 mcg (1,000 unit) capsule 25 mcg PO DAILY kzbgrqhm-ehqs-jvssv-oreg-capry 100 mg-150 mg- 50 mg-150 mg capsule 1 cap PO DAILY lisinopril 40 mg tablet 40 mg PO DAILY atorvastatin 20 mg tablet 20 mg PO DAILY aspirin 81 mg tablet,delayed release (DR/EC) 81 mg PO DAILY amoxicillin 500 mg tablet 2,000 mg PO .PRN/UD PRN (Reason: Prophylaxis) Rx Instructions: TAKE FOUR TABS ONE HOUR PRIOR TO DENTAL APPOINTMENT. zinc 50 mg Tablet 50 mg PO DAILY tramadol 50 mg tablet 50 mg PO UD metformin 500 mg tablet extended release 24 hr 1,000 mg PO BID amlodipine 5 mg tablet 5 mg PO DAILY prochlorperazine maleate 10 mg tablet 10 mg PO Q6 PRN (Reason: N/V) ondansetron 8 mg tablet,disintegrating 8 mg translingual Q8 PRN (Reason: Nausea And Vomiting) Januvia 100 mg tablet 100 mg PO DAILY lidocaine-prilocaine 2.5-2.5 % cream See Rx Instructions .ROUTE .COMPLEX Rx Instructions: APPLY TO AFFECTED AREA 30 MINUTES BEFORE PORT ACCESS metoprolol tartrate 50 mg tablet See Rx Instructions .ROUTE .COMPLEX Rx Instructions: TAKE 1 TABLET BY MOUTH EVERY MORNING AND 2 BY MOUTH AT BEDTIME metolazone 2.5 mg Tablet 2.5 mg PO QAM Qty: 30 0RF furosemide 20 mg Tablet 20 mg PO QAM 30 Days Qty: 30 0RF diclofenac sodium [Voltaren Arthritis Pain] 1 % Gel 2 g EXT TID Qty: 50 0RF pantoprazole 40 mg Tablet,Delayed Release (Dr/Ec) 40 mg PO QAM Qty: 30 0RF hydroxyzine HCl 25 mg Tablet 25 mg PO Q8H PRN (Reason: anxiety) 30 Days Qty: 20 0RF prednisone 20 mg Tablet 20 mg PO DAILY Qty: 1 0RF Rx Instructions: Last dose scheduled for 05/13/25 melatonin 3 mg Tablet 3 mg PO HS PRN (Reason: sleep) Qty: 30 0RF Discharge Orders: Discharge Order (Routine); Ordered 05/22/25 Ordered By: Cuba Bui Admission Data Admit Date/Time: 05/13/25 19:57 Attending Provider: Cuba Bui Admit Provider: Renuka Garrett Primary Care Provider: Racheal Kyle Other Providers: Mychal Shukla; Renuka Garrett; Ellie Kraus [facility]; Pema Martinez; Merlene Villanueva; Judith York; [facility] Stay Data Consultations 05/13/25 18:45 ED Decision to Admit Stat 05/13/25 19:57 Consult Pulmonology Routine 05/16/25 10:17 Consult Infectious Diseases Routine 05/18/25 18:03 Consult Palliative Care Routine 05/19/25 07:00 Consult Nephrology Routine Diagnostic Imagining Performed 05/13/25 16:18 CT abd pelvis wo con Stat 05/13/25 17:36 CT chest diagnostic wo con Stat 05/19/25 19:39 CT chest diagnostic wo con Routine Pending Results Patient Have Any Pending Studies at Discharge: No Discharge Instructions Given to Patient (Per Discharging Provider) Follow up with home hospice Total Time Total Time Spent Total Time Spent (In Minutes): 50 Coding Level of Care Code 97277 INP/OBS DISCH >30 MIN Diagnoses Sepsis A41.9 Acute renal failure type: unspecified Sepsis acute organ dysfunction status: with acute organ dysfunction Sepsis type: sepsis due to unspecified organism Severe sepsis acute organ dysfunction type: acute renal failure Acute on chronic hypoxic respiratory failure J96.21 Pneumomediastinum J98.2 GABRIEL (acute kidney injury) N17.9 Paroxysmal atrial fibrillation I48.0 DM type 2 (diabetes mellitus, type 2) E11.9
[2025-05-22] MEDS: INSULIN HUMAN NPH SC SCH (10:39)
[2025-05-22] MEDS: ATROPINE SULFATE 1% OP SOLN 5 ML BTL SL PRN (10:40)
--- NOTE | 2025-05-22 15:23 | Pharmacy Report ---
Pharmacy Glycemic Short Note 2 - Date of Service May 22, 2025 - Glycemic Short BSG Results (Last 24 hours): 05/21/25 05/21/25 05/21/25 16:18 16:21 20:35 POC Glucose 353 H* 348 H* 132 H 05/22/25 07:45 POC Glucose 151 H OUTPATIENT ANTIDIABETIC REGIMEN: * metformin 1 gm bid, januvia 100 mg daily * HbA1c 6.6% (04/21/25) ASSESSMENT: 05/22: * Mallorie received a total of 12 units of insulin yesterday (all were bolus). BSGs were 96-443-984-132mg/dL. I suspect the high BSG readings at lunch/dinner were due prednisone that was added yesterday morning. Will trial adding a dose of NPH to be given with the prednisone daily to see if that prevents the spike in blood sugar. * Will continue bolus insulin regimen without change 05/20: * Mallorie received 20 units of insulin yesterday (5 were basal) * Fasting BSG this AM again below goal range. Patient wishes to go home on hospice per case management notes. Will increase goal ranges of basal scale. * Continue with increased NovoLog goal range, loosen slightly with goals of care change to prevent hyperglycemic complications. 05/19: * Mallorie received 40 units of insulin yesterday (20 were basal) * Fasting BSG this AM below goal range, Lantus held this AM. She continues on IV methylprednisolone 40mg IV TID, Bactrim, and Zosyn (Zithromax course completed yesterday). No clear trends in highs and lows. Will start basal insulin at a scale based on BSG tonight due to labile BSGs. * Hypoglycemic yesterday at lunch, NovoLog loosened, goal range increased. Continue at this time. 05/18: * Mallorie received 44 units of insulin yesterday (22 were basal) * Fasting BSG this AM below goal range, will decrease 10% at this time. * She continues on methylprednisolone 40mg IV TID as well as Bactrim IV (in D5W), Zosyn, and Zithromycin IV (mixed in D5W). * Carbohydrate ratio tighten slightly to prevent BSG increases. Correction factor loosened to prevent overcorrection. 05/16: * 80yo woman with stage 1 breast cancer and recent chemotherapy, readmitted from [facility] with worsening acute on chronic respiratory failure. Continues on high dose steroids. Pharmacy consulted for glycemic management. Insulin drip started yesterday as BSGs>300 despite increase in novolog dosing. Insulin drip running this AM only at 0.4 units/hr. Patient received 17 units of basal insulin yesterday, will increase basal ~30% to 22 units x 1 dose this AM and d/c insulin infusion. With ongoing steroids, will provider tighter CR this AM. PLAN FOR INPATIENT GLYCEMIC CONTROL: * Hold outpatient oral diabetes medications * Basal insulin * Lantus 0-10 units SQ BID (see eMAR for additional details) * Bolus insulin * NovoLog per scale ACHS or Q6hrs while NPO * Goal Range: Low 110 mg/dL - High 160 mg/dL * Correction Factor: 45 mg/dL/unit * Nutritional / Prandial insulin per carb ratio of 1 unit per 8 grams CHO consumed
[2025-05-22 15:39] VITALS: PULSE 89
== END 2025-05-22 19:15 | disposition hospice, home (50) | DRG 871 ==
LOC: ED 14:46 → SUATTDRO 19:57 → 4W 19:57